=== PATIENT | female | born 1965 | race Caucasian/White ===

== ENCOUNTER → 2017-04-15 | Outpatient (CLI) | payer MEDICARE, OTHER ==
--- NOTE | 2017-04-15 12:08 | FL ---
MODIFIED SWALLOW / DEGLUTITION STUDY DATE OF EXAM: 04/15/2017 CLINICAL HISTORY: 51-year-old female with dysphasia, complaining that food gets stuck in the throat a nd has to chew a lot in order to swallow. Total fluoroscopy time: 2 minutes 10 seconds. TECHNIQUE: Deglutition study is performed utilizing thin liquid barium, honey and nectar thick liqui d barium, barium thick applesauce, and barium coated cracker. COMPARISON: None. FINDINGS: There is marked delay in AP transit of bolus with episodes of spitting food out while bolus still in the oral cavity. When there is successful posterior transit of the bolus, swallowing mechanism is nor mal without evidence for an attritional or aspiration. After the solid consistency was spit out, the exam was terminated. No significant residuals. IMPRESSION: 1. Functional swallowing mechanism. 2. The patient does have hesitation in initiating the swallow and demonstrates repeated chewing. Mult iple episodes of spitting the test material out. A psychogenic cause is suggested. Please refer to sp eech therapist notes for further details if necessary.
== END | disposition home or self-care (01) ==
LOC: RADFLMAIN 10:51
PROVIDERS: ATTEND Psychiatry & Neurology Neurology
DX: R13.10 Dysphagia, unspecified (principal)
CPT/HCPCS: 74230

== ENCOUNTER → 2019-07-20 | Outpatient (CLI) | payer MEDICARE, OTHER ==
[2019-07-20 22:35] LABS: Total Protein,CSF 63 mg/dL (12-60)
[2019-07-21 08:48] LABS: Appearance,CSF Clear; CSF Tube Number 4; CSF Tube Volume 3.8
[2019-07-21 08:49] LABS: Nucleated Cells, CSF 2 u/L (0-5); Red Blood Cell,CSF 1 u/L (0-10)
[2019-07-22 14:58] LABS: IgG - CSF 1.9 mg/dL (0.0 - 3.4); IgG Synthesis Rate 1.54 mg/day (0.00 - 3.00); IgG/Albumin Index (CSF) 0.66 (0.00 - 0.77); Immunoglobulin G 426 mg/dL (700 - 1600)
== END | disposition home or self-care (01) ==
LOC: LABWHC1 09:35
PROVIDERS: ATTEND Nurse Practitioner Acute Care
DX: R41.3 Other amnesia (principal); R90.82 White matter disease, unspecified; R26.9 Unspecified abnormalities of gait and mobility
CPT/HCPCS: 36415; 82040; 82042; 82784; 83873; 83916; 84157; 87801; 88108; 89050

== ENCOUNTER 2022-02-11 18:26 | Inpatient (IN) | payer MEDICARE, OTHER ==
[2022-02-11] MEDS ORDERED: SODIUM CHLORIDE 0.9% 500 ML 500 ML IV ONE (18:34)
[2022-02-11] MEDS ORDERED: SODIUM CHLORIDE 0.9% 1,000 ML IV ONE ×2 (18:34→20:21)
[2022-02-11 18:54] LABS: Basophils # (A) 0.1 k/uL (0-0.2); Basophils % (A) 0 %; Eosinophils # (A) 0.1 k/uL (0-0.7); Eosinophils % (A) 1 %; HCT 44.9 % (34.0-46.0); HGB 14.5 gm/dL (11.4-16.0); Lymphocytes # (A) 0.8 k/uL (1.0-4.8); Lymphocytes % (A) 4 %; MCH 30.7 pg (25.0-35.0); MCHC 32.3 g/dL (31.0-37.0); MCV 95.2 fL (80.0-100.0); Mean Platelet Volume 7.6; Monocytes # (A) 0.5 k/uL (0-1.0); Monocytes % (A) 2 %; Neutrophils # (A) 19.4 k/uL (1.3-7.7); Neutrophils % (A) 92 %; Platelet Count 509 k/uL (150-450); RBC 4.72 m/uL (3.80-5.40); RDW 15.8 % (11.5-15.5); WBC 21.2 k/uL (3.8-10.6)
--- NOTE | 2022-02-11 18:57 | ED ---
General Adult HPI - General Chief complaint: Altered Mental Status Stated complaint: unresponsive Time Seen by Provider: 02/11/22 18:40 Source: patient, EMS, RN notes reviewed, old records reviewed Mode of arrival: EMS Limitations: altered mental status - History of Present Illness Initial comments: This a 56-year-old female presents emergency Department by EMS. EMS states that she was found down unresponsive hypotensive and hypoxic. EMS states that family last saw her at 7:30 and they came home at 4:30. Family requested patient come here. No other history at this time was available. Patient responds with sternal rub and did state she is in no pain. Patient otherwise did not answer any other questions no family members with the patient. - Related Data Allergies Allergy/AdvReac Type Severity Reaction Status Date / Time Unable to Assess Allergy Verified 02/11/22 18:38 Review of Systems ROS Statement: Those systems with pertinent positive or pertinent negative responses have been documented in the HPI. ROS Other: All systems not noted in ROS Statement are negative. Past Medical History Past Medical History: Unable to Obtain History of Any Multi-Drug Resistant Organisms: Unobtainable Past Surgical History: Unable to Obtain Past Psychological History: Bipolar, Depression Smoking Status: Unknown if ever smoked Past Alcohol Use History: Unable to Obtain Past Drug Use History: Unable to Obtain General Exam - General Exam Comments Initial Comments: GENERAL: Patient is well-developed and well-nourished. Patient is nontoxic and well- hydrated and is in no acute distress. Patient is unresponsive to sternal rub ENT: Neck is soft and supple. No significant lymphadenopathy is noted. Oropharynx is clear. Moist mucous membranes. Neck has full range of motion without eliciting any pain. EYES: The sclera were anicteric and conjunctiva were pink and moist. Extraocular movements were intact and pupils were equal round and reactive to light. Eyelids were unremarkable. PULMONARY: Unlabored respirations. Good breath sounds bilaterally. No audible rales rhonchi or wheezing was noted. CARDIOVASCULAR: There is a regular rate and rhythm without any murmurs gallops or rubs. ABDOMEN: Soft and nontender with normal bowel sounds. SKIN: Skin is clear with no lesions or rashes and otherwise unremarkable. NEUROLOGIC: Patient is alert and oriented 1. Cranial nerves II through XII are grossly intact. Motor and sensory are also intact. Normal speech, volume and content. Symmetrical smile. MUSCULOSKELETAL: Normal extremities with adequate strength and full range of motion. LYMPHATICS: No significant lymphadenopathy is noted PSYCHIATRIC: Unable to evaluate at this time Limitations: altered mental status Course Vital Signs 02/11/22 02/11/22 02/11/22 18:38 20:03 20:17 Temperature 97.7 F 96.9 F L Pulse Rate 89 60 Respiratory 18 22 Rate Blood Pressure 94/62 108/57 O2 Sat by Pulse 98 96 Oximetry Medical Decision Making - Medical Decision Making EKG shows sinus rhythm at 69 bpm FL interval 100 QRS 170 QT interval 447 QTC is 466. Patient's EKG shows no ST segment elevation or depression. Patient's ideal body weight is 61 kg Patient has a pneumonia on the chest x-ray. Patient got 2 g Rocephin. Patient has elevated creatinine as well as elevated ammonia. Patient received 2-1/2 L of normal saline and was placed on 130 mL of fluid. Patient also got lactulose per rectum. I spoke with Dr. Shin agreed to admit the patient admitted the patient wrote admitting orders. - Lab Data Result diagrams: 02/11/22 18:51 02/11/22 18:51 Lab Results 02/11/22 02/11/22 02/11/22 Range/Units 18:51 18:51 18:51 WBC 21.2 H (3.8-10.6) k/uL RBC 4.72 (3.80-5.40) m/uL Hgb 14.5 (11.4-16.0) gm/dL Hct 44.9 (34.0-46.0) % MCV 95.2 (80.0-100.0) fL MCH 30.7 (25.0-35.0) pg MCHC 32.3 (31.0-37.0) g/dL RDW 15.8 H (11.5-15.5) % Plt Count 509 H (150-450) k/uL MPV 7.6 Neutrophils % 92 % Lymphocytes % 4 % Monocytes % 2 % Eosinophils % 1 % Basophils % 0 % Neutrophils # 19.4 H (1.3-7.7) k/uL Lymphocytes # 0.8 L (1.0-4.8) k/uL Monocytes # 0.5 (0-1.0) k/uL Eosinophils # 0.1 (0-0.7) k/uL Basophils # 0.1 (0-0.2) k/uL PT 9.9 (9.0-12.0) sec INR 0.9 (<1.2) APTT 20.0 L (22.0-30.0) sec Sodium 145 (137-145) mmol/L Potassium 3.1 L (3.5-5.1) mmol/L Chloride 105 (98-107) mmol/L Carbon Dioxide 25 (22-30) mmol/L Anion Gap 15 mmol/L BUN 47 H (7-17) mg/dL Creatinine 5.67 H (0.52-1.04) mg/dL Est GFR (CKD-EPI)AfAm 9 (>60 ml/min/1.73 sqM) Est GFR (CKD-EPI)NonAf 8 (>60 ml/min/1.73 sqM) Glucose 131 H (74-99) mg/dL Plasma Lactic Acid Arvind (0.7-2.0) mmol/L Calcium 8.5 (8.4-10.2) mg/dL Total Bilirubin 1.1 (0.2-1.3) mg/dL AST 645 H (14-36) U/L ALT 119 H (4-34) U/L Alkaline Phosphatase 117 (38-126) U/L Ammonia (<30) umol/L Troponin I (0.000-0.034) ng/mL Total Protein 7.4 (6.3-8.2) g/dL Albumin 3.9 (3.5-5.0) g/dL Urine Color Urine Appearance (Clear) Urine pH (5.0-8.0) Ur Specific [place] (1.001-1.035) Urine Protein (Negative) Urine Glucose (UA) (Negative) Urine Ketones (Negative) Urine Blood (Negative) Urine Nitrite (Negative) Urine Bilirubin (Negative) Urine Urobilinogen (<2.0) mg/dL Ur Leukocyte Esterase (Negative) Urine RBC (0-5) /hpf Urine WBC (0-5) /hpf Ur Squamous Epith Cells (0-4) /hpf Urine Bacteria (None) /hpf Hyaline Casts (0-2) /lpf Urine Mucus (None) /hpf Urine Yeast (Budding) (None) /hpf Urine Opiates Screen (NotDetected) Ur Oxycodone Screen (NotDetected) Urine Methadone Screen (NotDetected) Ur Propoxyphene Screen (NotDetected) Ur Barbiturates Screen (NotDetected) U Tricyclic Antidepress (NotDetected) Ur Phencyclidine Scrn (NotDetected) Ur Amphetamines Screen (NotDetected) U Methamphetamines Scrn (NotDetected) U Benzodiazepines Scrn (NotDetected) Urine Cocaine Screen (NotDetected) U Marijuana (THC) Screen (NotDetected) Serum Alcohol <10 mg/dL 02/11/22 02/11/22 02/11/22 Range/Units 18:51 18:51 19:00 WBC (3.8-10.6) k/uL RBC (3.80-5.40) m/uL Hgb (11.4-16.0) gm/dL Hct (34.0-46.0) % MCV (80.0-100.0) fL MCH (25.0-35.0) pg MCHC (31.0-37.0) g/dL RDW (11.5-15.5) % Plt Count (150-450) k/uL MPV Neutrophils % % Lymphocytes % % Monocytes % % Eosinophils % % Basophils % % Neutrophils # (1.3-7.7) k/uL Lymphocytes # (1.0-4.8) k/uL Monocytes # (0-1.0) k/uL Eosinophils # (0-0.7) k/uL Basophils # (0-0.2) k/uL PT (9.0-12.0) sec INR (<1.2) APTT (22.0-30.0) sec Sodium (137-145) mmol/L Potassium (3.5-5.1) mmol/L Chloride (98-107) mmol/L Carbon Dioxide (22-30) mmol/L Anion Gap mmol/L BUN (7-17) mg/dL Creatinine (0.52-1.04) mg/dL Est GFR (CKD-EPI)AfAm (>60 ml/min/1.73 sqM) Est GFR (CKD-EPI)NonAf (>60 ml/min/1.73 sqM) Glucose (74-99) mg/dL Plasma Lactic Acid Arvind (0.7-2.0) mmol/L Calcium (8.4-10.2) mg/dL Total Bilirubin (0.2-1.3) mg/dL AST (14-36) U/L ALT (4-34) U/L Alkaline Phosphatase (38-126) U/L Ammonia 46 H (<30) umol/L Troponin I 0.090 H* (0.000-0.034) ng/mL Total Protein (6.3-8.2) g/dL Albumin (3.5-5.0) g/dL Urine Color Dark Brown Urine Appearance Turbid H (Clear) Urine pH 5.0 (5.0-8.0) Ur Specific [place] 1.029 (1.001-1.035) Urine Protein 2+ H (Negative) Urine Glucose (UA) Trace H (Negative) Urine Ketones Negative (Negative) Urine Blood Large H (Negative) Urine Nitrite Negative (Negative) Urine Bilirubin Negative (Negative) Urine Urobilinogen 2.0 (<2.0) mg/dL Ur Leukocyte Esterase Trace H (Negative) Urine RBC 78 H (0-5) /hpf Urine WBC 74 H (0-5) /hpf Ur Squamous Epith Cells 4 (0-4) /hpf Urine Bacteria Rare H (None) /hpf Hyaline Casts 75 H (0-2) /lpf Urine Mucus Few H (None) /hpf Urine Yeast (Budding) Few H (None) /hpf Urine Opiates Screen Detected H (NotDetected) Ur Oxycodone Screen Not Detected (NotDetected) Urine Methadone Screen Not Detected (NotDetected) Ur Propoxyphene Screen Not Detected (NotDetected) Ur Barbiturates Screen Detected H (NotDetected) U Tricyclic Antidepress Not Detected (NotDetected) Ur Phencyclidine Scrn Not Detected (NotDetected) Ur Amphetamines Screen Not Detected (NotDetected) U Methamphetamines Scrn Not Detected (NotDetected) U Benzodiazepines Scrn Not Detected (NotDetected) Urine Cocaine Screen Not Detected (NotDetected) U Marijuana (THC) Screen Not Detected (NotDetected) Serum Alcohol mg/dL 02/11/22 Range/Units 20:30 WBC (3.8-10.6) k/uL RBC (3.80-5.40) m/uL Hgb (11.4-16.0) gm/dL Hct (34.0-46.0) % MCV (80.0-100.0) fL MCH (25.0-35.0) pg MCHC (31.0-37.0) g/dL RDW (11.5-15.5) % Plt Count (150-450) k/uL MPV Neutrophils % % Lymphocytes % % Monocytes % % Eosinophils % % Basophils % % Neutrophils # (1.3-7.7) k/uL Lymphocytes # (1.0-4.8) k/uL Monocytes # (0-1.0) k/uL Eosinophils # (0-0.7) k/uL Basophils # (0-0.2) k/uL PT (9.0-12.0) sec INR (<1.2) APTT (22.0-30.0) sec Sodium (137-145) mmol/L Potassium (3.5-5.1) mmol/L Chloride (98-107) mmol/L Carbon Dioxide (22-30) mmol/L Anion Gap mmol/L BUN (7-17) mg/dL Creatinine (0.52-1.04) mg/dL Est GFR (CKD-EPI)AfAm (>60 ml/min/1.73 sqM) Est GFR (CKD-EPI)NonAf (>60 ml/min/1.73 sqM) Glucose (74-99) mg/dL Plasma Lactic Acid Arvind 1.4 (0.7-2.0) mmol/L Calcium (8.4-10.2) mg/dL Total Bilirubin (0.2-1.3) mg/dL AST (14-36) U/L ALT (4-34) U/L Alkaline Phosphatase (38-126) U/L Ammonia (<30) umol/L Troponin I (0.000-0.034) ng/mL Total Protein (6.3-8.2) g/dL Albumin (3.5-5.0) g/dL Urine Color Urine Appearance (Clear) Urine pH (5.0-8.0) Ur Specific [place] (1.001-1.035) Urine Protein (Negative) Urine Glucose (UA) (Negative) Urine Ketones (Negative) Urine Blood (Negative) Urine Nitrite (Negative) Urine Bilirubin (Negative) Urine Urobilinogen (<2.0) mg/dL Ur Leukocyte Esterase (Negative) Urine RBC (0-5) /hpf Urine WBC (0-5) /hpf Ur Squamous Epith Cells (0-4) /hpf Urine Bacteria (None) /hpf Hyaline Casts (0-2) /lpf Urine Mucus (None) /hpf Urine Yeast (Budding) (None) /hpf Urine Opiates Screen (NotDetected) Ur Oxycodone Screen (NotDetected) Urine Methadone Screen (NotDetected) Ur Propoxyphene Screen (NotDetected) Ur Barbiturates Screen (NotDetected) U Tricyclic Antidepress (NotDetected) Ur Phencyclidine Scrn (NotDetected) Ur Amphetamines Screen (NotDetected) U Methamphetamines Scrn (NotDetected) U Benzodiazepines Scrn (NotDetected) Urine Cocaine Screen (NotDetected) U Marijuana (THC) Screen (NotDetected) Serum Alcohol mg/dL Critical Care Time Critical Care Time: Yes Total Critical Care Time: 35 Disposition Clinical Impression: Pneumonia, Acute renal failure, Hypokalemia, Sepsis, Altered mental status, Hepatic encephalopathy Disposition: ADMITTED IP TO THIS [facility] Time of Disposition: 20:45
[2022-02-11 19:06] LABS: ALT 119 U/L (4-34); AST 645 U/L (14-36); African American GFR (CKD) 9 (>60 ml/min/1.73 sqM); Albumin 3.9 g/dL (3.5-5.0); Alcohol <10 mg/dL; Alkaline Phosphatase 117 U/L (38-126); Anion Gap 15 mmol/L; Blood Urea Nitrogen 47 mg/dL (7-17); Calcium 8.5 mg/dL (8.4-10.2); Carbon Dioxide 25 mmol/L (22-30); Chloride 105 mmol/L (98-107); Glucose 131 mg/dL (74-99); Non-African American GFR(CKD) 8 (>60 ml/min/1.73 sqM); Potassium 3.1 mmol/L (3.5-5.1); Sodium 145 mmol/L (137-145); Total Bilirubin 1.1 mg/dL (0.2-1.3); Total Protein 7.4 g/dL (6.3-8.2)
[2022-02-11 19:10] LABS: INR 0.9 (<1.2); Prothrombin Time 9.9 sec (9.0-12.0)
--- NOTE | 2022-02-11 19:38 | CT ---
EXAMINATION TYPE: CT brain cspine wo con DATE OF EXAM: 02/11/2022 COMPARISON: None HISTORY: found unresponsive CT DLP: 1498.5 mGycm Automated exposure control for dose reduction was used. Ventricles have normal size. There is no mass effect or midline shift. There is no sign of intracrani al hemorrhage. There is mild symmetric thalamic calcification. Calvarium is intact. There is normal a eration of the mastoid sinuses. There is some mucosal thickening in the ethmoid and sphenoid sinus. M ild mucosal thickening also present in the right maxillary sinus. The cervical vertebra have normal alignment. Posterior elements are intact. No compression fracture. There is posterior endplate spur formation at C3-4. Prevertebral soft tissues are intact. IMPRESSION: Negative CT scan of the brain. No acute intracranial abnormality. Minor degenerative changes in the cervical spine. No fracture. Images of the brain and cervical spine obtained without contrast.
--- NOTE | 2022-02-11 19:45 | XR ---
EXAMINATION TYPE: XR chest 2V DATE OF EXAM: 02/11/2022 COMPARISON: 04/12/2020 HISTORY: Short of breath TECHNIQUE: 2 views FINDINGS: There is some coarse infiltrate or atelectasis right upper lobe. No heart failure seen. Hea rt size is normal. There are chest leads. Costophrenic angles are clear. IMPRESSION: There is some right upper lobe pneumonia and atelectasis which is new compared to old exa mGala
[2022-02-11 19:59] LABS: Appearance,Urine Turbid (Clear); Bacteria,Urine Rare /hpf; Bilirubin,Urine Negative (Negative); Blood,Urine Large (Negative); Budding Yeast,Urine Few /hpf; Color,Urine Dark Brown; Glucose,Urine (UA) Trace (Negative); Hyaline Casts,Urine 75 /lpf (0-2); Ketones,Urine Negative (Negative); Leukocyte Esterase,Urine Trace (Negative); Mucus,Urine Few /hpf; Nitrite,Urine Negative (Negative); Protein,Urine 2+ (Negative); RBC,Urine 78 /hpf (0-5); Specific Gravity,Urine 1.029 (1.001-1.035); Squamous Epithelial Cell,Urine 4 /hpf (0-4); WBC,Urine 74 /hpf (0-5)
[2022-02-11] MEDS ORDERED: cefTRIAXone IN SWFI 1,000 MG/10 ML SYRINGE IVP STA (20:17)
[2022-02-11 20:18] LABS: Opiate Screen,Urine Detected (NotDetected)
[2022-02-11 20:19] LABS: Amphetamine Screen,Urine Not Detected (NotDetected); Barbiturate Screen,Urine Detected (NotDetected); Benzodiazepines Screen,Urine Not Detected (NotDetected); Cocaine Screen,Urine Not Detected (NotDetected); Methadone Screen, Urine Not Detected (NotDetected); Oxycodone Screen, Urine Not Detected (NotDetected); Phencyclidine Screen,Urine Not Detected (NotDetected); Tricyclic Antidepressant,Urine Not Detected (NotDetected); Urn Cannabinoid Scrn Not Detected (NotDetected)
[2022-02-11] MEDS ORDERED: PNEUMONIA PROTOCOL UTILIZED 1 EACH MISC PO PRN (20:45)
[2022-02-11] MEDS ORDERED: AZITHROMYCIN 500 MG in SODIUM CHLORIDE 0.9% 250 ML IVPB STA (20:45)
[2022-02-11] MEDS ORDERED: NALOXONE 0.4 MG/ML 1 ML VIAL IVP STA (20:54)
[2022-02-11] MEDS: POTASSIUM CHLORIDE 10 MEQ in WATER FOR INJECTION 1 100ML.BAG IVPB SCH (21:14)
[2022-02-11] MEDS: SODIUM CHLORIDE 0.9% 1,000 ML IV SCH (21:15)
[2022-02-11] MEDS: LACTULOSE 200 GM/300 ML (FROM 1/2 GAL JUG) RECTAL ONE (21:15)
[2022-02-12] MEDS: POTASSIUM CHLORIDE 10 MEQ in WATER FOR INJECTION 1 100ML.BAG IVPB SCH (02:00)
[2022-02-12] MEDS: LACTULOSE 200 GM/300 ML (FROM 1/2 GAL JUG) RECTAL ONE (02:43)
[2022-02-12] MEDS: SODIUM CHLORIDE 0.9% 1,000 ML IV SCH ×3 (05:38→21:22)
[2022-02-12 08:19] LABS: Calcium 7.4 mg/dL (8.4-10.2); Magnesium 2.4 mg/dL (1.6-2.3); Potassium 2.9 mmol/L (3.5-5.1); Total Bilirubin 0.6 mg/dL (0.2-1.3); Total Protein 5.9 g/dL (6.3-8.2)
--- NOTE | 2022-02-12 08:25 | XR ---
EXAMINATION TYPE: XR chest 1V DATE OF EXAM: 02/12/2022 COMPARISON: X-ray dated 02/11/2022 HISTORY: Pneumonia TECHNIQUE: Single frontal view of the chest is obtained. FINDINGS: Persistent heterogeneous patchy opacities seen in the right lung zones with slight progression in the left lower lung zone which could be related to pneumonia however underlying fibrotic changes cannot be excluded, please correlate clinically. Follow-up to complete resolution is advised. No sizable pleural effusion or definite pneumothorax. No gross cardiomegaly. Unchanged bony thoracic cage. IMPRESSION: Mild interval changes as described above.
[2022-02-12] MEDS ORDERED: POTASSIUM CHLORIDE 20 MEQ in WATER FOR INJECTION 1 100ML.BAG IVPB STA (09:04)
--- NOTE | 2022-02-12 10:04 | P.NPCON ---
History of Present Illness - Reason for Consult acute renal failure - History of Present Illness Reason for consultation: Acute kidney injury History of present illness: Patient is a 56-year-old female seen in renal consultation for acute kidney injury. Patient's creatinine on admission was 5.67 and is 5.29 today. Unknown baseline renal function. 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 She does admit to taking 2 Aleve's on a daily basis for pain. She also takes Lasix at home which has helped. Patient does have history of diabetes. She was also on Vasotec at home which is currently held. Patient was brought to the hospital by the EMS after she was found down unresponsive, hypoxic and hypotensive. Family requested the patient be taken to the hospital due to change in mentation. Patient's blood pressure has been low in the systolic 90s to low 100s. She did receive 2 L normal saline bolus on admission and is currently maintained on normal saline at 1 30 mL an hour. She has a Santos catheter. Urine output not documented. She is on antibiotics for pneumonia. Potassium is low which is being replaced. She does have history of diabetes. Vital signs are stable. General: Awake. No acute distress. HEENT: Nasal cannula. LUNGS: Breath sounds decreased. HEART: Rate and Rhythm are regular. ABDOMEN: Breath sounds decreased. EXTREMITITES: No edema. Past Medical History Past Medical History: Unable to Obtain History of Any Multi-Drug Resistant Organisms: Unobtainable Past Surgical History: Unable to Obtain Past Psychological History: Bipolar, Depression Smoking Status: Unknown if ever smoked Past Alcohol Use History: Unable to Obtain Past Drug Use History: Unable to Obtain Medications and Allergies Home Medications Medication Instructions Recorded Confirmed Type Albuterol Inhaler [Ventolin Hfa 2 puff INHALATION RT-QID PRN 02/11/22 02/11/22 History Inhaler] Albuterol Nebulized [Ventolin 2.5 mg INHALATION RT-Q6H PRN 02/11/22 02/11/22 History Nebulized] Baclofen [Lioresal] 10 mg PO TID PRN 02/11/22 02/11/22 History Clopidogrel [Plavix] 75 mg PO DAILY 02/11/22 02/11/22 History DULoxetine HCL [Cymbalta] 60 mg PO BID 02/11/22 02/11/22 History Diroximel Fumarate [Vumerity] 462 mg PO BID 02/11/22 02/11/22 History Enalapril [Vasotec] 20 mg PO BID 02/11/22 02/11/22 History Ezetimibe [Zetia] 10 mg PO DAILY 02/11/22 02/11/22 History Fluticasone/Salmeterol [Advair 1 puff INHALATION RT-BID 02/11/22 02/11/22 History 500-50 Diskus] Furosemide [Lasix] 10 - 20 mg PO DAILY PRN 02/11/22 02/11/22 History HYDROcodone/APAP 7.5-325MG [[place] 1 tab PO BID PRN 02/11/22 02/11/22 History 7.5-325] Insulin Aspart [NovoLOG Flexpen] 5 unit SQ AC-TID 02/11/22 02/11/22 History Insulin Detemir [Levemir Flextouch 5 units SQ HS 02/11/22 02/11/22 History Pen] Isosorbide Mononitrate ER [Imdur] 60 mg PO DAILY 02/11/22 02/11/22 History Lidocaine 5% Patch [Lidoderm] 1 - 2 patch TOPICAL DAILY PRN 02/11/22 02/11/22 History Metoprolol Tartrate [Lopressor] 100 mg PO BID 02/11/22 02/11/22 History Montelukast Sodium [Singulair] 10 mg PO DAILY 02/11/22 02/11/22 History NIFEdipine [NIFEdipine ER] 30 mg PO DAILY 02/11/22 02/11/22 History Omeprazole 40 mg PO DAILY 02/11/22 02/11/22 History Potassium Chloride ER [K-Dur 10] 10 meq PO DAILY PRN 02/11/22 02/11/22 History Pregabalin [Lyrica] 150 mg PO TID 02/11/22 02/11/22 History Primidone [Mysoline] 50 mg PO TID 02/11/22 02/11/22 History Rosuvastatin Calcium [Crestor] 40 mg PO DAILY 02/11/22 02/11/22 History Umeclidinium [place] [Incruse 1 puff INHALATION RT-DAILY 02/11/22 02/11/22 History Ellipta] lamoTRIgine 150 mg PO BID 02/11/22 02/11/22 History levETIRAcetam [Keppra] 1,000 mg PO BID 02/11/22 02/11/22 History rOPINIRole HCL [Requip] 2 mg PO TID 02/11/22 02/11/22 History traZODone HCL [Desyrel] 200 mg PO HS PRN 02/11/22 02/11/22 History valACYclovir HCL [Valtrex] 1,000 mg PO DAILY 02/11/22 02/11/22 History Allergies Allergy/AdvReac Type Severity Reaction Status Date / Time Unable to Assess Allergy Verified 02/11/22 18:38 Physical Exam Vitals: Vital Signs Temp Pulse Resp BP Pulse Ox 02/12/22 08:00 78 14 93/50 96 02/12/22 06:56 97.1 F L 70 26 H 94/36 94 L 02/12/22 05:01 79 20 121/45 94 L 02/12/22 03:35 68 26 H 104/48 94 L 02/12/22 02:03 77 28 H 122/56 94 L 02/11/22 23:30 97.5 F L 72 24 109/57 98 02/11/22 21:13 24 02/11/22 20:17 108/57 02/11/22 20:03 96.9 F L 60 22 96 02/11/22 18:38 97.7 F 89 18 94/62 98 Intake and Output 02/11/22 02/12/22 02/12/22 22:59 06:59 14:59 Other: Weight 99.79 kg Results - Lab Results Most recent lab results Calcium 7.4 mg/dL (8.4-10.2) L 02/12/22 07:35 Magnesium 2.4 mg/dL (1.6-2.3) H 02/12/22 07:35 02/11/22 18:51 02/12/22 07:35 Assessment and Plan Plan: Assessment: 1. Acute kidney injury secondary to ATN secondary to hypotension and nonsteroidal use. Creatinine was 5.67 on admission and is 5.29 today. Rule out obstructive uropathy. Unknown baseline renal function. 2. Hypokalemia from poor intake and diuresis. Being replaced. 3. Hypernatremia from lack of oral water intake. 4. Diabetes mellitus. 5. Pneumonia on antibiotics. 6. Acute hypoxic respiratory failure. 7. Elevated ammonia level. Plan: Stop normal saline. Start half normal saline to be run at 100 mL an hour. Potassium being replaced. Check renal ultrasound. Strict is and os. Maintain Santos catheter. Continue to hold antihypertensives and diuretics. Continue to assess daily for need for renal replacement therapy. Thank you for the consultation. I will continue to follow the patient with you during her hospital stay.
[2022-02-12] MEDS ORDERED: traZODone HCL 100 MG TAB PO PRN (10:27)
[2022-02-12] MEDS ORDERED: POTASSIUM CHLORIDE 20 MEQ in WATER FOR INJECTION 1 100ML.BAG IVPB ONE ×2 (11:00→13:00)
[2022-02-12] MEDS: SODIUM CHLORIDE 0.45% 1,000 ML IV SCH ×2 (11:20→21:28)
[2022-02-12] MEDS: ISOSORBIDE MONONITRATE ER 60 MG TAB.ER.24H PO SCH (11:55)
[2022-02-12] MEDS: DIROXIMEL FUMARATE 231 MG PO SCH ×2 (11:55→23:28)
[2022-02-12] MEDS: PRIMIDONE 50 MG TAB PO SCH ×3 (11:56→21:28)
[2022-02-12] MEDS: PANTOPRAZOLE 40 MG TABLET PO SCH (11:56)
[2022-02-12] MEDS: lamoTRIgine 100 MG TAB PO SCH ×2 (11:56→21:29)
[2022-02-12] MEDS: levETIRAcetam 500 MG TAB PO SCH ×2 (11:56→21:28)
--- NOTE | 2022-02-12 15:03 | US ---
EXAMINATION TYPE: US kidneys/renal and bladder DATE OF EXAM: 02/12/2022 COMPARISON: NONE CLINICAL HISTORY: caitlin. EXAM MEASUREMENTS: Right Kidney: 10.5 x 5.0 x 5.2 cm Left Kidney: 10.4 x 5.3 x 6.5 cm Right Kidney: No hydronephrosis or masses seen Left Kidney: No hydronephrosis or masses seen Bladder: not distended, luu catheter Sludge seen within gallbladder There is no evidence for hydronephrosis at this point in time. No nephrolithiasis is seen. No denice s are identified. The urinary bladder is collapsed over a Luu catheter. Incidental finding of thick gallbladder sludge. IMPRESSION: Unremarkable kidneys. Nondistended urinary bladder. Gallbladder sludge.
--- NOTE | 2022-02-12 15:59 | P.CNNES ---
History of Present Illness Consult date: 02/12/22 Requesting physician: Andrea Shin Reason for Consult: altered mental status History of Present Illness: This is a 56-year-old woman with medical history of seizure who presented to the emergency department on 02/11/2022 via EMS since patient was found down unresponsive, hypotensive and hypoxic. Most of the history is obtained from medical record. It seems per ED note the family notified the EMS that the patient was last seen normal at 7:30 AM yesterday and then when they came back home at 4:30 in the afternoon I assume that when they found the change. I attempted to contact family but no response. Unknown the patient past medical history. The patient stated she has history of seizure and is compliant taking her medications. She denies of headache, neck pain, focal weakness. Patient stated she follows-up with Dr. Archibald for her neurologist and she might follow-up with Dr. Griffiths but unsure exactly. It seems that the patient is on home medication of Keppra thousand milligrams 1 tablet twice a day, lamotrigine 150 [place] 1 tablet twice a day, primidone 50 mg 1 tablet 3 times a day, Lyrica 150 mg 1 tablet 3 times a day, Plavix 75 mg daily, baclofen 10 mg a tablet 3 times a day when necessary. Some of the workup in the hospital consisted of: Initial vital signs is a blood pressure of 94/62, heart rate of 89, respiratory of 18, temperature of 97.7 per hour oral and pulse ox of 90% on 2 L of nasal cannula. Patient has been afebrile so far. White blood cells 20 1. 2003, neutrophilic. [place] 509. Creatinine is 5.67, glucose is 131, AST of 645, ALT of 119. Troponin is 0.090 and it's trending down slightly. Ammonia level is 46. Plasma lactic acid vein is 1.4. Calcium is 8.5 Urinalysis is a leukocyte esterase is trace, urine white blood cell is a 74, urine bacteria was rare, possibly suggestive of urinary tract infection Urine drug screen is positive for barbiturates and opiates. Otherwise. Serum alcohol was less than 10 and the rest is nondetected. CT of the head is reported as negative CT scan of the brain. The no acute intracranial abnormality. CT cervical spine report as minor degenerative changes in the cervical spine. No fracture. Nephrology is consulted for acute renal failure. Review of Systems Review of system is limited but the prone positive and negative as per HPI. Past Medical History Past Medical History: Asthma, Coronary Artery Disease (CAD), COPD, Diabetes Mellitus, GERD/Reflux, Hyperlipidemia, Hypertension, Osteoarthritis (OA), Renal Disease, Seizure Disorder Additional Past Medical History / Comment(s): IDDM type II, neuropathy bilateral legs/feet, vocal cord dysplasia/R vocal cord ulcer, dysphagia in past, IBS, overactive bladder, hyperparathyroidism, chronic back pain, headaches, chronic sinusitis, bilateral tinnitis, RLS, last seizure about one year ago, pt states past ETOH abuse but has not drank in 10 years. History of Any Multi-Drug Resistant Organisms: Unobtainable Past Surgical History: Appendectomy, Back Surgery, Heart Catheterization, Hysterectomy, Tubal Ligation Additional Past Surgical History / Comment(s): Multiple throat biopsies, EGD, colonoscopies, back surgery x2. Past Anesthesia/Blood Transfusion Reactions: No Reported Reaction Past Psychological History: Bipolar, Depression Additional Psychological History / Comment(s): Pt resides with her josesitoe. She uses a cane or walker to ambulate. She does not drive, she gets rides thru [facility] transportation. She manages her own medication. She sees Dr. Gorman for her mental health. Smoking Status: Current every day smoker, Unknown if ever smoked Additional Past Alcohol Use History / Comment(s): Pt started smoking in 1988 and is a ppd smoker. She has hx of alcoholism but quit drinking 10 yrs ago. Past Drug Use History: Marijuana Additional Drug Use History / Comment(s): Past marijuana use. - Past Family History Mother Family Medical History: Coronary Artery Disease (CAD) Additional Family Medical History / Comment(s): Mother had CABG Father Family Medical History: CVA/TIA Medications and Allergies Home Medications Medication Instructions Recorded Confirmed Type Albuterol Inhaler [Ventolin Hfa 2 puff INHALATION RT-QID PRN 02/11/22 02/11/22 History Inhaler] Albuterol Nebulized [Ventolin 2.5 mg INHALATION RT-Q6H PRN 02/11/22 02/11/22 History Nebulized] Baclofen [Lioresal] 10 mg PO TID PRN 02/11/22 02/11/22 History Clopidogrel [Plavix] 75 mg PO DAILY 02/11/22 02/11/22 History DULoxetine HCL [Cymbalta] 60 mg PO BID 02/11/22 02/11/22 History Diroximel Fumarate [Vumerity] 462 mg PO BID 02/11/22 02/11/22 History Enalapril [Vasotec] 20 mg PO BID 02/11/22 02/11/22 History Ezetimibe [Zetia] 10 mg PO DAILY 02/11/22 02/11/22 History Fluticasone/Salmeterol [Advair 1 puff INHALATION RT-BID 02/11/22 02/11/22 History 500-50 Diskus] Furosemide [Lasix] 10 - 20 mg PO DAILY PRN 02/11/22 02/11/22 History HYDROcodone/APAP 7.5-325MG [[place] 1 tab PO BID PRN 02/11/22 02/11/22 History 7.5-325] Insulin Aspart [NovoLOG Flexpen] 5 unit SQ AC-TID 02/11/22 02/11/22 History Insulin Detemir [Levemir Flextouch 5 units SQ HS 02/11/22 02/11/22 History Pen] Isosorbide Mononitrate ER [Imdur] 60 mg PO DAILY 02/11/22 02/11/22 History Lidocaine 5% Patch [Lidoderm] 1 - 2 patch TOPICAL DAILY PRN 02/11/22 02/11/22 History Metoprolol Tartrate [Lopressor] 100 mg PO BID 02/11/22 02/11/22 History Montelukast Sodium [Singulair] 10 mg PO DAILY 02/11/22 02/11/22 History NIFEdipine [NIFEdipine ER] 30 mg PO DAILY 02/11/22 02/11/22 History Omeprazole 40 mg PO DAILY 02/11/22 02/11/22 History Potassium Chloride ER [K-Dur 10] 10 meq PO DAILY PRN 02/11/22 02/11/22 History Pregabalin [Lyrica] 150 mg PO TID 02/11/22 02/11/22 History Primidone [Mysoline] 50 mg PO TID 02/11/22 02/11/22 History Rosuvastatin Calcium [Crestor] 40 mg PO DAILY 02/11/22 02/11/22 History Umeclidinium [place] [Incruse 1 puff INHALATION RT-DAILY 02/11/22 02/11/22 History Ellipta] lamoTRIgine 150 mg PO BID 02/11/22 02/11/22 History levETIRAcetam [Keppra] 1,000 mg PO BID 02/11/22 02/11/22 History rOPINIRole HCL [Requip] 2 mg PO TID 02/11/22 02/11/22 History traZODone HCL [Desyrel] 200 mg PO HS PRN 02/11/22 02/11/22 History valACYclovir HCL [Valtrex] 1,000 mg PO DAILY 02/11/22 02/11/22 History Allergies Allergy/AdvReac Type Severity Reaction Status Date / Time No Known Allergies Allergy Verified 02/12/22 10:30 Physical Examination - Vital Signs Vital Signs: Vital Signs Temp Pulse Resp BP Pulse Ox 02/12/22 10:00 81 18 110/70 94 L 02/12/22 08:00 78 14 93/50 96 02/12/22 06:56 97.1 F L 70 26 H 94/36 94 L 02/12/22 05:01 79 20 121/45 94 L 02/12/22 03:35 68 26 H 104/48 94 L 02/12/22 02:03 77 28 H 122/56 94 L 02/11/22 23:30 97.5 F L 72 24 109/57 98 02/11/22 21:13 24 02/11/22 20:17 108/57 02/11/22 20:03 96.9 F L 60 22 96 02/11/22 18:38 97.7 F 89 18 94/62 98 Intake and Output 02/11/22 02/12/22 02/12/22 22:59 06:59 14:59 Other: Weight 99.79 kg GENERAL: The patient is lying in bed and is not in acute distress. HENT: Supple neck. CHEST: The heart rate is regular rate rhythm. No murmurs to auscultation. LUNG: Clear to auscultation bilaterally no wheezing noted throughout. Not labored breathing. ABDOMEN/GI: Bowel sounds present in all 4 quadrants. No tenderness to palpation throughout. NEUROLOGICAL: Higher mental function: The patient is drowsy but is awakeable to voice. Oriented to self and time but could not tell me place. She is following simple commands. No aphasia or neglect. Cranial nerves: The pupils are round, equal, 6mm bilaterally and reactive to light. Visual harris could not be assessed because of her cooperation. The facial strength is normal throughout. Hearing is normal bilaterally to hand rub. Tongue is midline and moved [id number] without any difficulty. No dysarthria is noted. Shoulder shrug is normal bilaterally. Motor: The strength is moving all extremities above gravity. Has tremor with action. Normal tone and bulk. Cerebellum: Normal finger to nose bilaterally. Sensation: Sensation is normal to touch throughout. Reflexes (right/left): 2+ throughout. Plantars are downgoing bilaterally. Results - Laboratory Findings CBC and BMP: 02/11/22 18:51 02/12/22 07:35 Abnormal Lab Findings: Abnormal Labs 02/11/22 02/11/22 02/11/22 18:51 18:51 18:51 WBC 21.2 H RDW 15.8 H Plt Count 509 H Neutrophils # 19.4 H Lymphocytes # 0.8 L APTT 20.0 L Sodium Potassium 3.1 L Chloride Carbon Dioxide BUN 47 H Creatinine 5.67 H Glucose 131 H Calcium Magnesium AST 645 H ALT 119 H Ammonia Troponin I Total Protein Albumin Urine Appearance Urine Protein Urine Glucose (UA) Urine Blood Ur Leukocyte Esterase Urine RBC Urine WBC Urine Bacteria Hyaline Casts Urine Mucus Urine Yeast (Budding) Urine Opiates Screen Ur Barbiturates Screen 02/11/22 02/11/22 02/11/22 18:51 18:51 19:00 WBC RDW Plt Count Neutrophils # Lymphocytes # APTT Sodium Potassium Chloride Carbon Dioxide BUN Creatinine Glucose Calcium Magnesium AST ALT Ammonia 46 H Troponin I 0.090 H* Total Protein Albumin Urine Appearance Turbid H Urine Protein 2+ H Urine Glucose (UA) Trace H Urine Blood Large H Ur Leukocyte Esterase Trace H Urine RBC 78 H Urine WBC 74 H Urine Bacteria Rare H Hyaline Casts 75 H Urine Mucus Few H Urine Yeast (Budding) Few H Urine Opiates Screen Detected H Ur Barbiturates Screen Detected H 02/11/22 02/12/22 02/12/22 22:16 00:50 07:35 WBC RDW Plt Count Neutrophils # Lymphocytes # APTT Sodium 146 H Potassium 2.9 L Chloride 112 H Carbon Dioxide 21 L BUN 50 H Creatinine 5.29 H Glucose 112 H Calcium 7.4 L Magnesium 2.4 H AST 657 H ALT 127 H Ammonia Troponin I 0.079 H* 0.075 H* Total Protein 5.9 L Albumin 3.0 L Urine Appearance Urine Protein Urine Glucose (UA) Urine Blood Ur Leukocyte Esterase Urine RBC Urine WBC Urine Bacteria Hyaline Casts Urine Mucus Urine Yeast (Budding) Urine Opiates Screen Ur Barbiturates Screen Assessment and Plan Assessment: Altered mental status due to multifactorial: toxic-metabolic encephalopathy and hepatic encephalopathy: with acute renal failure, and elevated liver function and mild elevated ammonia level. Rule out sepsis---mentation improving Acute renal failure Elevated liver function test AST > ALT: Unsure exact cause. Rule out alcohol use Slightly elevated troponin likely troponin leak History of seizure Plan: EEG is ordered by the primary team and is pending I ordered TSH, vitamin B12 and folate level. Patient was given lactulose once in the ED. Patient's home Keppra 1000 mg 1 tablet twice a day and the Lamictal 150 mg twice a day was restarted. I started the patient on thiamine 100mg daily. Blood culture urine culture is ordered and is pending Nephrology is on board Currently the patient is on azithromycin and ceftriaxone. Consider infection disease consult for possibility of sepsis. We'll defer the rest of the medical management to the primary team The plan is disucssed with the nurse. Thank you for consultation. Will Velez M.D. Neuro-hospitalist Time with Patient: Greater than 30
[2022-02-12] MEDS: IPRATROPIUM-ALBUTEROL 3 ML NEB INHALATION SCH ×2 (16:25→19:17)
[2022-02-12 16:53] LABS: Glucose,Whole Blood 106 mg/dL (75-99)
--- NOTE | 2022-02-12 16:56 | P.HPIM ---
History of Present Illness H&P Date: 02/12/22 Chief Complaint: Unresponsive This is a 56-year-old patient, follows with Dr. Floyd. Chronic stable medical conditions include CAD, COPD, diabetes, GERD, hyperlipidemia, hypertension, prostatitis, neuropathy, vocal cord dysplasia, IBS, overactive bladder, chronic back pain, restless leg syndrome, seizure activity, still drinking about 10 years ago. Bipolar. Patient does follow with Dr. Gorman from psychiatry. Active smoker. Patient by the EMS was found to be unresponsive hypotensive and hypoxic. Patient was last seen by the family at 7:30 AM and if on the patient at 4:30 PM. In the ER initial presentation patient was minimally responsive. This is yesterday evening. This morning patient is drowsy. Attempting to answer questions. And dozes off. Does questionable pneumonia on the x-ray and started on antibiotic in the ER. Review of systems cannot be done patient other drowsy Past medical history to include: CAD, COPD, diabetes, GERD, hyperlipidemia, hypertension, prostatitis, kidney disease, seizure disorder, peripheral neuropathy, vocal cord dysplasia, IBS, overactive bladder, hyperparathyroidism, chronic back pain, this is like syndrome, seizure activity, history of alcohol abuse 10 years ago. Bipolar. Social history: Lives with her. She. Does use a cane or a walker. Smokes a pack a day for 44 years. History of alcoholism stopped 10 years ago. Did use marijuana in the past. Family history: Mother had CAD Physical examination: VITAL SIGNS: 97.7, 89, 18, 94/62, 98% on 2 L upon presentation GENERAL: BMI 34.5, laying in bed, lethargic arousable. EYES: Pupils equal. Conjunctiva normal. HEENT: [External appearance of nose and ears normal, oral cavity dry mucous membranes. NECK: JVD not raised; masses not palpable. HEART: First and second heart sounds are normal; no edema. LUNGS: Respiratory rate increased; decreased breath sounds. ABDOMEN: Soft, nontender, liver spleen not palpable, no masses palpable. PSYCH: [Lethargic, attempting to answer questions l. MUSCULOSKELETAL:No Clubbing/cyanosis;muscles-grossly intact NEUROLOGICAL: Cranial nerves grossly intact; no facial asymmetry, power and sensation grossly intact. LYMPHATICS: No lymph nodes palpable in the axilla and neck INVESTIGATIONS, reviewed in the clinical context: Sodium 146 potassium 2.9 BUN 50 creatinine 5.29 AST 657 ALT 127 Admission labs: UA positive for trace leukoesterase WBC RBC Urine culture positive for opiates, barbiturates White count 21.2 hemoglobin 14.5 platelets 509 potassium 3.1 BUN 47 creatinine 5.67 Troponin I 0.090, 0.079 Serum alcohol less than 10 EKG tracing personally reviewed by me-normal sinus rhythm. 69/m. Chest x-ray film personally reviewed by [id number] infiltrate Computed tomography scan brain: Unremarkable Assessment and plan: -Possibly severe metabolic encephalopathy. No focal signs make stroke unlikely. Rule out seizure activity. Note that patient is on several medications that could be [employer] depressant. EEG. Cutback doses of Requip. Consult neurology. -Acute COPD exacerbation the current smoker DuoNeb 3 times a day. Nebulized Perforomist Pulmicort -Chronic nicotine dependence, cigarette smoker Nicotine patch 21 -Restless leg syndrome Decrease Requip to 1 mg 3 times a day -GERD Omeprazole 40 mg daily -Bipolar disorder Continue home medications -Diabetes mellitus type 2 chronically on insulin Follow Accu-Cheks with sliding scale -Suspect aspiration pneumonia IV ceftriaxone Consult neurology. EEG. Home medications resumed. Cutback doses of Requip to 1 mg 3 times a day. Decrease Lyrica 100 mg 3 times a day. Consult psychiatry. IV ceftriaxone. DuoNeb. Nebulized Perforomist Pulmicort. Aspiration precautions. Fall precautions. Given the complexity and severity of patient's condition expect the patient to be in the hospital at least for 2 overnights Past Medical History Past Medical History: Unable to Obtain History of Any Multi-Drug Resistant Organisms: Unobtainable Past Surgical History: Unable to Obtain Past Psychological History: Bipolar, Depression Smoking Status: Unknown if ever smoked Past Alcohol Use History: Unable to Obtain Past Drug Use History: Unable to Obtain - Past Family History Mother Family Medical History: Coronary Artery Disease (CAD) Additional Family Medical History / Comment(s): Mother had CABG Father Family Medical History: CVA/TIA Medications and Allergies Home Medications Medication Instructions Recorded Confirmed Type Albuterol Inhaler [Ventolin Hfa 2 puff INHALATION RT-QID PRN 02/11/22 02/11/22 History Inhaler] Albuterol Nebulized [Ventolin 2.5 mg INHALATION RT-Q6H PRN 02/11/22 02/11/22 History Nebulized] Baclofen [Lioresal] 10 mg PO TID PRN 02/11/22 02/11/22 History Clopidogrel [Plavix] 75 mg PO DAILY 02/11/22 02/11/22 History DULoxetine HCL [Cymbalta] 60 mg PO BID 02/11/22 02/11/22 History Diroximel Fumarate [Vumerity] 462 mg PO BID 02/11/22 02/11/22 History Enalapril [Vasotec] 20 mg PO BID 02/11/22 02/11/22 History Ezetimibe [Zetia] 10 mg PO DAILY 02/11/22 02/11/22 History Fluticasone/Salmeterol [Advair 1 puff INHALATION RT-BID 02/11/22 02/11/22 History 500-50 Diskus] Furosemide [Lasix] 10 - 20 mg PO DAILY PRN 02/11/22 02/11/22 History HYDROcodone/APAP 7.5-325MG [[place] 1 tab PO BID PRN 02/11/22 02/11/22 History 7.5-325] Insulin Aspart [NovoLOG Flexpen] 5 unit SQ AC-TID 02/11/22 02/11/22 History Insulin Detemir [Levemir Flextouch 5 units SQ HS 02/11/22 02/11/22 History Pen] Isosorbide Mononitrate ER [Imdur] 60 mg PO DAILY 02/11/22 02/11/22 History Lidocaine 5% Patch [Lidoderm] 1 - 2 patch TOPICAL DAILY PRN 02/11/22 02/11/22 History Metoprolol Tartrate [Lopressor] 100 mg PO BID 02/11/22 02/11/22 History Montelukast Sodium [Singulair] 10 mg PO DAILY 02/11/22 02/11/22 History NIFEdipine [NIFEdipine ER] 30 mg PO DAILY 02/11/22 02/11/22 History Omeprazole 40 mg PO DAILY 02/11/22 02/11/22 History Potassium Chloride ER [K-Dur 10] 10 meq PO DAILY PRN 02/11/22 02/11/22 History Pregabalin [Lyrica] 150 mg PO TID 02/11/22 02/11/22 History Primidone [Mysoline] 50 mg PO TID 02/11/22 02/11/22 History Rosuvastatin Calcium [Crestor] 40 mg PO DAILY 02/11/22 02/11/22 History Umeclidinium [place] [Incruse 1 puff INHALATION RT-DAILY 02/11/22 02/11/22 History Ellipta] lamoTRIgine 150 mg PO BID 02/11/22 02/11/22 History levETIRAcetam [Keppra] 1,000 mg PO BID 02/11/22 02/11/22 History rOPINIRole HCL [Requip] 2 mg PO TID 02/11/22 02/11/22 History traZODone HCL [Desyrel] 200 mg PO HS PRN 02/11/22 02/11/22 History valACYclovir HCL [Valtrex] 1,000 mg PO DAILY 02/11/22 02/11/22 History Allergies Allergy/AdvReac Type Severity Reaction Status Date / Time No Known Allergies Allergy Verified 02/12/22 10:30 Physical Exam Vitals: Vital Signs Temp Pulse Resp BP Pulse Ox 02/12/22 10:00 81 18 110/70 94 L 02/12/22 08:00 78 14 93/50 96 02/12/22 06:56 97.1 F L 70 26 H 94/36 94 L 02/12/22 05:01 79 20 121/45 94 L 02/12/22 03:35 68 26 H 104/48 94 L 02/12/22 02:03 77 28 H 122/56 94 L 02/11/22 23:30 97.5 F L 72 24 109/57 98 02/11/22 21:13 24 02/11/22 20:17 108/57 02/11/22 20:03 96.9 F L 60 22 96 02/11/22 18:38 97.7 F 89 18 94/62 98 Intake and Output 02/11/22 02/12/22 02/12/22 22:59 06:59 14:59 Other: Weight 99.79 kg Results CBC & Chem 7: 02/11/22 18:51 02/12/22 07:35 Labs: Abnormal Lab Results - Last 24 Hours (Table) 02/11/22 02/11/22 02/11/22 Range/Units 18:51 18:51 18:51 WBC 21.2 H (3.8-10.6) k/uL RDW 15.8 H (11.5-15.5) % Plt Count 509 H (150-450) k/uL Neutrophils # 19.4 H (1.3-7.7) k/uL Lymphocytes # 0.8 L (1.0-4.8) k/uL APTT 20.0 L (22.0-30.0) sec Sodium (137-145) mmol/L Potassium 3.1 L (3.5-5.1) mmol/L Chloride (98-107) mmol/L Carbon Dioxide (22-30) mmol/L BUN 47 H (7-17) mg/dL Creatinine 5.67 H (0.52-1.04) mg/dL Glucose 131 H (74-99) mg/dL Calcium (8.4-10.2) mg/dL Magnesium (1.6-2.3) mg/dL AST 645 H (14-36) U/L ALT 119 H (4-34) U/L Ammonia (<30) umol/L Troponin I (0.000-0.034) ng/mL Total Protein (6.3-8.2) g/dL Albumin (3.5-5.0) g/dL Urine Appearance (Clear) Urine Protein (Negative) Urine Glucose (UA) (Negative) Urine Blood (Negative) Ur Leukocyte Esterase (Negative) Urine RBC (0-5) /hpf Urine WBC (0-5) /hpf Urine Bacteria (None) /hpf Hyaline Casts (0-2) /lpf Urine Mucus (None) /hpf Urine Yeast (Budding) (None) /hpf Urine Opiates Screen (NotDetected) Ur Barbiturates Screen (NotDetected) 02/11/22 02/11/22 02/11/22 Range/Units 18:51 18:51 19:00 WBC (3.8-10.6) k/uL RDW (11.5-15.5) % Plt Count (150-450) k/uL Neutrophils # (1.3-7.7) k/uL Lymphocytes # (1.0-4.8) k/uL APTT (22.0-30.0) sec Sodium (137-145) mmol/L Potassium (3.5-5.1) mmol/L Chloride (98-107) mmol/L Carbon Dioxide (22-30) mmol/L BUN (7-17) mg/dL Creatinine (0.52-1.04) mg/dL Glucose (74-99) mg/dL Calcium (8.4-10.2) mg/dL Magnesium (1.6-2.3) mg/dL AST (14-36) U/L ALT (4-34) U/L Ammonia 46 H (<30) umol/L Troponin I 0.090 H* (0.000-0.034) ng/mL Total Protein (6.3-8.2) g/dL Albumin (3.5-5.0) g/dL Urine Appearance Turbid H (Clear) Urine Protein 2+ H (Negative) Urine Glucose (UA) Trace H (Negative) Urine Blood Large H (Negative) Ur Leukocyte Esterase Trace H (Negative) Urine RBC 78 H (0-5) /hpf Urine WBC 74 H (0-5) /hpf Urine Bacteria Rare H (None) /hpf Hyaline Casts 75 H (0-2) /lpf Urine Mucus Few H (None) /hpf Urine Yeast (Budding) Few H (None) /hpf Urine Opiates Screen Detected H (NotDetected) Ur Barbiturates Screen Detected H (NotDetected) 02/11/22 02/12/22 02/12/22 Range/Units 22:16 00:50 07:35 WBC (3.8-10.6) k/uL RDW (11.5-15.5) % Plt Count (150-450) k/uL Neutrophils # (1.3-7.7) k/uL Lymphocytes # (1.0-4.8) k/uL APTT (22.0-30.0) sec Sodium 146 H (137-145) mmol/L Potassium 2.9 L (3.5-5.1) mmol/L Chloride 112 H (98-107) mmol/L Carbon Dioxide 21 L (22-30) mmol/L BUN 50 H (7-17) mg/dL Creatinine 5.29 H (0.52-1.04) mg/dL Glucose 112 H (74-99) mg/dL Calcium 7.4 L (8.4-10.2) mg/dL Magnesium 2.4 H (1.6-2.3) mg/dL AST 657 H (14-36) U/L ALT 127 H (4-34) U/L Ammonia (<30) umol/L Troponin I 0.079 H* 0.075 H* (0.000-0.034) ng/mL Total Protein 5.9 L (6.3-8.2) g/dL Albumin 3.0 L (3.5-5.0) g/dL Urine Appearance (Clear) Urine Protein (Negative) Urine Glucose (UA) (Negative) Urine Blood (Negative) Ur Leukocyte Esterase (Negative) Urine RBC (0-5) /hpf Urine WBC (0-5) /hpf Urine Bacteria (None) /hpf Hyaline Casts (0-2) /lpf Urine Mucus (None) /hpf Urine Yeast (Budding) (None) /hpf Urine Opiates Screen (NotDetected) Ur Barbiturates Screen (NotDetected) Microbiology - Last 24 Hours (Table) 02/11/22 19:00 Urine Culture - Preliminary Urine,Clean Catch
[2022-02-12] MEDS: PREGABALIN 100 MG CAP PO SCH ×2 (17:46→21:29)
[2022-02-12] MEDS: THIAMINE 100 MG TAB PO SCH (17:47)
[2022-02-12] MEDS: INSULIN ASPART (NovoLOG) 100 UNIT/ML VIAL SQ SCH ×2 (17:47→21:23)
[2022-02-12] MEDS: NICOTINE 21MG/24HR PATCH TRANSDERM SCH (17:47)
[2022-02-12 17:57] LABS: T4, Free (Free Thyroxine) 1.05 ng/dL (0.78-2.19)
[2022-02-12] MEDS: BUDESONIDE 1 MG/2 ML NEBU INHALATION SCH (19:17)
[2022-02-12] MEDS: FORMOTEROL FUMARATE 20 MCG/2 ML NEBU INHALATION SCH ×2 (19:17→19:31)
[2022-02-12 21:16] LABS: Glucose,Whole Blood 111 mg/dL (75-99)
[2022-02-12] MEDS: AZITHROMYCIN 500 MG TAB PO SCH (21:28)
[2022-02-12] MEDS: DULoxetine HCL 60 MG CAPSULE.DR PO SCH (21:28)
[2022-02-13] MEDS: SODIUM CHLORIDE 0.9% 1,000 ML IV SCH (04:33)
[2022-02-13 06:10] LABS: Glucose,Whole Blood 86 mg/dL (75-99)
[2022-02-13] MEDS: INSULIN ASPART (NovoLOG) 100 UNIT/ML VIAL SQ SCH ×4 (06:14→21:35)
[2022-02-13] MEDS: SODIUM CHLORIDE 0.45% 1,000 ML IV SCH ×2 (06:29→17:34)
[2022-02-13] MEDS: PANTOPRAZOLE 40 MG TABLET PO SCH (06:29)
[2022-02-13 07:46] LABS: Albumin 2.6 g/dL (3.5-5.0); Calcium 7.8 mg/dL (8.4-10.2); Magnesium 2.2 mg/dL (1.6-2.3); Potassium 3.4 mmol/L (3.5-5.1); Total Bilirubin 0.5 mg/dL (0.2-1.3); Total Protein 5.5 g/dL (6.3-8.2)
[2022-02-13] MEDS ORDERED: Potassium Replacement Protocol 1 EACH MISC MISCELLANE PRN (07:51)
[2022-02-13] MEDS: IPRATROPIUM-ALBUTEROL 3 ML NEB INHALATION SCH ×3 (08:15→21:18)
[2022-02-13] MEDS: FORMOTEROL FUMARATE 20 MCG/2 ML NEBU INHALATION SCH ×2 (08:15→21:18)
[2022-02-13] MEDS: BUDESONIDE 1 MG/2 ML NEBU INHALATION SCH ×2 (08:16→21:18)
[2022-02-13] MEDS: EZETIMIBE 10 MG TAB PO SCH (08:55)
[2022-02-13] MEDS: NICOTINE 21MG/24HR PATCH TRANSDERM SCH (08:55)
[2022-02-13] MEDS: PREGABALIN 100 MG CAP PO SCH ×3 (08:56→21:35)
[2022-02-13] MEDS: THIAMINE 100 MG TAB PO SCH (08:56)
[2022-02-13] MEDS: lamoTRIgine 100 MG TAB PO SCH ×2 (08:56→21:35)
[2022-02-13] MEDS: POTASSIUM CHLORIDE ER 20 MEQ TAB.ER PO SCH ×2 (08:56→09:50)
[2022-02-13] MEDS: CLOPIDOGREL 75 MG TAB PO SCH (08:56)
[2022-02-13] MEDS: FOLIC ACID 1 MG TAB PO SCH (08:56)
[2022-02-13] MEDS: ISOSORBIDE MONONITRATE ER 60 MG TAB.ER.24H PO SCH (08:56)
[2022-02-13] MEDS: DULoxetine HCL 60 MG CAPSULE.DR PO SCH ×2 (08:56→21:35)
[2022-02-13] MEDS: MONTELUKAST 10 MG TAB PO SCH (08:56)
[2022-02-13] MEDS: levETIRAcetam 500 MG TAB PO SCH ×2 (08:56→21:35)
[2022-02-13] MEDS: PRIMIDONE 50 MG TAB PO SCH ×3 (08:56→21:35)
[2022-02-13] MEDS: ATORVASTATIN 80 MG TAB PO SCH (08:56)
[2022-02-13] MEDS: DIROXIMEL FUMARATE 231 MG PO SCH ×2 (08:56→21:35)
[2022-02-13] MEDS ORDERED: FUROSEMIDE 10 MG/ML 10 ML VIAL IV STA (11:03)
--- NOTE | 2022-02-13 11:05 | P.PN ---
Subjective Patient is seen in follow-up for acute kidney injury. Creatinine stable at 5.43. Has a Santos catheter. Urine output documented as 250 mL overnight. Receiving IV fluids. Denies chest pain or shortness of breath. Blood pressure stable. No vomiting or diarrhea. Vital signs are stable. General: Awake. No acute distress. HEENT: On nasal cannula. No JVD. LUNGS: Breath sounds decreased. HEART: Rate and Rhythm are regular. ABDOMEN: Soft, no distention. EXTREMITITES: No edema. Objective - Vital Signs Vital signs: Vital Signs Temp 98.6 F 02/13/22 04:07 Pulse 80 02/13/22 08:43 Resp 18 02/13/22 04:07 BP 139/57 02/13/22 04:07 Pulse Ox 99 02/13/22 08:18 Intake & Output 02/12/22 02/13/22 02/13/22 18:59 06:59 18:59 Intake Total 540 140 Output Total 250 Balance 540 -250 140 Weight 99.79 kg Intake: Oral 540 140 Output: Urine 250 Other: Voiding Method Indwelling Catheter Indwelling Catheter # Bowel Movements 1 - Labs CBC & Chem 7: 02/11/22 18:51 02/13/22 05:53 Labs: Abnormal Lab Results - Last 24 Hours (Table) 02/12/22 02/12/22 02/12/22 Range/Units 07:35 07:35 16:51 Potassium (3.5-5.1) mmol/L Chloride (98-107) mmol/L Carbon Dioxide (22-30) mmol/L BUN (7-17) mg/dL Creatinine (0.52-1.04) mg/dL POC Glucose (mg/dL) 106 H (75-99) mg/dL Calcium (8.4-10.2) mg/dL AST (14-36) U/L ALT (4-34) U/L Total Protein (6.3-8.2) g/dL Albumin (3.5-5.0) g/dL Folate 2.50 L (4.40-31.00) ng/mL TSH 0.294 L (0.465-4.680) mIU/L 02/12/22 02/13/22 Range/Units 21:13 05:53 Potassium 3.4 L (3.5-5.1) mmol/L Chloride 108 H (98-107) mmol/L Carbon Dioxide 17 L (22-30) mmol/L BUN 55 H (7-17) mg/dL Creatinine 5.43 H (0.52-1.04) mg/dL POC Glucose (mg/dL) 111 H (75-99) mg/dL Calcium 7.8 L (8.4-10.2) mg/dL AST 344 H (14-36) U/L ALT 113 H (4-34) U/L Total Protein 5.5 L (6.3-8.2) g/dL Albumin 2.6 L (3.5-5.0) g/dL Folate (4.40-31.00) ng/mL TSH (0.465-4.680) mIU/L Microbiology - Last 24 Hours (Table) 02/11/22 18:43 Blood Culture - Preliminary Blood No Growth after 24 hours 02/11/22 18:40 Blood Culture Gram Stain - Preliminary Blood Blood Culture - Preliminary Coagulase Negative Staph 02/11/22 19:00 Urine Culture - Final Urine,Clean Catch 02/11/22 18:40 Blood Culture - Final Blood Assessment and Plan Plan: Assessment: 1. Acute kidney injury secondary to ATN secondary to hypotension and nonsteroidal use. Creatinine was 5.67 on admission and is 5.43 today. No hydronephrosis noted on kidney ultrasound. Unknown baseline renal function. 2. Hypokalemia from poor intake. Magnesium normal. 3. Hypernatremia from lack of oral water intake. Improved. 4. Diabetes mellitus. 5. Pneumonia on antibiotics. Blood culture positive for coag-negative staph. 6. Acute hypoxic respiratory failure. 7. Elevated ammonia level. Plan: Maintain half normal saline to be run at 100 mL an hour. Potassium being replaced. Strict is and os. Maintain Santos catheter. Continue to hold antihypertensives. Lasix 80 mg IV once today. Quantify proteinuria and check serologies. Add bicarb. Check phosphorus level.sodiu If no improvement in renal function and urine output in the next 24 hours, will initiate renal replacement therapy. This was discussed with patient.
[2022-02-13 11:58] LABS: Glucose,Whole Blood 110 mg/dL (75-99)
[2022-02-13] MEDS ORDERED: FLUCONAZOLE 100 MG TAB PO ONE (12:00)
--- NOTE | 2022-02-13 12:19 | P.PN ---
Subjective Progress Note Date: 02/13/22 The patient is seen at bedside and per nurse is about the same. She continues to have some confusion. Objective - Vital Signs Vital signs: Vital Signs Temp 97.8 F 02/13/22 08:00 Pulse 80 02/13/22 08:43 Resp 18 02/13/22 08:00 BP 116/54 02/13/22 08:00 Pulse Ox 99 02/13/22 08:18 Intake & Output 02/12/22 02/13/22 02/13/22 18:59 06:59 18:59 Intake Total 540 140 Output Total 250 Balance 540 -250 140 Weight 99.79 kg Intake: Oral 540 140 Output: Urine 250 Other: Voiding Method Indwelling Catheter Indwelling Catheter Indwelling Catheter # Bowel Movements 1 - Exam GENERAL: The patient is lying in bed and is not in acute distress. NEUROLOGICAL: Higher mental function: The patient is drowsy but is awakeable to voice. Oriented to self, place. She correctly stated current month. Does not know the year. She is following simple commands. No aphasia or neglect. Cranial nerves: The pupils are round, equal, 6mm bilaterally and reactive to light. Visual harris is full to confrontation. The facial strength is subtle right lower facial droop. No dysarthria. Motor: The strength is hard to assess invidual muscles because of cooperation. But is moving all extremities above gravity. Has tremor with action. Normal tone and bulk. Cerebellum: Normal finger to nose bilaterally. Sensation: Sensation is normal to touch throughout. Reflexes (right/left): 2+ throughout. Plantars are downgoing bilaterally. SOME OF THE WORK-UP: Vitamin B12: 406 Serum folate: 2.50 (normal is 4.40-31) HbA1c: 5.7 Creatinine is 5.67, glucose is 131, AST of 645, ALT of 119. Troponin is 0.090 and it's trending down slightly. Ammonia level is 46. Plasma lactic acid vein is 1.4. Calcium is 8.5 Urinalysis is a leukocyte esterase is trace, urine white blood cell is a 74, urine bacteria was rare, possibly suggestive of urinary tract infection Urine drug screen is positive for barbiturates and opiates. Otherwise. Serum alcohol was less than 10 and the rest is nondetected. CT of the head is reported as negative CT scan of the brain. The no acute intracranial abnormality. CT cervical spine report as minor degenerative changes in the cervical spine. No fracture. - Labs CBC & Chem 7: 02/11/22 18:51 02/13/22 05:53 Labs: Abnormal Lab Results - Last 24 Hours (Table) 02/12/22 02/12/22 02/12/22 Range/Units 07:35 07:35 16:51 Potassium (3.5-5.1) mmol/L Chloride (98-107) mmol/L Carbon Dioxide (22-30) mmol/L BUN (7-17) mg/dL Creatinine (0.52-1.04) mg/dL POC Glucose (mg/dL) 106 H (75-99) mg/dL Calcium (8.4-10.2) mg/dL AST (14-36) U/L ALT (4-34) U/L Total Protein (6.3-8.2) g/dL Albumin (3.5-5.0) g/dL Folate 2.50 L (4.40-31.00) ng/mL TSH 0.294 L (0.465-4.680) mIU/L 02/12/22 02/13/22 02/13/22 Range/Units 21:13 05:53 11:56 Potassium 3.4 L (3.5-5.1) mmol/L Chloride 108 H (98-107) mmol/L Carbon Dioxide 17 L (22-30) mmol/L BUN 55 H (7-17) mg/dL Creatinine 5.43 H (0.52-1.04) mg/dL POC Glucose (mg/dL) 111 H 110 H (75-99) mg/dL Calcium 7.8 L (8.4-10.2) mg/dL AST 344 H (14-36) U/L ALT 113 H (4-34) U/L Total Protein 5.5 L (6.3-8.2) g/dL Albumin 2.6 L (3.5-5.0) g/dL Folate (4.40-31.00) ng/mL TSH (0.465-4.680) mIU/L Microbiology - Last 24 Hours (Table) 02/11/22 18:43 Blood Culture - Preliminary Blood No Growth after 24 hours 02/11/22 18:40 Blood Culture Gram Stain - Preliminary Blood Blood Culture - Preliminary Coagulase Negative Staph 02/11/22 19:00 Urine Culture - Final Urine,Clean Catch 02/11/22 18:40 Blood Culture - Final Blood Assessment and Plan Assessment: Altered mental status due to multifactorial: toxic-metabolic encephalopathy and hepatic encephalopathy: with acute renal failure, and elevated liver function and mild elevated ammonia level. Has folate deficiency and likely underlying infection/septic (blood culture coagulase negative staph)--mentation slightly improving Acute subtle right lower facial droop: Rule out acute ischemic stroke Folate deficiency Acute renal failure Elevated liver function test AST > ALT: Unsure exact cause. Denies of alcohol use. Slightly elevated troponin likely troponin leak History of seizure Remote history of alcohol use and patient stated she is sober for a while. Plan: EEG is ordered by the primary team and is pending Serum folate: 2.50 (normal is 4.40-31). Therefore started the patient on folate 1mg daily. Ordered MRI Brain to rule out stroke since has right facial droop. Patient's home Keppra 1000 mg 1 tablet twice a day and the Lamictal 150 mg twice a day was restarted. Blood culture is reported as coagulase negative staph. Nephrology is on board Currently the patient is on azithromycin and ceftriaxone. Consider infection disease consult for possibility of sepsis. We'll defer the rest of the medical management to the primary team The plan is disucssed with the nurse. Will Velez M.D. Neuro-hospitalist Time with Patient: Less than 30
[2022-02-13] MEDS: SODIUM BICARBONATE TAB 650 MG TAB PO SCH ×3 (12:53→21:37)
[2022-02-13 13:08] VITALS: BMI 34.4
[2022-02-13 13:15] LABS: Potassium 3.5 mmol/L (3.5-5.1)
--- NOTE | 2022-02-13 15:14 | P.CN ---
Psychiatric Consult - . Consult date: 02/13/22 Consult:: 02/13/22 15:06 This is a psychiatric evaluation on the Madelaine Smith who is a 56-year-old female who currently sees a Dr. Gorman for a psychiatrist The patient was found by the EMS unresponsive, hypotensive and hypoxic A psychiatric consultation was requested to rule out any psychiatric-related issues resulting in her current altered mental status When seen today patient was a resting comfortably in the bed Patient however reports that she is having some pain in her repair and wanted someone to take a look at it She stated that the last thing she remembers was that she fell She states that she sees a Dr. Huerta on a regular basis She was able to list her psychotropic medications as lamotrigine and trazodone for insomnia She states that emotionally she has been stable for a long time and that the last hospitalization was about 30 years ago He states that she currently lives with her /fianc She stated that she ambulates with a walker and the is able to do some minimal physical work She otherwise denies any depression or anxiety She denies any thoughts of wanting to hurt herself or others or any issues related to recent overdose resulting in the above issue She states that she has 1 son who is in [place] but that she does not get along with him She otherwise denies any other emotional issues or crises and states that she sees her psychiatrist on a regular basis for her prescriptions Past history personal and social history: is as described above Patient currently denies any substance use although she admits that she has had a problem with alcohol in the past Mental status examination reveals a middle-aged female who looks much older for age Patient is edentulous Patient is dressed in a hospital gown Affect at this time was euthymic Thought Processes are goal-directed sequential and logical Speech was clear coherent and relevant Patient denies any thoughts of wanting to hurt herself or others Formal and operational judgment and insight appears to be fair Diagnostic impression: Bipolar disorder in remission by history Formulation and plan: The patient at this time comes across as stable psychiatrically and does not seem to require any further intervention Would recommend regular follow-up with Dr. Huerta as previously planned Following pertinent information was reviewed in the chart which is attached here: Altered mental status due to multifactorial: toxic-metabolic encephalopathy and hepatic encephalopathy: with acute renal failure, and elevated liver function and mild elevated ammonia level. Has folate deficiency and likely underlying infection/septic (blood culture coagulase negative staph)--mentation slightly improving Acute subtle right lower facial droop: Rule out acute ischemic stroke Folate deficiency Acute renal failure Elevated liver function test AST > ALT: Unsure exact cause. Denies of alcohol use. Slightly elevated troponin likely troponin leak History of seizure Remote history of alcohol use and patient stated she is sober for a while. Oliverio Sharp M.D. 02/13/2022
[2022-02-13 15:57] LABS: Appearance,Urine Cloudy (Clear); Bacteria,Urine Rare /hpf; Bilirubin,Urine Negative (Negative); Blood,Urine Large (Negative); Budding Yeast,Urine Rare /hpf; Color,Urine Yellow; Glucose,Urine (UA) Negative (Negative); Hyaline Casts,Urine 3 /lpf (0-2); Ketones,Urine Negative (Negative); Leukocyte Esterase,Urine Negative (Negative); Mucus,Urine Occasional /hpf; Nitrite,Urine Negative (Negative); PH, Urine 5.5 (5.0-8.0); Protein,Urine 1+ (Negative); RBC,Urine 3 /hpf (0-5); Specific Gravity,Urine 1.009 (1.001-1.035); Urobilinogen,Urine <2.0 mg/dL (<2.0); WBC,Urine 10 /hpf (0-5)
[2022-02-13 16:08] LABS: Protein/Creatinine Ratio,Urine 0.618
--- NOTE | 2022-02-13 16:38 | P.PN ---
Progress Note - Text Progress Note Date: 02/13/22 Chief Complaint: Unresponsive This is a 56-year-old patient, follows with Dr. Floyd. Chronic stable medical conditions include CAD, COPD, diabetes, GERD, hyperlipidemia, hypertension, prostatitis, neuropathy, vocal cord dysplasia, IBS, overactive bladder, chronic back pain, restless leg syndrome, seizure activity, still drinking about 10 years ago. Bipolar. Patient does follow with Dr. Gorman from psychiatry. Active smoker. Patient by the EMS was found to be unresponsive hypotensive and hypoxic. Patient was last seen by the family at 7:30 AM and if on the patient at 4:30 PM. In the ER initial presentation patient was minimally responsive. This is yesterday evening. This morning patient is drowsy. Attempting to answer questions. And dozes off. Does questionable pneumonia on the x-ray and started on antibiotic in the ER. Admitted with severe metabolic encephalopathy, COPD exacerbation, aspiration pneumonia. Started IV ceftriaxone. DuoNeb. IV fluids. February 13: Not eating much. More awake. Tired. Oral thrush. Started on Diflucan. Did not get IV fluids overnight as infiltrated. IV fluids continued today. Answering questions better. Active Medications Albuterol/Ipratropium (Ipratropium-Albuterol 3 Ml Neb) 3 ml INHALATION RT-TID [facility] Last Admin: 02/13/22 11:57 Dose: 3 ml Documented by: Atorvastatin Calcium (Atorvastatin 80 Mg Tab) 80 mg PO DAILY [facility] Last Admin: 02/13/22 08:56 Dose: 80 mg Documented by: Azithromycin (Azithromycin 500 Mg Tab) 500 mg PO [facility]; Protocol Stop: 02/13/22 21:01 Last Admin: 02/12/22 21:28 Dose: 500 mg Documented by: Budesonide (Budesonide 1 Mg/2 Ml Nebu) 1 mg INHALATION RT-BID [facility] Last Admin: 02/13/22 08:16 Dose: 1 mg Documented by: Clopidogrel Bisulfate (Clopidogrel 75 Mg Tab) 75 mg PO DAILY [facility] Last Admin: 02/13/22 08:56 Dose: 75 mg Documented by: Duloxetine HCl (Duloxetine Hcl 60 Mg Capsule.) 60 mg PO BID [facility] Last Admin: 02/13/22 08:56 Dose: 60 mg Documented by: Ezetimibe (Ezetimibe 10 Mg Tab) 10 mg PO DAILY [facility] Last Admin: 02/13/22 08:55 Dose: 10 mg Documented by: Fluconazole (Fluconazole 100 Mg Tab) 100 mg PO DAILY [facility]; Protocol Folic Acid (Folic Acid 1 Mg Tab) 1 mg PO DAILY [facility] Last Admin: 02/13/22 08:56 Dose: 1 mg Documented by: Formoterol Fumarate (Formoterol Fumarate 20 Mcg/2 Ml Nebu) 20 mcg INHALATION RT-BID [facility] Last Admin: 02/13/22 08:15 Dose: 20 mcg Documented by: Ceftriaxone Sodium 2 gm/ (Sodium Chloride) 50 mls @ 100 mls/hr IVPB Q24HR [facility]; Protocol Stop: 02/15/22 09:29 Last Admin: 02/13/22 09:50 Dose: 100 mls/hr Documented by: Sodium Chloride (Saline 0.45%) 1,000 mls @ 100 mls/hr IV .Q10H [facility] Last Admin: 02/13/22 06:29 Dose: 100 mls/hr Documented by: Insulin Aspart (Insulin Aspart (Novolog) 100 Unit/Ml Vial) 0 unit SQ ACHS [facility]; Protocol Last Admin: 02/13/22 12:50 Dose: Not Given Documented by: Isosorbide Mononitrate (Isosorbide Mononitrate Er 60 Mg Tab.Er.24h) 60 mg PO DAILY [facility] Last Admin: 02/13/22 08:56 Dose: 60 mg Documented by: Lamotrigine (Lamotrigine 100 Mg Tab) 150 mg PO BID [facility] Last Admin: 02/13/22 08:56 Dose: 150 mg Documented by: Levetiracetam (Levetiracetam 500 Mg Tab) 1,000 mg PO BID [facility] Last Admin: 02/13/22 08:56 Dose: 1,000 mg Documented by: Miscellaneous Information (Pneumonia Protocol Utilized 1 Each Misc) 1 each PO ONCE PRN PRN Reason: Per Protocol Miscellaneous Information (Potassium Replacement Protocol 1 Each Misc) 1 each MISCELLANE DAILY PRN; Protocol PRN Reason: Per Protocol Montelukast Sodium (Montelukast 10 Mg Tab) 10 mg PO DAILY [facility] Last Admin: 02/13/22 08:56 Dose: 10 mg Documented by: Nicotine (Nicotine 21mg/24hr Patch) 1 patch TRANSDERM DAILY [facility] Last Admin: 02/13/22 08:55 Dose: 1 patch Documented by: Non-Formulary Medication (Diroximel Fumarate [Vumerity]) 462 mg PO BID [facility] Last Admin: 02/13/22 08:56 Dose: 462 mg Documented by: Pantoprazole Sodium (Pantoprazole 40 Mg Tablet) 40 mg PO AC-BRKFST [facility] Last Admin: 02/13/22 06:29 Dose: 40 mg Documented by: Pregabalin (Pregabalin 100 Mg Cap) 100 mg PO TID [facility] Last Admin: 02/13/22 08:56 Dose: 100 mg Documented by: Primidone (Primidone 50 Mg Tab) 50 mg PO TID [facility] Last Admin: 02/13/22 08:56 Dose: 50 mg Documented by: Ropinirole HCl (Ropinirole Hcl 1 Mg Tab) 1 mg PO TID [facility] Last Admin: 02/13/22 08:56 Dose: 1 mg Documented by: Sodium Bicarbonate (Sodium Bicarbonate Tab 650 Mg Tab) 650 mg PO TID [facility] Last Admin: 02/13/22 12:53 Dose: 650 mg Documented by: Trazodone HCl (Trazodone Hcl 100 Mg Tab) 200 mg PO HS PRN PRN Reason: sleep Past medical history to include: CAD, COPD, diabetes, GERD, hyperlipidemia, hypertension, prostatitis, kidney disease, seizure disorder, peripheral neuropathy, vocal cord dysplasia, IBS, overactive bladder, hyperparathyroidism, chronic back pain, this is like syndrome, seizure activity, history of alcohol abuse 10 years ago. Bipolar. Social history: Lives with her. She. Does use a cane or a walker. Smokes a pack a day for 44 years. History of alcoholism stopped 10 years ago. Did use marijuana in the past. Family history: Mother had CAD Physical examination: VITAL SIGNS: 97.8, 83, 22, 10 6 x 54, 97% on 2 L GENERAL: Laying in bed, more awake answering questions EYES: Pupils equal. Conjunctiva normal. HEENT: [External appearance of nose and ears normal, oral cavity dry mucous membranes. NECK: JVD not raised; masses not palpable. HEART: First and second heart sounds are normal; no edema. LUNGS: Respiratory rate increased; decreased breath sounds. ABDOMEN: Soft, nontender, liver spleen not palpable, no masses palpable. PSYCH: Answering questionsToday bit more awake MUSCULOSKELETAL:No Clubbing/cyanosis;muscles-grossly intact NEUROLOGICAL: Cranial nerves grossly intact; no facial asymmetry, moving all limbs INVESTIGATIONS, reviewed in the clinical context: Ultrasound abdomen: Unremarkable kidney. February 13: Sodium 142 potassium 3.4 BUN 55 creatinine 5.43 AST 344 ALT 113 Sodium 146 potassium 2.9 BUN 50 creatinine 5.29 AST 657 ALT 127 Admission labs: UA positive for trace leukoesterase WBC RBC Urine culture positive for opiates, barbiturates White count 21.2 hemoglobin 14.5 platelets 509 potassium 3.1 BUN 47 creatinine 5.67 Troponin I 0.090, 0.079 Serum alcohol less than 10 EKG tracing personally reviewed by me-normal sinus rhythm. 69/m. Chest x-ray film personally reviewed by [id number] infiltrate Computed tomography scan brain: Unremarkable Assessment and plan: - severe metabolic encephalopathy. . 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 : Slow to respond EEG pending. -Acute kidney injury/ATN secondary to hypotension. Admission creatinine 5.67. -Acute COPD exacerbation the current smoker: Some improvement DuoNeb 3 times a day. Nebulized Perforomist Pulmicort -Chronic nicotine dependence, cigarette smoker Nicotine patch 21 -Restless leg syndrome Requip to 1 mg 3 times a day -GERD Omeprazole 40 mg daily -Bipolar disorder Continue home medications -Diabetes mellitus type 2 chronically on insulin Follow Accu-Cheks with sliding scale -Suspect aspiration pneumonia IV ceftriaxone -Oropharyngeal candidiasis Start Diflucan -Acute metabolic acidosis secondary to renal failure Sodium bicarbonate Seen by psychiatry. Continue IV fluids. Pending EEG. IV ceftriaxone. Follow renal function.
[2022-02-13 16:39] LABS: Glucose,Whole Blood 136 mg/dL (75-99)
[2022-02-13 18:18] LABS: Protein, Total 5.4 g/dL (6.2-8.2)
[2022-02-13 18:49] LABS: Hepatitis A Antibody IgM Nonreactive (Nonreactive); Hepatitis B Core IgM Nonreactive (Nonreactive); Hepatitis B Surface Antigen Nonreactive (Nonreactive); Hepatitis C IgG Antibody Nonreactive (Nonreactive)
--- NOTE | 2022-02-13 19:33 | EEG ---
ELECTROENCEPHALOGRAM REPORT DATE OF SERVICE: 02/13/2022 CLINICAL HISTORY: This is a 56-year-old woman with history of seizure who has altered mental status. The video EEG is obtained to evaluate for seizure epileptiform activity. Antiepileptic drugs: Lamictal and Keppra. EEG TYPE: A routine 21-channel EEG is performed with video using the 10/20 electrode system. DESCRIPTION: Wakefulness is only obtained. During awake state, the background consists of low to moderate voltage of 5.5 to 6.5 hertz theta activity. There is no physiological stage II sleep architecture. There is no focal slowing. Interictal and ictal is none. ACTIVATION PROCEDURES: Photic stimulation did not evoke a posterior driving response. There is no abnormality during the photic stimulation. Hyperventilation is not performed. CLINICAL INTERPRETATION: This is an abnormal routine EEG. The background slowing is suggestive of mild to moderate encephalopathy likely due to toxic metabolic abnormality. Otherwise there is no focal slowing, epileptiform discharge or seizure on the EEG. Clinical correlation is recommended. BARBIE / LAURAN: [id number] / MORENO
[2022-02-13 20:06] LABS: Glucose,Whole Blood 136 mg/dL (75-99)
[2022-02-13 21:13] LABS: DNA Double-Stranded NEGATIVE (NEGATIVE)
[2022-02-13] MEDS: AZITHROMYCIN 500 MG TAB PO SCH (21:35)
[2022-02-14] MEDS: SODIUM CHLORIDE 0.45% 1,000 ML IV SCH ×2 (03:13→09:14)
[2022-02-14 06:07] LABS: Glucose,Whole Blood 93 mg/dL (75-99)
[2022-02-14] MEDS: INSULIN ASPART (NovoLOG) 100 UNIT/ML VIAL SQ SCH ×4 (06:18→20:52)
[2022-02-14] MEDS: PANTOPRAZOLE 40 MG TABLET PO SCH (06:38)
[2022-02-14] MEDS: BUDESONIDE 1 MG/2 ML NEBU INHALATION SCH ×2 (07:36→20:23)
[2022-02-14] MEDS: IPRATROPIUM-ALBUTEROL 3 ML NEB INHALATION SCH ×3 (07:36→20:23)
[2022-02-14] MEDS: FORMOTEROL FUMARATE 20 MCG/2 ML NEBU INHALATION SCH ×2 (07:36→20:23)
[2022-02-14 08:09] LABS: Calcium 7.6 mg/dL (8.4-10.2); Magnesium 1.8 mg/dL (1.6-2.3); Phosphorus 6.2 mg/dL (2.5-4.5); Potassium 3.3 mmol/L (3.5-5.1)
[2022-02-14] MEDS: DIROXIMEL FUMARATE 231 MG PO SCH ×2 (09:14→20:50)
[2022-02-14] MEDS: NICOTINE 21MG/24HR PATCH TRANSDERM SCH (09:14)
[2022-02-14] MEDS: EZETIMIBE 10 MG TAB PO SCH (09:14)
[2022-02-14] MEDS: DULoxetine HCL 60 MG CAPSULE.DR PO SCH ×2 (09:14→20:48)
[2022-02-14] MEDS: MONTELUKAST 10 MG TAB PO SCH (09:15)
[2022-02-14] MEDS: PRIMIDONE 50 MG TAB PO SCH ×3 (09:15→20:49)
[2022-02-14] MEDS: CLOPIDOGREL 75 MG TAB PO SCH (09:15)
[2022-02-14] MEDS: ISOSORBIDE MONONITRATE ER 60 MG TAB.ER.24H PO SCH (09:15)
[2022-02-14] MEDS: FLUCONAZOLE 100 MG TAB PO SCH (09:15)
[2022-02-14] MEDS: FOLIC ACID 1 MG TAB PO SCH (09:15)
[2022-02-14] MEDS: lamoTRIgine 100 MG TAB PO SCH ×2 (09:15→20:49)
[2022-02-14] MEDS: PREGABALIN 100 MG CAP PO SCH ×3 (09:15→20:48)
[2022-02-14] MEDS: levETIRAcetam 500 MG TAB PO SCH ×2 (09:15→20:48)
[2022-02-14] MEDS: SODIUM BICARBONATE TAB 650 MG TAB PO SCH ×3 (09:15→20:48)
[2022-02-14] MEDS: ATORVASTATIN 80 MG TAB PO SCH (09:15)
[2022-02-14 11:49] LABS: Glucose,Whole Blood 101 mg/dL (75-99)
--- NOTE | 2022-02-14 13:31 | P.CNOR ---
History of Present Illness - HPI Consult date: 02/14/22 Consult reason: joint pain (Left shoulder pain) History of present illness: Patient is a 56-year-old female who was brought in to [facility] on 02/11/2022 due to altered mental status. After initial arrival in the emergency room, multiple lab tests and imaging test were done. Patient was admitted to the hospital under internal medicine for further workup and evaluation. Since being admitted to the hospital, she is being followed by multiple medical specialties. Patient has a very extensive past medical history. During the time, was noted she did have a fall while back. Patient notes left shoulder pain since being in the hospital. Our orthopedic team was then consulted. Patient was evaluated today, she is resting in her hospital bed. The nursing assistance her and helping her have lunch. Achieving a ROS and HPI was slightly difficult. It was quite difficult to understand the patient and she spoke. she did answer most my questions adequately. She states the left shoulder pain has bothered her since her fall. She cannot remember the exact date of the fall or mechanism of the fall. she denies any previous orthopedic surgery to the left upper extremity. She notes most of discomfort in the shoulder blade region. She denies any elbow, forearm, hand or wrist pain. She denies any pain involving the right upper extremity. She denies any pain in the bilateral lower extremities. She denies any numbness or tingling of the bilateral upper or lower extremities at this time. Review of Systems Constitutional: Reports as per HPI Past Medical History Past Medical History: Asthma, Coronary Artery Disease (CAD), COPD, Diabetes Mellitus, GERD/Reflux, Hyperlipidemia, Hypertension, Osteoarthritis (OA), Renal Disease, Seizure Disorder Additional Past Medical History / Comment(s): IDDM type II, neuropathy bilateral legs/feet, vocal cord dysplasia/R vocal cord ulcer, dysphagia in past, IBS, overactive bladder, hyperparathyroidism, chronic back pain, headaches, chronic sinusitis, bilateral tinnitis, RLS, last seizure about one year ago, pt states past ETOH abuse but has not drank in 10 years. History of Any Multi-Drug Resistant Organisms: Unobtainable Past Surgical History: Appendectomy, Back Surgery, Heart Catheterization, Hysterectomy, Tubal Ligation Additional Past Surgical History / Comment(s): Multiple throat biopsies, EGD, colonoscopies, back surgery x2. Past Anesthesia/Blood Transfusion Reactions: No Reported Reaction Past Psychological History: Bipolar, Depression Additional Psychological History / Comment(s): Pt resides with her jefe. She uses a cane or walker to ambulate. She does not drive, she gets rides thru [facility] transportation. She manages her own medication. She sees Dr. Gorman for her mental health. Smoking Status: Current every day smoker, Unknown if ever smoked Additional Past Alcohol Use History / Comment(s): Pt started smoking in 1988 and is a ppd smoker. She has hx of alcoholism but quit drinking 10 yrs ago. Past Drug Use History: Marijuana Additional Drug Use History / Comment(s): Past marijuana use. - Past Family History Mother Family Medical History: Coronary Artery Disease (CAD) Additional Family Medical History / Comment(s): Mother had CABG Father Family Medical History: CVA/TIA Medications and Allergies Home Medications Medication Instructions Recorded Confirmed Type Albuterol Inhaler [Ventolin Hfa 2 puff INHALATION RT-QID PRN 02/11/22 02/11/22 History Inhaler] Albuterol Nebulized [Ventolin 2.5 mg INHALATION RT-Q6H PRN 02/11/22 02/11/22 History Nebulized] Baclofen [Lioresal] 10 mg PO TID PRN 02/11/22 02/11/22 History Clopidogrel [Plavix] 75 mg PO DAILY 02/11/22 02/11/22 History DULoxetine HCL [Cymbalta] 60 mg PO BID 02/11/22 02/11/22 History Diroximel Fumarate [Vumerity] 462 mg PO BID 02/11/22 02/11/22 History Enalapril [Vasotec] 20 mg PO BID 02/11/22 02/11/22 History Ezetimibe [Zetia] 10 mg PO DAILY 02/11/22 02/11/22 History Fluticasone/Salmeterol [Advair 1 puff INHALATION RT-BID 02/11/22 02/11/22 History 500-50 Diskus] Furosemide [Lasix] 10 - 20 mg PO DAILY PRN 02/11/22 02/11/22 History HYDROcodone/APAP 7.5-325MG [[place] 1 tab PO BID PRN 02/11/22 02/11/22 History 7.5-325] Insulin Aspart [NovoLOG Flexpen] 5 unit SQ AC-TID 02/11/22 02/11/22 History Insulin Detemir [Levemir Flextouch 5 units SQ HS 02/11/22 02/11/22 History Pen] Isosorbide Mononitrate ER [Imdur] 60 mg PO DAILY 02/11/22 02/11/22 History Lidocaine 5% Patch [Lidoderm] 1 - 2 patch TOPICAL DAILY PRN 02/11/22 02/11/22 History Metoprolol Tartrate [Lopressor] 100 mg PO BID 02/11/22 02/11/22 History Montelukast Sodium [Singulair] 10 mg PO DAILY 02/11/22 02/11/22 History NIFEdipine [NIFEdipine ER] 30 mg PO DAILY 02/11/22 02/11/22 History Omeprazole 40 mg PO DAILY 02/11/22 02/11/22 History Potassium Chloride ER [K-Dur 10] 10 meq PO DAILY PRN 02/11/22 02/11/22 History Pregabalin [Lyrica] 150 mg PO TID 02/11/22 02/11/22 History Primidone [Mysoline] 50 mg PO TID 02/11/22 02/11/22 History Rosuvastatin Calcium [Crestor] 40 mg PO DAILY 02/11/22 02/11/22 History Umeclidinium Baker [Incruse 1 puff INHALATION RT-DAILY 02/11/22 02/11/22 History Ellipta] lamoTRIgine 150 mg PO BID 02/11/22 02/11/22 History levETIRAcetam [Keppra] 1,000 mg PO BID 02/11/22 02/11/22 History rOPINIRole HCL [Requip] 2 mg PO TID 02/11/22 02/11/22 History traZODone HCL [Desyrel] 200 mg PO HS PRN 02/11/22 02/11/22 History valACYclovir HCL [Valtrex] 1,000 mg PO DAILY 02/11/22 02/11/22 History Allergies Allergy/AdvReac Type Severity Reaction Status Date / Time No Known Allergies Allergy Verified 02/12/22 10:30 Physical Examination Left upper extremity: No open lesions or sores visualized throughout the extremity, there is no areas of erythema, no fluctuance appreciated throughout the extremity Generalized tenderness with palpation surrounding the scapula and posterior lateral collateral joint line. Patient demonstrates no tenderness along the acromioclavicular joint. She is nontender in the proximal humerus, elbow, forearm, hand or wrist Active motion is intact with regards to elbow extension, elbow flexion, wrist extension, wrist flexion, finger intrinsics. She can actively forward elevate and abduct the shoulder, this does reproduce pain in the shoulder blade Passive range of motion in the upper extremity remains full, no significant pain is reproduced during exam The anterior and posterior compartments of the extremity are soft and compressible Sensation to light touch throughout the extremity is intact Radial and ulnar pulses are 2+ Results - Labs Labs: Abnormal Lab Results - Last 24 Hours (Table) 02/13/22 02/13/22 02/13/22 Range/Units 11:04 12:35 16:38 Potassium (3.5-5.1) mmol/L Carbon Dioxide (22-30) mmol/L BUN (7-17) mg/dL Creatinine (0.52-1.04) mg/dL POC Glucose (mg/dL) 136 H (75-99) mg/dL Calcium (8.4-10.2) mg/dL Phosphorus (2.5-4.5) mg/dL Total Protein (PEP) 5.4 L (6.2-8.2) g/dL Urine Appearance Cloudy H (Clear) Urine Protein 1+ H (Negative) Urine Blood Large H (Negative) Urine WBC 10 H (0-5) /hpf Urine Bacteria Rare H (None) /hpf Hyaline Casts 3 H (0-2) /lpf Urine Mucus Occasional H (None) /hpf Urine Yeast (Budding) Rare H (None) /hpf 02/13/22 02/14/22 02/14/22 Range/Units 20:04 07:00 11:47 Potassium 3.3 L (3.5-5.1) mmol/L Carbon Dioxide 21 L (22-30) mmol/L BUN 48 H (7-17) mg/dL Creatinine 2.72 H (0.52-1.04) mg/dL POC Glucose (mg/dL) 136 H 101 H (75-99) mg/dL Calcium 7.6 L (8.4-10.2) mg/dL Phosphorus 6.2 H (2.5-4.5) mg/dL Total Protein (PEP) (6.2-8.2) g/dL Urine Appearance (Clear) Urine Protein (Negative) Urine Blood (Negative) Urine WBC (0-5) /hpf Urine Bacteria (None) /hpf Hyaline Casts (0-2) /lpf Urine Mucus (None) /hpf Urine Yeast (Budding) (None) /hpf Microbiology - Last 24 Hours (Table) 02/11/22 18:43 Blood Culture - Preliminary Blood No Growth after 48 hours H & H 02/11/22 Range/Units 18:51 Hgb 14.5 (11.4-16.0) gm/dL Hct 44.9 (34.0-46.0) % Coagulation 02/11/22 Range/Units 18:51 INR 0.9 (<1.2) Result Diagrams: 02/11/22 18:51 02/14/22 07:00 Assessment and Plan Assessment: Left shoulder pain Status post fall from standing Multiple medical comorbidities Plan: Was able to discuss the case, this including physical exam findings with my attending Dr. Banuelos. No emergent orthopedic surgical intervention is recommended at this time X-ray of the left shoulder will be obtained, weight reports last images for review Pain control, recommend use of Tylenol/NSAIDs. When reviewing chart, patient does take narcotics at home. She states she takes is for a previous problem from a pain management doctor and Curt Lugo GI and DVT prophylaxis per primary medical service Other site medical director recommendations Depending on how patient progresses, likely benefit from home health care to include physical therapy Further recommendations to follow after review of x-rays Time with Patient: Less than 30
[2022-02-14 14:04] LABS: C-ANCA <1:20 Titer (<1:20)
[2022-02-14 14:53] LABS: Albumin 2.35 g/dL (3.80-4.90); Gamma Globulin 0.57 g/dL (0.70-1.50)
--- NOTE | 2022-02-14 15:11 | MR ---
EXAMINATION TYPE: MR brain wo con DATE OF EXAM: 02/14/2022 COMPARISON: NONE HISTORY: Right-sided facial droop. CVA. TECHNIQUE: Multiplanar, multisequence imaging of the brain and brainstem is performed without IV cont rast. FINDINGS: Diffusion weighted images demonstrate no evidence of a recent infarct or other diffusion abnormality. No worrisome extra-axial fluid. The ventricular system and cisternal spaces are normal in size and a ppearance. The brain volume is age appropriate. Occasional focus of T2 hyperintensity seen bilateral ly. Less than 5 lesions. For reference there is a 6 mm left frontal periventricular lesion axial imag e 17. Lesions favored on the basis of product of mild to minimal chronic small vessel ischemic change in patient of this age. Midline structures demonstrate normal morphology. The craniocervical junction appears within normal limits. Normal vascular flow voids are present. Moderate to severe mucosal thickening in the dominant sphenoid sinus and bilateral ethmoid sinuses. Moderate mucosal thickening in the bilateral frontal s inuses. Globes are intact bilaterally. Patchy fluid signal inferior right mastoid air cells. IMPRESSION: 1. No MRI evidence for a recent infarct. 2. Prominent chronic paranasal sinus disease as detailed above.
--- NOTE | 2022-02-14 15:11 | P.PN ---
Subjective Patient is seen for follow-up for acute kidney injury. Etiology is hypotension and use of NSAIDs. Serum creatinine had peaked at 5.4 mg/dL. Patient has had good urine output. Today the creatinine is down to 2.7 mg/dL. Patient is sitting up in a bedside chair. She denies any significant complaints. No nausea vomiting or diarrhea. Objective - Vital Signs Vital signs: Vital Signs Temp 98.6 F 02/14/22 04:25 Pulse 100 02/14/22 14:00 Resp 16 02/14/22 14:00 BP 113/63 02/14/22 12:00 Pulse Ox 91 L 02/14/22 12:00 Intake & Output 02/13/22 02/14/22 02/14/22 18:59 06:59 18:59 Intake Total 1530 Output Total 850 550 Balance 1530 -850 -550 Weight 95.2 kg 94.3 kg Intake: Intake, IV Titration 850 Amount Sodium Chloride 0.45% 1, 800 000 ml @ 100 mls/hr IV . Q10H [facility] Rx#:[id number] Sodium Chloride 0.9% 1, 0 000 ml @ 130 mls/hr IV . Q7H42M [facility] Rx#:[id number] cefTRIAXone 2 gm In 50 Sodium Chloride 0.9% 50 ml @ 100 mls/hr IVPB Q24HR [facility] Rx#:[id number] Oral 680 Output: Urine 850 550 Other: Voiding Method Indwelling Catheter Indwelling Catheter Indwelling Catheter # Bowel Movements 1 - Exam Awake, comfortable, not in any acute distress Examination of the heart S1 and S2 Examination lungs bilateral breath sounds are heard Abdomen is soft nontender Examination lower extremity shows marked ENTERER exam grossly intact - Labs CBC & Chem 7: 02/11/22 18:51 02/14/22 07:00 Labs: Abnormal Lab Results - Last 24 Hours (Table) 02/13/22 02/13/22 02/13/22 Range/Units 11:04 12:35 16:38 Potassium (3.5-5.1) mmol/L Carbon Dioxide (22-30) mmol/L BUN (7-17) mg/dL Creatinine (0.52-1.04) mg/dL POC Glucose (mg/dL) 136 H (75-99) mg/dL Calcium (8.4-10.2) mg/dL Phosphorus (2.5-4.5) mg/dL Total Protein (PEP) 5.4 L (6.2-8.2) g/dL Albumin (PEP) 2.35 L (3.80-4.90) g/dL Nwuwd-4-Nebefxaya 0.54 H (0.10-0.40) g/dL Ucjdm-3-Caidoszpk 1.20 H (0.60-1.00) g/dL Gamma Globulins 0.57 L (0.70-1.50) g/dL Urine Appearance Cloudy H (Clear) Urine Protein 1+ H (Negative) Urine Blood Large H (Negative) Urine WBC 10 H (0-5) /hpf Urine Bacteria Rare H (None) /hpf Hyaline Casts 3 H (0-2) /lpf Urine Mucus Occasional H (None) /hpf Urine Yeast (Budding) Rare H (None) /hpf 02/13/22 02/14/22 02/14/22 Range/Units 20:04 07:00 11:47 Potassium 3.3 L (3.5-5.1) mmol/L Carbon Dioxide 21 L (22-30) mmol/L BUN 48 H (7-17) mg/dL Creatinine 2.72 H (0.52-1.04) mg/dL POC Glucose (mg/dL) 136 H 101 H (75-99) mg/dL Calcium 7.6 L (8.4-10.2) mg/dL Phosphorus 6.2 H (2.5-4.5) mg/dL Total Protein (PEP) (6.2-8.2) g/dL Albumin (PEP) (3.80-4.90) g/dL Cvqte-0-Aicajqolf (0.10-0.40) g/dL Nowki-0-Ollwkifai (0.60-1.00) g/dL Gamma Globulins (0.70-1.50) g/dL Urine Appearance (Clear) Urine Protein (Negative) Urine Blood (Negative) Urine WBC (0-5) /hpf Urine Bacteria (None) /hpf Hyaline Casts (0-2) /lpf Urine Mucus (None) /hpf Urine Yeast (Budding) (None) /hpf Microbiology - Last 24 Hours (Table) 02/11/22 18:43 Blood Culture - Preliminary Blood No Growth after 48 hours Assessment and Plan Assessment: 1. Acute kidney injury secondary to NSAIDs and ATN from hypotension. Creatinin e peaked at about 5.6 mg/dL. Currently down to 2.7. No evidence of hydronephrosis on ultrasound. UA shows 1+ protein and blood. All serologies are currently negative. 2. Hypokalemia status post replacement 3. Pneumonia maintained on antibiotics 4. Acute hypoxic respiratory failure currently improved 5. Hypernatremia associated with free water deficit currently improved Plan: Repeat labs in a.m. Continue IV fluids with half-normal saline Replace potassium Avoid nephrotoxic agents
--- NOTE | 2022-02-14 16:18 | P.PN ---
Progress Note - Text Progress Note Date: 02/14/22 Chief Complaint: Unresponsive This is a 56-year-old patient, follows with Dr. Floyd. Chronic stable medical conditions include CAD, COPD, diabetes, GERD, hyperlipidemia, hypertension, prostatitis, neuropathy, vocal cord dysplasia, IBS, overactive bladder, chronic back pain, restless leg syndrome, seizure activity, still drinking about 10 years ago. Bipolar. Patient does follow with Dr. Gorman from psychiatry. Active smoker. Patient by the EMS was found to be unresponsive hypotensive and hypoxic. Patient was last seen by the family at 7:30 AM and if on the patient at 4:30 PM. In the ER initial presentation patient was minimally responsive. This is yesterday evening. This morning patient is drowsy. Attempting to answer questions. And dozes off. Does questionable pneumonia on the x-ray and started on antibiotic in the ER. Admitted with severe metabolic encephalopathy, COPD exacerbation, aspiration pneumonia. Started IV ceftriaxone. DuoNeb. IV fluids. February 13: Not eating much. More awake. Tired. Oral thrush. Started on Diflucan. Did not get IV fluids overnight as infiltrated. IV fluids continued today. Answering questions better. February 14: Bit more awake. Communicating. Eating only about 25%. Tired. Laying in bed. Complaining of pain in the left shoulder and left elbow area subsequent to fall. Orthopedics consulted. X-ray of the shoulder and elbow ordered. MRI negative for infarct. Some improvement in creatinine. Active Medications Albuterol/Ipratropium (Ipratropium-Albuterol 3 Ml Neb) 3 ml INHALATION RT-TID [facility] Last Admin: 02/14/22 11:11 Dose: 3 ml Documented by: Atorvastatin Calcium (Atorvastatin 80 Mg Tab) 80 mg PO DAILY [facility] Last Admin: 02/14/22 09:15 Dose: 80 mg Documented by: Budesonide (Budesonide 1 Mg/2 Ml Nebu) 1 mg INHALATION RT-BID [facility] Last Admin: 02/14/22 07:36 Dose: 1 mg Documented by: Clopidogrel Bisulfate (Clopidogrel 75 Mg Tab) 75 mg PO DAILY [facility] Last Admin: 02/14/22 09:15 Dose: 75 mg Documented by: Duloxetine HCl (Duloxetine Hcl 60 Mg Capsule.) 60 mg PO BID [facility] Last Admin: 02/14/22 09:14 Dose: 60 mg Documented by: Ezetimibe (Ezetimibe 10 Mg Tab) 10 mg PO DAILY [facility] Last Admin: 02/14/22 09:14 Dose: 10 mg Documented by: Fluconazole (Fluconazole 100 Mg Tab) 100 mg PO DAILY [facility]; Protocol Last Admin: 02/14/22 09:15 Dose: 100 mg Documented by: Folic Acid (Folic Acid 1 Mg Tab) 1 mg PO DAILY [facility] Last Admin: 02/14/22 09:15 Dose: 1 mg Documented by: Formoterol Fumarate (Formoterol Fumarate 20 Mcg/2 Ml Nebu) 20 mcg INHALATION RT-BID [facility] Last Admin: 02/14/22 07:36 Dose: 20 mcg Documented by: Ceftriaxone Sodium 2 gm/ (Sodium Chloride) 50 mls @ 100 mls/hr IVPB Q24HR [facility]; Protocol Stop: 02/15/22 09:29 Last Admin: 02/14/22 09:14 Dose: 100 mls/hr Documented by: Sodium Chloride (Saline 0.45%) 1,000 mls @ 100 mls/hr IV .Q10H [facility] Last Admin: 02/14/22 09:14 Dose: 100 mls/hr Documented by: Insulin Aspart (Insulin Aspart (Novolog) 100 Unit/Ml Vial) 0 unit SQ ACHS [facility]; Protocol Last Admin: 02/14/22 11:52 Dose: Not Given Documented by: Isosorbide Mononitrate (Isosorbide Mononitrate Er 60 Mg Tab.Er.24h) 60 mg PO DAILY [facility] Last Admin: 02/14/22 09:15 Dose: 60 mg Documented by: Lamotrigine (Lamotrigine 100 Mg Tab) 150 mg PO BID [facility] Last Admin: 02/14/22 09:15 Dose: 150 mg Documented by: Levetiracetam (Levetiracetam 500 Mg Tab) 1,000 mg PO BID [facility] Last Admin: 02/14/22 09:15 Dose: 1,000 mg Documented by: Miscellaneous Information (Pneumonia Protocol Utilized 1 Each Misc) 1 each PO ONCE PRN PRN Reason: Per Protocol Miscellaneous Information (Potassium Replacement Protocol 1 Each Misc) 1 each MISCELLANE DAILY PRN; Protocol PRN Reason: Per Protocol Montelukast Sodium (Montelukast 10 Mg Tab) 10 mg PO DAILY [facility] Last Admin: 02/14/22 09:15 Dose: 10 mg Documented by: Nicotine (Nicotine 21mg/24hr Patch) 1 patch TRANSDERM DAILY [facility] Last Admin: 02/14/22 09:14 Dose: 1 patch Documented by: Non-Formulary Medication (Diroximel Fumarate [Vumerity]) 462 mg PO BID [facility] Last Admin: 02/14/22 09:14 Dose: 462 mg Documented by: Pantoprazole Sodium (Pantoprazole 40 Mg Tablet) 40 mg PO AC-BRKFST [facility] Last Admin: 02/14/22 06:38 Dose: 40 mg Documented by: Pregabalin (Pregabalin 100 Mg Cap) 100 mg PO TID [facility] Last Admin: 02/14/22 09:15 Dose: 100 mg Documented by: Primidone (Primidone 50 Mg Tab) 50 mg PO TID [facility] Last Admin: 02/14/22 09:15 Dose: 50 mg Documented by: Ropinirole HCl (Ropinirole Hcl 1 Mg Tab) 1 mg PO TID [facility] Last Admin: 02/14/22 09:15 Dose: 1 mg Documented by: Sodium Bicarbonate (Sodium Bicarbonate Tab 650 Mg Tab) 650 mg PO TID [facility] Last Admin: 02/14/22 09:15 Dose: 650 mg Documented by: Trazodone HCl (Trazodone Hcl 100 Mg Tab) 200 mg PO HS PRN PRN Reason: sleep Past medical history to include: CAD, COPD, diabetes, GERD, hyperlipidemia, hypertension, prostatitis, kidney disease, seizure disorder, peripheral neuropathy, vocal cord dysplasia, IBS, overactive bladder, hyperparathyroidism, chronic back pain, this is like syndrome, seizure activity, history of alcohol abuse 10 years ago. Bipolar. Social history: Lives with her. She. Does use a cane or a walker. Smokes a pack a day for 44 years. History of alcoholism stopped 10 years ago. Did use marijuana in the past. Family history: Mother had CAD Physical examination: VITAL SIGNS: Afebrile, 99, 16, 104/66, 95% room air GENERAL: Laying in bed, awake answering questions EYES: Pupils equal. Conjunctiva normal. HEENT: [External appearance of nose and ears normal, oral cavity dry mucous membranes. NECK: JVD not raised; masses not palpable. HEART: First and second heart sounds are normal; no edema. LUNGS: Respiratory rate increased; decreased breath sounds. ABDOMEN: Soft, nontender, liver spleen not palpable, no masses palpable. PSYCH: Slight anxiety. Answering questions appropriately. MUSCULOSKELETAL:No Clubbing/cyanosis;muscles-grossly intact NEUROLOGICAL: Cranial nerves grossly intact; no facial asymmetry, moving all limbs INVESTIGATIONS, reviewed in the clinical context: February 14: Potassium 3.3 BUN 48 creatinine 2.7 to EEG: Showing encephalopathy. Negative for epileptiform activity. MRI brain: Negative for stroke Ultrasound abdomen: Unremarkable kidney. February 13: Sodium 142 potassium 3.4 BUN 55 creatinine 5.43 AST 344 ALT 113 Sodium 146 potassium 2.9 BUN 50 creatinine 5.29 AST 657 ALT 127 Admission labs: UA positive for trace leukoesterase WBC RBC Urine culture positive for opiates, barbiturates White count 21.2 hemoglobin 14.5 platelets 509 potassium 3.1 BUN 47 creatinine 5.67 Troponin I 0.090, 0.079 Serum alcohol less than 10 EKG tracing personally reviewed by me-normal sinus rhythm. 69/m. Chest x-ray film personally reviewed by [id number] infiltrate Computed tomography scan brain: Unremarkable Assessment and plan: - severe metabolic encephalopathy. . 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 : Improving EEG negative for epileptiform activity. -Acute kidney injury/ATN secondary to hypotension.: Slow to respond Admission creatinine 5.67. -Acute COPD exacerbation the current smoker: Some improvement DuoNeb 3 times a day. Nebulized Perforomist Pulmicort -Chronic nicotine dependence, cigarette smoker Nicotine patch 21 -Restless leg syndrome Requip to 1 mg 3 times a day -GERD Omeprazole 40 mg daily -Bipolar disorder Continue home medications -Diabetes mellitus type 2 chronically on insulin Follow Accu-Cheks with sliding scale -Suspect aspiration pneumonia IV ceftriaxone -Oropharyngeal candidiasis Diflucan -Acute metabolic acidosis secondary to renal failure: Better Sodium bicarbonate Continue IV fluids. MRI negative. IV ceftriaxone. Encourage oral intake. Up in a chair. PTOT.
[2022-02-14 16:32] LABS: Glucose,Whole Blood 139 mg/dL (75-99)
--- NOTE | 2022-02-14 16:40 | P.PN ---
Subjective Progress Note Date: 02/14/22 The patient is seen at bedside and per nurse is about the same. Objective - Vital Signs Vital signs: Vital Signs Temp 98.6 F 02/14/22 04:25 Pulse 100 02/14/22 14:00 Resp 16 02/14/22 14:00 BP 113/63 02/14/22 12:00 Pulse Ox 91 L 02/14/22 12:00 Intake & Output 02/13/22 02/14/22 02/14/22 18:59 06:59 18:59 Intake Total 1530 Output Total 850 550 Balance 1530 -850 -550 Weight 95.2 kg 94.3 kg Intake: Intake, IV Titration 850 Amount Sodium Chloride 0.45% 1, 800 000 ml @ 100 mls/hr IV . Q10H UYEN Rx#:[id number] Sodium Chloride 0.9% 1, 0 000 ml @ 130 mls/hr IV . Q7H42M UYEN Rx#:[id number] cefTRIAXone 2 gm In 50 Sodium Chloride 0.9% 50 ml @ 100 mls/hr IVPB Q24HR UYEN Rx#:[id number] Oral 680 Output: Urine 850 550 Other: Voiding Method Indwelling Catheter Indwelling Catheter Indwelling Catheter # Bowel Movements 1 - Exam GENERAL: The patient is lying in bed and is not in acute distress. NEUROLOGICAL: Higher mental function: The patient is drowsy but is awakeable to voice. Oriented to self, place. She correctly stated current month. Does not know the year. She is following simple commands. No aphasia or neglect. Cranial nerves: The pupils are round, equal, 6mm bilaterally and reactive to light. Visual harris is full to confrontation. The facial strength is subtle right lower facial droop. No dysarthria. Motor: The strength is hard to assess invidual muscles because of cooperation. But is moving all extremities above gravity. Has tremor with action. Normal tone and bulk. Cerebellum: Normal finger to nose bilaterally. Sensation: Sensation is normal to touch throughout. Reflexes (right/left): 2+ throughout. Plantars are downgoing bilaterally. SOME OF THE WORK-UP: Vitamin B12: 406 Serum folate: 2.50 (normal is 4.40-31) HbA1c: 5.7 Creatinine is 5.67, glucose is 131, AST of 645, ALT of 119. Troponin is 0.090 and it's trending down slightly. Ammonia level is 46. Repeated ammonia level is less than 9 Plasma lactic acid vein is 1.4. Calcium is 8.5 Urinalysis is a leukocyte esterase is trace, urine white blood cell is a 74, urine bacteria was rare, possibly suggestive of urinary tract infection Urine drug screen is positive for barbiturates and opiates. Otherwise. Serum alcohol was less than 10 and the rest is nondetected. CT of the head is reported as negative CT scan of the brain. The no acute intracranial abnormality. CT cervical spine report as minor degenerative changes in the cervical spine. No fracture. MRI of the brain is reported as no MRI evidence for recent infarct. I personally reviewed the MRI of the brain and agree with the report. Routine EEG on 02/13/2022 is abnormal. The back was SUGGESTIVE of mild to moderate encephalopathy likely due to toxic metabolic abnormality. Otherwise there is no focal slowing, epileptiform discharges or seizure on the EEG - Labs CBC & Chem 7: 02/11/22 18:51 02/14/22 07:00 Labs: Abnormal Lab Results - Last 24 Hours (Table) 02/13/22 02/13/22 02/13/22 Range/Units 12:35 16:38 20:04 Potassium (3.5-5.1) mmol/L Carbon Dioxide (22-30) mmol/L BUN (7-17) mg/dL Creatinine (0.52-1.04) mg/dL POC Glucose (mg/dL) 136 H 136 H (75-99) mg/dL Calcium (8.4-10.2) mg/dL Phosphorus (2.5-4.5) mg/dL Total Protein (PEP) 5.4 L (6.2-8.2) g/dL Albumin (PEP) 2.35 L (3.80-4.90) g/dL Gsqmc-1-Lglaytgfk 0.54 H (0.10-0.40) g/dL Jfrnm-9-Qrvfxwjoc 1.20 H (0.60-1.00) g/dL Gamma Globulins 0.57 L (0.70-1.50) g/dL 02/14/22 02/14/22 02/14/22 Range/Units 07:00 11:47 16:31 Potassium 3.3 L (3.5-5.1) mmol/L Carbon Dioxide 21 L (22-30) mmol/L BUN 48 H (7-17) mg/dL Creatinine 2.72 H (0.52-1.04) mg/dL POC Glucose (mg/dL) 101 H 139 H (75-99) mg/dL Calcium 7.6 L (8.4-10.2) mg/dL Phosphorus 6.2 H (2.5-4.5) mg/dL Total Protein (PEP) (6.2-8.2) g/dL Albumin (PEP) (3.80-4.90) g/dL Jdhiv-7-Cbncezyxe (0.10-0.40) g/dL Ixbqy-2-Lgjzixlbi (0.60-1.00) g/dL Gamma Globulins (0.70-1.50) g/dL Microbiology - Last 24 Hours (Table) 02/11/22 18:40 Blood Culture Gram Stain - Final Blood Blood Culture - Final Coagulase Negative Staph 02/11/22 18:43 Blood Culture - Preliminary Blood No Growth after 48 hours Assessment and Plan Assessment: Altered mental status due to multifactorial: toxic-metabolic encephalopathy and hepatic encephalopathy: with acute renal failure, and elevated liver function and mild elevated ammonia level. Has folate deficiency and likely underlying in fection/septic (blood culture coagulase negative staph)--mentation slightly improving. No Stroke on MRI Brain. Folate deficiency Acute renal failure Elevated liver function test AST > ALT: Unsure exact cause. Denies of alcohol use. Slightly elevated troponin likely troponin leak History of seizure Remote history of alcohol use and patient stated she is sober for a while. Plan: Serum folate: 2.50 (normal is 4.40-31). Therefore started the patient on folate 1mg daily. No stroke on MRI Brain. No seizure or epileptiform discharges on EEG. Patient's home Keppra 1000 mg 1 tablet twice a day and the Lamictal 150 mg twice a day was restarted. Blood culture is reported as coagulase negative staph. Nephrology is on board Currently the patient is on azithromycin and ceftriaxone. Consider infection disease consult for possibility of sepsis. We'll defer the rest of the medical management to the primary team The plan is discussed with the nurse. No additional work-up. Please notify neurology team if any further concerns. Will Velez M.D. Neuro-hospitalist Time with Patient: Less than 30
[2022-02-14] MEDS ORDERED: POTASSIUM CHLORIDE ER 20 MEQ TAB.ER PO STA (16:50)
[2022-02-14] MEDS: traMADol 50 MG TAB PO PRN ×2 (17:28→22:54)
[2022-02-14 20:05] LABS: Glucose,Whole Blood 120 mg/dL (75-99)
--- NOTE | 2022-02-14 22:18 | XR ---
EXAMINATION TYPE: XR shoulder limited LT DATE OF EXAM: 02/14/2022 COMPARISON: NONE HISTORY: Shoulder pain TECHNIQUE: 2 views FINDINGS: There is no evidence of fracture nor dislocation. Glenohumeral joint is intact. There are n o pathologic calcifications. IMPRESSION: Negative left shoulder exam.
--- NOTE | 2022-02-14 22:21 | XR ---
EXAMINATION TYPE: XR elbow complete LT DATE OF EXAM: 02/14/2022 COMPARISON: NONE HISTORY: Pain TECHNIQUE: 3 views FINDINGS: I see no fracture nor dislocation. Joint spaces are normal. No sign of joint effusion. Ther e is some minimal soft tissue swelling over the posterior proximal ulna. IMPRESSION: Soft tissue swelling. No fracture seen.
[2022-02-15 06:19] LABS: Glucose,Whole Blood 98 mg/dL (75-99)
[2022-02-15] MEDS: INSULIN ASPART (NovoLOG) 100 UNIT/ML VIAL SQ SCH ×4 (06:20→20:41)
[2022-02-15] MEDS: PANTOPRAZOLE 40 MG TABLET PO SCH (06:22)
[2022-02-15] MEDS: FORMOTEROL FUMARATE 20 MCG/2 ML NEBU INHALATION SCH ×2 (07:45→19:30)
[2022-02-15] MEDS: BUDESONIDE 1 MG/2 ML NEBU INHALATION SCH ×2 (07:45→19:30)
[2022-02-15] MEDS: IPRATROPIUM-ALBUTEROL 3 ML NEB INHALATION SCH ×3 (07:45→19:30)
[2022-02-15 07:59] LABS: Calcium 8.2 mg/dL (8.4-10.2)
--- NOTE | 2022-02-15 08:13 | P.PN ---
Subjective Progress Note Date: 02/15/22 Principal diagnosis: Left shoulder pain Patient was examined today at bedside. She was able to undergo x-rays of her left shoulder not left elbow yesterday. She states she still has generalized discomfort in both regions. Objective - Vital Signs Vital signs: Vital Signs Temp 98.6 F 02/14/22 20:45 Pulse 98 02/15/22 08:05 Resp 19 02/15/22 04:25 BP 113/71 02/15/22 04:25 Pulse Ox 97 02/15/22 04:25 Intake & Output 02/14/22 02/15/22 02/15/22 18:59 06:59 18:59 Output Total 1150 850 Balance -1150 -850 Output: Urine 1150 850 Other: Voiding Method Indwelling Catheter Indwelling Catheter # Bowel Movements 1 - Exam Left upper extremity: No open lesions or sores visualized throughout the extremity, there is no areas of erythema, no fluctuance appreciated throughout the extremity Generalized tenderness with palpation surrounding the scapula and posterior lateral collateral joint line. Patient demonstrates no tenderness along the acromioclavicular joint. She is nontender in the proximal humerus, elbow, forearm, hand or wrist Active motion is intact with regards to elbow extension, elbow flexion, wrist extension, wrist flexion, finger intrinsics. She can actively forward elevate and abduct the shoulder, this does reproduce pain in the shoulder blade Passive range of motion in the upper extremity remains full, no significant pain is reproduced during exam The anterior and posterior compartments of the extremity are soft and compressible Sensation to light touch throughout the extremity is intact Radial and ulnar pulses are 2+ - Labs CBC & Chem 7: 02/11/22 18:51 02/15/22 07:00 Labs: Abnormal Lab Results - Last 24 Hours (Table) 02/13/22 02/14/22 02/14/22 Range/Units 12:35 11:47 16:31 BUN (7-17) mg/dL Creatinine (0.52-1.04) mg/dL POC Glucose (mg/dL) 101 H 139 H (75-99) mg/dL Calcium (8.4-10.2) mg/dL Albumin (PEP) 2.35 L (3.80-4.90) g/dL Mjfzo-4-Vjbnmhoha 0.54 H (0.10-0.40) g/dL Jwowr-8-Mccszwajm 1.20 H (0.60-1.00) g/dL Gamma Globulins 0.57 L (0.70-1.50) g/dL 02/14/22 02/15/22 Range/Units 20:03 07:00 BUN 39 H (7-17) mg/dL Creatinine 1.26 H (0.52-1.04) mg/dL POC Glucose (mg/dL) 120 H (75-99) mg/dL Calcium 8.2 L (8.4-10.2) mg/dL Albumin (PEP) (3.80-4.90) g/dL Klfhh-4-Injshkbbl (0.10-0.40) g/dL Xsclo-0-Vzfooxmmz (0.60-1.00) g/dL Gamma Globulins (0.70-1.50) g/dL Microbiology - Last 24 Hours (Table) 02/11/22 18:40 Blood Culture Gram Stain - Final Blood Blood Culture - Final Coagulase Negative Staph Assessment and Plan Assessment: Left shoulder pain Status post fall from standing Multiple medical comorbidities Plan: Images review of the left shoulder and left elbow. No acute fractures or dislocations were noted. Both the shoulder joint was recommended in good position and condition Discussed the patient this is likely a strain of both the left shoulder and left elbow from the recent fall Pain control, recommend use of Tylenol/NSAIDs. When reviewing chart, patient does take narcotics at home. She states she takes is for a previous problem from a pain management doctor and [facility] and DVT prophylaxis per primary medical service Other medical receptionist biller recommendations An orthopedic standpoint, the patient is stable for discharge. Recommend follow-up on an as-needed basis. Patient would benefit from in-home therapy for conditioning Time with Patient: Less than 30
[2022-02-15] MEDS: FLUCONAZOLE 100 MG TAB PO SCH (09:11)
[2022-02-15] MEDS: FOLIC ACID 1 MG TAB PO SCH (09:11)
[2022-02-15] MEDS: lamoTRIgine 100 MG TAB PO SCH ×2 (09:11→20:42)
[2022-02-15] MEDS: CLOPIDOGREL 75 MG TAB PO SCH (09:12)
[2022-02-15] MEDS: levETIRAcetam 500 MG TAB PO SCH ×2 (09:12→20:42)
[2022-02-15] MEDS: ATORVASTATIN 80 MG TAB PO SCH (09:12)
[2022-02-15] MEDS: PRIMIDONE 50 MG TAB PO SCH ×3 (09:12→20:42)
[2022-02-15] MEDS: PREGABALIN 100 MG CAP PO SCH ×3 (09:12→20:42)
[2022-02-15] MEDS: MONTELUKAST 10 MG TAB PO SCH (09:12)
[2022-02-15] MEDS: DULoxetine HCL 60 MG CAPSULE.DR PO SCH ×2 (09:12→20:42)
[2022-02-15] MEDS: EZETIMIBE 10 MG TAB PO SCH (09:12)
[2022-02-15] MEDS: ISOSORBIDE MONONITRATE ER 60 MG TAB.ER.24H PO SCH (09:12)
[2022-02-15] MEDS: NICOTINE 21MG/24HR PATCH TRANSDERM SCH (09:14)
[2022-02-15] MEDS: DIROXIMEL FUMARATE 231 MG PO SCH ×2 (09:14→20:42)
[2022-02-15] MEDS: traMADol 50 MG TAB PO PRN ×2 (09:38→16:42)
--- NOTE | 2022-02-15 10:47 | P.PN ---
Subjective Patient is seen for follow-up for acute kidney injury. Etiology is hypotension and use of NSAIDs. Serum creatinine had peaked at 5.4 mg/dL. Patient has had good urine output. Today the creatinine is down to 1.2 mg/dL. Patient is sitting up in bed. She denies any significant complaints. No nausea vomiting or diarrhea. Good urine output. Indwelling Santos catheter present. Objective - Vital Signs Vital signs: Vital Signs Temp 98.4 F 02/15/22 09:24 Pulse 112 H 02/15/22 09:24 Resp 16 02/15/22 09:24 BP 118/66 02/15/22 09:24 Pulse Ox 92 L 02/15/22 09:24 Intake & Output 02/14/22 02/15/22 02/15/22 18:59 06:59 18:59 Intake Total 420 Output Total 1150 850 Balance -1150 -850 420 Intake: Oral 420 Output: Urine 1150 850 Other: Voiding Method Indwelling Catheter Indwelling Catheter Indwelling Catheter # Bowel Movements 1 - Exam Awake, comfortable, not in any acute distress Examination of the heart S1 and S2 Examination lungs bilateral breath sounds are heard Abdomen is soft nontender Examination lower extremity shows 1+ edema 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 exam grossly intact - Labs CBC & Chem 7: 02/11/22 18:51 02/15/22 07:00 Labs: Abnormal Lab Results - Last 24 Hours (Table) 02/13/22 02/14/22 02/14/22 Range/Units 12:35 11:47 16:31 BUN (7-17) mg/dL Creatinine (0.52-1.04) mg/dL POC Glucose (mg/dL) 101 H 139 H (75-99) mg/dL Calcium (8.4-10.2) mg/dL Albumin (PEP) 2.35 L (3.80-4.90) g/dL Tpvzp-3-Zfomlsuwa 0.54 H (0.10-0.40) g/dL Dhtgg-3-Tqfbfsqgy 1.20 H (0.60-1.00) g/dL Gamma Globulins 0.57 L (0.70-1.50) g/dL 02/14/22 02/15/22 Range/Units 20:03 07:00 BUN 39 H (7-17) mg/dL Creatinine 1.26 H (0.52-1.04) mg/dL POC Glucose (mg/dL) 120 H (75-99) mg/dL Calcium 8.2 L (8.4-10.2) mg/dL Albumin (PEP) (3.80-4.90) g/dL Eeslu-5-Qutstxxne (0.10-0.40) g/dL Kllgx-5-Yzbldpnex (0.60-1.00) g/dL Gamma Globulins (0.70-1.50) g/dL Microbiology - Last 24 Hours (Table) 02/11/22 18:40 Blood Culture Gram Stain - Final Blood Blood Culture - Final Coagulase Negative Staph Assessment and Plan Assessment: 1. Acute kidney injury secondary to NSAIDs and ATN from hypotension. Creatinine peaked at about 5.6 mg/dL. Currently down to 2.7. No evidence of hydronephrosis on ultrasound. UA shows 1+ protein and blood. All serologies are currently negative. 2. Hypokalemia status post replacement 3. Pneumonia maintained on antibiotics 4. Acute hypoxic respiratory failure currently improved 5. Hypernatremia associated with free water deficit currently improved Plan: Repeat labs in a.m. Hold IV fluids for now and encourage increased oral intake, particularly fluids Avoid nephrotoxic agents
[2022-02-15 11:35] LABS: Glucose,Whole Blood 126 mg/dL (75-99)
[2022-02-15 12:32] LABS: Free Kappa Lt Chain Qnt, Serum 18.12 mg/dL (0.33-1.94); Free Lambda Lt Chain Qnt, Seru 14.02 mg/dL (0.57-2.63)
[2022-02-15 16:16] LABS: Glucose,Whole Blood 143 mg/dL (75-99)
--- NOTE | 2022-02-15 17:31 | P.PN ---
Progress Note - Text Progress Note Date: 02/15/22 Chief Complaint: Unresponsive This is a 56-year-old patient, follows with Dr. Floyd. Chronic stable medical conditions include CAD, COPD, diabetes, GERD, hyperlipidemia, hypertension, prostatitis, neuropathy, vocal cord dysplasia, IBS, overactive bladder, chronic back pain, restless leg syndrome, seizure activity, still drinking about 10 years ago. Bipolar. Patient does follow with Dr. Gorman from psychiatry. Active smoker. Patient by the EMS was found to be unresponsive hypotensive and hypoxic. Patient was last seen by the family at 7:30 AM and if on the patient at 4:30 PM. In the ER initial presentation patient was minimally responsive. This is yesterday evening. This morning patient is drowsy. Attempting to answer questions. And dozes off. Does questionable pneumonia on the x-ray and started on antibiotic in the ER. Admitted with severe metabolic encephalopathy, COPD exacerbation, aspiration pneumonia. Started IV ceftriaxone. DuoNeb. IV fluids. February 13: Not eating much. More awake. Tired. Oral thrush. Started on Diflucan. Did not get IV fluids overnight as infiltrated. IV fluids continued today. Answering questions better. February 14: Bit more awake. Communicating. Eating only about 25%. Tired. Laying in bed. Complaining of pain in the left shoulder and left elbow area subsequent to fall. Orthopedics consulted. X-ray of the shoulder and elbow ordered. MRI negative for infarct. Some improvement in creatinine. February 15: Up in a chair. Eating well. X-ray of the shoulder and left arm negative for any fracture. Discussed with patient. Renal function improving. Patient states she has a cane walker and a wheelchair all 3 at home. Active Medications Albuterol/Ipratropium (Ipratropium-Albuterol 3 Ml Neb) 3 ml INHALATION RT-TID [facility] Last Admin: 02/15/22 11:13 Dose: Not Given Documented by: Atorvastatin Calcium (Atorvastatin 80 Mg Tab) 80 mg PO DAILY [facility] Last Admin: 02/15/22 09:12 Dose: 80 mg Documented by: Budesonide (Budesonide 1 Mg/2 Ml Nebu) 1 mg INHALATION RT-BID [facility] Last Admin: 02/15/22 07:45 Dose: 1 mg Documented by: Clopidogrel Bisulfate (Clopidogrel 75 Mg Tab) 75 mg PO DAILY [facility] Last Admin: 02/15/22 09:12 Dose: 75 mg Documented by: Duloxetine HCl (Duloxetine Hcl 60 Mg Capsule.Dr) 60 mg PO BID [facility] Last Admin: 02/15/22 09:12 Dose: 60 mg Documented by: Ezetimibe (Ezetimibe 10 Mg Tab) 10 mg PO DAILY [facility] Last Admin: 02/15/22 09:12 Dose: 10 mg Documented by: Fluconazole (Fluconazole 100 Mg Tab) 100 mg PO DAILY [facility]; Protocol Last Admin: 02/15/22 09:11 Dose: 100 mg Documented by: Folic Acid (Folic Acid 1 Mg Tab) 1 mg PO DAILY [facility] Last Admin: 02/15/22 09:11 Dose: 1 mg Documented by: Formoterol Fumarate (Formoterol Fumarate 20 Mcg/2 Ml Nebu) 20 mcg INHALATION RT-BID [facility] Last Admin: 02/15/22 07:45 Dose: 20 mcg Documented by: Insulin Aspart (Insulin Aspart (Novolog) 100 Unit/Ml Vial) 0 unit SQ ACHS [facility]; Protocol Last Admin: 02/15/22 12:21 Dose: Not Given Documented by: Isosorbide Mononitrate (Isosorbide Mononitrate Er 60 Mg Tab.Er.24h) 60 mg PO DAILY [facility] Last Admin: 02/15/22 09:12 Dose: 60 mg Documented by: Lamotrigine (Lamotrigine 100 Mg Tab) 150 mg PO BID [facility] Last Admin: 02/15/22 09:11 Dose: 150 mg Documented by: Levetiracetam (Levetiracetam 500 Mg Tab) 1,000 mg PO BID [facility] Last Admin: 02/15/22 09:12 Dose: 1,000 mg Documented by: Miscellaneous Information (Pneumonia Protocol Utilized 1 Each Misc) 1 each PO ONCE PRN PRN Reason: Per Protocol Miscellaneous Information (Potassium Replacement Protocol 1 Each Misc) 1 each MISCELLANE DAILY PRN; Protocol PRN Reason: Per Protocol Montelukast Sodium (Montelukast 10 Mg Tab) 10 mg PO DAILY [facility] Last Admin: 02/15/22 09:12 Dose: 10 mg Documented by: Nicotine (Nicotine 21mg/24hr Patch) 1 patch TRANSDERM DAILY [facility] Last Admin: 02/15/22 09:14 Dose: 1 patch Documented by: Non-Formulary Medication (Diroximel Fumarate [Vumerity]) 462 mg PO BID [facility] Last Admin: 02/15/22 09:14 Dose: 462 mg Documented by: Pantoprazole Sodium (Pantoprazole 40 Mg Tablet) 40 mg PO AC-BRKFST [facility] Last Admin: 02/15/22 06:22 Dose: 40 mg Documented by: Pregabalin (Pregabalin 100 Mg Cap) 100 mg PO TID [facility] Last Admin: 02/15/22 16:42 Dose: 100 mg Documented by: Primidone (Primidone 50 Mg Tab) 50 mg PO TID [facility] Last Admin: 02/15/22 16:42 Dose: 50 mg Documented by: Ropinirole HCl (Ropinirole Hcl 1 Mg Tab) 1 mg PO TID [facility] Last Admin: 02/15/22 16:42 Dose: 1 mg Documented by: Tramadol HCl (Tramadol 50 Mg Tab) 25 mg PO QID PRN PRN Reason: pain Last Admin: 02/15/22 16:42 Dose: 25 mg Documented by: Trazodone HCl (Trazodone Hcl 100 Mg Tab) 200 mg PO HS PRN PRN Reason: sleep Past medical history to include: CAD, COPD, diabetes, GERD, hyperlipidemia, hypertension, prostatitis, kidney disease, seizure disorder, peripheral neuropathy, vocal cord dysplasia, IBS, overactive bladder, hyperparathyroidism, chronic back pain, this is like syndrome, seizure activity, history of alcohol abuse 10 years ago. Bipolar. Social history: Lives with her. She. Does use a cane or a walker. Smokes a pack a day for 44 years. History of alcoholism stopped 10 years ago. Did use marijuana in the past. Family history: Mother had CAD Physical examination: VITAL SIGNS: 98, 89, 16, 103/65, 92% room air GENERAL: A bit lower, awake EYES: Pupils equal. Conjunctiva normal. HEENT: [External appearance of nose and ears normal, oral cavity dry mucous membranes. NECK: JVD not raised; masses not palpable. HEART: First and second heart sounds are normal; no edema. LUNGS: Respiratory rate increased; decreased breath sounds. ABDOMEN: Soft, nontender, liver spleen not palpable, no masses palpable. PSYCH: Awake, answering questions appropriately MUSCULOSKELETAL:No Clubbing/cyanosis;muscles-grossly intact NEUROLOGICAL: Cranial nerves grossly intact; no facial asymmetry, moving all limbs INVESTIGATIONS, reviewed in the clinical context: May 13: Potassium 4 creatinine 1.26 February 14: Potassium 3.3 BUN 48 creatinine 2.7 to EEG: Showing encephalopathy. Negative for epileptiform activity. MRI brain: Negative for stroke Ultrasound abdomen: Unremarkable kidney. February 13: Sodium 142 potassium 3.4 BUN 55 creatinine 5.43 AST 344 ALT 113 Sodium 146 potassium 2.9 BUN 50 creatinine 5.29 AST 657 ALT 127 Admission labs: UA positive for trace leukoesterase WBC RBC Urine culture positive for opiates, barbiturates White count 21.2 hemoglobin 14.5 platelets 509 potassium 3.1 BUN 47 creatinine 5.67 Troponin I 0.090, 0.079 Serum alcohol less than 10 EKG tracing personally reviewed by me-normal sinus rhythm. 69/m. Chest x-ray film personally reviewed by [id number] infiltrate Computed tomography scan brain: Unremarkable Assessment and plan: - severe metabolic encephalopathy. . 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 : Much improved EEG negative for epileptiform activity. -Acute kidney injury/ATN secondary to hypotension.: Improving Admission creatinine 5.67. -Acute COPD exacerbation the current smoker: Improving DuoNeb 3 times a day. Nebulized Perforomist Pulmicort -Chronic nicotine dependence, cigarette smoker Nicotine patch 21 -Restless leg syndrome Requip to 1 mg 3 times a day -GERD Omeprazole 40 mg daily -Bipolar disorder Continue home medications -Diabetes mellitus type 2 chronically on insulin Follow Accu-Cheks with sliding scale -Suspect aspiration pneumonia IV ceftriaxone -Oropharyngeal candidiasis Diflucan -Acute metabolic acidosis secondary to renal failure: Better Sodium bicarbonate Continues to improve. Discussed with patient. Repeat labs tomorrow. Hopefully discharged tomorrow.
[2022-02-15 21:03] LABS: Glucose,Whole Blood 154 mg/dL (75-99)
[2022-02-16] MEDS: PANTOPRAZOLE 40 MG TABLET PO SCH (06:31)
[2022-02-16] MEDS: INSULIN ASPART (NovoLOG) 100 UNIT/ML VIAL SQ SCH ×3 (06:35→16:45)
[2022-02-16 06:36] LABS: Glucose,Whole Blood 113 mg/dL (75-99)
[2022-02-16] MEDS: BUDESONIDE 1 MG/2 ML NEBU INHALATION SCH (07:49)
[2022-02-16] MEDS: FORMOTEROL FUMARATE 20 MCG/2 ML NEBU INHALATION SCH (07:49)
[2022-02-16] MEDS: IPRATROPIUM-ALBUTEROL 3 ML NEB INHALATION SCH ×2 (07:49→12:19)
--- NOTE | 2022-02-16 09:14 | CT ---
EXAMINATION TYPE: CT scapula LT wo con DATE OF EXAM: 02/16/2022 COMPARISON: Radiograph 02/14/2022 HISTORY: 56-year-old female scapular body fracture, Left shoulder pain after fall. TECHNIQUE: Contiguous axial scanning of the left scapula without IV contrast. Coronal and sagittal re constructions performed. 3-D reconstructions generated on a dedicated independent workstation. CT DLP: 605 mGycm Automated exposure control for dose reduction was used. FINDINGS: Some scattered patchy interstitial opacities present such as medial left upper lobe and in the periph everardo of the visualized left lower lung. Prominent coronary artery calcifications. Mild emphysema. There appears to be a healed fracture deformity involving the body of the scapula extending to the mi d to lower third lateral scapular border, for example, referred to coronal image 45 series 209 and ax ial image 55. No acute fractures identified the scapula. Moderate AC joint degenerative change. No atrophy of the rotator cuff musculature. No additional acut e fracture is seen. Cortical angulation lateral left sixth rib compatible with old healed fracture. IMPRESSION: CHRONIC HEALED FRACTURE DEFORMITY OF THE MID TO LOWER THIRD BODY OF THE SCAPULA EXTENDING TO THE LATE RAL SCAPULAR BORDER. NO ACUTE OR HEALING FRACTURE IDENTIFIED. OLD HEALED LEFT LATERAL SIXTH RIB FRACTURE.
[2022-02-16] MEDS: NICOTINE 21MG/24HR PATCH TRANSDERM SCH (09:16)
[2022-02-16] MEDS: FOLIC ACID 1 MG TAB PO SCH (09:17)
[2022-02-16] MEDS: FLUCONAZOLE 100 MG TAB PO SCH (09:17)
[2022-02-16] MEDS: ATORVASTATIN 80 MG TAB PO SCH (09:17)
[2022-02-16] MEDS: DULoxetine HCL 60 MG CAPSULE.DR PO SCH (09:17)
[2022-02-16] MEDS: levETIRAcetam 500 MG TAB PO SCH (09:17)
[2022-02-16] MEDS: PREGABALIN 100 MG CAP PO SCH ×2 (09:17→16:57)
[2022-02-16] MEDS: MONTELUKAST 10 MG TAB PO SCH (09:17)
[2022-02-16] MEDS: lamoTRIgine 100 MG TAB PO SCH (09:17)
[2022-02-16] MEDS: ISOSORBIDE MONONITRATE ER 60 MG TAB.ER.24H PO SCH (09:18)
[2022-02-16] MEDS: DIROXIMEL FUMARATE 231 MG PO SCH (09:18)
[2022-02-16] MEDS: PRIMIDONE 50 MG TAB PO SCH ×2 (09:18→16:57)
[2022-02-16] MEDS: CLOPIDOGREL 75 MG TAB PO SCH (09:18)
[2022-02-16] MEDS: EZETIMIBE 10 MG TAB PO SCH (09:18)
--- NOTE | 2022-02-16 09:38 | P.PN ---
Progress Note - Text Progress Note Date: 02/16/22 Subjective: Patient is seen and examined today. He has notice some continued pain along right dorsal scapula but notes improvement in her symptoms. She denies any new injury or symptoms. Physical Examination: LUE: AIN/PIN/Radial/Ulnar/Median motor intact . Radial/Ulnar/Median SILT. 2+/4 Radial/Ulnar pulses palpated. The hand, forearm and arm are warm and well perfused with all compartments soft and compressible, no swelling appreciated. No scapular winging present. Tenderness to palpation along inferior scapular body with mild swelling, brusing along posterior aspect of scapula Impression: 1.) Right posterior scapula pain 2.) Right chronic/healed scapular body fracture. Plan: Diagnosis and treatment options were discussed with the patient. Her scapula body fracture appears to be old and healed, however she is shaft tender and has some mild bruising along the posterior scapular body. I recommend sling for comfort and she may come out of it to use the hand and arm as tolerated throughout the day. She can follow up in 2 weeks in the outpatient setting. She is stable for DC from orthopedic standpoint. -Nikhil Banuelos DO Orthopedic Hand/Upper Extremity Surgeon
[2022-02-16 09:45] VITALS: BP 146/78; RESP 18; TEMP 98.5
[2022-02-16 11:23] LABS: Glucose,Whole Blood 140 mg/dL (75-99)
--- NOTE | 2022-02-16 11:31 | P.PN ---
Subjective Patient is seen for follow-up for acute kidney injury. Etiology is hypotension and use of NSAIDs. Serum creatinine had peaked at 5.4 mg/dL. Patient has had good urine output. Today the creatinine is down to 1.2 mg/dL. Patient is sitting up in bed. She denies any significant complaints. No nausea vomiting or diarrhea. Good urine output. Indwelling Santos catheter present. Objective - Vital Signs Vital signs: Vital Signs Temp 98.5 F 02/16/22 09:15 Pulse 104 H 02/16/22 09:15 Resp 18 02/16/22 09:15 BP 146/78 02/16/22 09:15 Pulse Ox 92 L 02/16/22 09:15 Intake & Output 02/15/22 02/16/22 02/16/22 18:59 06:59 18:59 Intake Total 1040 Output Total 1350 1650 Balance -310 -1650 Intake: Oral 1040 Output: Urine 1350 1650 Other: Voiding Method Indwelling Catheter Indwelling Catheter Indwelling Catheter - Exam Awake, comfortable, not in any acute distress Examination of the heart S1 and S2 Examination lungs bilateral breath sounds are heard Abdomen is soft nontender Examination lower extremity shows trace edema 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 SETTER exam grossly intact - Labs CBC & Chem 7: 02/11/22 18:51 02/15/22 07:00 Labs: Abnormal Lab Results - Last 24 Hours (Table) 02/13/22 02/15/22 02/15/22 Range/Units 12:35 11:34 16:14 POC Glucose (mg/dL) 126 H 143 H (75-99) mg/dL Free [place] LC, Quant 18.12 H (0.33-1.94) mg/dL Free [place] LC, Quant 14.02 H (0.57-2.63) mg/dL 02/15/22 02/16/22 02/16/22 Range/Units 20:37 06:34 11:21 POC Glucose (mg/dL) 154 H 113 H 140 H (75-99) mg/dL Free [place] LC, Quant (0.33-1.94) mg/dL Free [place] LC, Quant (0.57-2.63) mg/dL Microbiology - Last 24 Hours (Table) 02/11/22 18:43 Blood Culture - Preliminary Blood No Growth after 96 hours Assessment and Plan Assessment: 1. Acute kidney injury secondary to NSAIDs and ATN from hypotension. Creatinine peaked at about 5.6 mg/dL. Currently down to 2.7. No evidence of hydronephrosis on ultrasound. UA shows 1+ protein and blood. All serologies are currently negative. 2. Hypokalemia status post replacement 3. Pneumonia maintained on antibiotics 4. Acute hypoxic respiratory failure currently improved 5. Hypernatremia associated with free water deficit currently improved Plan: Patient is stable for discharge from nephrology standpoint. Repeat labs as outpatient in 1-2 days.
[2022-02-16 12:23] VITALS: PULSE 92
[2022-02-16 12:23] LABS: African American GFR (CKD) >90 (>60 ml/min/1.73 sqM); Anion Gap 4 mmol/L; Blood Urea Nitrogen 24 mg/dL (7-17); Calcium 8.3 mg/dL (8.4-10.2); Carbon Dioxide 32 mmol/L (22-30); Chloride 102 mmol/L (98-107); Glucose 120 mg/dL (74-99); Non-African American GFR(CKD) 83 (>60 ml/min/1.73 sqM); Sodium 138 mmol/L (137-145)
[2022-02-16 16:12] LABS: Glucose,Whole Blood 103 mg/dL (75-99)
--- NOTE | 2022-02-17 13:50 | P.DS ---
Providers Date of admission: 02/11/22 20:45 Expected date of discharge: 02/17/22 Attending physician: Andrea Shin Consults: 02/11/22 20:45 Consult Physician Routine Consulting Provider: Phoenix Lynch Consult Reason/Comments: Acute renal failure Do you want consulting provider notified?: Yes 02/12/22 12:54 Consult Physician Routine Consulting Provider: Will Velez Consult Reason/Comments: altered mental status Do you want consulting provider notified?: Yes 02/12/22 16:54 Consult Physician Routine Consulting Provider: Yasmani Andersen Consult Reason/Comments: Bipolar/assess medications Do you want consulting provider notified?: Yes 02/14/22 11:44 Consult Physician Routine Consulting Provider: Nikhil Banuelos Consult Reason/Comments: left arm/shoulder pain-fall Do you want consulting provider notified?: Yes Primary care physician: [facility] Course: Chief Complaint: Unresponsive This is a 56-year-old patient, follows with Dr. Floyd. Chronic stable medical conditions include CAD, COPD, diabetes, GERD, hyperlipidemia, hypertension, prostatitis, neuropathy, vocal cord dysplasia, IBS, overactive bladder, chronic back pain, restless leg syndrome, seizure activity, still drinking about 10 years ago. Bipolar. Patient does follow with Dr. Gorman from psychiatry. Active smoker. Patient by the EMS was found to be unresponsive hypotensive and hypoxic. Patient was last seen by the family at 7:30 AM and if on the patient at 4:30 PM. In the ER initial presentation patient was minimally responsive. This is yesterday evening. This morning patient is drowsy. Attempting to answer questions. And dozes off. Does questionable pneumonia on the x-ray and started on antibiotic in the ER. Admitted with severe metabolic encephalopathy, acute kidney injury from ATN, COPD exacerbation, aspiration pneumonia. Started IV ceftriaxone. DuoNeb. IV fluids. Dose of Lyrica and Requip cutback. February 13: Not eating much. More awake. Tired. Oral thrush. Started on Diflucan. Did not get IV fluids overnight as infiltrated. IV fluids continued today. Answering questions better. February 14: Bit more awake. Communicating. Eating only about 25%. Tired. Laying in bed. Complaining of pain in the left shoulder and left elbow area subsequent to fall. Orthopedics consulted. X-ray of the shoulder and elbow ordered. MRI negative for infarct. Some improvement in creatinine. February 15: Up in a chair. Eating well. X-ray of the shoulder and left arm negative for any fracture. Discussed with patient. Renal function improving. Patient states she has a cane walker and a wheelchair all 3 at home. February 16: Doing well. Discussed with the patient. Patient be discharged on the reduced dose of Lyrica 100 mg 3 times a day and also decreased dose of Requip 1 mg 3 times a day. Advised against smoking. Blood cultures were positive with a contaminant. Discussion and discharge planning more than 35 minutes Active Medications Albuterol/Ipratropium (Ipratropium-Albuterol 3 Ml Neb) 3 ml INHALATION RT-TID [facility] Last Admin: 02/15/22 11:13 Dose: Not Given Documented by: Atorvastatin Calcium (Atorvastatin 80 Mg Tab) 80 mg PO DAILY [facility] Last Admin: 02/15/22 09:12 Dose: 80 mg Documented by: Budesonide (Budesonide 1 Mg/2 Ml Nebu) 1 mg INHALATION RT-BID [facility] Last Admin: 02/15/22 07:45 Dose: 1 mg Documented by: Clopidogrel Bisulfate (Clopidogrel 75 Mg Tab) 75 mg PO DAILY [facility] Last Admin: 02/15/22 09:12 Dose: 75 mg Documented by: Duloxetine HCl (Duloxetine Hcl 60 Mg Capsule.Dr) 60 mg PO BID [facility] Last Admin: 02/15/22 09:12 Dose: 60 mg Documented by: Ezetimibe (Ezetimibe 10 Mg Tab) 10 mg PO DAILY [facility] Last Admin: 02/15/22 09:12 Dose: 10 mg Documented by: Fluconazole (Fluconazole 100 Mg Tab) 100 mg PO DAILY [facility]; Protocol Last Admin: 02/15/22 09:11 Dose: 100 mg Documented by: Folic Acid (Folic Acid 1 Mg Tab) 1 mg PO DAILY [facility] Last Admin: 02/15/22 09:11 Dose: 1 mg Documented by: Formoterol Fumarate (Formoterol Fumarate 20 Mcg/2 Ml Nebu) 20 mcg INHALATION RT-BID [facility] Last Admin: 02/15/22 07:45 Dose: 20 mcg Documented by: Insulin Aspart (Insulin Aspart (Novolog) 100 Unit/Ml Vial) 0 unit SQ ACHS [facility]; Protocol Last Admin: 02/15/22 12:21 Dose: Not Given Documented by: Isosorbide Mononitrate (Isosorbide Mononitrate Er 60 Mg Tab.Er.24h) 60 mg PO DAILY [facility] Last Admin: 02/15/22 09:12 Dose: 60 mg Documented by: Lamotrigine (Lamotrigine 100 Mg Tab) 150 mg PO BID [facility] Last Admin: 02/15/22 09:11 Dose: 150 mg Documented by: Levetiracetam (Levetiracetam 500 Mg Tab) 1,000 mg PO BID [facility] Last Admin: 02/15/22 09:12 Dose: 1,000 mg Documented by: Miscellaneous Information (Pneumonia Protocol Utilized 1 Each [facility]) 1 each PO ONCE PRN PRN Reason: Per Protocol Miscellaneous Information (Potassium Replacement Protocol 1 Each [facility]) 1 each MISCELLANE DAILY PRN; Protocol PRN Reason: Per Protocol Montelukast Sodium (Montelukast 10 Mg Tab) 10 mg PO DAILY [facility] Last Admin: 02/15/22 09:12 Dose: 10 mg Documented by: Nicotine (Nicotine 21mg/24hr Patch) 1 patch TRANSDERM DAILY [facility] Last Admin: 02/15/22 09:14 Dose: 1 patch Documented by: Non-Formulary Medication (Diroximel Fumarate [Vumerity]) 462 mg PO BID [facility] Last Admin: 02/15/22 09:14 Dose: 462 mg Documented by: Pantoprazole Sodium (Pantoprazole 40 Mg Tablet) 40 mg PO AC-BRKFST [facility] Last Admin: 02/15/22 06:22 Dose: 40 mg Documented by: Pregabalin (Pregabalin 100 Mg Cap) 100 mg PO TID [facility] Last Admin: 02/15/22 16:42 Dose: 100 mg Documented by: Primidone (Primidone 50 Mg Tab) 50 mg PO TID [facility] Last Admin: 02/15/22 16:42 Dose: 50 mg Documented by: Ropinirole HCl (Ropinirole Hcl 1 Mg Tab) 1 mg PO TID [facility] Last Admin: 02/15/22 16:42 Dose: 1 mg Documented by: Tramadol HCl (Tramadol 50 Mg Tab) 25 mg PO QID PRN PRN Reason: pain Last Admin: 02/15/22 16:42 Dose: 25 mg Documented by: Trazodone HCl (Trazodone Hcl 100 Mg Tab) 200 mg PO HS PRN PRN Reason: sleep Past medical history to include: CAD, COPD, diabetes, GERD, hyperlipidemia, hypertension, prostatitis, kidney disease, seizure disorder, peripheral neuropathy, vocal cord dysplasia, IBS, overactive bladder, hyperparathyroidism, chronic back pain, this is like syndrome, seizure activity, history of alcohol abuse 10 years ago. Bipolar. Social history: Lives with her. She. Does use a cane or a walker. Smokes a pack a day for 44 years. History of alcoholism stopped 10 years ago. Did use marijuana in the past. Family history: Mother had CAD Physical examination: VITAL SIGNS: 98.5, 92, 18, 146/78, 92% room air GENERAL: Up in a chair, awake answering questions EYES: Pupils equal. Conjunctiva normal. HEENT: [External appearance of nose and ears normal, oral cavity dry mucous mem branes. NECK: JVD not raised; masses not palpable. HEART: First and second heart sounds are normal; no edema. LUNGS: Respiratory rate increased; decreased breath sounds. ABDOMEN: Soft, nontender, liver spleen not palpable, no masses palpable. PSYCH: Awake, answering questions appropriately MUSCULOSKELETAL:No Clubbing/cyanosis;muscles-grossly intact NEUROLOGICAL: Cranial nerves grossly intact; no facial asymmetry, moving all limbs INVESTIGATIONS, reviewed in the clinical context: February 16: Creatinine 0.8 EEG: Showing encephalopathy. Negative for epileptiform activity. MRI brain: Negative for stroke Ultrasound abdomen: Unremarkable kidney. February 13: Sodium 142 potassium 3.4 BUN 55 creatinine 5.43 AST 344 ALT 113 Sodium 146 potassium 2.9 BUN 50 creatinine 5.29 AST 657 ALT 127 Admission labs: UA positive for trace leukoesterase WBC RBC Urine culture positive for opiates, barbiturates White count 21.2 hemoglobin 14.5 platelets 509 potassium 3.1 BUN 47 creatinine 5.67 Troponin I 0.090, 0.079 Serum alcohol less than 10 EKG tracing personally reviewed by me-normal sinus rhythm. 69/m. Chest x-ray film personally reviewed by [id number] infiltrate Computed tomography scan brain: Unremarkable Assessment and plan: - severe metabolic encephalopathy. . Note that patient is on several medications that could be [employer] depressant. : Much improved EEG negative for epileptiform activity. -Acute kidney injury/ATN secondary to hypotension.: Corrected Admission creatinine 5.67. Creatinine down to 0.8 -Acute COPD exacerbation the current smoker: Improved DuoNeb 3 times a day. Nebulized Perforomist Pulmicort -Chronic nicotine dependence, cigarette smoker Nicotine patch 21 -Restless leg syndrome Decreased dose Requip to 1 mg 3 times a day -GERD Omeprazole 40 mg daily -Bipolar disorder Continue home medications -Diabetes mellitus type 2 chronically on insulin Follow Accu-Cheks with sliding scale -Suspect aspiration pneumonia IV ceftriaxone: Completed course -Oropharyngeal candidiasis Diflucan -Acute metabolic acidosis secondary to renal failure: Better Sodium bicarbonate Disposition: Home Plan - Discharge Summary Discharge Rx Participant: No New Discharge Prescriptions: New Fluconazole [Diflucan] 100 mg PO DAILY #7 tab Nicotine 21Mg/24Hr Patch [Habitrol] 1 patch TRANSDERM DAILY #14 patch Pregabalin [Lyrica] 100 mg PO TID #90 cap rOPINIRole HCL [Requip] 1 mg PO TID #90 tab Folic Acid 1 mg PO DAILY #30 tab Continue Umeclidinium [place] [Incruse Ellipta] 1 puff INHALATION RT-DAILY HYDROcodone/APAP 7.5-325MG [[place] 7.5-325] 1 tab PO BID PRN PRN Reason: Pain Furosemide [Lasix] 10 - 20 mg PO DAILY PRN PRN Reason: Edema Baclofen [Lioresal] 10 mg PO TID PRN PRN Reason: Muscle Spasm Albuterol Inhaler [Ventolin Hfa Inhaler] 2 puff INHALATION RT-QID PRN PRN Reason: Shortness Of Breath Fluticasone/Salmeterol [Advair 500-50 Diskus] 1 puff INHALATION RT-BID Rosuvastatin Calcium [Crestor] 40 mg PO DAILY Primidone [Mysoline] 50 mg PO TID NIFEdipine [NIFEdipine ER] 30 mg PO DAILY Montelukast Sodium [Singulair] 10 mg PO DAILY traZODone HCL [Desyrel] 200 mg PO HS PRN PRN Reason: sleep Isosorbide Mononitrate ER [Imdur] 60 mg PO DAILY Ezetimibe [Zetia] 10 mg PO DAILY Enalapril [Vasotec] 20 mg PO BID DULoxetine HCL [Cymbalta] 60 mg PO BID Clopidogrel [Plavix] 75 mg PO DAILY Albuterol Nebulized [Ventolin Nebulized] 2.5 mg INHALATION RT-Q6H PRN PRN Reason: Shortness Of Breath valACYclovir HCL [Valtrex] 1,000 mg PO DAILY Potassium Chloride ER [K-Dur 10] 10 meq PO DAILY PRN PRN Reason: WITH LASIX Omeprazole 40 mg PO DAILY levETIRAcetam [Keppra] 1,000 mg PO BID Lidocaine 5% Patch [Lidoderm 5% Patch] 1 - 2 patch TOPICAL DAILY PRN PRN Reason: Pain Insulin Detemir [Levemir Flextouch Pen] 5 units SQ HS lamoTRIgine 150 mg PO BID Diroximel Fumarate [Vumerity] 462 mg PO BID Insulin Aspart [NovoLOG Flexpen] 5 unit SQ AC-TID Discontinued Metoprolol Tartrate [Lopressor] 100 mg PO BID rOPINIRole HCL [Requip] 2 mg PO TID Pregabalin [Lyrica] 150 mg PO TID Discharge Medication List Albuterol Inhaler [Ventolin Hfa Inhaler] 2 puff INHALATION RT-QID PRN 02/11/22 [History] Albuterol Nebulized [Ventolin Nebulized] 2.5 mg INHALATION RT-Q6H PRN 02/11/22 [History] Baclofen [Lioresal] 10 mg PO TID PRN 02/11/22 [History] Clopidogrel [Plavix] 75 mg PO DAILY 02/11/22 [History] DULoxetine HCL [Cymbalta] 60 mg PO BID 02/11/22 [History] Diroximel Fumarate [Vumerity] 462 mg PO BID 02/11/22 [History] Enalapril [Vasotec] 20 mg PO BID 02/11/22 [History] Ezetimibe [Zetia] 10 mg PO DAILY 02/11/22 [History] Fluticasone/Salmeterol [Advair 500-50 Diskus] 1 puff INHALATION RT-BID 02/11/22 [History] Furosemide [Lasix] 10 - 20 mg PO DAILY PRN 02/11/22 [History] HYDROcodone/APAP 7.5-325MG [[place] 7.5-325] 1 tab PO BID PRN 02/11/22 [History] Insulin Aspart [NovoLOG Flexpen] 5 unit SQ AC-TID 02/11/22 [History] Insulin Detemir [Levemir Flextouch Pen] 5 units SQ HS 02/11/22 [History] Isosorbide Mononitrate ER [Imdur] 60 mg PO DAILY 02/11/22 [History] Lidocaine 5% Patch [Lidoderm 5% Patch] 1 - 2 patch TOPICAL DAILY PRN 02/11/22 [History] Montelukast Sodium [Singulair] 10 mg PO DAILY 02/11/22 [History] NIFEdipine [NIFEdipine ER] 30 mg PO DAILY 02/11/22 [History] Omeprazole 40 mg PO DAILY 02/11/22 [History] Potassium Chloride ER [K-Dur 10] 10 meq PO DAILY PRN 02/11/22 [History] Primidone [Mysoline] 50 mg PO TID 02/11/22 [History] Rosuvastatin Calcium [Crestor] 40 mg PO DAILY 02/11/22 [History] Umeclidinium [place] [Incruse Ellipta] 1 puff INHALATION RT-DAILY 02/11/22 [History] lamoTRIgine 150 mg PO BID 02/11/22 [History] levETIRAcetam [Keppra] 1,000 mg PO BID 02/11/22 [History] traZODone HCL [Desyrel] 200 mg PO HS PRN 02/11/22 [History] valACYclovir HCL [Valtrex] 1,000 mg PO DAILY 02/11/22 [History] Fluconazole [Diflucan] 100 mg PO DAILY #7 tab 02/16/22 [Rx] Folic Acid 1 mg PO DAILY #30 tab 02/16/22 [Rx] Nicotine 21Mg/24Hr Patch [Habitrol] 1 patch TRANSDERM DAILY #14 patch 02/16/22 [Rx] Pregabalin [Lyrica] 100 mg PO TID #90 cap 02/16/22 [Rx] rOPINIRole HCL [Requip] 1 mg PO TID #90 tab 02/16/22 [Rx] Follow up Appointment(s)/Referral(s): [facility] [NON-STAFF] - Nikhil Banuelos DO [Doctor of Osteopathic Medicine] - 2 Weeks Nii Floyd MD [Primary Care Provider] - 1-2 days (Patient to call for appointment date and time as the office is closed at time of discharge.) Patient Instructions/Handouts: Acute Kidney Injury (DC), Pneumonia (DC) Discharge Disposition: HOME SELF-CARE
== END 2022-02-16 18:29 | disposition home or self-care (01) | DRG 91 ==
LOC: EC 18:26 → 3SCARD 20:45
PROVIDERS: ADMIT Hospitalist; ATTEND Hospitalist
DX: G92.8 Other toxic encephalopathy (principal); J69.0 Pneumonitis due to inhalation of food and vomit; J96.01 Acute respiratory failure with hypoxia; N17.0 Acute kidney failure with tubular necrosis; B37.0 Candidal stomatitis; E87.0 Hyperosmolality and hypernatremia; E87.2 Acidosis; J44.0 Chronic obstructive pulmonary disease with (acute) lower respiratory infection; J44.1 Chronic obstructive pulmonary disease with (acute) exacerbation; I10 Essential (primary) hypertension; I25.10 Atherosclerotic heart disease of native coronary artery without angina pectoris; E11.42 Type 2 diabetes mellitus with diabetic polyneuropathy; E53.8 Deficiency of other specified B group vitamins; E78.5 Hyperlipidemia, unspecified; E87.6 Hypokalemia; F10.21 Alcohol dependence, in remission; F17.210 Nicotine dependence, cigarettes, uncomplicated; F31.9 Bipolar disorder, unspecified; G25.81 Restless legs syndrome; K72.90 Hepatic failure, unspecified without coma; I95.9 Hypotension, unspecified; G40.909 Epilepsy, unspecified, not intractable, without status epilepticus; G89.29 Other chronic pain; K21.9 Gastro-esophageal reflux disease without esophagitis; R13.10 Dysphagia, unspecified; M25.522 Pain in left elbow; R74.8 Abnormal levels of other serum enzymes; W19.XXXA Unspecified fall, initial encounter; K58.9 Irritable bowel syndrome, unspecified; N32.81 Overactive bladder; E21.3 Hyperparathyroidism, unspecified; J38.3 Other diseases of vocal cords; R29.810 Facial weakness; S42.112A Displaced fracture of body of scapula, left shoulder, initial encounter for closed fracture; T39.395A Adverse effect of other nonsteroidal anti-inflammatory drugs [NSAID], initial encounter; Z79.02 Long term (current) use of antithrombotics/antiplatelets; Z79.4 Long term (current) use of insulin; Z79.899 Other long term (current) drug therapy; Z82.3 Family history of stroke; Z82.49 Family history of ischemic heart disease and other diseases of the circulatory system; Z90.710 Acquired absence of both cervix and uterus; Z28.311 Partially vaccinated for COVID-19; Z98.51 Tubal ligation status; Z98.890 Other specified postprocedural states
CPT/HCPCS: 36415; 70450; 70551; 71045; 71046; 72125; 76770; 80048; 80053; 80074; 80306; 80320; 81001; 82140; 82570; 82607; 82746; 83036; 83605; 83735; 83883; 84100; 84132; 84156; 84165; 84439; 84443; 84484; 85025; 85610; 85730; 86038; 86160; 86162; 86225; 86255; 86334; 86335; 87040; 87086; 93005; 94640; 94760; 95816; 96361; 96365; 96366; 96375; 99291

== ENCOUNTER 2022-05-06 21:42 | Inpatient (IN) | payer MEDICARE, OTHER ==
[2022-05-06] MEDS ORDERED: diphenhydrAMINE 50 MG/ML 1 ML VIAL IVP STA (21:56)
[2022-05-06] MEDS ORDERED: IPRATROPIUM-ALBUTEROL 3 ML NEB INHALATION STA (22:31)
--- NOTE | 2022-05-06 23:16 | ED ---
SOB HPI - General Chief Complaint: Shortness of Breath Stated Complaint: Pneumonia, COPD Time Seen by Provider: 05/06/22 21:52 Source: patient, RN notes reviewed Mode of arrival: EMS Limitations: no limitations - History of Present Illness Initial Comments: 56-year-old female history of COPD who was seen at [facility] this evening found have bilateral pneumonia as well as COPD exacerbation is transferred here for inpatient evaluation and treatment. She was COVID-19 tested at that facility. No complaints of chest pain at this time no fevers chills or sweats. She is somewhat short of breath. She was noted to have some protruding of her tongue which apparently on old charting was found to be noted at [facility] and 02/22/22. Patient does not believe she is on any new medications this time. MD Complaint: shortness of breath - Related Data Home Medications Medication Instructions Recorded Confirmed Albuterol Inhaler [Ventolin Hfa 2 puff INHALATION RT-QID PRN 02/11/22 02/11/22 Inhaler] Albuterol Nebulized [Ventolin 2.5 mg INHALATION RT-Q6H PRN 02/11/22 02/11/22 Nebulized] Baclofen [Lioresal] 10 mg PO TID PRN 02/11/22 02/11/22 Clopidogrel [Plavix] 75 mg PO DAILY 02/11/22 02/11/22 DULoxetine HCL [Cymbalta] 60 mg PO BID 02/11/22 02/11/22 Diroximel Fumarate [Vumerity] 462 mg PO BID 02/11/22 02/11/22 Enalapril [Vasotec] 20 mg PO BID 02/11/22 02/11/22 Ezetimibe [Zetia] 10 mg PO DAILY 02/11/22 02/11/22 Fluticasone Propion/Salmeterol 1 puff INHALATION RT-BID 02/11/22 02/11/22 [Advair 500-50 Diskus] Furosemide [Lasix] 10 - 20 mg PO DAILY PRN 02/11/22 02/11/22 HYDROcodone/APAP 7.5-325MG [[place] 1 tab PO BID PRN 02/11/22 02/11/22 7.5-325] Insulin Aspart [NovoLOG Flexpen] 5 unit SQ AC-TID 02/11/22 02/11/22 Insulin Detemir [Levemir Flextouch 5 units SQ HS 02/11/22 02/11/22 Pen] Isosorbide Mononitrate ER [Imdur] 60 mg PO DAILY 02/11/22 02/11/22 Lidocaine 5% Patch [Lidoderm 5% 1 - 2 patch TOPICAL DAILY PRN 02/11/22 02/11/22 Patch] Montelukast Sodium [Singulair] 10 mg PO DAILY 02/11/22 02/11/22 NIFEdipine [NIFEdipine ER] 30 mg PO DAILY 02/11/22 02/11/22 Omeprazole 40 mg PO DAILY 02/11/22 02/11/22 Potassium Chloride ER [K-Dur 10] 10 meq PO DAILY PRN 02/11/22 02/11/22 Primidone [Mysoline] 50 mg PO TID 02/11/22 02/11/22 Rosuvastatin Calcium [Crestor] 40 mg PO DAILY 02/11/22 02/11/22 Umeclidinium [place] [Incruse 1 puff INHALATION RT-DAILY 02/11/22 02/11/22 Ellipta] lamoTRIgine 150 mg PO BID 02/11/22 02/11/22 levETIRAcetam [Keppra] 1,000 mg PO BID 02/11/22 02/11/22 traZODone HCL [Desyrel] 200 mg PO HS PRN 02/11/22 02/11/22 valACYclovir HCL [Valtrex] 1,000 mg PO DAILY 02/11/22 02/11/22 Previous Rx's Medication Instructions Recorded Fluconazole [Diflucan] 100 mg PO DAILY #7 tab 02/16/22 Folic Acid 1 mg PO DAILY #30 tab 02/16/22 Nicotine 21Mg/24Hr Patch [Habitrol] 1 patch TRANSDERM DAILY #14 patch 02/16/22 Pregabalin [Lyrica] 100 mg PO TID #90 cap 02/16/22 rOPINIRole HCL [Requip] 1 mg PO TID #90 tab 02/16/22 Allergies Allergy/AdvReac Type Severity Reaction Status Date / Time No Known Allergies Allergy Verified 02/12/22 10:30 Review of Systems ROS Statement: Those systems with pertinent positive or pertinent negative responses have been documented in the HPI. ROS Other: All systems not noted in ROS Statement are negative. Past Medical History Past Medical History: Asthma, Coronary Artery Disease (CAD), COPD, Diabetes Mellitus, GERD/Reflux, Hyperlipidemia, Hypertension, Osteoarthritis (OA), Renal Disease, Seizure Disorder Additional Past Medical History / Comment(s): IDDM type II, neuropathy bilateral legs/feet, vocal cord dysplasia/R vocal cord ulcer, dysphagia in past, IBS, overactive bladder, hyperparathyroidism, chronic back pain, headaches, chronic sinusitis, bilateral tinnitis, RLS, last seizure about one year ago, pt states past ETOH abuse but has not drank in 10 years. History of Any Multi-Drug Resistant Organisms: Unobtainable Past Surgical History: Appendectomy, Back Surgery, Heart Catheterization, Hysterectomy, Tubal Ligation Additional Past Surgical History / Comment(s): Multiple throat biopsies, EGD, colonoscopies, back surgery x2. Past Anesthesia/Blood Transfusion Reactions: No Reported Reaction Past Psychological History: Bipolar, Depression Smoking Status: Current every day smoker, Unknown if ever smoked Past Drug Use History: Marijuana - Past Family History Mother Family Medical History: Coronary Artery Disease (CAD) Additional Family Medical History / Comment(s): Mother had CABG Father Family Medical History: CVA/TIA General Exam - General Exam Comments Initial Comments: This a well-developed well-nourished awake alert oriented 4 female Limitations: no limitations General appearance: alert, anxious Head exam: Present: atraumatic, normocephalic, normal inspection Eye exam: Present: normal appearance, PERRL, EOMI. Absent: scleral icterus, conjunctival injection, periorbital swelling ENT exam: Present: mucous membranes dry, other (Patient is told his noted to be protruding at times oropharynx posteriorly however is clear) Neck exam: Present: normal inspection, full ROM, other (Surgery or bruits). Absent: tenderness, meningismus, lymphadenopathy Respiratory exam: Present: decreased breath sounds. Absent: respiratory distress, wheezes, rales, rhonchi, stridor Cardiovascular Exam: Present: normal rhythm, tachycardia, normal heart sounds. Absent: systolic murmur, diastolic murmur, rubs, gallop, clicks GI/Abdominal exam: Present: soft, normal bowel sounds. Absent: distended, tenderness, guarding, rebound, rigid Extremities exam: Present: normal inspection, full ROM, normal capillary refill. Absent: tenderness, pedal edema, joint swelling, calf tenderness Back exam: Present: normal inspection Neurological exam: Present: alert, oriented X3, CN II-XII intact Psychiatric exam: Present: normal affect, normal mood Skin exam: Present: warm, dry, intact, normal color. Absent: rash Course Vital Signs 05/06/22 22:11 Temperature 99.5 F Pulse Rate 117 H Respiratory 20 Rate Blood Pressure 182/101 O2 Sat by Pulse 92 L Oximetry Medical Decision Making - Medical Decision Making I did review the imaging as well as did review the packet sent from [facility] patient be admitted for inpatient evaluation treatment of bilateral pneumonia COPD exacerbation leukocytosis. Neurology will be consulted for evaluation of the protrusion of the tongue which may be secondary to some dystonia. - EKG Data -: EKG Interpreted by Me EKG shows normal: sinus rhythm EKG Comments: Sinus tachycardia rate 112 IN interval 136 QRS duration 102 QT since QTC 318/384 possible left atrial enlargement nonspecific ST configuration some artifact present Disposition Clinical Impression: Acute exacerbation of chronic obstructive pulmonary disease, Bilateral pneumonia, Tachycardia Disposition: ADMITTED IP TO THIS [facility] Condition: Fair Referrals: Nii Floyd MD [Primary Care Provider] - 1-2 days Decision Date: 05/06/22 Decision Time: 23:26
[2022-05-06] MEDS ORDERED: PNEUMONIA PROTOCOL UTILIZED 1 EACH MISC PO PRN (23:26)
[2022-05-07] MEDS: methylPREDNISolone SOD SUCCI 125 MG/2 ML VIAL IV SCH ×3 (01:45→15:48)
[2022-05-07] MEDS: SODIUM CHLORIDE 0.9% 1,000 ML IV SCH ×3 (01:45→21:50)
[2022-05-07] MEDS: LIDOCAINE 5% PATCH TOPICAL PRN ×2 (01:51→14:06)
[2022-05-07] MEDS: IPRATROPIUM-ALBUTEROL 3 ML NEB INHALATION PRN ×4 (07:33→19:23)
[2022-05-07] MEDS: levETIRAcetam 500 MG TAB PO SCH ×2 (08:27→21:23)
[2022-05-07] MEDS: lamoTRIgine 100 MG TAB PO SCH ×2 (08:28→21:22)
[2022-05-07] MEDS: ATORVASTATIN 80 MG TAB PO SCH (08:28)
[2022-05-07] MEDS: PANTOPRAZOLE 40 MG TABLET PO SCH (08:28)
[2022-05-07] MEDS: PRIMIDONE 50 MG TAB PO SCH ×3 (08:28→21:23)
[2022-05-07] MEDS: MONTELUKAST 10 MG TAB PO SCH (08:29)
[2022-05-07] MEDS: LEVOFLOXACIN 750 MG TAB PO SCH (08:29)
[2022-05-07] MEDS: NICOTINE 21MG/24HR PATCH TRANSDERM SCH (08:30)
[2022-05-07] MEDS: NIFEdipine XL 30 MG TAB.ER.24 PO SCH (08:50)
[2022-05-07] MEDS ORDERED: PREGABALIN 100 MG CAP PO SCH (09:00)
[2022-05-07] MEDS ORDERED: POTASSIUM CHLORIDE ER 10 MEQ TAB.ER.PRT PO PRN (09:00)
--- NOTE | 2022-05-07 11:02 | P.CNPUL ---
History of Present Illness Consult date: 05/07/22 Requesting physician: Andrea Shin Reason for consult: dyspnea, cough, COPD, hypoxemia, pneumonia, abnormal CXR/CT Chief complaint: Shortness of breath. History of present illness: Pulmonary consultation dated 05/07/2022. 56-year-old female transferred down from [facility], for COPD exacerbation and possible bilateral pneumonia. The patient apparently is been having increasing shortness of breath, cough, chest congestion, and phlegm production. The patient apparently sees my partner in the office. Currently, she is on 10 L nasal cannula high flow oxygen, and getting saline at KVO. Her primary care provider is Dr. Nii Floyd in [place], [place]. She typically uses home O2 at 2 L. She does continue to smoke cigarettes. She's been smoking a pack a day for 36 years. The patient is not a particularly good historian, and I do not have access to the patient's radiographs. Also, I have not been able to locate the patient's laboratory data. The patient was placed on duo nebs, Levaquin, Singulair, and a nicotine patch. She appears in no acute distress despite the fact that she is on high flow nasal O2. Review of Systems REVIEW OF SYSTEMS: CONSTITUTIONAL: [Negative.] NEUROLOGIC: [ Negative.] HEENT: [ Negative.] CARDIAC: [Negative.] PULMONARY: Shortness of breath, cough, wheezing, chest congestion, and occasional phlegm production. GI: [Negative.] : [Negative.] RHEUMATOLOGIC: [ Negative.] IMMUNOLOGIC: [ Negative.] ENDOCRINE: [Negative. ] DERMATOLOGIC: [Negative.] Past Medical History Past Medical History: Asthma, Coronary Artery Disease (CAD), COPD, Diabetes Mellitus, GERD/Reflux, Hyperlipidemia, Hypertension, Osteoarthritis (OA), Renal Disease, Seizure Disorder Additional Past Medical History / Comment(s): IDDM type II, neuropathy bilateral legs/feet, vocal cord dysplasia/R vocal cord ulcer, dysphagia in past, IBS, overactive bladder, hyperparathyroidism, chronic back pain, headaches, chronic sinusitis, bilateral tinnitis, RLS, last seizure about one year ago, pt states past ETOH abuse but has not drank in 25 years. History of Any Multi-Drug Resistant Organisms: None Reported Past Surgical History: Appendectomy, Back Surgery, Heart Catheterization, Heart Catheterization With Stent, Hysterectomy, Tubal Ligation Additional Past Surgical History / Comment(s): Multiple throat biopsies, EGD, colonoscopies, back surgery x2. 2 stents. Past Anesthesia/Blood Transfusion Reactions: No Reported Reaction Date of Last Stent Placement:: unknown Past Psychological History: Bipolar, Depression Additional Psychological History / Comment(s): Pt resides with her josesitoe. She uses a cane or walker to ambulate. She does not drive, she gets rides thru [facility] transportation. She manages her own medication. She sees Dr. Gorman for her mental health. Smoking Status: Current every day smoker Past Alcohol Use History: Abuse Additional Past Alcohol Use History / Comment(s): Pt quit smoking 3 1/2 days ago. Has not drank in 25 years. Past Drug Use History: Marijuana Additional Drug Use History / Comment(s): Past marijuana use. - Past Family History Mother Family Medical History: Coronary Artery Disease (CAD) Additional Family Medical History / Comment(s): Mother had CABG Father Family Medical History: CVA/TIA Medications and Allergies Home Medications Medication Instructions Recorded Confirmed Type Albuterol Inhaler [Ventolin Hfa 2 puff INHALATION RT-QID PRN 02/11/22 05/06/22 History Inhaler] Albuterol Nebulized [Ventolin 2.5 mg INHALATION RT-Q6H PRN 02/11/22 05/06/22 History Nebulized] Clopidogrel [Plavix] 75 mg PO DAILY 02/11/22 05/06/22 History DULoxetine HCL [Cymbalta] 60 mg PO BID 02/11/22 05/06/22 History Diroximel Fumarate [Vumerity] 462 mg PO BID 02/11/22 05/06/22 History Enalapril [Vasotec] 10 mg PO HS 02/11/22 05/06/22 History Ezetimibe [Zetia] 10 mg PO DAILY 02/11/22 05/06/22 History Fluticasone Propion/Salmeterol 1 puff INHALATION RT-BID 02/11/22 05/06/22 History [Advair 500-50 Diskus] Furosemide [Lasix] 10 mg PO DAILY PRN 02/11/22 05/06/22 History Insulin Aspart [NovoLOG Flexpen] See Protocol SQ AC-TID 02/11/22 05/06/22 History Insulin Detemir [Levemir Flextouch 5 units SQ HS 02/11/22 05/06/22 History Pen] Isosorbide Mononitrate ER [Imdur] 60 mg PO DAILY 02/11/22 05/06/22 History Lidocaine 5% Patch [Lidoderm 5% 1 - 2 patch TOPICAL DAILY PRN 02/11/22 05/06/22 History Patch] Montelukast Sodium [Singulair] 10 mg PO DAILY 02/11/22 05/06/22 History NIFEdipine [NIFEdipine ER] 30 mg PO DAILY 02/11/22 05/06/22 History Omeprazole 40 mg PO DAILY 02/11/22 05/06/22 History Potassium Chloride ER [K-Dur 10] 10 meq PO DAILY PRN 02/11/22 05/06/22 History Primidone [Mysoline] 50 mg PO TID 02/11/22 05/06/22 History Rosuvastatin Calcium [Crestor] 40 mg PO DAILY 02/11/22 05/06/22 History Umeclidinium [place] [Incruse 1 puff INHALATION RT-DAILY 02/11/22 05/06/22 History Ellipta] lamoTRIgine 150 mg PO BID 02/11/22 05/06/22 History levETIRAcetam [Keppra] 1,000 mg PO BID 02/11/22 05/06/22 History traZODone HCL [Desyrel] 200 mg PO HS PRN 02/11/22 05/06/22 History valACYclovir HCL [Valtrex] 1,000 mg PO DAILY 02/11/22 05/06/22 History Aspirin EC [Ecotrin Low Dose] 81 mg PO DAILY 05/06/22 05/06/22 History Baclofen [Lioresal] 30 mg PO QID@08,14,17,22 05/06/22 05/06/22 History Fluticasone Nasal [place] [Flonase 1 spray EA NOSTRIL DAILY 05/06/22 05/06/22 History Nasal [place]] Multivitamin/Iron/Folic Acid 1 tab PO DAILY 05/06/22 05/06/22 History [Centrum Adults Tablet] Nicotine 21Mg/24Hr Patch [Habitrol] 1 patch TRANSDERM DAILY PRN 05/06/22 05/06/22 History Pregabalin [Lyrica] 150 mg PO TID 05/06/22 05/06/22 History hydrOXYzine HCL [Atarax] 25 mg PO DAILY PRN 05/06/22 05/06/22 History rOPINIRole HCL [Requip] 0.5 mg PO TID 05/06/22 05/06/22 History Allergies Allergy/AdvReac Type Severity Reaction Status Date / Time No Known Allergies Allergy Verified 05/06/22 23:25 Physical Exam Osteopathic Statement: *. No significant issues noted on an osteopathic structural exam other than those noted in the History and Physical/Consult. Vitals: Vital Signs Temp Pulse Pulse Resp BP BP Pulse Ox 05/07/22 10:00 100 18 168/92 92 L 05/07/22 08:00 22 05/07/22 07:43 100 05/07/22 07:33 100 92 L 05/07/22 05:30 101 H 160/90 95 05/07/22 02:40 93 L 05/07/22 02:10 20 05/07/22 02:08 98.3 F 103 H 20 147/82 93 L 05/06/22 23:55 105 H 05/06/22 23:42 103 H 05/06/22 22:11 99.5 F 117 H 20 182/101 92 L Intake and Output 05/06/22 05/07/22 05/07/22 22:59 06:59 14:59 Other: Voiding Method Toilet # Voids 2 Weight 86.636 kg 86.636 kg No acute distress, oriented 3. The patient is not a good historian. She has nearly continuous tongue thrusting, and movements of her mouth, consistent with possible tardive dyskinesia. HEENT examination is grossly unremarkable. Neck supple. Full range of motion. No adenopathy thyromegaly or neck vein distention. Cardiovascular examination reveals regular rhythm rate. S1-S2 normal. No S3 or S4. No discernible murmur noted. Heart sounds are distant. Heart rate 100 bpm. Lungs reveal diminished bilateral breath sounds. Scattered rhonchi are noted. No distinct wheezes or crackles are appreciated. Breath sounds equal bilaterally. Abdomen soft bowel sounds are heard. No masses or tenderness. Extremities are intact. No cyanosis clubbing or edema. Skin is without rash or lesion. Neurologic examination is brief but nonfocal. Assessment and Plan Assessment: Acute hypoxemic respiratory failure secondary to COPD exacerbation and possible pneumonia. History of ongoing tobacco use with nicotine addiction. History of CAD. History of diabetes mellitus and diabetic neuropathy. Gastroesophageal reflux disease. History of hyperlipidemia. History of hypertension. Osteoarthritis. History of seizure disorder. Prior history of alcohol abuse. Multiple other medical problems and comorbidities. Plan: Plan dated 05/07/2022. The patient was seen in the emergency room, room 18. She was in no acute distress. She is not a particularly good historian. She was smoking up until the time she came into the hospital. She is very unusual movements of the mouth and tongue, consistent with possible tardive dyskinesia. X-rays, and labs, not able to be accessed by me. I will order a chest x-ray. She's currently on updrafts, Levaquin, and Singulair. Additional recommendations and suggestions are forthcoming, once I get a chance to look at an x-ray. She apparently sees my partner in the office. Time with Patient: Greater than 30
--- NOTE | 2022-05-07 11:31 | XR ---
EXAMINATION TYPE: XR chest 1V portable DATE OF EXAM: 05/07/2022 11:16 AM COMPARISON: Chest radiographs from 02/12/2022 TECHNIQUE: XR chest 1V portable Portable AP radiograph of the chest. CLINICAL INDICATION:Female, 56 years old with history of pneumonia; FINDINGS: Lungs/Pleura: Bibasilar predominately reticular opacities seen within the lung bases not significantl y changed from prior 1022.. There is no evidence of pleural effusion, focal consolidation, or pneumot horax. Pulmonary vascularity: Unremarkable. Heart/mediastinum: Cardiomediastinal silhouette is unremarkable. Musculoskeletal: No acute osseous pathology. IMPRESSION: Reinsertion of opacities in the bases not significantly changed from 02/12/2022. This could represent scarring from prior infection. Clinical correlation and consideration for CT is recommended.
--- NOTE | 2022-05-07 12:21 | P.CNNES ---
History of Present Illness Consult date: 05/07/22 Requesting physician: Theodore Talbot Reason for Consult: tongue protrusion, possible dystonic reaction History of Present Illness: This is a 56-year-old woman with history of seizures, essential tremor, folate deficiency, remote alcohol use who was sent from [facility] because of bilateral pneumonia as well as COPD exacerbation neurology is consulted for tongue protrusion possible dystonia. Patient stated that she has been having uncontrolled tongue movement for about one week. She does not recall if she was placed on any antipsychotic, neuroleptic recently that she recalls. She denies of any focal weakness. She follows-up with Dr. Jacques's team for her essential tremor and is on Primidone and feels helps but does not resolve her symptoms. She states she had tremor with rest and with action. Patient is on multiple medications some includes Keppra at thousand milligram 1 tablet twice a day, Lamictal 150 MHz tablet twice a day for seizures. Patient is also on Lyrica, primidone, Cymbalta, Plavix, baclofen, trazodone I personally seen the patient last on 02/14/2022 in our facility and she had altered mental status likely toxic metabolic encephalopathy, hepatic encephalopathy and acute renal failure with elevated liver function test and slightly elevated ammonia and bacteremia and her mentation was slightly improving. Her MRI the brain was negative for stroke. She had a routine EEG which did not show any seizures or any epileptiform discharges but it showed the mild to moderate the background slowing. She had blood cultures which were coagulase-negative staph. Please refer to my note further details. Some other workup during this hospital visit consisted of: Patient has been tachycardic as high as 117 and the pulse ox of 92 L on nonrebreather. Patient is afebrile. Review of Systems Review of system: The 12 point system was reviewed and apparent positive and negative per HPI. Past Medical History Past Medical History: Asthma, Coronary Artery Disease (CAD), COPD, Diabetes Mellitus, GERD/Reflux, Hyperlipidemia, Hypertension, Osteoarthritis (OA), Renal Disease, Seizure Disorder Additional Past Medical History / Comment(s): IDDM type II, neuropathy bilateral legs/feet, vocal cord dysplasia/R vocal cord ulcer, dysphagia in past, IBS, overactive bladder, hyperparathyroidism, chronic back pain, headaches, chronic sinusitis, bilateral tinnitis, RLS, last seizure about one year ago, pt states past ETOH abuse but has not drank in 25 years. History of Any Multi-Drug Resistant Organisms: None Reported Past Surgical History: Appendectomy, Back Surgery, Heart Catheterization, Heart Catheterization With Stent, Hysterectomy, Tubal Ligation Additional Past Surgical History / Comment(s): Multiple throat biopsies, EGD, colonoscopies, back surgery x2. 2 stents. Past Anesthesia/Blood Transfusion Reactions: No Reported Reaction Date of Last Stent Placement:: unknown Past Psychological History: Bipolar, Depression Additional Psychological History / Comment(s): Pt resides with her jefe. She uses a cane or walker to ambulate. She does not drive, she gets rides thru [facility] transportation. She manages her own medication. She sees Dr. Gorman for her mental health. Smoking Status: Current every day smoker Past Alcohol Use History: Abuse Additional Past Alcohol Use History / Comment(s): Pt quit smoking 3 1/2 days ago. Has not drank in 25 years. Past Drug Use History: Marijuana Additional Drug Use History / Comment(s): Past marijuana use. - Past Family History Mother Family Medical History: Coronary Artery Disease (CAD) Additional Family Medical History / Comment(s): Mother had CABG Father Family Medical History: CVA/TIA Medications and Allergies Home Medications Medication Instructions Recorded Confirmed Type Albuterol Inhaler [Ventolin Hfa 2 puff INHALATION RT-QID PRN 02/11/22 05/06/22 History Inhaler] Albuterol Nebulized [Ventolin 2.5 mg INHALATION RT-Q6H PRN 02/11/22 05/06/22 History Nebulized] Clopidogrel [Plavix] 75 mg PO DAILY 02/11/22 05/06/22 History DULoxetine HCL [Cymbalta] 60 mg PO BID 02/11/22 05/06/22 History Diroximel Fumarate [Vumerity] 462 mg PO BID 02/11/22 05/06/22 History Enalapril [Vasotec] 10 mg PO HS 02/11/22 05/06/22 History Ezetimibe [Zetia] 10 mg PO DAILY 02/11/22 05/06/22 History Fluticasone Propion/Salmeterol 1 puff INHALATION RT-BID 02/11/22 05/06/22 History [Advair 500-50 Diskus] Furosemide [Lasix] 10 mg PO DAILY PRN 02/11/22 05/06/22 History Insulin Aspart [NovoLOG Flexpen] See Protocol SQ AC-TID 02/11/22 05/06/22 History Insulin Detemir [Levemir Flextouch 5 units SQ HS 02/11/22 05/06/22 History Pen] Isosorbide Mononitrate ER [Imdur] 60 mg PO DAILY 02/11/22 05/06/22 History Lidocaine 5% Patch [Lidoderm 5% 1 - 2 patch TOPICAL DAILY PRN 02/11/22 05/06/22 History Patch] Montelukast Sodium [Singulair] 10 mg PO DAILY 02/11/22 05/06/22 History NIFEdipine [NIFEdipine ER] 30 mg PO DAILY 02/11/22 05/06/22 History Omeprazole 40 mg PO DAILY 02/11/22 05/06/22 History Potassium Chloride ER [K-Dur 10] 10 meq PO DAILY PRN 02/11/22 05/06/22 History Primidone [Mysoline] 50 mg PO TID 02/11/22 05/06/22 History Rosuvastatin Calcium [Crestor] 40 mg PO DAILY 02/11/22 05/06/22 History Umeclidinium [place] [Incruse 1 puff INHALATION RT-DAILY 02/11/22 05/06/22 History Ellipta] lamoTRIgine 150 mg PO BID 02/11/22 05/06/22 History levETIRAcetam [Keppra] 1,000 mg PO BID 02/11/22 05/06/22 History traZODone HCL [Desyrel] 200 mg PO HS PRN 02/11/22 05/06/22 History valACYclovir HCL [Valtrex] 1,000 mg PO DAILY 02/11/22 05/06/22 History Aspirin EC [Ecotrin Low Dose] 81 mg PO DAILY 05/06/22 05/06/22 History Baclofen [Lioresal] 30 mg PO QID@08,,,05/06/22 05/06/22 History Fluticasone Nasal [place] [Flonase 1 spray EA NOSTRIL DAILY 05/06/22 05/06/22 History Nasal [place]] Multivitamin/Iron/Folic Acid 1 tab PO DAILY 05/06/22 05/06/22 History [Centrum Adults Tablet] Nicotine 21Mg/24Hr Patch [Habitrol] 1 patch TRANSDERM DAILY PRN 05/06/22 0810/27 History Pregabalin [Lyrica] 150 mg PO TID 05/06/22 05/06/22 History hydrOXYzine HCL [Atarax] 25 mg PO DAILY PRN 05/06/22 05/06/22 History rOPINIRole HCL [Requip] 0.5 mg PO TID 05/06/22 05/06/22 History Allergies Allergy/AdvReac Type Severity Reaction Status Date / Time No Known Allergies Allergy Verified 05/06/22 23:25 Physical Examination - Vital Signs Vital Signs: Vital Signs Temp Pulse Pulse Resp BP BP Pulse Ox 05/07/22 10:00 100 18 168/92 92 L 05/07/22 08:00 22 05/07/22 07:43 100 05/07/22 07:33 100 92 L 05/07/22 05:30 101 H 160/90 95 05/07/22 02:40 93 L 05/07/22 02:10 20 05/07/22 02:08 98.3 F 103 H 20 147/82 93 L 05/06/22 23:55 105 H 05/06/22 23:42 103 H 05/06/22 22:11 99.5 F 117 H 20 182/101 92 L Intake and Output 05/06/22 05/07/22 05/07/22 22:59 06:59 14:59 Other: Voiding Method Toilet # Voids 2 Weight 86.636 kg 86.636 kg GENERAL: The patient is lying in bed and is not in acute distress. HENT: Has slight resting head tremor. CHEST: The heart rate is regular rate rhythm. No murmurs to auscultation. LUNG: Clear to auscultation bilaterally no wheezing noted throughout. Not labored breathing. ABDOMEN/GI: Bowel sounds present in all 4 quadrants. No tenderness to palpation throughout. NEUROLOGICAL: Higher mental function: The patient is awake, alert, oriented to self, place and time. Patient is following commands. No aphasia and no neglect. Cranial nerves: The pupils are round, equal and reactive to light and accommodation. Visual harris are full to confrontation throughout. Extraocular movement is intact no nystagmus is noted. Facial sensation is normal to touch throughout. The facial strength is normal throughout. Hearing is normal bilaterally to hand rub. Tongue is uncontrolleable movement of her tongue (repetition of protrusion and moving side to side but conversing appropriately). No dysarthria is noted. Shoulder shrug is normal bilaterally. Motor: The strength is 5 over 5 throughout uppers and moving lowers above gravity. Normal tone and bulk. Patient has tremor resting and end of action. Cerebellum: Normal finger to nose bilaterally. Had end action tremor with finger to nose. Sensation: Sensation is normal to touch throughout. Reflexes (right/left):1+ throughout. Plantars are mute bilaterally. Assessment and Plan Assessment: Seems acute focal dystonia (tongue): Unsure cause but unsure if medication induced (unsure of prior exposure to antipsychotic, antiemetic). Possible COPD exacerbation History of seizures Essential tremor Plan: Ordered TSH with free T4, comprehensive metabolic panel, CT brain. Please avoid any neuroleptic drugs, antiepmetic drug and antipsychotic drugs at this time. Patient needs to re-evaluation as outpatient with neurologist within a month and 3 month to see if any improvement without use of drugs stated above. Pulmonary team is consulted Will defer the rest of medical management to the primary team. The plan is discussed with the patient's nurse. Thank you for the consultation Will Velez M.D. Neuro-Hospitalist Time with Patient: Greater than 30
[2022-05-07] MEDS ORDERED: FLUCONAZOLE 100 MG TAB PO ONE (13:09)
--- NOTE | 2022-05-07 13:28 | CT ---
EXAMINATION TYPE: CT brain wo con CT DLP: 1078.4 mGycm, Automated exposure control for dose reduction was used. DATE OF EXAM: 05/07/2022 12:56 PM COMPARISON: CT brain 02/11/2022. CLINICAL INDICATION:Female, 56 years old with history of tremor, Tremors. TECHNIQUE: Brain: Axial CT images of the brain were obtained with coronal and sagittal reformats created and rev iewed. Contrast used: None. Oral contrast used: None. FINDINGS: Brain: Extra-axial spaces: No abnormal extra-axial fluid collections. Ventricular system: Within normal limits Cerebral parenchyma: No acute intraparenchymal hemorrhage or mass effect. The delgado-white junction is well differentiated. Minimal mineralization of the basal ganglia. Cerebellum: Unremarkable. Mass effect: No evidence of midline shift. Intracranial vasculature: Atherosclerotic calcifications of the intracranial vessels. Soft tissues: Normal. Calvarium/osseous structures: No depressed skull fracture. Paranasal sinuses and mastoid air cells: Moderate scattered paranasal sinus disease. Visualized orbits: Orbital contents are intact. IMPRESSION: No acute intracranial process.
[2022-05-07] MEDS: ENOXAPARIN 40 MG/0.4 ML SYRINGE SQ SCH (13:55)
[2022-05-07] MEDS ORDERED: LACTULOSE 20 GM/30 ML CUP PO PRN (14:56)
[2022-05-07] MEDS ORDERED: NALOXONE 0.4 MG/ML 1 ML VIAL IV PRN (14:56)
[2022-05-07] MEDS ORDERED: CALCIUM CARBONATE 500 MG CHEWABLE PO PRN (14:56)
[2022-05-07] MEDS ORDERED: DEXTROSE 50% SYRINGE 50 ML IVP PRN ×2 (14:57)
--- NOTE | 2022-05-07 15:03 | P.HPIM ---
History of Present Illness H&P Date: 05/07/22 Chief Complaint: Short of breath This is a 56-year-old patient, follows with Dr. Floyd. Chronic stable medical conditions include CAD, COPD, diabetes, GERD, hyperlipidemia, hypertension, osteoarthritis, neuropathy, vocal cord dysplasia, IBS, overactive bladder, chronic back pain, restless leg syndrome, seizure activity, stop drinking alcohol drinking about 2011. Bipolar- follow with Dr. Gorman from psychiatry. Active smoker. Patient was transferred to our ER from [facility]. Patient has continued to smoke. Became increasingly short of breath. Cough. Able to produce sputum but unable to expectorate. Decreased appetite. Patient has twisting, protrusion of her tongue. And tremors. Unsure how long she's had it for. Denies any fever and chills. At her baseline uses a cane walker and a wheelchair. Continues to smoke a pack a day. Cough. Wheezing. Review of systems: GEN.: Tired decreased appetite EYES: None HEENT: None NECK: None RESPIRATORY: As above CARDIOVASCULAR: None GASTROINTESTINAL: None GENITOURINARY: None MUSCULOSKELETAL: Joint pains] LYMPHATICS: None HEMATOLOGICAL: None PSYCHIATRY: Anxious NEUROLOGICAL: As above Past medical history to include: CAD, COPD, diabetes, GERD, hyperlipidemia, hypertension, prostatitis, kidney d isease, seizure disorder, peripheral neuropathy, vocal cord dysplasia, IBS, overactive bladder, hyperparathyroidism, chronic back pain, this is like syndrome, seizure activity, history of alcohol abuse 10 years ago. Bipolar. Social history: Lives with her Simone chaidez. Does use a cane/walker/wheelchair. Smokes a pack a day for 44 years. History of alcoholism stopped 10 years ago. Did use mar ijuana in the past. Family history: Mother had CAD Physical examination: VITAL SIGNS: 98.3, 117, 20, 1 47 x 82, 93% on 10 L GENERAL: BMI 29, reclining in bed, short of breath. EYES: Pupils equal. Conjunctiva normal. HEENT: External appearance of nose and ears normal, . Continues protrusion of the tongue and twisting of the mouth and tongue. White patches NECK: JVD not raised; masses not palpable. HEART: First and second heart sounds are normal; no edema. LUNGS: Respiratory rate increased, decreased breath sounds prolonged expiration and wheezing. ABDOMEN: Soft, nontender, liver spleen not palpable, no masses palpable. PSYCH: Alert and oriented x3; mood and affect anxiousl. MUSCULOSKELETAL:No Clubbing/cyanosis;muscles-grossly intact NEUROLOGICAL: Cranial nerves grossly intact; no facial asymmetry, power and sensation grossly intact. Tremors. LYMPHATICS: No lymph nodes palpable in the axilla and neck INVESTIGATIONS, reviewed in the clinical context: EKG tracing personally reviewed by me-sinus tachycardia, P pulmonale, 112 Chest x-ray film personally reviewed by me-some basilar infiltrates Assessment and plan: -Acute COPD exacerbation in current smoker: DuoNeb 6 times a day. Nebulized Perforomist Pulmicort -Acute hypoxic respiratory failure from pneumonia COPD exacerbation On 10 L Oxygen -Bilateral basal pneumonia, suspect gram-negative organism. Check pro-calcitonin. IV ceftriaxone. Sputum for Gram stain and culture -Tardive dyskinesia Consult psychiatry to assess antipsychotics -Chronic nicotine dependence, cigarette smoker Nicotine patch 21 -Restless leg syndrome Requip to 1 mg 3 times a day -GERD Omeprazole 40 mg daily -Bipolar disorder Continue home medications -Diabetes mellitus type 2 chronically on insulin Follow Accu-Cheks with sliding scale -Oropharyngeal candidiasis Diflucan DuoNeb, nebulized Perforomist and Pulmicort. IV Solu-Medrol. Follow Accu- Cheks. IV ceftriaxone. Mucinex. Check procalcitonin. Sputum for Gram stain and culture. Consult pulmonary. Resume home medications. Past Medical History Past Medical History: Asthma, Coronary Artery Disease (CAD), COPD, Diabetes Mellitus, GERD/Reflux, Hyperlipidemia, Hypertension, Osteoarthritis (OA), Renal Disease, Seizure Disorder Additional Past Medical History / Comment(s): IDDM type II, neuropathy bilateral legs/feet, vocal cord dysplasia/R vocal cord ulcer, dysphagia in past, IBS, overactive bladder, hyperparathyroidism, chronic back pain, headaches, chronic sinusitis, bilateral tinnitis, RLS, last seizure about one year ago, pt states past ETOH abuse but has not drank in 25 years. History of Any Multi-Drug Resistant Organisms: None Reported Past Surgical History: Appendectomy, Back Surgery, Heart Catheterization, Heart Catheterization With Stent, Hysterectomy, Tubal Ligation Additional Past Surgical History / Comment(s): Multiple throat biopsies, EGD, colonoscopies, back surgery x2. 2 stents. Past Anesthesia/Blood Transfusion Reactions: No Reported Reaction Date of Last Stent Placement:: unknown Past Psychological History: Bipolar, Depression Additional Psychological History / Comment(s): Pt resides with her jefe. She uses a cane or walker to ambulate. She does not drive, she gets rides thru [facility] transportation. She manages her own medication. She sees Dr. Gorman for her mental health. Smoking Status: Current every day smoker Past Alcohol Use History: Abuse Additional Past Alcohol Use History / Comment(s): Pt quit smoking 3 1/2 days ago. Has not drank in 25 years. Past Drug Use History: Marijuana Additional Drug Use History / Comment(s): Past marijuana use. - Past Family History Mother Family Medical History: Coronary Artery Disease (CAD) Additional Family Medical History / Comment(s): Mother had CABG Father Family Medical History: CVA/TIA Medications and Allergies Home Medications Medication Instructions Recorded Confirmed Type Albuterol Inhaler [Ventolin Hfa 2 puff INHALATION RT-QID PRN 02/11/22 05/06/22 History Inhaler] Albuterol Nebulized [Ventolin 2.5 mg INHALATION RT-Q6H PRN 02/11/22 05/06/22 History Nebulized] Clopidogrel [Plavix] 75 mg PO DAILY 02/11/22 05/06/22 History DULoxetine HCL [Cymbalta] 60 mg PO BID 02/11/22 05/06/22 History Diroximel Fumarate [Vumerity] 462 mg PO BID 02/11/22 05/06/22 History Enalapril [Vasotec] 10 mg PO HS 02/11/22 05/06/22 History Ezetimibe [Zetia] 10 mg PO DAILY 02/11/22 05/06/22 History Fluticasone Propion/Salmeterol 1 puff INHALATION RT-BID 02/11/22 05/06/22 History [Advair 500-50 Diskus] Furosemide [Lasix] 10 mg PO DAILY PRN 02/11/22 05/06/22 History Insulin Aspart [NovoLOG Flexpen] See Protocol SQ AC-TID 02/11/22 05/06/22 History Insulin Detemir [Levemir Flextouch 5 units SQ HS 02/11/22 05/06/22 History Pen] Isosorbide Mononitrate ER [Imdur] 60 mg PO DAILY 02/11/22 05/06/22 History Lidocaine 5% Patch [Lidoderm 5% 1 - 2 patch TOPICAL DAILY PRN 02/11/22 05/06/22 History Patch] Montelukast Sodium [Singulair] 10 mg PO DAILY 02/11/22 05/06/22 History NIFEdipine [NIFEdipine ER] 30 mg PO DAILY 02/11/22 05/06/22 History Omeprazole 40 mg PO DAILY 02/11/22 05/06/22 History Potassium Chloride ER [K-Dur 10] 10 meq PO DAILY PRN 02/11/22 05/06/22 History Primidone [Mysoline] 50 mg PO TID 02/11/22 05/06/22 History Rosuvastatin Calcium [Crestor] 40 mg PO DAILY 02/11/22 05/06/22 History Umeclidinium [place] [Incruse 1 puff INHALATION RT-DAILY 02/11/22 05/06/22 History Ellipta] lamoTRIgine 150 mg PO BID 02/11/22 05/06/22 History levETIRAcetam [Keppra] 1,000 mg PO BID 02/11/22 05/06/22 History traZODone HCL [Desyrel] 200 mg PO HS PRN 02/11/22 05/06/22 History valACYclovir HCL [Valtrex] 1,000 mg PO DAILY 02/11/22 05/06/22 History Aspirin EC [Ecotrin Low Dose] 81 mg PO DAILY 05/06/22 05/06/22 History Baclofen [Lioresal] 30 mg PO QID@08,14,17,05/06/22 05/06/22 History Fluticasone Nasal [place] [Flonase 1 spray EA NOSTRIL DAILY 05/06/22 05/06/22 History Nasal [place]] Multivitamin/Iron/Folic Acid 1 tab PO DAILY 05/06/22 05/06/22 History [Centrum Adults Tablet] Nicotine 21Mg/24Hr Patch [Habitrol] 1 patch TRANSDERM DAILY PRN 05/06/22 05/06/22 History Pregabalin [Lyrica] 150 mg PO TID 05/06/22 05/06/22 History hydrOXYzine HCL [Atarax] 25 mg PO DAILY PRN 05/06/22 05/06/22 History rOPINIRole HCL [Requip] 0.5 mg PO TID 05/06/22 05/06/22 History Allergies Allergy/AdvReac Type Severity Reaction Status Date / Time No Known Allergies Allergy Verified 05/06/22 23:25 Physical Exam Vitals: Vital Signs Temp Pulse Pulse Resp BP BP Pulse Ox 05/07/22 10:00 100 18 168/92 92 L 05/07/22 08:00 22 05/07/22 07:43 100 05/07/22 07:33 100 92 L 05/07/22 05:30 101 H 160/90 95 05/07/22 02:40 93 L 05/07/22 02:10 20 05/07/22 02:08 98.3 F 103 H 20 147/82 93 L 05/06/22 23:55 105 H 05/06/22 23:42 103 H 05/06/22 22:11 99.5 F 117 H 20 182/101 92 L Intake and Output 05/06/22 05/07/22 05/07/22 22:59 06:59 14:59 Other: Voiding Method Toilet # Voids 2 Weight 86.636 kg 86.636 kg Thrombosis Risk Factor Assmnt - Choose All That Apply Each Factor Represents 1 point: Abnormal pulmonary function (COPD), Age 41-60 years, Obesity (BMI >25) Thrombosis Risk Factor Assessment Total Risk Factor Score: 3 Thrombosis Risk Factor Assessment Level: Moderate Risk
[2022-05-07] MEDS: PREGABALIN 75 MG CAP PO SCH ×2 (15:46→21:22)
[2022-05-07] MEDS: ASPIRIN 81 MG PO SCH (15:47)
[2022-05-07] MEDS: MULTIVITAMINS, THERA 1 EACH TAB PO SCH (15:47)
[2022-05-07] MEDS: guaiFENesin 600 MG TABLET.ER PO SCH ×3 (15:47→21:51)
[2022-05-07] MEDS: ISOSORBIDE MONONITRATE ER 60 MG TAB.ER.24H PO SCH (15:47)
[2022-05-07] MEDS: methylPREDNISolone SOD SUCCI 40 MG/ML 1 ML VIAL IV SCH (15:47)
[2022-05-07] MEDS: CLOPIDOGREL 75 MG TAB PO SCH (15:47)
[2022-05-07] MEDS: BUDESONIDE 1 MG/2 ML NEBU INHALATION SCH ×2 (16:52→19:23)
[2022-05-07] MEDS: INSULIN ASPART (NovoLOG) 100 UNIT/ML VIAL SQ SCH (18:09)
[2022-05-07 18:10] LABS: Glucose,Whole Blood 140 mg/dL (70-110)
[2022-05-07] MEDS: BACLOFEN 10 MG TAB PO SCH ×2 (18:14→21:23)
[2022-05-07] MEDS: FORMOTEROL FUMARATE 20 MCG/2 ML NEBU INHALATION SCH (19:23)
[2022-05-07 19:51] LABS: ALT 28 U/L (8-44); AST 37 U/L (13-35); African American GFR (CKD) 82.8 (60.0-200.0); Albumin 4.5 g/dL (3.8-4.9); Alkaline Phosphatase 114 U/L (41-126); BUN/Creat Ratio 32.33 Ratio (12.00-20.00); Blood Urea Nitrogen 29.1 mg/dL (9.0-27.0); Calcium 9.9 mg/dL (8.7-10.3); Carbon Dioxide 16.8 mmol/L (20.0-27.5); Chloride 99 mmol/L (96-109); Glucose 150 mg/dL (70-110); Non-African American GFR(CKD) 71.5 (60.0-200.0); Potassium 4.6 mmol/L (3.5-5.5); Sodium 141 mmol/L (135-145); Total Bilirubin <0.15 mg/dL (0.30-1.20); Total Protein 7.5 g/dL (6.2-8.2)
[2022-05-07] MEDS: lisinopriL 20 MG TAB PO SCH (21:22)
[2022-05-07] MEDS: DULoxetine HCL 60 MG CAPSULE.DR PO SCH (21:22)
[2022-05-07] MEDS: DIROXIMEL FUMARATE 231 MG PO SCH (21:54)
[2022-05-08] MEDS: methylPREDNISolone SOD SUCCI 40 MG/ML 1 ML VIAL IV SCH ×3 (01:01→17:15)
[2022-05-08] MEDS: IPRATROPIUM-ALBUTEROL 3 ML NEB INHALATION PRN ×5 (06:00→20:05)
[2022-05-08 06:40] LABS: Glucose,Whole Blood 149 mg/dL (70-110)
[2022-05-08] MEDS: BUDESONIDE 1 MG/2 ML NEBU INHALATION SCH ×2 (07:19→20:05)
[2022-05-08] MEDS: FORMOTEROL FUMARATE 20 MCG/2 ML NEBU INHALATION SCH ×2 (07:19→20:05)
[2022-05-08] MEDS: INSULIN ASPART (NovoLOG) 100 UNIT/ML VIAL SQ SCH ×3 (08:07→16:47)
[2022-05-08] MEDS: ENOXAPARIN 40 MG/0.4 ML SYRINGE SQ SCH (08:47)
[2022-05-08] MEDS: NICOTINE 21MG/24HR PATCH TRANSDERM SCH (08:48)
[2022-05-08] MEDS: PREGABALIN 75 MG CAP PO SCH ×3 (08:50→21:22)
[2022-05-08] MEDS: MULTIVITAMINS, THERA 1 EACH TAB PO SCH (08:50)
[2022-05-08] MEDS: lamoTRIgine 100 MG TAB PO SCH ×2 (08:50→21:20)
[2022-05-08] MEDS: ISOSORBIDE MONONITRATE ER 60 MG TAB.ER.24H PO SCH (08:50)
[2022-05-08] MEDS: ATORVASTATIN 80 MG TAB PO SCH (08:50)
[2022-05-08] MEDS: EZETIMIBE 10 MG TAB PO SCH (08:50)
[2022-05-08] MEDS: guaiFENesin 600 MG TABLET.ER PO SCH ×4 (08:50→21:20)
[2022-05-08] MEDS: ASPIRIN 81 MG PO SCH (08:50)
[2022-05-08] MEDS: DULoxetine HCL 60 MG CAPSULE.DR PO SCH ×2 (08:50→21:22)
[2022-05-08] MEDS: BACLOFEN 10 MG TAB PO SCH ×4 (08:50→21:20)
[2022-05-08] MEDS: PANTOPRAZOLE 40 MG TABLET PO SCH (08:50)
[2022-05-08] MEDS: CLOPIDOGREL 75 MG TAB PO SCH (08:50)
[2022-05-08] MEDS: FLUCONAZOLE 100 MG TAB PO SCH (08:51)
[2022-05-08] MEDS: PRIMIDONE 50 MG TAB PO SCH ×3 (08:51→21:21)
[2022-05-08] MEDS: MONTELUKAST 10 MG TAB PO SCH (08:52)
[2022-05-08] MEDS: NIFEdipine XL 30 MG TAB.ER.24 PO SCH (08:53)
[2022-05-08] MEDS: levETIRAcetam 500 MG TAB PO SCH ×2 (08:53→21:21)
[2022-05-08] MEDS: LEVOFLOXACIN 750 MG TAB PO SCH (08:53)
[2022-05-08] MEDS: DIROXIMEL FUMARATE 231 MG PO SCH (09:02)
[2022-05-08] MEDS: SODIUM CHLORIDE 0.9% 1,000 ML IV SCH ×2 (09:02→16:49)
[2022-05-08 11:10] LABS: Glucose,Whole Blood 214 mg/dL (70-110)
--- NOTE | 2022-05-08 11:48 | P.PN ---
Subjective Progress Note Date: 05/08/22 Principal diagnosis: Shortness of breath, COPD exacerbation, pneumonia. Pulmonary consultation dated 05/07/2022. 56-year-old female transferred down from [facility], for COPD exacerbation and possible bilateral pneumonia. The patient apparently is been having increasing shortness of breath, cough, chest congestion, and phlegm production. The patient apparently sees my partner in the office. Currently, she is on 10 L nasal cannula high flow oxygen, and getting saline at KVO. Her primary care provider is Dr. Nii Floyd in [place], [place]. She typically uses home O2 at 2 L. She does continue to smoke cigarettes. She's been smoking a pack a day for 36 years. The patient is not a particularly good historian, and I do not have access to the patient's radiographs. Also, I have not been able to locate the patient's laboratory data. The patient was placed on duo nebs, Levaquin, Singulair, and a nicotine patch. She appears in no acute distress despite the fact that she is on high flow nasal O2. Progress note dated 05/08/2022. The patient states that she is only minimally better today than she was yesterday when I saw her in the emergency room. She was transferred out from [facility] with a diagnosis of COPD exacerbation, and possible bilateral pneumonia. The patient complained of shortness of breath, cough, chest congestion, and some phlegm production. Her primary care provider is Dr. Nii Floyd. He did smoke heavily, for 36 years, at 1.5 packs a day. No new laboratory today other than a glucose of 214. Brain CT did not show anything acute. Diffuse bibasilar interstitial changes are noted, and are essentially unchanged from a previous x-ray done on February 12, 2022. I have taken the liberty of ordering a pro-calcitonin level, and an N-terminal proBNP. Objective - Vital Signs Vital signs: Vital Signs Temp 98.3 F 05/08/22 07:38 Pulse 88 05/08/22 11:25 Resp 18 05/08/22 07:38 BP 145/81 05/08/22 07:38 Pulse Ox 97 05/08/22 07:38 FiO2 Intake & Output 05/07/22 05/08/22 05/08/22 18:59 06:59 18:59 Intake Total 590 Balance 590 Intake: Oral 590 Other: Voiding Method Toilet # Voids 2 - Exam No acute distress, oriented 3. The patient is not a good historian. She has nearly continuous tongue thrusting, and movements of her mouth, consistent with possible tardive dyskinesia. She is on 10 L high flow oxygen. HEENT examination is grossly unremarkable. Neck supple. Full range of motion. No adenopathy thyromegaly or neck vein distention. Cardiovascular examination reveals regular rhythm rate. S1-S2 normal. No S3 or S4. No discernible murmur noted. Heart sounds are distant. Heart rate 88 bpm. Lungs reveal diminished bilateral breath sounds. Scattered rhonchi are noted. No distinct wheezes or crackles are appreciated. Breath sounds equal bilaterally. Saturations are 97%. Abdomen soft bowel sounds are heard. No masses or tenderness. Extremities are intact. No cyanosis clubbing or edema. Skin is without rash or lesion. Neurologic examination is brief but nonfocal. - Labs CBC & Chem 7: 05/07/22 13:28 Labs: Abnormal Lab Results - Last 24 Hours (Table) 05/07/22 05/07/22 05/08/22 Range/Units 13:28 18:04 06:39 Carbon Dioxide 16.8 L (20.0-27.5) mmol/L Anion Gap 25.20 H (10.00-18.00) mmol/L BUN 29.1 H (9.0-27.0) mg/dL BUN/Creatinine Ratio 32.33 H (12.00-20.00) Ratio Glucose 150 H (70-110) mg/dL POC Glucose (mg/dL) 140 H 149 H (70-110) mg/dL Total Bilirubin <0.15 L (0.30-1.20) mg/dL AST 37 H (13-35) U/L Albumin/Globulin Ratio 1.50 L (1.60-3.17) g/dL TSH 0.248 L (0.350-5.500) uIU/mL 05/08/22 Range/Units 11:09 Carbon Dioxide (20.0-27.5) mmol/L Anion Gap (10.00-18.00) mmol/L BUN (9.0-27.0) mg/dL BUN/Creatinine Ratio (12.00-20.00) Ratio Glucose (70-110) mg/dL POC Glucose (mg/dL) 214 H (70-110) mg/dL Total Bilirubin (0.30-1.20) mg/dL AST (13-35) U/L Albumin/Globulin Ratio (1.60-3.17) g/dL TSH (0.350-5.500) uIU/mL Assessment and Plan Assessment: Acute hypoxemic respiratory failure secondary to COPD exacerbation and possible pneumonia. History of ongoing tobacco use with nicotine addiction. History of CAD. History of diabetes mellitus and diabetic neuropathy. Gastroesophageal reflux disease. History of hyperlipidemia. History of hypertension. Osteoarthritis. History of seizure disorder. Prior history of alcohol abuse. Multiple other medical problems and comorbidities. Plan: Plan dated 05/07/2022. The patient was seen in the emergency room, room 18. She was in no acute distress. She is not a particularly good historian. She was smoking up until the time she came into the hospital. She is very unusual movements of the mouth and tongue, consistent with possible tardive dyskinesia. X-rays, and labs, not able to be accessed by me. I will order a chest x-ray. She's currently on updrafts, Levaquin, and Singulair. Additional recommendations and suggestions are forthcoming, once I get a chance to look at an x-ray. She apparently sees my partner in the office. Plan dated 05/08/2022. The patient's on appropriate medications including updrafts, Pulmicort, the motor overall, ceftriaxone, Levaquin, and Solu-Medrol. I have taken the liberty of ordering an N-terminal proBNP, and a pro-calcitonin level. If the pro- calcitonin level is low, I may discontinue the antibiotics, or descalate them. The changes on chest x-ray may be more chronic than acute. Additional recommen dations and suggestions are forthcoming. We will continue to follow. Time with Patient: Less than 30
--- NOTE | 2022-05-08 12:56 | P.PN ---
Subjective Progress Note Date: 05/08/22 The patient is seen at bedside and feel about the same today compared to yesterday. Objective - Vital Signs Vital signs: Vital Signs Temp 98.3 F 05/08/22 07:38 Pulse 88 05/08/22 11:25 Resp 18 05/08/22 07:38 BP 145/81 05/08/22 07:38 Pulse Ox 97 05/08/22 07:38 FiO2 Intake & Output 05/07/22 05/08/22 05/08/22 18:59 06:59 18:59 Intake Total 590 Balance 590 Intake: Oral 590 Other: Voiding Method Toilet # Voids 2 - Exam GENERAL: The patient is lying in bed and is not in acute distress. HENT: Has slight resting head tremor. NEUROLOGICAL: Higher mental function: The patient is awake, alert, oriented to self, place and time. Patient is following commands. No aphasia and no neglect. Cranial nerves: The pupils are round, equal and reactive to light and accommodation. Visual harris are full to confrontation throughout. Extraocular movement is intact no nystagmus is noted. Facial sensation is normal to touch throughout. The facial strength is normal throughout. Hearing is normal bilaterally to hand rub. Tongue is uncontrolleable movement of her tongue (repetition of protrusion and moving side to side but conversing appropriately). No dysarthria is noted. Shoulder shrug is normal bilaterally. Motor: The strength is 5 over 5 throughout uppers and moving lowers above gravity. Normal tone and bulk. Patient has tremor resting and end of action. Cerebellum: Normal finger to nose bilaterally. Had end action tremor with finger to nose. Sensation: Sensation is normal to touch throughout. Reflexes (right/left):1+ throughout. Plantars are mute bilaterally. SOME OF THE WORK-UP DURING THIS HOSPITAL VISIT CONSISTED OF: TSH: 0.248, free T4: 0.840 CT head is reported as no acute intracranial process. I personally reviewed the images and agree with report. - Labs CBC & Chem 7: 05/07/22 13:28 Labs: Abnormal Lab Results - Last 24 Hours (Table) 05/07/22 05/07/22 05/08/22 Range/Units 13:28 18:04 06:39 Carbon Dioxide 16.8 L (20.0-27.5) mmol/L Anion Gap 25.20 H (10.00-18.00) mmol/L BUN 29.1 H (9.0-27.0) mg/dL BUN/Creatinine Ratio 32.33 H (12.00-20.00) Ratio Glucose 150 H (70-110) mg/dL POC Glucose (mg/dL) 140 H 149 H (70-110) mg/dL Total Bilirubin <0.15 L (0.30-1.20) mg/dL AST 37 H (13-35) U/L Albumin/Globulin Ratio 1.50 L (1.60-3.17) g/dL TSH 0.248 L (0.350-5.500) uIU/mL 05/08/22 Range/Units 11:09 Carbon Dioxide (20.0-27.5) mmol/L Anion Gap (10.00-18.00) mmol/L BUN (9.0-27.0) mg/dL BUN/Creatinine Ratio (12.00-20.00) Ratio Glucose (70-110) mg/dL POC Glucose (mg/dL) 214 H (70-110) mg/dL Total Bilirubin (0.30-1.20) mg/dL AST (13-35) U/L Albumin/Globulin Ratio (1.60-3.17) g/dL TSH (0.350-5.500) uIU/mL Assessment and Plan Assessment: Seems acute focal dystonia (tongue) for past one week prior to presentation to hospital: Unsure cause but unsure if medication induced (unsure of prior exposure to antipsychotic, antiemetic). Possible COPD exacerbation History of seizures Essential tremor Plan: I started the patient on Trihexyphenidyl 1mg daily and will titrate in 3 days if needed. Please avoid any neuroleptic drugs, antiepmetic drug and antipsychotic drugs at this time. Currently on Zofran and if possible avoid it. Patient needs to re-evaluation as outpatient with neurologist within a month and 3 month to see if any improvement without use of drugs stated above. Pulmonary team is consulted Will defer the rest of medical management to the primary team. Upon discharge, the patient needs to follow-up with her neurology team, Dr. Jacques's team as outpatient within 1-2 weeks. The plan is discussed with the patient's nurse. Will follow-up sporadically. Will Velez M.D. Neuro-Hospitalist Time with Patient: Less than 30
[2022-05-08] MEDS: TRIHEXYPHENIDYL 2 MG TAB PO SCH (14:33)
[2022-05-08] MEDS: ACETAMINOPHEN TAB 325 MG TAB PO PRN (14:38)
--- NOTE | 2022-05-08 15:06 | P.CN ---
Psychiatric Consult - . Consult date: 05/08/22 Consult:: 05/08/22 15:05 IDENTIFYING DATA: This patient is a 56-year-old female with a significant history of bipolar disorder who presents to the hospital on 05/06/2022 with a chief complaint of shortness of breath. HISTORY OF PRESENT ILLNESS: The patient presented to the hospital on 05/06/2022, transferred from [facility] and was found to have bilateral pneumonia and COPD exacerbation. Psychiatry has been consulted for evaluation of tardive dyskinesia. The patient reports that she began experiencing oral facial dyskinesia over the past 2 weeks. She reports that it started spontaneously. She does report a significant history of psychiatric illness including a history of bipolar disorder. She was previously admitted onto our psychiatric unit many years ago for management of bipolar disorder and suicidal thoughts. Currently she is on a home medication regimen of trazodone, Lamictal, and Cymbalta. She is not reporting any acute psychiatric symptoms today. She is denying any suicidal or homicidal ideation, intention, and/or plan. She is not reporting any auditory or visual hallucinations. She is denying any paranoia or other delusions. The patient is not on any antipsychotic medication at this time. She reports a remote history of being prescribed Haldol in the very distant past many years ago. However, the patient does have dentures which were placed approximately year and half ago. She is missing her bottom teeth as well. PAST PSYCHIATRIC HISTORY: Patient has a history of bipolar disorder. The patient reports a history of previously being prescribed Haldol in the distant past. She is currently on a regimen of Lamictal, trazodone, and Cymbalta for mood stabilization. She reports a previous psychiatric hospitalization on our psychiatric unit more than 10 years ago. She currently follows with [facility] and sees Dr. Gorman. Patient denies any history of suicide attempts in the past. PAST MEDICAL HISTORY: Past Medical History: Asthma, Coronary Artery Disease (CAD), COPD, Diabetes Mellitus, GERD/Reflux, Hyperlipidemia, Hypertension, Osteoarthritis (OA), Renal Disease, Seizure Disorder Additional Past Medical History / Comment(s): IDDM type II, neuropathy bilateral legs/feet, vocal cord dysplasia/R vocal cord ulcer, dysphagia in past, IBS, overactive bladder, hyperparathyroidism, chronic back pain, headaches, chronic sinusitis, bilateral tinnitis, RLS, last seizure about one year ago, pt states past ETOH abuse but has not drank in 25 years. History of Any Multi-Drug Resistant Organisms: None Reported Past Surgical History: Appendectomy, Back Surgery, Heart Catheterization, Heart Catheterization With Stent, Hysterectomy, Tubal Ligation Additional Past Surgical History / Comment(s): Multiple throat biopsies, EGD, colonoscopies, back surgery x2. 2 stents. Past Anesthesia/Blood Transfusion Reactions: No Reported Reaction Date of Last Stent Placement:: unknown Past Psychological History: Bipolar, Depression Additional Psychological History / Comment(s): Pt resides with her jefe. She uses a cane or walker to ambulate. She does not drive, she gets rides thru [facility] transportation. She manages her own medication. She sees Dr. Gorman for her mental health. Smoking Status: Current every day smoker Past Alcohol Use History: Abuse Additional Past Alcohol Use History / Comment(s): Pt quit smoking 3 1/2 days ago. Has not drank in 25 years. Past Drug Use History: Marijuana Additional Drug Use History / Comment(s): Past marijuana use. ALLERGIES: as per EMR. CHEMICAL DEPENDENCY HISTORY: The patient denies any tobacco, alcohol, marijuana, or illicit drug use. FAMILY PSYCHIATRIC/SUBSTANCE USE HISTORY: She reports no family psychiatric history. SOCIAL HISTORY: Patient is currently however states that she is engaged to be either this fall or this winter. She does report having 1 child. 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 She currently lives with her kaylynn. MENTAL STATUS EXAM: General Appearance: Patient appears to be stated age is alert, pleasant, and cooperative. Patient appears to have good hygiene and grooming wearing hospital gown with fair eye contact. Behavior: Patient is calmly lying in bed without any agitated behavior. Patient does display oral facial dyskinesia. Speech: Patient's speech is fluent and nonpressured. Mood/Affect: Patient reports their mood is "feeling good", affect is congruent and bright Suicidality/Homicidality: Patient denies having any suicidal or homicidal ideation intent or plan. Perceptions: Patient denies any visual hallucinations and denies any auditory hallucinations Though content/process: There is no evidence of any delusional thought content and thought process is linear and goal-directed. Memory and concentration: AOX3, grossly intact for the purposes of this session. Can spell "WORLD" backwards Judgment and insight: Good IMPRESSIONS: Bipolar disorder, currently stable Orofacial dyskinesia - unlikely to be secondary to psychotropic medications that she is currently prescribed. The patient does have endentulism. Suspect that the patient has spontaneous or idiopathic dyskinesia due to this. Patients can exhibit choreic-like events of the lips, tongue, and jaw, associated with ill- fitting dentures or lack of dentures. This has been reported and up to 16% of patients without teeth. PLAN: -At this time patient DOES NOT meet criteria for inpatient psychiatric admission. The patient is currently not presenting with any imminent risk of harm to self or others. She is alert and oriented and is not endorsing any overt psychotic symptoms. -Would recommend the following medication changes/additions: No medication recommendations are made at this time. May consider the use of ingrezza (not on formulary) in the outpatient setting should she continue to display tardive symptoms. However, my suspicion is that her presentation is secondary to endentulism. -Psychiatry will sign off at this point, please contact with any questions. 05/08/22 15:05
[2022-05-08 16:18] LABS: Glucose,Whole Blood 130 mg/dL (70-110)
--- NOTE | 2022-05-08 16:50 | P.PN ---
Progress Note - Text Progress Note Date: 05/08/22 Chief Complaint: Short of breath This is a 56-year-old patient, follows with Dr. Floyd. Chronic stable medical conditions include CAD, COPD, diabetes, GERD, hyperlipidemia, hypertension, osteoarthritis, neuropathy, vocal cord dysplasia, IBS, overactive bladder, chronic back pain, restless leg syndrome, seizure activity, stop drinking alcohol drinking about 2011. Bipolar- follow with Dr. Gorman from psychiatry. Active smoker. Patient was transferred to our ER from [facility]. Patient has continued to smoke. Became increasingly short of breath. Cough. Able to produce sputum but unable to expectorate. Decreased appetite. Patient has twisting, protr usion of her tongue. And tremors. Unsure how long she's had it for. Denies any fever and chills. At her baseline uses a cane walker and a wheelchair. Continues to smoke a pack a day. Cough. Wheezing. May 08: Seen by psychiatry. Olin of oral facial dyskinesia. Not felt to be secondary to psychotropic medications. No change in medications. Breathing is better. It started some diet. Active Medications Acetaminophen (Acetaminophen Tab 325 Mg Tab) 650 mg PO Q6HR PRN PRN Reason: Mild Pain or Fever > 100.5 Last Admin: 05/08/22 14:38 Dose: 650 mg Albuterol/Ipratropium (Ipratropium-Albuterol 3 Ml Neb) 3 ml INHALATION RT-Q4H PRN PRN Reason: shortness of breath Last Admin: 05/08/22 14:47 Dose: 3 ml Aspirin (Aspirin 81 Mg) 81 mg PO DAILY [facility] Last Admin: 05/08/22 08:50 Dose: 81 mg Atorvastatin Calcium (Atorvastatin 80 Mg Tab) 80 mg PO DAILY [facility] Last Admin: 05/08/22 08:50 Dose: 80 mg Baclofen (Baclofen 10 Mg Tab) 30 mg PO QID@08,,, [facility] Last Admin: 05/08/22 14:33 Dose: 30 mg Budesonide (Budesonide 1 Mg/2 Ml Nebu) 1 mg INHALATION RT-BID [facility] Last Admin: 05/08/22 07:19 Dose: 1 mg Calcium Carbonate/Glycine (Calcium Carbonate 500 Mg Chewable) 1,000 mg PO Q4HR PRN PRN Reason: Dyspepsia Clopidogrel Bisulfate (Clopidogrel 75 Mg Tab) 75 mg PO DAILY [facility] Last Admin: 05/08/22 08:50 Dose: 75 mg Dextrose/Water (Dextrose 50% Syringe 50 Ml) 25 ml IVP PER PROTOCOL PRN; Protocol PRN Reason: Hypoglycemia Dextrose/Water (Dextrose 50% Syringe 50 Ml) 50 ml IVP PER PROTOCOL PRN; Protocol PRN Reason: Hypoglycemia Duloxetine HCl (Duloxetine Hcl 60 Mg Capsule.Dr) 60 mg PO BID [facility] Last Admin: 05/08/22 08:50 Dose: 60 mg Ezetimibe (Ezetimibe 10 Mg Tab) 10 mg PO DAILY [facility] Last Admin: 05/08/22 08:50 Dose: 10 mg Enoxaparin Sodium (Enoxaparin 40 Mg/0.4 Ml Syringe) 40 mg SQ DAILY [facility] Last Admin: 05/08/22 08:47 Dose: 40 mg Fluconazole (Fluconazole 100 Mg Tab) 100 mg PO DAILY [facility]; Protocol Last Admin: 05/08/22 08:51 Dose: 100 mg Formoterol Fumarate (Formoterol Fumarate 20 Mcg/2 Ml Nebu) 20 mcg INHALATION RT-BID [facility] Last Admin: 05/08/22 07:19 Dose: 20 mcg Guaifenesin (Guaifenesin 600 Mg Tablet.Er) 600 mg PO QID [facility] Last Admin: 05/08/22 12:03 Dose: 600 mg Sodium Chloride (Saline 0.9%) 1,000 mls @ 100 mls/hr IV .Q10H [facility] Last Admin: 05/08/22 09:02 Dose: 100 mls/hr Ceftriaxone Sodium 1 gm/ (Sodium Chloride) 50 mls @ 100 mls/hr IVPB Q12HR [facility]; Protocol Last Admin: 05/08/22 09:02 Dose: 100 mls/hr Insulin Aspart (Insulin Aspart (Novolog) 100 Unit/Ml Vial) 0 unit SQ AC-TID [facility]; Protocol Last Admin: 05/08/22 12:03 Dose: 4 unit Isosorbide Mononitrate (Isosorbide Mononitrate Er 60 Mg Tab.Er.24h) 60 mg PO DAILY [facility] Last Admin: 05/08/22 08:50 Dose: 60 mg Lactulose (Lactulose 20 Gm/30 Ml Cup) 20 gm PO DAILY PRN PRN Reason: Constipation Lamotrigine (Lamotrigine 100 Mg Tab) 150 mg PO BID [facility] Last Admin: 05/08/22 08:50 Dose: 150 mg Levetiracetam (Levetiracetam 500 Mg Tab) 1,000 mg PO BID [facility] Last Admin: 05/08/22 08:53 Dose: 1,000 mg Levofloxacin (Levofloxacin 750 Mg Tab) 750 mg PO DAILY [facility]; Protocol Stop: 05/10/22 09:01 Last Admin: 05/08/22 08:53 Dose: 750 mg Lidocaine (Lidocaine 5% Patch) 1 patch TOPICAL DAILY PRN; Protocol PRN Reason: Pain Last Admin: 05/07/22 14:06 Dose: 1 patch Lisinopril (Lisinopril 20 Mg Tab) 20 mg PO [facility] Last Admin: 05/07/22 21:22 Dose: 20 mg Methylprednisolone Sodium Succinate (Methylprednisolone Sod Succi 40 Mg/Ml 1 Ml Vial) 40 mg IV Q8HR [facility] Last Admin: 05/08/22 08:47 Dose: 40 mg Miscellaneous Information (Pneumonia Protocol Utilized 1 Each Misc) 1 each PO ONCE PRN PRN Reason: Per Protocol Montelukast Sodium (Montelukast 10 Mg Tab) 10 mg PO DAILY [facility] Last Admin: 05/08/22 08:52 Dose: 10 mg Multivitamins (Multivitamins, Thera 1 Each Tab) 1 each PO DAILY [facility] Last Admin: 05/08/22 08:50 Dose: 1 each Naloxone HCl (Naloxone 0.4 Mg/Ml 1 Ml Vial) 0.2 mg IV Q2M PRN PRN Reason: Opioid Reversal Nicotine (Nicotine 21mg/24hr Patch) 1 patch TRANSDERM DAILY [facility] Last Admin: 05/08/22 08:48 Dose: 1 patch Nifedipine (Nifedipine Xl 30 Mg Tab.Er.24) 30 mg PO DAILY [facility] Last Admin: 05/08/22 08:53 Dose: 30 mg Diroximel Fumarate [ Vumerity] 231 Mg Capsule.Dr 462 mg PO BID [facility] Ondansetron HCl (Ondansetron 4 Mg/2 Ml Vial) 4 mg IVP Q8HR PRN PRN Reason: Nausea And Vomiting Pantoprazole Sodium (Pantoprazole 40 Mg Tablet) 40 mg PO DAILY [facility] Last Admin: 05/08/22 08:50 Dose: 40 mg Potassium Chloride (Potassium Chloride Er 10 Meq Tab.Er.Prt) 10 meq PO DAILY PRN PRN Reason: WITH LASIX Pregabalin (Pregabalin 75 Mg Cap) 150 mg PO TID [facility] Last Admin: 05/08/22 08:50 Dose: 150 mg Primidone (Primidone 50 Mg Tab) 50 mg PO TID [facility] Last Admin: 05/08/22 08:51 Dose: 50 mg Ropinirole HCl (Ropinirole Hcl 0.25 Mg Tab) 0.5 mg PO TID [facility] Last Admin: 05/08/22 08:50 Dose: 0.5 mg Trihexyphenidyl HCl (Trihexyphenidyl 2 Mg Tab) 1 mg PO DAILY [facility] Last Admin: 05/08/22 14:33 Dose: 1 mg Past medical history to include: CAD, COPD, diabetes, GERD, hyperlipidemia, hypertension, prostatitis, kidney disease, seizure disorder, peripheral neuropathy, vocal cord dysplasia, IBS, overactive bladder, hyperparathyroidism, chronic back pain, this is like syndrome, seizure activity, history of alcohol abuse 10 years ago. Bipolar. Social history: Lives with her Simone chaidez. Does use a cane/walker/wheelchair. Smokes a pack a day for 44 years. History of alcoholism stopped 10 years ago. Did use marijuana in the past. Family history: Mother had CAD Physical examination: VITAL SIGNS: 97.8, 87, 17, 130/75, 93% GENERAL: , reclining in bed, short of breath. EYES: Pupils equal. Conjunctiva normal. HEENT: External appearance of nose and ears normal, . Continues protrusion of the tongue and twisting of the mouth and tongue. White patches NECK: JVD not raised; masses not palpable. HEART: First and second heart sounds are normal; no edema. LUNGS: Respiratory rate increased, decreased breath sounds prolonged expiration and wheezing. ABDOMEN: Soft, nontender, liver spleen not palpable, no masses palpable. PSYCH: Alert and oriented x3; mood and affect anxiousl. MUSCULOSKELETAL:No Clubbing/cyanosis;muscles-grossly intact INVESTIGATIONS, reviewed in the clinical context: ProBNP 224 Pro-calcitonin 0.35 Sodium 141 potassium 4.6 creatinine 0.9 less than 0.5 AST 3728 At 0.2 01/11/1954 0.0 EKG tracing personally reviewed by me-sinus tachycardia, P pulmonale, 112 Chest x-ray film personally reviewed by me-some basilar infiltrates Assessment and plan: -Acute COPD exacerbation in current smoker: Slow to respond DuoNeb 6 times a day. Nebulized Perforomist Pulmicort -Acute hypoxic respiratory failure from pneumonia COPD exacerbation: Slow to respond On 10 L Oxygen -Bilateral basal pneumonia, suspect gram-negative organism. Check pro-calcitonin. IV ceftriaxone. Sputum for Gram stain and culture -Orofacial dyskinesia Severe psychiatry. No change in medications. -Chronic nicotine dependence, cigarette smoker Nicotine patch 21 -Restless leg syndrome Requip to 1 mg 3 times a day -GERD Omeprazole 40 mg daily -Bipolar disorder Continue home medications -Diabetes mellitus type 2 chronically on insulin Follow Accu-Cheks with sliding scale -Oropharyngeal candidiasis Diflucan DuoNeb, nebulized Perforomist and Pulmicort. IV Solu-Medrol. Follow Accu- Cheks. IV ceftriaxone. Mucinex. Discussed with patient.
[2022-05-08] MEDS: lisinopriL 20 MG TAB PO SCH (21:20)
[2022-05-08 21:41] LABS: Glucose,Whole Blood 219 mg/dL (70-110)
[2022-05-09] MEDS: methylPREDNISolone SOD SUCCI 40 MG/ML 1 ML VIAL IV SCH ×3 (00:08→15:18)
[2022-05-09] MEDS: IPRATROPIUM-ALBUTEROL 3 ML NEB INHALATION PRN ×4 (05:18→19:33)
[2022-05-09 07:13] LABS: Glucose,Whole Blood 153 mg/dL (70-110)
[2022-05-09] MEDS: SODIUM CHLORIDE 0.9% 1,000 ML IV SCH ×2 (07:40→12:42)
[2022-05-09] MEDS: INSULIN ASPART (NovoLOG) 100 UNIT/ML VIAL SQ SCH ×3 (07:43→17:05)
[2022-05-09] MEDS: FORMOTEROL FUMARATE 20 MCG/2 ML NEBU INHALATION SCH ×2 (08:25→19:33)
[2022-05-09] MEDS: BUDESONIDE 1 MG/2 ML NEBU INHALATION SCH ×2 (08:25→19:33)
[2022-05-09] MEDS: NICOTINE 21MG/24HR PATCH TRANSDERM SCH (11:11)
[2022-05-09] MEDS: lamoTRIgine 100 MG TAB PO SCH ×2 (11:12→21:26)
[2022-05-09] MEDS: ASPIRIN 81 MG PO SCH (11:12)
[2022-05-09] MEDS: PANTOPRAZOLE 40 MG TABLET PO SCH (11:12)
[2022-05-09] MEDS: TRIHEXYPHENIDYL 2 MG TAB PO SCH (11:14)
[2022-05-09] MEDS: PREGABALIN 75 MG CAP PO SCH ×3 (11:15→21:26)
[2022-05-09] MEDS: EZETIMIBE 10 MG TAB PO SCH (11:16)
[2022-05-09] MEDS: PRIMIDONE 50 MG TAB PO SCH ×3 (11:17→21:26)
[2022-05-09] MEDS: LEVOFLOXACIN 750 MG TAB PO SCH (11:17)
[2022-05-09] MEDS: CLOPIDOGREL 75 MG TAB PO SCH (11:18)
[2022-05-09] MEDS: DULoxetine HCL 60 MG CAPSULE.DR PO SCH ×2 (11:18→21:25)
[2022-05-09] MEDS: BACLOFEN 10 MG TAB PO SCH ×4 (11:18→21:26)
[2022-05-09] MEDS: guaiFENesin 600 MG TABLET.ER PO SCH ×4 (11:19→21:26)
[2022-05-09] MEDS: MULTIVITAMINS, THERA 1 EACH TAB PO SCH (11:20)
[2022-05-09] MEDS: ATORVASTATIN 80 MG TAB PO SCH (11:20)
[2022-05-09] MEDS: levETIRAcetam 500 MG TAB PO SCH ×2 (11:20→21:27)
[2022-05-09] MEDS: FLUCONAZOLE 100 MG TAB PO SCH (11:20)
[2022-05-09] MEDS: NIFEdipine XL 30 MG TAB.ER.24 PO SCH (11:21)
[2022-05-09] MEDS: ISOSORBIDE MONONITRATE ER 60 MG TAB.ER.24H PO SCH (11:21)
[2022-05-09] MEDS: MONTELUKAST 10 MG TAB PO SCH (11:22)
[2022-05-09] MEDS: ENOXAPARIN 40 MG/0.4 ML SYRINGE SQ SCH (11:22)
[2022-05-09 11:40] LABS: Glucose,Whole Blood 196 mg/dL (70-110)
[2022-05-09] MEDS: valACYclovir HCL 1,000 MG TABLET PO SCH (13:36)
--- NOTE | 2022-05-09 14:14 | P.PN ---
Subjective Progress Note Date: 05/09/22 Principal diagnosis: Shortness of breath, COPD exacerbation, pneumonia. Pulmonary consultation dated 05/07/2022. 56-year-old female transferred down from [facility], for COPD exacerbation and possible bilateral pneumonia. The patient apparently is been having increasing shortness of breath, cough, chest congestion, and phlegm production. The patient apparently sees my partner in the office. Currently, she is on 10 L nasal cannula high flow oxygen, and getting saline at KVO. Her primary care provider is Dr. Nii Floyd in [place], [place]. She typically uses home O2 at 2 L. She does continue to smoke cigarettes. She's been smoking a pack a day for 36 years. The patient is not a particularly good historian, and I do not have access to the patient's radiographs. Also, I have not been able to locate the patient's laboratory data. The patient was placed on duo nebs, Levaquin, Singulair, and a nicotine patch. She appears in no acute distress despite the fact that she is on high flow nasal O2. Progress note dated 05/08/2022. The patient states that she is only minimally better today than she was yesterday when I saw her in the emergency room. She was transferred out from [facility] with a diagnosis of COPD exacerbation, and possible bilateral pneumonia. The patient complained of shortness of breath, cough, chest congestion, and some phlegm production. Her primary care provider is Dr. Nii Floyd. He did smoke heavily, for 36 years, at 1.5 packs a day. No new laboratory today other than a glucose of 214. Brain CT did not show anything acute. Diffuse bibasilar interstitial changes are noted, and are essentially unchanged from a previous x-ray done on February 12, 2022. I have taken the liberty of ordering a pro-calcitonin level, and an N-terminal proBNP. Progress note dated 05/09/2022. 56-year-old female seen today in room 484. Her oxygen has been titrated down to 8 L high flow. She is receiving ceftriaxone and Levaquin. She is also getting saline at 100 mL an hour. She is feeling a bit better. Less short of breath, although she is coughing quite a bit, and not bringing much or any phlegm up. No new laboratory data today. An N-terminal proBNP was only 224. Pro- calcitonin level was modestly elevated to 0.35. Objective - Vital Signs Vital signs: Vital Signs Temp 98.6 F 05/09/22 13:01 Pulse 77 05/09/22 13:01 Resp 17 05/09/22 13:01 BP 152/69 05/09/22 13:01 Pulse Ox 94 L 05/09/22 13:01 FiO2 Intake & Output 05/08/22 05/09/22 05/09/22 18:59 06:59 18:59 Intake Total 120 590 Balance 120 590 Intake: Oral 120 590 Other: Voiding Method Toilet # Voids 3 3 # Bowel Movements 1 - Exam No acute distress, oriented 3. She is on 8 L high flow oxygen. HEENT examination is grossly unremarkable. Neck supple. Full range of motion. No adenopathy thyromegaly or neck vein distention. Cardiovascular examination reveals regular rhythm rate. S1-S2 normal. No S3 or S4. No discernible murmur noted. Heart sounds are distant. Heart rate 77 bpm. Lungs reveal diminished bilateral breath sounds. Scattered rhonchi are noted. No distinct wheezes or crackles are appreciated. Breath sounds equal bilaterally. Saturations are 94%. Abdomen soft bowel sounds are heard. No masses or tenderness. Extremities are intact. No cyanosis clubbing or edema. Skin is without rash or lesion. Neurologic examination is brief but nonfocal. - Labs CBC & Chem 7: 05/07/22 13:28 Labs: Abnormal Lab Results - Last 24 Hours (Table) 05/07/22 05/08/22 05/08/22 Range/Units 13:28 16:16 21:39 POC Glucose (mg/dL) 130 H 219 H (70-110) mg/dL Procalcitonin 0.35 H (0.02-0.09) ng/mL 05/09/22 05/09/22 Range/Units 07:11 11:39 POC Glucose (mg/dL) 153 H 196 H (70-110) mg/dL Procalcitonin (0.02-0.09) ng/mL Microbiology - Last 24 Hours (Table) 05/08/22 20:09 Gram Stain - Preliminary Sputum Sputum Culture - Preliminary Assessment and Plan Assessment: Acute hypoxemic respiratory failure secondary to COPD exacerbation and possible pneumonia. History of ongoing tobacco use with nicotine addiction. History of CAD. History of diabetes mellitus and diabetic neuropathy. Gastroesophageal reflux disease. History of hyperlipidemia. History of hypertension. Osteoarthritis. History of seizure disorder. Prior history of alcohol abuse. Multiple other medical problems and comorbidities. Plan: Plan dated 05/07/2022. The patient was seen in the emergency room, room 18. She was in no acute distress. She is not a particularly good historian. She was smoking up until the time she came into the hospital. She is very unusual movements of the mouth and tongue, consistent with possible tardive dyskinesia. X-rays, and labs, not able to be accessed by me. I will order a chest x-ray. She's currently on updrafts, Levaquin, and Singulair. Additional recommendations and suggestions are forthcoming, once I get a chance to look at an x-ray. She apparently sees my partner in the office. Plan dated 05/08/2022. The patient's on appropriate medications including updrafts, Pulmicort, the motor overall, ceftriaxone, Levaquin, and Solu-Medrol. I have taken the liberty of ordering an N-terminal proBNP, and a pro-calcitonin level. If the pro- calcitonin level is low, I may discontinue the antibiotics, or descalate them. The changes on chest x-ray may be more chronic than acute. Additional augustin mmendations and suggestions are forthcoming. We will continue to follow. Plan dated 05/09/2022. The patient's pro-calcitonin level was modestly elevated. The patient remains on ceftriaxone and Levaquin. Clinically, she appears to be doing better. She's been weaned down to 8 L oxygen. Saturations are excellent. Her biggest complaint currently is cough. She is producing minimal phlegm with her cough. Thus far, sputum Gram stain is negative are pending. No additional recommendations are made. We will continue to follow. She is on albuterol sulfate and ipratropium bromide, formoterol, Pulmicort, Solu-Medrol, and Singulair. Time with Patient: Less than 30
--- NOTE | 2022-05-09 15:33 | P.PN ---
Subjective Progress Note Date: 05/09/22 The patient is seen at bedside and feels her uncontrolleable tongue movement are somewhat improving since start of new medication Trihexyphenidyl Objective - Vital Signs Vital signs: Vital Signs Temp 97.9 F 05/09/22 14:58 Pulse 84 05/09/22 14:58 Resp 18 05/09/22 14:58 BP 146/81 05/09/22 14:58 Pulse Ox 93 L 05/09/22 14:58 FiO2 Intake & Output 05/08/22 05/09/22 05/09/22 18:59 06:59 18:59 Intake Total 120 590 Balance 120 590 Intake: Oral 120 590 Other: Voiding Method Toilet Toilet # Voids 3 3 # Bowel Movements 1 - Exam GENERAL: The patient is lying in bed and is not in acute distress. HENT: Has slight resting head tremor. NEUROLOGICAL: Higher mental function: The patient is awake, alert, oriented to self, place and time. Patient is following commands. No aphasia and no neglect. Cranial nerves: The pupils are round, equal and reactive to light and accommodation. Visual harris are full to confrontation throughout. Extraocular movement is intact no nystagmus is noted. Facial sensation is normal to touch throughout. The facial strength is normal throughout. Hearing is normal bilaterally to hand rub. Tongue is uncontrolleable movement of her tongue (repetition of protrusion and moving side to side but conversing appropriately). No dysarthria is noted. Shoulder shrug is normal bilaterally. Motor: The strength is 5 over 5 throughout uppers and moving lowers above gravity. Normal tone and bulk. Patient has tremor resting and end of action. Cerebellum: Normal finger to nose bilaterally. Had end action tremor with finger to nose. Sensation: Sensation is normal to touch throughout. Reflexes (right/left):1+ throughout. Plantars are mute bilaterally. SOME OF THE WORK-UP DURING THIS HOSPITAL VISIT CONSISTED OF: TSH: 0.248, free T4: 0.840 CT head is reported as no acute intracranial process. I personally reviewed the images and agree with report. - Labs CBC & Chem 7: 05/07/22 13:28 Labs: Abnormal Lab Results - Last 24 Hours (Table) 05/08/22 05/08/22 05/09/22 Range/Units 16:16 21:39 07:11 POC Glucose (mg/dL) 130 H 219 H 153 H (70-110) mg/dL 05/09/22 Range/Units 11:39 POC Glucose (mg/dL) 196 H (70-110) mg/dL Microbiology - Last 24 Hours (Table) 05/08/22 20:09 Gram Stain - Preliminary Sputum Sputum Culture - Preliminary Assessment and Plan Assessment: Seems acute focal dystonia (tongue) for past one week prior to presentation to hospital: Unsure cause but unsure if medication induced (unsure of prior exposure to antipsychotic, antiemetic)--slight improvement after start of T rihexyphentidyl. Possible COPD exacerbation History of seizures Essential tremor Plan: I started the patient on Trihexyphenidyl 1mg daily on 05/08/2022 and will titrate in 2 days if needed. Please avoid any neuroleptic drugs, antiepmetic drug and antipsychotic drugs at this time. Currently on Zofran and if possible avoid it. Patient needs to re-evaluation as outpatient with neurologist within a month and 3 month to see if any improvement without use of drugs stated above. Pulmonary team is consulted Will defer the rest of medical management to the primary team. Upon discharge, the patient needs to follow-up with her neurology team, Dr. Velvet nixon's team as outpatient within 1-2 weeks. The plan is discussed with the patient's nurse. Will follow-up sporadically. Will Velez M.D. Neuro-Hospitalist Time with Patient: Less than 30
[2022-05-09 16:32] LABS: Glucose,Whole Blood 217 mg/dL (70-110)
--- NOTE | 2022-05-09 18:08 | P.PN ---
Progress Note - Text Progress Note Date: 05/09/22 Chief Complaint: Short of breath This is a 56-year-old patient, follows with Dr. Floyd. Chronic stable medical conditions include CAD, COPD, diabetes, GERD, hyperlipidemia, hypertension, osteoarthritis, neuropathy, vocal cord dysplasia, IBS, overactive bladder, chronic back pain, restless leg syndrome, seizure activity, stop drinking alcohol drinking about 2011. Bipolar- follow with Dr. Gorman from psychiatry. Active smoker. Patient was transferred to our ER from [facility]. Patient has continued to smoke. Became increasingly short of breath. Cough. Able to produce sputum but unable to expectorate. Decreased appetite. Patient has twisting, protr usion of her tongue. And tremors. Unsure how long she's had it for. Denies any fever and chills. At her baseline uses a cane walker and a wheelchair. Continues to smoke a pack a day. Cough. Wheezing. May 08: Seen by psychiatry. [place] of oral facial dyskinesia. Not felt to be secondary to psychotropic medications. No change in medications. Breathing is better. It started some diet. May 09: Eating about 35%. Some bouts of coughing. Eating fair. Spoke to the nurse that the patient sit up in a chair. On 8 L nasal cannula. Active Medications Acetaminophen (Acetaminophen Tab 325 Mg Tab) 650 mg PO Q6HR PRN PRN Reason: Mild Pain or Fever > 100.5 Last Admin: 05/08/22 14:38 Dose: 650 mg Albuterol/Ipratropium (Ipratropium-Albuterol 3 Ml Neb) 3 ml INHALATION RT-Q4H PRN PRN Reason: shortness of breath Last Admin: 05/09/22 11:43 Dose: 3 ml Aspirin (Aspirin 81 Mg) 81 mg PO DAILY [facility] Last Admin: 05/09/22 11:12 Dose: 81 mg Atorvastatin Calcium (Atorvastatin 80 Mg Tab) 80 mg PO DAILY [facility] Last Admin: 05/09/22 11:20 Dose: 80 mg Baclofen (Baclofen 10 Mg Tab) 30 mg PO QID@08,14,, [facility] Last Admin: 05/09/22 17:05 Dose: 30 mg Budesonide (Budesonide 1 Mg/2 Ml Nebu) 1 mg INHALATION RT-BID [facility] Last Admin: 05/09/22 08:25 Dose: 1 mg Calcium Carbonate/Glycine (Calcium Carbonate 500 Mg Chewable) 1,000 mg PO Q4HR PRN PRN Reason: Dyspepsia Clopidogrel Bisulfate (Clopidogrel 75 Mg Tab) 75 mg PO DAILY [facility] Last Admin: 05/09/22 11:18 Dose: 75 mg Dextrose/Water (Dextrose 50% Syringe 50 Ml) 25 ml IVP PER PROTOCOL PRN; Protoco l PRN Reason: Hypoglycemia Dextrose/Water (Dextrose 50% Syringe 50 Ml) 50 ml IVP PER PROTOCOL PRN; Protocol PRN Reason: Hypoglycemia Duloxetine HCl (Duloxetine Hcl 60 Mg Capsule.Dr) 60 mg PO BID [facility] Last Admin: 05/09/22 11:18 Dose: 60 mg Ezetimibe (Ezetimibe 10 Mg Tab) 10 mg PO DAILY [facility] Last Admin: 05/09/22 11:16 Dose: 10 mg Enoxaparin Sodium (Enoxaparin 40 Mg/0.4 Ml Syringe) 40 mg SQ DAILY [facility] Last Admin: 05/09/22 11:22 Dose: 40 mg Fluconazole (Fluconazole 100 Mg Tab) 100 mg PO DAILY [facility]; Protocol Last Admin: 05/09/22 11:20 Dose: 100 mg Formoterol Fumarate (Formoterol Fumarate 20 Mcg/2 Ml Nebu) 20 mcg INHALATION RT-BID [facility] Last Admin: 05/09/22 08:25 Dose: 20 mcg Guaifenesin (Guaifenesin 600 Mg Tablet.Er) 600 mg PO QID [facility] Last Admin: 05/09/22 17:05 Dose: 600 mg Sodium Chloride (Saline 0.9%) 1,000 mls @ 100 mls/hr IV .Q10H [facility] Last Admin: 05/09/22 12:42 Dose: 100 mls/hr Ceftriaxone Sodium 1 gm/ (Sodium Chloride) 50 mls @ 100 mls/hr IVPB Q12HR [facility]; Protocol Last Admin: 05/09/22 07:38 Dose: 100 mls/hr Insulin Aspart (Insulin Aspart (Novolog) 100 Unit/Ml Vial) 0 unit SQ AC-TID [facility]; Protocol Last Admin: 05/09/22 17:05 Dose: 4 unit Isosorbide Mononitrate (Isosorbide Mononitrate Er 60 Mg Tab.Er.24h) 60 mg PO DAILY [facility] Last Admin: 05/09/22 11:21 Dose: 60 mg Lactulose (Lactulose 20 Gm/30 Ml Cup) 20 gm PO DAILY PRN PRN Reason: Constipation Last Admin: 05/09/22 13:39 Dose: 20 gm Lamotrigine (Lamotrigine 100 Mg Tab) 150 mg PO BID [facility] Last Admin: 05/09/22 11:12 Dose: 150 mg Levetiracetam (Levetiracetam 500 Mg Tab) 1,000 mg PO BID [facility] Last Admin: 05/09/22 11:20 Dose: 1,000 mg Levofloxacin (Levofloxacin 750 Mg Tab) 750 mg PO DAILY [facility]; Protocol Stop: 05/10/22 09:01 Last Admin: 05/09/22 11:17 Dose: 750 mg Lidocaine (Lidocaine 5% Patch) 1 patch TOPICAL DAILY PRN; Protocol PRN Reason: Pain Last Admin: 05/07/22 14:06 Dose: 1 patch Lisinopril (Lisinopril 20 Mg Tab) 20 mg PO HS [facility] Last Admin: 05/08/22 21:20 Dose: 20 mg Methylprednisolone Sodium Succinate (Methylprednisolone Sod Succi 40 Mg/Ml 1 Ml Vial) 40 mg IV Q8HR [facility] Last Admin: 05/09/22 15:18 Dose: 40 mg Miscellaneous Information (Pneumonia Protocol Utilized 1 Each Misc) 1 each PO ONCE PRN PRN Reason: Per Protocol Montelukast Sodium (Montelukast 10 Mg Tab) 10 mg PO DAILY [facility] Last Admin: 05/09/22 11:22 Dose: 10 mg Multivitamins (Multivitamins, Thera 1 Each Tab) 1 each PO DAILY [facility] Last Admin: 05/09/22 11:20 Dose: 1 each Naloxone HCl (Naloxone 0.4 Mg/Ml 1 Ml Vial) 0.2 mg IV Q2M PRN PRN Reason: Opioid Reversal Nicotine (Nicotine 21mg/24hr Patch) 1 patch TRANSDERM DAILY [facility] Last Admin: 05/09/22 11:11 Dose: 1 patch Nifedipine (Nifedipine Xl 30 Mg Tab.Er.24) 30 mg PO DAILY [facility] Last Admin: 05/09/22 11:21 Dose: 30 mg Diroximel Fumarate [ Vumerity] 231 Mg Capsule.Dr 462 mg PO BID [facility] Last Admin: 05/09/22 11:22 Dose: 462 mg Ondansetron HCl (Ondansetron 4 Mg/2 Ml Vial) 4 mg IVP Q8HR PRN PRN Reason: Nausea And Vomiting Pantoprazole Sodium (Pantoprazole 40 Mg Tablet) 40 mg PO DAILY [facility] Last Admin: 05/09/22 11:12 Dose: 40 mg Potassium Chloride (Potassium Chloride Er 10 Meq Tab.Er.Prt) 10 meq PO DAILY PRN PRN Reason: WITH LASIX Pregabalin (Pregabalin 75 Mg Cap) 150 mg PO TID [facility] Last Admin: 05/09/22 15:27 Dose: 150 mg Primidone (Primidone 50 Mg Tab) 50 mg PO TID [facility] Last Admin: 05/09/22 15:27 Dose: 50 mg Ropinirole HCl (Ropinirole Hcl 0.25 Mg Tab) 0.5 mg PO TID [facility] Last Admin: 05/09/22 15:27 Dose: 0.5 mg Trihexyphenidyl HCl (Trihexyphenidyl 2 Mg Tab) 1 mg PO DAILY [facility] Last Admin: 05/09/22 11:14 Dose: 1 mg Valacyclovir HCl (Valacyclovir Hcl 1,000 Mg Tablet) 1,000 mg PO DAILY [facility]; Protocol Last Admin: 05/09/22 13:36 Dose: 1,000 mg Past medical history to include: CAD, COPD, diabetes, GERD, hyperlipidemia, hypertension, prostatitis, kidney disease, seizure disorder, peripheral neuropathy, vocal cord dysplasia, IBS, overactive bladder, hyperparathyroidism, chronic back pain, this is like syndrome, seizure activity, history of alcohol abuse 10 years ago. Bipolar. Social history: Lives with her Simone chaidez. Does use a cane/walker/wheelchair. Smokes a pack a day for 44 years. History of alcoholism stopped 10 years ago. Did use marijuana in the past. Family history: Mother had CAD Physical examination: VITAL SIGNS: 98.6, 77, 17, 1 52 x 6 9, 94% on 8 L GENERAL: , reclining in bed, short of breath. EYES: Pupils equal. Conjunctiva normal. HEENT: External appearance of nose and ears normal, . Continues protrusion of the tongue and twisting of the mouth and tongue. White patches NECK: JVD not raised; masses not palpable. HEART: First and second heart sounds are normal; no edema. LUNGS: Respiratory rate increased, decreased breath sounds prolonged expiration and wheezing. ABDOMEN: Soft, nontender, liver spleen not palpable, no masses palpable. PSYCH: Alert and oriented x3; mood and affect anxiousl. MUSCULOSKELETAL:No Clubbing/cyanosis;muscles-grossly intact INVESTIGATIONS, reviewed in the clinical context: Pro-calcitonin 0.09 ProBNP 224 Pro-calcitonin 0.35 Sodium 141 potassium 4.6 creatinine 0.9 less than 0.5 AST 3728 At 0.2 01/11/1954 0.0 EKG tracing personally reviewed by me-sinus tachycardia, P pulmonale, 112 Chest x-ray film personally reviewed by me-some basilar infiltrates Assessment and plan: -Acute COPD exacerbation in current smoker: Slow to respond DuoNeb 6 times a day. Nebulized Perforomist Pulmicort -Acute hypoxic respiratory failure from pneumonia COPD exacerbation: Slow to respond On 8 L Oxygen -Bilateral basal pneumonia, suspect gram-negative organism. IV ceftriaxone. -Orofacial dyskinesia Seen by psychiatry. No change in medications. -Chronic nicotine dependence, cigarette smoker Nicotine patch 21 -Restless leg syndrome Requip to 1 mg 3 times a day -GERD Omeprazole 40 mg daily -Bipolar disorder Continue home medications -Diabetes mellitus type 2 chronically on insulin Follow Accu-Cheks with sliding scale -Oropharyngeal candidiasis Diflucan DuoNeb, nebulized Perforomist and Pulmicort. IV Solu-Medrol. Follow Accu- Cheks. IV ceftriaxone. Mucinex. Follow with consultants. Have the patient sit up in a chair. Incentive spirometry.
[2022-05-09] MEDS: lisinopriL 20 MG TAB PO SCH (21:25)
[2022-05-10] MEDS: methylPREDNISolone SOD SUCCI 40 MG/ML 1 ML VIAL IV SCH ×2 (00:05→07:50)
[2022-05-10] MEDS: traZODone HCL 100 MG TAB PO PRN ×2 (00:05→21:38)
[2022-05-10] MEDS: SODIUM CHLORIDE 0.9% 1,000 ML IV SCH ×3 (00:06→07:44)
[2022-05-10 07:00] LABS: Glucose,Whole Blood 159 mg/dL (70-110)
[2022-05-10] MEDS: INSULIN ASPART (NovoLOG) 100 UNIT/ML VIAL SQ SCH ×3 (07:50→17:09)
[2022-05-10] MEDS: NICOTINE 21MG/24HR PATCH TRANSDERM SCH (07:50)
[2022-05-10] MEDS: ENOXAPARIN 40 MG/0.4 ML SYRINGE SQ SCH (07:51)
[2022-05-10] MEDS: lamoTRIgine 100 MG TAB PO SCH ×2 (07:51→21:34)
[2022-05-10] MEDS: EZETIMIBE 10 MG TAB PO SCH (07:52)
[2022-05-10] MEDS: DULoxetine HCL 60 MG CAPSULE.DR PO SCH ×2 (07:52→21:33)
[2022-05-10] MEDS: BACLOFEN 10 MG TAB PO SCH ×4 (07:53→21:36)
[2022-05-10] MEDS: PRIMIDONE 50 MG TAB PO SCH ×3 (07:53→21:37)
[2022-05-10] MEDS: FLUCONAZOLE 100 MG TAB PO SCH (07:53)
[2022-05-10] MEDS: ASPIRIN 81 MG PO SCH (07:53)
[2022-05-10] MEDS: PANTOPRAZOLE 40 MG TABLET PO SCH (07:53)
[2022-05-10] MEDS: CLOPIDOGREL 75 MG TAB PO SCH (07:53)
[2022-05-10] MEDS: PREGABALIN 75 MG CAP PO SCH ×3 (07:53→21:36)
[2022-05-10] MEDS: ATORVASTATIN 80 MG TAB PO SCH (07:54)
[2022-05-10] MEDS: guaiFENesin 600 MG TABLET.ER PO SCH ×4 (07:54→21:36)
[2022-05-10] MEDS: ISOSORBIDE MONONITRATE ER 60 MG TAB.ER.24H PO SCH (07:54)
[2022-05-10] MEDS: MONTELUKAST 10 MG TAB PO SCH (07:54)
[2022-05-10] MEDS: MULTIVITAMINS, THERA 1 EACH TAB PO SCH (07:54)
[2022-05-10] MEDS: levETIRAcetam 500 MG TAB PO SCH ×2 (07:55→21:35)
[2022-05-10] MEDS: LEVOFLOXACIN 750 MG TAB PO SCH (07:55)
[2022-05-10] MEDS: TRIHEXYPHENIDYL 2 MG TAB PO SCH (07:56)
[2022-05-10] MEDS: NIFEdipine XL 30 MG TAB.ER.24 PO SCH (07:57)
[2022-05-10] MEDS: valACYclovir HCL 1,000 MG TABLET PO SCH (07:57)
[2022-05-10] MEDS: FORMOTEROL FUMARATE 20 MCG/2 ML NEBU INHALATION SCH (09:00)
[2022-05-10] MEDS: IPRATROPIUM-ALBUTEROL 3 ML NEB INHALATION PRN ×3 (09:00→19:40)
[2022-05-10] MEDS: BUDESONIDE 1 MG/2 ML NEBU INHALATION SCH (09:01)
--- NOTE | 2022-05-10 09:16 | XR ---
EXAMINATION TYPE: XR chest 2V DATE OF EXAM: 05/10/2022 6:43 AM COMPARISON: Chest radiographs from 05/07/2022 TECHNIQUE: XR chest 2V Frontal and lateral views of the chest. CLINICAL INDICATION:Female, 56 years old with history of Follow-up pneumonia; FINDINGS: Lungs/Pleura: Bibasilar atelectasis. No evidence for pneumothorax pleural effusion or focal consolida tion. Pulmonary vascularity: Unremarkable. Heart/mediastinum: Cardiomediastinal silhouette is unremarkable. Musculoskeletal: No acute osseous pathology. IMPRESSION: Bibasilar opacities which appear to improve in today's exam with persistent basilar atelectasis.
[2022-05-10] MEDS ORDERED: FUROSEMIDE 10 MG/ML 4 ML VIAL IV STA (10:35)
[2022-05-10 11:33] LABS: Glucose,Whole Blood 131 mg/dL (70-110)
--- NOTE | 2022-05-10 11:36 | P.PN ---
Subjective Progress Note Date: 05/10/22 Principal diagnosis: Shortness of breath On 05/10/2022 patient seen in follow-up on medical surgical floor. She is resting in bed, currently on 7 L of oxygen satting 95-97%. Her FiO2 has been weaned down to 5 L, her current O2 saturation is 91-93%, she is given IV saline at a rate of 100 ML per hour. She states she is feeling better, but still having exertional shortness of breath, lung sounds are positive for diffuse rales throughout. Patient normally takes Lasix 10 mg daily on as-needed basis at home. Lower extremity edema has been noted, with mild pretibial edema. He remains on empiric antibiotics with Rocephin and Diflucan, DuoNeb, and IV steroids. Sputum culture has been sent showing few PMNs. Serum pro-calcitonin is improved and is down to 0.09. Objective - Vital Signs Vital signs: Vital Signs Temp 97.9 F 05/10/22 07:40 Pulse 76 05/10/22 09:28 Resp 18 05/10/22 07:40 BP 143/82 05/10/22 07:40 Pulse Ox 94 L 05/10/22 10:00 FiO2 Intake & Output 05/09/22 05/10/22 05/10/22 18:59 06:59 18:59 Other: Voiding Method Toilet Toilet Bedside Commode # Voids 5 1 # Bowel Movements 1 1 - Exam GENERAL EXAM: Alert, very pleasant, 56-year-old white female, resting in bed, 7 L of oxygen and pulse ox of 95-99% comfortable in no apparent distress. HEAD: Normocephalic/atraumatic. EYES: Normal reaction of pupils, equal size. Conjunctiva pink, sclera white. NOSE: Clear with pink turbinates. THROAT: No erythema or exudates. NECK: No masses, no JVD, no thyroid enlargement, no adenopathy. CHEST: No chest wall deformity. Symmetrical expansion. LUNGS: Equal air entry with diffuse coarse crackles CVS: Regular rate and rhythm, normal S1 and S2, no gallops, no murmurs, no rubs ABDOMEN: Soft, nontender. No hepatosplenomegaly, normal bowel sounds, no guarding or rigidity. EXTREMITIES: No clubbing, mild pretibial edema, no cyanosis, 2+ pulses and upper and lower extremities. MUSCULOSKELETAL: Muscle strength and tone normal. SPINE: No scoliosis or deformity SKIN: No rashes CENTRAL NERVOUS SYSTEM: Alert and oriented -3. No focal deficits, tone is normal in all 4 extremities. PSYCHIATRIC: Alert and oriented -3. Appropriate affect. Intact judgment and insight. - Labs CBC & Chem 7: 05/07/22 13:28 Labs: Abnormal Lab Results - Last 24 Hours (Table) 05/09/22 05/09/22 05/10/22 Range/Units 11:39 16:31 06:59 POC Glucose (mg/dL) 196 H 217 H 159 H (70-110) mg/dL Microbiology - Last 24 Hours (Table) 05/08/22 20:09 Gram Stain - Preliminary Sputum Sputum Culture - Preliminary Assessment and Plan Plan: Assessment: #1. Acute hypoxic respiratory failure secondary to acute exacerbation of COPD, and possibility of chlamydia acquired pneumonia #2. History of ongoing tobacco use with nicotine addiction #3. History of CAD #4. History of diabetes mellitus and diabetic neuropathy #5. Hypertension #6. Hyperlipidemia #7. Osteoporosis #8. Seizure disorder #9. History of alcohol abuse #10. Multiple other medical problems Plan: Continue weaning FiO2 IV fluids to KVO We'll give the patient a dose of IV Lasix 40 mg IV Solu-Medrol to oral prednisone Serum procalcitonin level is improving Continue weaning FiO2 Continue with current antibiotics We'll continue to follow I have personally seen and examined the patient, performed the documentation and the assessment and plan as written. Number of minutes spent on the visit: [10] Time with Patient: Less than 30
[2022-05-10 16:35] LABS: Glucose,Whole Blood 156 mg/dL (70-110)
[2022-05-10] MEDS: SYMBICORT 160-4.5 MCG INHALER INHALATION SCH (20:01)
[2022-05-10 20:21] LABS: Glucose,Whole Blood 155 mg/dL (70-110)
--- NOTE | 2022-05-10 20:37 | P.PN ---
Progress Note - Text Progress Note Date: 05/10/22 Chief Complaint: Short of breath This is a 56-year-old patient, follows with Dr. Floyd. Chronic stable medical conditions include CAD, COPD, diabetes, GERD, hyperlipidemia, hypertension, osteoarthritis, neuropathy, vocal cord dysplasia, IBS, overactive bladder, chronic back pain, restless leg syndrome, seizure activity, stop drinking alcohol drinking about 2011. Bipolar- follow with Dr. Gorman from psychiatry. Active smoker. Patient was transferred to our ER from [facility]. Patient has continued to smoke. Became increasingly short of breath. Cough. Able to produce sputum but unable to expectorate. Decreased appetite. Patient has twisting, protr usion of her tongue. And tremors. Unsure how long she's had it for. Denies any fever and chills. At her baseline uses a cane walker and a wheelchair. Continues to smoke a pack a day. Cough. Wheezing. May 08: Seen by psychiatry. [place] of oral facial dyskinesia. Not felt to be secondary to psychotropic medications. No change in medications. Breathing is better. It started some diet. May 09: Eating about 35%. Some bouts of coughing. Eating fair. Spoke to the nurse that the patient sit up in a chair. On 8 L nasal cannula. May 10: Breathing better. Received some Lasix earlier. Oxygen did come down to 5 L. Encourage incentive spirometry. Eating better. Tired. Active Medications Acetaminophen (Acetaminophen Tab 325 Mg Tab) 650 mg PO Q6HR PRN PRN Reason: Mild Pain or Fever > 100.5 Last Admin: 05/08/22 14:38 Dose: 650 mg Albuterol/Ipratropium (Ipratropium-Albuterol 3 Ml Neb) 3 ml INHALATION RT-Q4H PRN PRN Reason: shortness of breath Last Admin: 05/10/22 19:40 Dose: 3 ml Aspirin (Aspirin 81 Mg) 81 mg PO DAILY [facility] Last Admin: 05/10/22 07:53 Dose: 81 mg Atorvastatin Calcium (Atorvastatin 80 Mg Tab) 80 mg PO DAILY [facility] Last Admin: 05/10/22 07:54 Dose: 80 mg Baclofen (Baclofen 10 Mg Tab) 30 mg PO QID@08,,, [facility] Last Admin: 05/10/22 17:27 Dose: 30 mg Budesonide/Formoterol Fumarate (Symbicort 160-4.5 Mcg Inhaler) 2 puff INHALATION RT-BID [facility] Last Admin: 05/10/22 20:01 Dose: 2 puff Calcium Carbonate/Glycine (Calcium Carbonate 500 Mg Chewable) 1,000 mg PO Q4HR PRN PRN Reason: Dyspepsia Clopidogrel Bisulfate (Clopidogrel 75 Mg Tab) 75 mg PO DAILY [facility] Last Admin: 05/10/22 07:53 Dose: 75 mg Dextrose/Water (Dextrose 50% Syringe 50 Ml) 25 ml IVP PER PROTOCOL PRN; Protocol PRN Reason: Hypoglycemia Dextrose/Water (Dextrose 50% Syringe 50 Ml) 50 ml IVP PER PROTOCOL PRN; Protocol PRN Reason: Hypoglycemia Duloxetine HCl (Duloxetine Hcl 60 Mg Capsule.Dr) 60 mg PO BID [facility] Last Admin: 05/10/22 07:52 Dose: 60 mg Ezetimibe (Ezetimibe 10 Mg Tab) 10 mg PO DAILY [facility] Last Admin: 05/10/22 07:52 Dose: 10 mg Enoxaparin Sodium (Enoxaparin 40 Mg/0.4 Ml Syringe) 40 mg SQ DAILY [facility] Last Admin: 05/10/22 07:51 Dose: 40 mg Fluconazole (Fluconazole 100 Mg Tab) 100 mg PO DAILY [facility]; Protocol Last Admin: 05/10/22 07:53 Dose: 100 mg Guaifenesin (Guaifenesin 600 Mg Tablet.Er) 600 mg PO QID [facility] Last Admin: 05/10/22 17:10 Dose: 600 mg Ceftriaxone Sodium 1 gm/ (Sodium Chloride) 50 mls @ 100 mls/hr IVPB Q12HR [facility]; Protocol Last Admin: 05/10/22 07:50 Dose: 100 mls/hr Insulin Aspart (Insulin Aspart (Novolog) 100 Unit/Ml Vial) 0 unit SQ AC-TID [facility]; Protocol Last Admin: 05/10/22 17:09 Dose: 2 unit Isosorbide Mononitrate (Isosorbide Mononitrate Er 60 Mg Tab.Er.24h) 60 mg PO DAILY [facility] Last Admin: 05/10/22 07:54 Dose: 60 mg Lactulose (Lactulose 20 Gm/30 Ml Cup) 20 gm PO DAILY PRN PRN Reason: Constipation Last Admin: 05/09/22 13:39 Dose: 20 gm Lamotrigine (Lamotrigine 100 Mg Tab) 150 mg PO BID [facility] Last Admin: 05/10/22 07:51 Dose: 150 mg Levetiracetam (Levetiracetam 500 Mg Tab) 1,000 mg PO BID [facility] Last Admin: 05/10/22 07:55 Dose: 1,000 mg Lidocaine (Lidocaine 5% Patch) 1 patch TOPICAL DAILY PRN; Protocol PRN Reason: Pain Last Admin: 05/07/22 14:06 Dose: 1 patch Lisinopril (Lisinopril 20 Mg Tab) 20 mg PO HS [facility] Last Admin: 05/09/22 21:25 Dose: 20 mg Miscellaneous Information (Pneumonia Protocol Utilized 1 Each Misc) 1 each PO ONCE PRN PRN Reason: Per Protocol Montelukast Sodium (Montelukast 10 Mg Tab) 10 mg PO DAILY [facility] Last Admin: 05/10/22 07:54 Dose: 10 mg Multivitamins (Multivitamins, Thera 1 Each Tab) 1 each PO DAILY [facility] Last Admin: 05/10/22 07:54 Dose: 1 each Naloxone HCl (Naloxone 0.4 Mg/Ml 1 Ml Vial) 0.2 mg IV Q2M PRN PRN Reason: Opioid Reversal Nicotine (Nicotine 21mg/24hr Patch) 1 patch TRANSDERM DAILY [facility] Last Admin: 05/10/22 07:50 Dose: 1 patch Nifedipine (Nifedipine Xl 30 Mg Tab.Er.24) 30 mg PO DAILY [facility] Last Admin: 05/10/22 07:57 Dose: 30 mg Diroximel Fumarate [ Vumerity] 231 Mg Capsule.Dr 462 mg PO BID [facility] Last Admin: 05/10/22 07:47 Dose: 462 mg Ondansetron HCl (Ondansetron 4 Mg/2 Ml Vial) 4 mg IVP Q8HR PRN PRN Reason: Nausea And Vomiting Pantoprazole Sodium (Pantoprazole 40 Mg Tablet) 40 mg PO DAILY [facility] Last Admin: 05/10/22 07:53 Dose: 40 mg Potassium Chloride (Potassium Chloride Er 10 Meq Tab.Er.Prt) 10 meq PO DAILY PRN PRN Reason: WITH LASIX Prednisone (Prednisone 20 Mg Tab) 40 mg PO DAILY [facility] Pregabalin (Pregabalin 75 Mg Cap) 150 mg PO TID [facility] Last Admin: 05/10/22 15:24 Dose: 150 mg Primidone (Primidone 50 Mg Tab) 50 mg PO TID [facility] Last Admin: 05/10/22 15:25 Dose: 50 mg Ropinirole HCl (Ropinirole Hcl 0.25 Mg Tab) 0.5 mg PO TID [facility] Last Admin: 05/10/22 15:25 Dose: 0.5 mg Trazodone HCl (Trazodone Hcl 100 Mg Tab) 200 mg PO HS PRN PRN Reason: sleep Last Admin: 05/10/22 00:05 Dose: 200 mg Trihexyphenidyl HCl (Trihexyphenidyl 2 Mg Tab) 1 mg PO DAILY [facility] Last Admin: 05/10/22 07:56 Dose: 1 mg Valacyclovir HCl (Valacyclovir Hcl 1,000 Mg Tablet) 1,000 mg PO DAILY [facility]; Protocol Last Admin: 05/10/22 07:57 Dose: 1,000 mg Past medical history to include: CAD, COPD, diabetes, GERD, hyperlipidemia, hypertension, prostatitis, kidney disease, seizure disorder, peripheral neuropathy, vocal cord dysplasia, IBS, overactive bladder, hyperparathyroidism, chronic back pain, this is like syndrome, seizure activity, history of alcohol abuse 10 years ago. Bipolar. Social history: Lives with her Simone chaidez. Does use a cane/walker/wheelchair. Smokes a pack a day for 44 years. History of alcoholism stopped 10 years ago. Did use marijuana in the past. Family history: Mother had CAD Physical examination: VITAL SIGNS: 98, 67, 18, 11 5 x 62, 94% on 5 L GENERAL: Up in a chair, tired EYES: Pupils equal. Conjunctiva normal. HEENT: External appearance of nose and ears normal, . Continues protrusion of the tongue and twisting of the mouth and tongue. White patches NECK: JVD not raised; masses not palpable. HEART: First and second heart sounds are normal; no edema. LUNGS: Respiratory rate increased, decreased breath sounds prolonged expiration and wheezing. ABDOMEN: Soft, nontender, liver spleen not palpable, no masses palpable. PSYCH: Alert and oriented x3; mood and affect anxiousl. MUSCULOSKELETAL:No Clubbing/cyanosis;muscles-grossly intact INVESTIGATIONS, reviewed in the clinical context: Pro-calcitonin 0.09 ProBNP 224 Pro-calcitonin 0.35 Sodium 141 potassium 4.6 creatinine 0.9 less than 0.5 AST 3728 At 0.2 01/11/1954 0.0 EKG tracing personally reviewed by me-sinus tachycardia, P pulmonale, 112 Chest x-ray film personally reviewed by me-some basilar infiltrates Assessment and plan: -Acute COPD exacerbation in current smoker: Slow to respond DuoNeb 6 times a day. Nebulized Perforomist Pulmicort -Acute hypoxic respiratory failure from pneumonia COPD exacerbation: Slow to respond On 5 L Oxygen -Bilateral basal pneumonia, suspect gram-negative organism. IV ceftriaxone. -Orofacial dyskinesia Seen by psychiatry. No change in medications. -Chronic nicotine dependence, cigarette smoker Nicotine patch 21 -Restless leg syndrome Requip to 1 mg 3 times a day -GERD Omeprazole 40 mg daily -Bipolar disorder Continue home medications -Diabetes mellitus type 2 chronically on insulin Follow Accu-Cheks with sliding scale -Oropharyngeal candidiasis Diflucan DuoNeb, nebulized Perforomist and Pulmicort. IV Solu-Medrol. Follow Accu- Cheks. IV ceftriaxone. Mucinex. . Incentive spirometry.
[2022-05-10] MEDS: lisinopriL 20 MG TAB PO SCH (21:35)
[2022-05-11 07:14] LABS: Glucose,Whole Blood 138 mg/dL (70-110)
[2022-05-11] MEDS: IPRATROPIUM-ALBUTEROL 3 ML NEB INHALATION PRN ×4 (07:36→20:39)
[2022-05-11] MEDS: SYMBICORT 160-4.5 MCG INHALER INHALATION SCH ×2 (07:36→20:39)
[2022-05-11] MEDS ORDERED: FUROSEMIDE 10 MG/ML 4 ML VIAL IV STA (09:04)
[2022-05-11] MEDS: INSULIN ASPART (NovoLOG) 100 UNIT/ML VIAL SQ SCH ×3 (09:26→16:55)
[2022-05-11] MEDS: ENOXAPARIN 40 MG/0.4 ML SYRINGE SQ SCH (09:34)
[2022-05-11] MEDS: ASPIRIN 81 MG PO SCH (09:35)
[2022-05-11] MEDS: DULoxetine HCL 60 MG CAPSULE.DR PO SCH ×2 (09:35→22:19)
[2022-05-11] MEDS: guaiFENesin 600 MG TABLET.ER PO SCH ×4 (09:35→22:20)
[2022-05-11] MEDS: PANTOPRAZOLE 40 MG TABLET PO SCH (09:35)
[2022-05-11] MEDS: FLUCONAZOLE 100 MG TAB PO SCH (09:35)
[2022-05-11] MEDS: MULTIVITAMINS, THERA 1 EACH TAB PO SCH (09:35)
[2022-05-11] MEDS: ATORVASTATIN 80 MG TAB PO SCH (09:35)
[2022-05-11] MEDS: levETIRAcetam 500 MG TAB PO SCH ×2 (09:35→22:31)
[2022-05-11] MEDS: valACYclovir HCL 1,000 MG TABLET PO SCH (09:35)
[2022-05-11] MEDS: MONTELUKAST 10 MG TAB PO SCH (09:35)
[2022-05-11] MEDS: TRIHEXYPHENIDYL 2 MG TAB PO SCH (09:35)
[2022-05-11] MEDS: ISOSORBIDE MONONITRATE ER 60 MG TAB.ER.24H PO SCH (09:35)
[2022-05-11] MEDS: NIFEdipine XL 30 MG TAB.ER.24 PO SCH (09:35)
[2022-05-11] MEDS: BACLOFEN 10 MG TAB PO SCH ×4 (09:36→22:19)
[2022-05-11] MEDS: CLOPIDOGREL 75 MG TAB PO SCH (09:36)
[2022-05-11] MEDS: lamoTRIgine 100 MG TAB PO SCH ×2 (09:36→22:20)
[2022-05-11] MEDS: PREGABALIN 75 MG CAP PO SCH ×3 (09:36→22:19)
[2022-05-11] MEDS: EZETIMIBE 10 MG TAB PO SCH (09:36)
[2022-05-11] MEDS: PRIMIDONE 50 MG TAB PO SCH ×3 (09:36→22:20)
[2022-05-11] MEDS: predniSONE 20 MG TAB PO SCH (09:36)
[2022-05-11] MEDS: NICOTINE 21MG/24HR PATCH TRANSDERM SCH (09:37)
[2022-05-11 11:10] LABS: Glucose,Whole Blood 107 mg/dL (70-110)
--- NOTE | 2022-05-11 11:34 | P.PN ---
Subjective Progress Note Date: 05/11/22 Principal diagnosis: Shortness of breath On 05/10/2022 patient seen in follow-up on medical surgical floor. She is resting in bed, currently on 7 L of oxygen satting 95-97%. Her FiO2 has been weaned down to 5 L, her current O2 saturation is 91-93%, she is given IV saline at a rate of 100 ML per hour. She states she is feeling better, but still having exertional shortness of breath, lung sounds are positive for diffuse rales throughout. Patient normally takes Lasix 10 mg daily on as-needed basis at home. Lower extremity edema has been noted, with mild pretibial edema. He remains on empiric antibiotics with Rocephin and Diflucan, DuoNeb, and IV steroids. Sputum culture has been sent showing few PMNs. Serum pro-calcitonin is improved and is down to 0.09. On 05/11/2022 patient seen in follow-up on medical surgical floor, she is resting comfortably in bed, chronically oxygen is down to 5 L, breathing more comfortably, lung sounds are essentially clear on today's exam, yesterday she received a dose of IV Lasix, her IV steroids have encouraged oral prednisone, she remains on empiric antibiotics and nebulized bronchodilators, she is improving, still has some trace pretibial edema, otherwise no events overnight. Objective - Vital Signs Vital signs: Vital Signs Temp 98.7 F 05/11/22 08:00 Pulse 76 05/11/22 11:31 Resp 16 05/11/22 08:00 BP 129/73 05/11/22 08:00 Pulse Ox 90 L 05/11/22 08:00 FiO2 Intake & Output 05/10/22 05/11/22 05/11/22 18:59 06:59 18:59 Other: Voiding Method Bedside Commode # Voids 9 3 # Bowel Movements 1 - Exam GENERAL EXAM: Alert, very pleasant, 56-year-old white female, resting in bed, 5 L of oxygen and pulse ox of 90% comfortable in no apparent distress. HEAD: Normocephalic/atraumatic. EYES: Normal reaction of pupils, equal size. Conjunctiva pink, sclera white. NOSE: Clear with pink turbinates. THROAT: No erythema or exudates. NECK: No masses, no JVD, no thyroid enlargement, no adenopathy. CHEST: No chest wall deformity. Symmetrical expansion. LUNGS: Equal air entry with diffuse coarse crackles CVS: Regular rate and rhythm, normal S1 and S2, no gallops, no murmurs, no rubs ABDOMEN: Soft, nontender. No hepatosplenomegaly, normal bowel sounds, no guarding or rigidity. EXTREMITIES: No clubbing, mild pretibial edema, no cyanosis, 2+ pulses and upper and lower extremities. MUSCULOSKELETAL: Muscle strength and tone normal. SPINE: No scoliosis or deformity SKIN: No rashes CENTRAL NERVOUS SYSTEM: Alert and oriented -3. No focal deficits, tone is normal in all 4 extremities. PSYCHIATRIC: Alert and oriented -3. Appropriate affect. Intact judgment and i nsight. - Labs CBC & Chem 7: 05/07/22 13:28 Labs: Abnormal Lab Results - Last 24 Hours (Table) 05/10/22 05/10/22 05/10/22 Range/Units 11:32 16:34 20:19 POC Glucose (mg/dL) 131 H 156 H 155 H (70-110) mg/dL 05/11/22 Range/Units 07:13 POC Glucose (mg/dL) 138 H (70-110) mg/dL Assessment and Plan Plan: Assessment: #1. Acute hypoxic respiratory failure secondary to acute exacerbation of COPD, and possibility of community acquired pneumonia #2. History of ongoing tobacco use with nicotine addiction #3. History of CAD #4. History of diabetes mellitus and diabetic neuropathy #5. Hypertension #6. Hyperlipidemia #7. Osteoporosis #8. Seizure disorder #9. History of alcohol abuse #10. Multiple other medical problems Plan: We'll give the patient another dose of IV Lasix 1 today Continue antibiotics, oral steroids and breathing treatments Continue weaning FiO2 to keep O2 sats ration is at 88% and above Repeat chest x-ray in the morning If She continues to improve, consider discharge home in the next 24 hours I have personally seen and examined the patient, performed the documentation and the assessment and plan as written. Number of minutes spent on the visit: [10] Time with Patient: Less than 30
[2022-05-11] MEDS: ACETAMINOPHEN TAB 325 MG TAB PO PRN (14:47)
[2022-05-11 16:53] LABS: Glucose,Whole Blood 161 mg/dL (70-110)
[2022-05-11] MEDS: ONDANSETRON 4 MG/2 ML VIAL IVP PRN (19:24)
--- NOTE | 2022-05-11 19:39 | P.PN ---
Progress Note - Text Progress Note Date: 05/11/22 Chief Complaint: Short of breath This is a 56-year-old patient, follows with Dr. Floyd. Chronic stable medical conditions include CAD, COPD, diabetes, GERD, hyperlipidemia, hypertension, osteoarthritis, neuropathy, vocal cord dysplasia, IBS, overactive bladder, chronic back pain, restless leg syndrome, seizure activity, stop drinking alcohol drinking about 2011. Bipolar- follow with Dr. Gorman from psychiatry. Active smoker. Patient was transferred to our ER from [facility]. Patient has continued to smoke. Became increasingly short of breath. Cough. Able to produce sputum but unable to expectorate. Decreased appetite. Patient has twisting, protr usion of her tongue. And tremors. Unsure how long she's had it for. Denies any fever and chills. At her baseline uses a cane walker and a wheelchair. Continues to smoke a pack a day. Cough. Wheezing. May 08: Seen by psychiatry. [place] of oral facial dyskinesia. Not felt to be secondary to psychotropic medications. No change in medications. Breathing is better. It started some diet. May 09: Eating about 35%. Some bouts of coughing. Eating fair. Spoke to the nurse that the patient sit up in a chair. On 8 L nasal cannula. May 10: Breathing better. Received some Lasix earlier. Oxygen did come down to 5 L. Encourage incentive spirometry. Eating better. Tired. May 6: Some shortness of breath. Repeat Lasix given today. Tolerating diet. 5 L nasal cannula. Up in a chair. Active Medications Acetaminophen (Acetaminophen Tab 325 Mg Tab) 650 mg PO Q6HR PRN PRN Reason: Mild Pain or Fever > 100.5 Last Admin: 05/11/22 14:47 Dose: 650 mg Albuterol/Ipratropium (Ipratropium-Albuterol 3 Ml Neb) 3 ml INHALATION RT-Q4H PRN PRN Reason: shortness of breath Last Admin: 05/11/22 16:35 Dose: 3 ml Aspirin (Aspirin 81 Mg) 81 mg PO DAILY [facility] Last Admin: 05/11/22 09:35 Dose: 81 mg Atorvastatin Calcium (Atorvastatin 80 Mg Tab) 80 mg PO DAILY [facility] Last Admin: 05/11/22 09:35 Dose: 80 mg Baclofen (Baclofen 10 Mg Tab) 30 mg PO QID@08,14,, [facility] Last Admin: 05/11/22 16:53 Dose: 30 mg Budesonide/Formoterol Fumarate (Symbicort 160-4.5 Mcg Inhaler) 2 puff INHALATION RT-BID [facility] Last Admin: 05/11/22 07:36 Dose: 2 puff Calcium Carbonate/Glycine (Calcium Carbonate 500 Mg Chewable) 1,000 mg PO Q4HR PRN PRN Reason: Dyspepsia Clopidogrel Bisulfate (Clopidogrel 75 Mg Tab) 75 mg PO DAILY [facility] Last Admin: 05/11/22 09:36 Dose: 75 mg Dextrose/Water (Dextrose 50% Syringe 50 Ml) 25 ml IVP PER PROTOCOL PRN; Protocol PRN Reason: Hypoglycemia Dextrose/Water (Dextrose 50% Syringe 50 Ml) 50 ml IVP PER PROTOCOL PRN; Protocol PRN Reason: Hypoglycemia Duloxetine HCl (Duloxetine Hcl 60 Mg Capsule.Dr) 60 mg PO BID [facility] Last Admin: 05/11/22 09:35 Dose: 60 mg Ezetimibe (Ezetimibe 10 Mg Tab) 10 mg PO DAILY [facility] Last Admin: 05/11/22 09:36 Dose: 10 mg Enoxaparin Sodium (Enoxaparin 40 Mg/0.4 Ml Syringe) 40 mg SQ DAILY [facility] Last Admin: 05/11/22 09:34 Dose: 40 mg Fluconazole (Fluconazole 100 Mg Tab) 100 mg PO DAILY [facility]; Protocol Last Admin: 05/11/22 09:35 Dose: 100 mg Guaifenesin (Guaifenesin 600 Mg Tablet.Er) 600 mg PO QID [facility] Last Admin: 05/11/22 16:54 Dose: 600 mg Ceftriaxone Sodium 1 gm/ (Sodium Chloride) 50 mls @ 100 mls/hr IVPB Q12HR [facility]; Protocol Last Admin: 05/11/22 09:37 Dose: 100 mls/hr Insulin Aspart (Insulin Aspart (Novolog) 100 Unit/Ml Vial) 0 unit SQ AC-TID [facility]; Protocol Last Admin: 05/11/22 16:55 Dose: 2 unit Isosorbide Mononitrate (Isosorbide Mononitrate Er 60 Mg Tab.Er.24h) 60 mg PO DAILY [facility] Last Admin: 05/11/22 09:35 Dose: 60 mg Lactulose (Lactulose 20 Gm/30 Ml Cup) 20 gm PO DAILY PRN PRN Reason: Constipation Last Admin: 05/09/22 13:39 Dose: 20 gm Lamotrigine (Lamotrigine 100 Mg Tab) 150 mg PO BID [facility] Last Admin: 05/11/22 09:36 Dose: 150 mg Levetiracetam (Levetiracetam 500 Mg Tab) 1,000 mg PO BID [facility] Last Admin: 05/11/22 09:35 Dose: 1,000 mg Lidocaine (Lidocaine 5% Patch) 1 patch TOPICAL DAILY PRN; Protocol PRN Reason: Pain Last Admin: 05/07/22 14:06 Dose: 1 patch Lisinopril (Lisinopril 20 Mg Tab) 20 mg PO HS [facility] Last Admin: 05/10/22 21:35 Dose: 20 mg Miscellaneous Information (Pneumonia Protocol Utilized 1 Each Misc) 1 each PO ONCE PRN PRN Reason: Per Protocol Montelukast Sodium (Montelukast 10 Mg Tab) 10 mg PO DAILY [facility] Last Admin: 05/11/22 09:35 Dose: 10 mg Multivitamins (Multivitamins, Thera 1 Each Tab) 1 each PO DAILY [facility] Last Admin: 05/11/22 09:35 Dose: 1 each Naloxone HCl (Naloxone 0.4 Mg/Ml 1 Ml Vial) 0.2 mg IV Q2M PRN PRN Reason: Opioid Reversal Nicotine (Nicotine 21mg/24hr Patch) 1 patch TRANSDERM DAILY [facility] Last Admin: 05/11/22 09:37 Dose: 1 patch Nifedipine (Nifedipine Xl 30 Mg Tab.Er.24) 30 mg PO DAILY [facility] Last Admin: 05/11/22 09:35 Dose: 30 mg Diroximel Fumarate [ Vumerity] 231 Mg Capsule.Dr 462 mg PO BID [facility] Last Admin: 05/11/22 12:13 Dose: 462 mg Ondansetron HCl (Ondansetron 4 Mg/2 Ml Vial) 4 mg IVP Q8HR PRN PRN Reason: Nausea And Vomiting Last Admin: 05/11/22 19:24 Dose: 4 mg Pantoprazole Sodium (Pantoprazole 40 Mg Tablet) 40 mg PO DAILY [facility] Last Admin: 05/11/22 09:35 Dose: 40 mg Potassium Chloride (Potassium Chloride Er 10 Meq Tab.Er.Prt) 10 meq PO DAILY PRN PRN Reason: WITH LASIX Prednisone (Prednisone 20 Mg Tab) 40 mg PO DAILY [facility] Last Admin: 05/11/22 09:36 Dose: 40 mg Pregabalin (Pregabalin 75 Mg Cap) 150 mg PO TID [facility] Last Admin: 05/11/22 14:46 Dose: 150 mg Primidone (Primidone 50 Mg Tab) 50 mg PO TID [facility] Last Admin: 05/11/22 14:47 Dose: 50 mg Ropinirole HCl (Ropinirole Hcl 0.25 Mg Tab) 0.5 mg PO TID [facility] Last Admin: 05/11/22 14:47 Dose: 0.5 mg Trazodone HCl (Trazodone Hcl 100 Mg Tab) 200 mg PO HS PRN PRN Reason: sleep Last Admin: 05/10/22 21:38 Dose: 200 mg Trihexyphenidyl HCl (Trihexyphenidyl 2 Mg Tab) 1 mg PO DAILY [facility] Last Admin: 05/11/22 09:35 Dose: 1 mg Valacyclovir HCl (Valacyclovir Hcl 1,000 Mg Tablet) 1,000 mg PO DAILY [facility]; Protocol Last Admin: 05/11/22 09:35 Dose: 1,000 mg Past medical history to include: CAD, COPD, diabetes, GERD, hyperlipidemia, hypertension, prostatitis, kidney disease, seizure disorder, peripheral neuropathy, vocal cord dysplasia, IBS, overactive bladder, hyperparathyroidism, chronic back pain, this is like syndrome, seizure activity, history of alcohol abuse 10 years ago. Bipolar. Social history: Lives with her Simone chaidez. Does use a cane/walker/wheelchair. Smokes a pack a day for 44 years. History of alcoholism stopped 10 years ago. Did use marijuana in the past. Family history: Mother had CAD Physical examination: VITAL SIGNS: 98.1, 84, 17, 97 x 67, 94% on 5 L GENERAL: Up in a chair, tired EYES: Pupils equal. Conjunctiva normal. HEENT: External appearance of nose and ears normal, . Continues protrusion of the tongue and twisting of the mouth and tongue. White patches NECK: JVD not raised; masses not palpable. HEART: First and second heart sounds are normal; no edema. LUNGS: Respiratory rate increased, decreased breath sounds prolonged expiration and wheezing. ABDOMEN: Soft, nontender, liver spleen not palpable, no masses palpable. PSYCH: Alert and oriented x3; mood and affect anxiousl. MUSCULOSKELETAL:No Clubbing/cyanosis;muscles-grossly intact INVESTIGATIONS, reviewed in the clinical context: Pro-calcitonin 0.09 ProBNP 224 Pro-calcitonin 0.35 Sodium 141 potassium 4.6 creatinine 0.9 less than 0.5 AST 3728 At 0.2 01/11/1954 0.0 EKG tracing personally reviewed by me-sinus tachycardia, P pulmonale, 112 Chest x-ray film personally reviewed by me-some basilar infiltrates Assessment and plan: -Acute COPD exacerbation in current smoker: Slow to respond DuoNeb 6 times a day. Nebulized Perforomist Pulmicort -Acute hypoxic respiratory failure from pneumonia COPD exacerbation: Slow to respond On 5 L Oxygen -Bilateral basal pneumonia, suspect gram-negative organism. IV ceftriaxone. -Orofacial dyskinesia Seen by psychiatry. No change in medications. -Chronic nicotine dependence, cigarette smoker Nicotine patch 21 -Restless leg syndrome Requip to 1 mg 3 times a day -GERD Omeprazole 40 mg daily -Bipolar disorder Continue home medications -Diabetes mellitus type 2 chronically on insulin Follow Accu-Cheks with sliding scale -Oropharyngeal candidiasis Diflucan DuoNeb, nebulized Perforomist and Pulmicort. IV Solu-Medrol. Follow Accu- Cheks. IV ceftriaxone. Mucinex. . Incentive spirometry. IV Lasix for fluid overload.
[2022-05-11 20:31] LABS: Glucose,Whole Blood 305 mg/dL (70-110)
[2022-05-11] MEDS: lisinopriL 20 MG TAB PO SCH (22:19)
[2022-05-12 07:14] LABS: Glucose,Whole Blood 97 mg/dL (70-110)
[2022-05-12] MEDS: IPRATROPIUM-ALBUTEROL 3 ML NEB INHALATION PRN ×3 (07:17→20:08)
[2022-05-12] MEDS: SYMBICORT 160-4.5 MCG INHALER INHALATION SCH ×2 (07:17→20:08)
[2022-05-12 08:14] LABS: African American GFR (CKD) >90 (>60 ml/min/1.73 sqM); Anion Gap 6 mmol/L; Blood Urea Nitrogen 19 mg/dL (7-17); Calcium 8.4 mg/dL (8.4-10.2); Carbon Dioxide 33 mmol/L (22-30); Chloride 99 mmol/L (98-107); Glucose 89 mg/dL (74-99); Non-African American GFR(CKD) >90 (>60 ml/min/1.73 sqM); Potassium 3.8 mmol/L (3.5-5.1); Sodium 138 mmol/L (137-145)
[2022-05-12] MEDS: INSULIN ASPART (NovoLOG) 100 UNIT/ML VIAL SQ SCH ×3 (08:16→18:02)
[2022-05-12 08:18] LABS: Basophils % (A) 0 %; Eosinophils # (A) 0.1 k/uL (0-0.7); Eosinophils % (A) 1 %; HCT 40.3 % (34.0-46.0); HGB 12.9 gm/dL (11.4-16.0); Lymphocytes # (A) 0.8 k/uL (1.0-4.8); Lymphocytes % (A) 11 %; MCH 31.1 pg (25.0-35.0); MCV 97.2 fL (80.0-100.0); Mean Platelet Volume 7.6; Monocytes # (A) 0.5 k/uL (0-1.0); Monocytes % (A) 6 %; Neutrophils % (A) 79 %; Platelet Count 289 k/uL (150-450); RBC 4.15 m/uL (3.80-5.40); RDW 14.7 % (11.5-15.5); WBC 7.6 k/uL (3.8-10.6)
[2022-05-12] MEDS: FLUCONAZOLE 100 MG TAB PO SCH (09:56)
[2022-05-12] MEDS: EZETIMIBE 10 MG TAB PO SCH (09:56)
[2022-05-12] MEDS: predniSONE 20 MG TAB PO SCH (09:56)
[2022-05-12] MEDS: PRIMIDONE 50 MG TAB PO SCH ×3 (09:57→20:58)
[2022-05-12] MEDS: MONTELUKAST 10 MG TAB PO SCH (09:57)
[2022-05-12] MEDS: DULoxetine HCL 60 MG CAPSULE.DR PO SCH ×2 (09:57→20:59)
[2022-05-12] MEDS: lamoTRIgine 100 MG TAB PO SCH ×2 (09:57→20:57)
[2022-05-12] MEDS: CLOPIDOGREL 75 MG TAB PO SCH (09:58)
[2022-05-12] MEDS: PREGABALIN 75 MG CAP PO SCH ×3 (09:58→20:59)
[2022-05-12] MEDS: ISOSORBIDE MONONITRATE ER 60 MG TAB.ER.24H PO SCH (09:58)
[2022-05-12] MEDS: MULTIVITAMINS, THERA 1 EACH TAB PO SCH (09:58)
[2022-05-12] MEDS: ATORVASTATIN 80 MG TAB PO SCH (09:58)
[2022-05-12] MEDS: valACYclovir HCL 1,000 MG TABLET PO SCH (09:59)
[2022-05-12] MEDS: guaiFENesin 600 MG TABLET.ER PO SCH ×4 (09:59→20:59)
[2022-05-12] MEDS: levETIRAcetam 500 MG TAB PO SCH ×2 (09:59→21:00)
[2022-05-12] MEDS: PANTOPRAZOLE 40 MG TABLET PO SCH (09:59)
[2022-05-12] MEDS: NIFEdipine XL 30 MG TAB.ER.24 PO SCH (10:00)
[2022-05-12] MEDS: TRIHEXYPHENIDYL 2 MG TAB PO SCH (10:00)
[2022-05-12] MEDS: ENOXAPARIN 40 MG/0.4 ML SYRINGE SQ SCH (10:01)
[2022-05-12] MEDS: NICOTINE 21MG/24HR PATCH TRANSDERM SCH (10:11)
[2022-05-12] MEDS: ASPIRIN 81 MG PO SCH (10:11)
[2022-05-12] MEDS: BACLOFEN 10 MG TAB PO SCH ×4 (10:11→21:03)
--- NOTE | 2022-05-12 10:52 | P.PN ---
Subjective Progress Note Date: 05/12/22 Principal diagnosis: Shortness of breath, COPD exacerbation, pneumonia. Pulmonary consultation dated 05/07/2022. 56-year-old female transferred down from [facility], for COPD exacerbation and possible bilateral pneumonia. The patient apparently is been having increasing shortness of breath, cough, chest congestion, and phlegm production. The patient apparently sees my partner in the office. Currently, she is on 10 L nasal cannula high flow oxygen, and getting saline at KVO. Her primary care provider is Dr. Nii Floyd in [place], [place]. She typically uses home O2 at 2 L. She does continue to smoke cigarettes. She's been smoking a pack a day for 36 years. The patient is not a particularly good historian, and I do not have access to the patient's radiographs. Also, I have not been able to locate the patient's laboratory data. The patient was placed on duo nebs, Levaquin, Singulair, and a nicotine patch. She appears in no acute distress despite the fact that she is on high flow nasal O2. Progress note dated 05/08/2022. The patient states that she is only minimally better today than she was yesterday when I saw her in the emergency room. She was transferred out from [facility] with a diagnosis of COPD exacerbation, and possible bilateral pneumonia. The patient complained of shortness of breath, cough, chest congestion, and some phlegm production. Her primary care provider is Dr. Nii Floyd. He did smoke heavily, for 36 years, at 1.5 packs a day. No new laboratory today other than a glucose of 214. Brain CT did not show anything acute. Diffuse bibasilar interstitial changes are noted, and are essentially unchanged from a previous x-ray done on February 12, 2022. I have taken the liberty of ordering a pro-calcitonin level, and an N-terminal proBNP. Progress note dated 05/09/2022. 56-year-old female seen today in room 484. Her oxygen has been titrated down to 8 L high flow. She is receiving ceftriaxone and Levaquin. She is also getting saline at 100 mL an hour. She is feeling a bit better. Less short of breath, although she is coughing quite a bit, and not bringing much or any phlegm up. No new laboratory data today. An N-terminal proBNP was only 224. Pro- calcitonin level was modestly elevated to 0.35. Progress note dated 05/12/2022. The patient is seen today 484. The patient is doing well. She's been weaned on the 4 L. She's getting saline at 20 mL an hour. She promises that she is not going to smoke cigarettes anymore. Today's labs include a white count 7.6, hemoglobin 12.9, hematocrit 40.3, and a normal platelet count. Sodium 138, potassium 3.8, chlorides 99, CO2 33, BUN 19, with a creatinine of 0.54. Sputum sample showed Corynebacterium striatum. Objective - Vital Signs Vital signs: Vital Signs Temp 98.3 F 05/12/22 08:00 Pulse 82 05/12/22 08:00 Resp 17 05/12/22 08:00 BP 137/74 05/12/22 08:00 Pulse Ox 91 L 05/12/22 08:00 FiO2 Intake & Output 05/11/22 05/12/22 05/12/22 18:59 06:59 18:59 Intake Total 1210 Balance 1210 Intake: Intake, IV Titration 50 Amount cefTRIAXone 1 gm In 50 Sodium Chloride 0.9% 50 ml @ 100 mls/hr IVPB Q12HR [facility] Rx#:[id number] Oral 1160 Other: Voiding Method Bedside Commode Bedside Commode # Voids 4 - Exam No acute distress, oriented 3. She is on 4 L nasal cannula. HEENT examination is grossly unremarkable. Neck supple. Full range of motion. No adenopathy thyromegaly or neck vein distention. Cardiovascular examination reveals regular rhythm rate. S1-S2 normal. No S3 or S4. No discernible murmur noted. Heart sounds are distant. Heart rate 82 bpm. Lungs reveal diminished bilateral breath sounds. Scattered rhonchi are noted. No distinct wheezes or crackles are appreciated. Breath sounds equal bilaterally. Saturations are 93 %. Abdomen soft bowel sounds are heard. No masses or tenderness. Extremities are intact. No cyanosis clubbing or edema. Skin is without rash or lesion. Neurologic examination is brief but nonfocal. - Labs CBC & Chem 7: 05/12/22 07:22 05/12/22 07:22 Labs: Abnormal Lab Results - Last 24 Hours (Table) 08/03/2705/11/22 05/12/22 Range/Units 16:52 20:27 07:22 Lymphocytes # 0.8 L (1.0-4.8) k/uL Carbon Dioxide (22-30) mmol/L BUN (7-17) mg/dL POC Glucose (mg/dL) 161 H 305 H (70-110) mg/dL 05/12/22 Range/Units 07:22 Lymphocytes # (1.0-4.8) k/uL Carbon Dioxide 33 H (22-30) mmol/L BUN 19 H (7-17) mg/dL POC Glucose (mg/dL) (70-110) mg/dL Microbiology - Last 24 Hours (Table) 05/08/22 20:09 Gram Stain - Final Sputum Sputum Culture - Final Corynebacterium striatum Assessment and Plan Assessment: Acute hypoxemic respiratory failure secondary to COPD exacerbation and possible pneumonia. History of ongoing tobacco use with nicotine addiction. History of CAD. History of diabetes mellitus and diabetic neuropathy. Gastroesophageal reflux disease. History of hyperlipidemia. History of hypertension. Osteoarthritis. History of seizure disorder. Prior history of alcohol abuse. Multiple other medical problems and comorbidities. Plan: Plan dated 05/07/2022. The patient was seen in the emergency room, room 18. She was in no acute distress. She is not a particularly good historian. She was smoking up until the time she came into the hospital. She is very unusual movements of the mouth and tongue, consistent with possible tardive dyskinesia. X-rays, and labs, not able to be accessed by me. I will order a chest x-ray. She's currently on updrafts, Levaquin, and Singulair. Additional recommendations and suggestions are forthcoming, once I get a chance to look at an x-ray. She apparently sees my partner in the office. Plan dated 05/08/2022. The patient's on appropriate medications including updrafts, Pulmicort, the motor overall, ceftriaxone, Levaquin, and Solu-Medrol. I have taken the liberty of ordering an N-terminal proBNP, and a pro-calcitonin level. If the pro-calc itonin level is low, I may discontinue the antibiotics, or descalate them. The changes on chest x-ray may be more chronic than acute. Additional recommendations and suggestions are forthcoming. We will continue to follow. Plan dated 05/09/2022. The patient's pro-calcitonin level was modestly elevated. The patient remains on ceftriaxone and Levaquin. Clinically, she appears to be doing better. She's been weaned down to 8 L oxygen. Saturations are excellent. Her biggest complaint currently is cough. She is producing minimal phlegm with her cough. Thus far, sputum Gram stain is negative are pending. No additional recommendations are made. We will continue to follow. She is on albuterol sulfate and ipratropium bromide, formoterol, Pulmicort, Solu-Medrol, and Singulair. Plan dated 05/12/2022. The patient is certainly doing much better. She's been weaned down to 4 L. We talked today about the importance of smoking cessation. She understands that she has to quit once and for all. She is currently on albuterol sulfate and ipratropium bromide, Symbicort, Rocephin, and prednisone. She also has a nicotine patch on. Overall prognosis remains guarded. Hopeful discharge in next 24-48 hours. Time with Patient: Less than 30
[2022-05-12 11:25] LABS: Glucose,Whole Blood 126 mg/dL (70-110)
[2022-05-12] MEDS ORDERED: TRIHEXYPHENIDYL 2 MG TAB PO STA (13:57)
--- NOTE | 2022-05-12 13:58 | P.PN ---
Subjective Progress Note Date: 05/12/22 The patient is seen at bedside and stated her uncontrollable tongue movement is somewhat better on trihexyphenidly but not resolved. Objective - Vital Signs Vital signs: Vital Signs Temp 98.3 F 05/12/22 08:00 Pulse 84 05/12/22 11:09 Resp 17 05/12/22 08:00 BP 137/74 05/12/22 08:00 Pulse Ox 91 L 05/12/22 08:00 FiO2 Intake & Output 05/11/22 05/12/22 05/12/22 18:59 06:59 18:59 Intake Total 1210 120 Balance 1210 120 Intake: Intake, IV Titration 50 Amount cefTRIAXone 1 gm In 50 Sodium Chloride 0.9% 50 ml @ 100 mls/hr IVPB Q12HR [facility] Rx#:[id number] Oral 1160 120 Other: Voiding Method Bedside Commode Bedside Commode # Voids 4 - Exam GENERAL: The patient is lying in bed and is not in acute distress. HENT: Has slight resting head tremor. NEUROLOGICAL: Higher mental function: The patient is awake, alert, oriented to self, place and time. Patient is following commands. No aphasia and no neglect. Cranial nerves: The pupils are round, equal and reactive to light and acco mmodation. Visual harris are full to confrontation throughout. Extraocular movement is intact no nystagmus is noted. Facial sensation is normal to touch throughout. The facial strength is normal throughout. Hearing is normal bilaterally to hand rub. Tongue is uncontrolleable movement of her tongue (repetition of protrusion and moving side to side but conversing appropriately). No dysarthria is noted. Shoulder shrug is normal bilaterally. Motor: The strength is 5 over 5 throughout uppers and moving lowers above gravity. Normal tone and bulk. Patient has tremor resting and end of action. Cerebellum: Normal finger to nose bilaterally. Had end action tremor with finger to nose. Sensation: Sensation is normal to touch throughout. Reflexes (right/left):1+ throughout. Plantars are mute bilaterally. SOME OF THE WORK-UP DURING THIS HOSPITAL VISIT CONSISTED OF: TSH: 0.248, free T4: 0.840 CT head is reported as no acute intracranial process. I personally reviewed the images and agree with report. - Labs CBC & Chem 7: 05/12/22 07:22 05/12/22 07:22 Labs: Abnormal Lab Results - Last 24 Hours (Table) 05/11/22 05/11/22 05/12/22 Range/Units 16:52 20:27 07:22 Lymphocytes # 0.8 L (1.0-4.8) k/uL Carbon Dioxide (22-30) mmol/L BUN (7-17) mg/dL POC Glucose (mg/dL) 161 H 305 H (70-110) mg/dL 05/12/22 05/12/22 Range/Units 07:22 11:24 Lymphocytes # (1.0-4.8) k/uL Carbon Dioxide 33 H (22-30) mmol/L BUN 19 H (7-17) mg/dL POC Glucose (mg/dL) 126 H (70-110) mg/dL Microbiology - Last 24 Hours (Table) 05/08/22 20:09 Gram Stain - Final Sputum Sputum Culture - Final Corynebacterium striatum Assessment and Plan Assessment: Tarditive Dyskinesia of tongue for past one week prior to presentation to hospital: Unsure cause but unsure if medication induced (unsure of prior exposure to antipsychotic, antiemetic)--slight improvement after start of Trihex yphentidyl low dose. Possible COPD exacerbation History of seizures Essential tremor Plan: I started the patient on Trihexyphenidyl 1mg daily on 05/08/2022 and increased t o 2gm daily. Please avoid any neuroleptic drugs, antiepmetic drug and antipsychotic drugs at this time. Patient needs to re-evaluation as outpatient with neurologist within a month and 3 month to see if any improvement without use of drugs stated above. Pulmonary team is consulted Will defer the rest of medical management to the primary team. Upon discharge, the patient needs to follow-up with her neurology team, Dr. Jacques's team as outpatient within 1-2 weeks. The plan is discussed with the patient's nurse. Will follow-up sporadically. Dr. Rocha will start neurology service tomorrow ADarell Velez M.D. Neuro-Hospitalist Time with Patient: Less than 30
[2022-05-12 17:00] LABS: Glucose,Whole Blood 164 mg/dL (70-110)
--- NOTE | 2022-05-12 18:19 | P.PN ---
Progress Note - Text Progress Note Date: 05/12/22 Chief Complaint: Short of breath This is a 56-year-old patient, follows with Dr. Floyd. Chronic stable medical conditions include CAD, COPD, diabetes, GERD, hyperlipidemia, hypertension, osteoarthritis, neuropathy, vocal cord dysplasia, IBS, overactive bladder, chronic back pain, restless leg syndrome, seizure activity, stop drinking alcohol drinking about 2011. Bipolar- follow with Dr. Gorman from psychiatry. Active smoker. Patient was transferred to our ER from [facility]. Patient has continued to smoke. Became increasingly short of breath. Cough. Able to produce sputum but unable to expectorate. Decreased appetite. Patient has twisting, protr usion of her tongue. And tremors. Unsure how long she's had it for. Denies any fever and chills. At her baseline uses a cane walker and a wheelchair. Continues to smoke a pack a day. Cough. Wheezing. May 08: Seen by psychiatry. [place] of oral facial dyskinesia. Not felt to be secondary to psychotropic medications. No change in medications. Breathing is better. It started some diet. May 4: Eating about 35%. Some bouts of coughing. Eating fair. Spoke to the nurse that the patient sit up in a chair. On 8 L nasal cannula. May 5: Breathing better. Received some Lasix earlier. Oxygen did come down to 5 L. Encourage incentive spirometry. Eating better. Tired. May 6: Some shortness of breath. Repeat Lasix given today. Tolerating diet. 5 L nasal cannula. Up in a chair. May 12: Up in a chair. Eating well. On 4 L nasal cannula. Change ceftriaxone to Omnicef. Active Medications Acetaminophen (Acetaminophen Tab 325 Mg Tab) 650 mg PO Q6HR PRN PRN Reason: Mild Pain or Fever > 100.5 Last Admin: 05/11/22 14:47 Dose: 650 mg Albuterol/Ipratropium (Ipratropium-Albuterol 3 Ml Neb) 3 ml INHALATION RT-Q4H PRN PRN Reason: shortness of breath Last Admin: 05/12/22 10:57 Dose: 3 ml Aspirin (Aspirin 81 Mg) 81 mg PO DAILY [facility] Last Admin: 05/12/22 10:11 Dose: 81 mg Atorvastatin Calcium (Atorvastatin 80 Mg Tab) 80 mg PO DAILY [facility] Last Admin: 05/12/22 09:58 Dose: 80 mg Baclofen (Baclofen 10 Mg Tab) 30 mg PO QID@08,14,, [facility] Last Admin: 05/12/22 18:02 Dose: 30 mg Budesonide/Formoterol Fumarate (Symbicort 160-4.5 Mcg Inhaler) 2 puff INHALATION RT-BID [facility] Last Admin: 05/12/22 07:17 Dose: 2 puff Calcium Carbonate/Glycine (Calcium Carbonate 500 Mg Chewable) 1,000 mg PO Q4HR PRN PRN Reason: Dyspepsia Clopidogrel Bisulfate (Clopidogrel 75 Mg Tab) 75 mg PO DAILY [facility] Last Admin: 05/12/22 09:58 Dose: 75 mg Dextrose/Water (Dextrose 50% Syringe 50 Ml) 25 ml IVP PER PROTOCOL PRN; Protocol PRN Reason: Hypoglycemia Dextrose/Water (Dextrose 50% Syringe 50 Ml) 50 ml IVP PER PROTOCOL PRN; Protocol PRN Reason: Hypoglycemia Duloxetine HCl (Duloxetine Hcl 60 Mg Capsule.Dr) 60 mg PO BID [facility] Last Admin: 05/12/22 09:57 Dose: 60 mg Ezetimibe (Ezetimibe 10 Mg Tab) 10 mg PO DAILY [facility] Last Admin: 05/12/22 09:56 Dose: 10 mg Enoxaparin Sodium (Enoxaparin 40 Mg/0.4 Ml Syringe) 40 mg SQ DAILY [facility] Last Admin: 05/12/22 10:01 Dose: 40 mg Fluconazole (Fluconazole 100 Mg Tab) 100 mg PO DAILY [facility]; Protocol Last Admin: 05/12/22 09:56 Dose: 100 mg Guaifenesin (Guaifenesin 600 Mg Tablet.Er) 600 mg PO QID [facility] Last Admin: 05/12/22 18:02 Dose: 600 mg Ceftriaxone Sodium 1 gm/ (Sodium Chloride) 50 mls @ 100 mls/hr IVPB Q12HR [facility]; Protocol Last Admin: 05/12/22 10:02 Dose: 100 mls/hr Insulin Aspart (Insulin Aspart (Novolog) 100 Unit/Ml Vial) 0 unit SQ AC-TID [facility]; Protocol Last Admin: 05/12/22 18:02 Dose: 2 unit Isosorbide Mononitrate (Isosorbide Mononitrate Er 60 Mg Tab.Er.24h) 60 mg PO DAILY [facility] Last Admin: 05/12/22 09:58 Dose: 60 mg Lactulose (Lactulose 20 Gm/30 Ml Cup) 20 gm PO DAILY PRN PRN Reason: Constipation Last Admin: 05/09/22 13:39 Dose: 20 gm Lamotrigine (Lamotrigine 100 Mg Tab) 150 mg PO BID [facility] Last Admin: 05/12/22 09:57 Dose: 150 mg Levetiracetam (Levetiracetam 500 Mg Tab) 1,000 mg PO BID [facility] Last Admin: 05/12/22 09:59 Dose: 1,000 mg Lidocaine (Lidocaine 5% Patch) 1 patch TOPICAL DAILY PRN; Protocol PRN Reason: Pain Last Admin: 05/07/22 14:06 Dose: 1 patch Lisinopril (Lisinopril 20 Mg Tab) 20 mg PO HS [facility] Last Admin: 05/11/22 22:19 Dose: 20 mg Miscellaneous Information (Pneumonia Protocol Utilized 1 Each Misc) 1 each PO ONCE PRN PRN Reason: Per Protocol Montelukast Sodium (Montelukast 10 Mg Tab) 10 mg PO DAILY [facility] Last Admin: 05/12/22 09:57 Dose: 10 mg Multivitamins (Multivitamins, Thera 1 Each Tab) 1 each PO DAILY [facility] Last Admin: 05/12/22 09:58 Dose: 1 each Naloxone HCl (Naloxone 0.4 Mg/Ml 1 Ml Vial) 0.2 mg IV Q2M PRN PRN Reason: Opioid Reversal Nicotine (Nicotine 21mg/24hr Patch) 1 patch TRANSDERM DAILY [facility] Last Admin: 05/12/22 10:11 Dose: 1 patch Nifedipine (Nifedipine Xl 30 Mg Tab.Er.24) 30 mg PO DAILY [facility] Last Admin: 05/12/22 10:00 Dose: 30 mg Diroximel Fumarate [ Vumerity] 231 Mg Capsule.Dr 462 mg PO BID [facility] Last Admin: 05/12/22 10:01 Dose: 462 mg Ondansetron HCl (Ondansetron 4 Mg/2 Ml Vial) 4 mg IVP Q8HR PRN PRN Reason: Nausea And Vomiting Last Admin: 05/11/22 19:24 Dose: 4 mg Pantoprazole Sodium (Pantoprazole 40 Mg Tablet) 40 mg PO DAILY [facility] Last Admin: 05/12/22 09:59 Dose: 40 mg Potassium Chloride (Potassium Chloride Er 10 Meq Tab.Er.Prt) 10 meq PO DAILY PRN PRN Reason: WITH LASIX Prednisone (Prednisone 20 Mg Tab) 40 mg PO DAILY [facility] Last Admin: 05/12/22 09:56 Dose: 40 mg Pregabalin (Pregabalin 75 Mg Cap) 150 mg PO TID [facility] Last Admin: 05/12/22 15:02 Dose: 150 mg Primidone (Primidone 50 Mg Tab) 50 mg PO TID [facility] Last Admin: 05/12/22 15:03 Dose: 50 mg Ropinirole HCl (Ropinirole Hcl 0.25 Mg Tab) 0.5 mg PO TID [facility] Last Admin: 05/12/22 15:02 Dose: 0.5 mg Trazodone HCl (Trazodone Hcl 100 Mg Tab) 200 mg PO HS PRN PRN Reason: sleep Last Admin: 05/10/22 21:38 Dose: 200 mg Trihexyphenidyl HCl (Trihexyphenidyl 2 Mg Tab) 2 mg PO DAILY [facility] Valacyclovir HCl (Valacyclovir Hcl 1,000 Mg Tablet) 1,000 mg PO DAILY [facility]; Protocol Last Admin: 05/12/22 09:59 Dose: 1,000 mg Past medical history to include: CAD, COPD, diabetes, GERD, hyperlipidemia, hypertension, prostatitis, kidney disease, seizure disorder, peripheral neuropathy, vocal cord dysplasia, IBS, overactive bladder, hyperparathyroidism, chronic back pain, this is like syndrome, seizure activity, history of alcohol abuse 10 years ago. Bipolar. Social history: Lives with her Simone chaidez. Does use a cane/walker/wheelchair. Smokes a pack a day for 44 years. History of alcoholism stopped 10 years ago. Did use marijuana in the past. Family history: Mother had CAD Physical examination: VITAL SIGNS: 97.9, 94, 17, 105/57, 90% on 4 L GENERAL: Up in a chair, awake EYES: Pupils equal. Conjunctiva normal. HEENT: External appearance of nose and ears normal, . Continues protrusion of the tongue and twisting of the mouth and tongue. White patches NECK: JVD not raised; masses not palpable. HEART: First and second heart sounds are normal; no edema. LUNGS: Respiratory rate increased, decreased breath sounds . ABDOMEN: Soft, nontender, liver spleen not palpable, no masses palpable. PSYCH: Alert and oriented x3; mood and affect anxiousl. MUSCULOSKELETAL:No Clubbing/cyanosis;muscles-grossly intact INVESTIGATIONS, reviewed in the clinical context: May 12 WBC 7.6 hemoglobin 12.9 potassium 3.8 creatinine 0.5 for Pro-calcitonin 0.09 ProBNP 224 Pro-calcitonin 0.35 Sodium 141 potassium 4.6 creatinine 0.9 less than 0.5 AST 3728 At 0.2 01/11/1954 0.0 EKG tracing personally reviewed by me-sinus tachycardia, P pulmonale, 112 Chest x-ray film personally reviewed by me-some basilar infiltrates Assessment and plan: -Acute COPD exacerbation in current smoker: Improving DuoNeb . Nebulized Perforomist Pulmicort -Acute hypoxic respiratory failure from pneumonia COPD exacerbation: Slow to respond On 4 L Oxygen -Bilateral basal pneumonia, suspect gram-negative organism.: By IV ceftriaxone. -Changed to Omnicef -Orofacial dyskinesia Seen by psychiatry. No change in medications. -Chronic nicotine dependence, cigarette smoker Nicotine patch 21 -Restless leg syndrome Requip to 1 mg 3 times a day -GERD Omeprazole 40 mg daily -Bipolar disorder Continue home medications -Diabetes mellitus type 2 chronically on insulin Follow Accu-Cheks with sliding scale -Oropharyngeal candidiasis Diflucan DuoNeb, nebulized Perforomist and Pulmicort. prednisone. IV ceftriaxone and being changed to Omnicef.
[2022-05-12 20:30] LABS: Glucose,Whole Blood 154 mg/dL (70-110)
[2022-05-12] MEDS: CEFDINIR 300 MG CAP PO SCH (20:57)
[2022-05-12] MEDS: traZODone HCL 100 MG TAB PO PRN (20:58)
[2022-05-12] MEDS: lisinopriL 20 MG TAB PO SCH (20:59)
[2022-05-12] MEDS: ACETAMINOPHEN TAB 325 MG TAB PO PRN (21:03)
[2022-05-13 07:25] LABS: Glucose,Whole Blood 119 mg/dL (70-110)
[2022-05-13] MEDS: INSULIN ASPART (NovoLOG) 100 UNIT/ML VIAL SQ SCH ×3 (07:37→17:12)
[2022-05-13] MEDS: IPRATROPIUM-ALBUTEROL 3 ML NEB INHALATION PRN ×3 (07:48→21:45)
[2022-05-13] MEDS: SYMBICORT 160-4.5 MCG INHALER INHALATION SCH ×2 (07:48→21:45)
[2022-05-13] MEDS: ISOSORBIDE MONONITRATE ER 60 MG TAB.ER.24H PO SCH (07:51)
[2022-05-13] MEDS: PRIMIDONE 50 MG TAB PO SCH ×3 (07:51→21:20)
[2022-05-13] MEDS: FLUCONAZOLE 100 MG TAB PO SCH (07:51)
[2022-05-13] MEDS: BACLOFEN 10 MG TAB PO SCH ×4 (07:52→21:20)
[2022-05-13] MEDS: PREGABALIN 75 MG CAP PO SCH ×3 (07:52→21:20)
[2022-05-13] MEDS: PANTOPRAZOLE 40 MG TABLET PO SCH (07:52)
[2022-05-13] MEDS: MONTELUKAST 10 MG TAB PO SCH (07:53)
[2022-05-13] MEDS: EZETIMIBE 10 MG TAB PO SCH (07:53)
[2022-05-13] MEDS: CEFDINIR 300 MG CAP PO SCH ×2 (07:53→21:20)
[2022-05-13] MEDS: CLOPIDOGREL 75 MG TAB PO SCH (07:53)
[2022-05-13] MEDS: predniSONE 20 MG TAB PO SCH (07:53)
[2022-05-13] MEDS: lamoTRIgine 100 MG TAB PO SCH ×2 (07:54→21:20)
[2022-05-13] MEDS: DULoxetine HCL 60 MG CAPSULE.DR PO SCH ×2 (07:55→21:20)
[2022-05-13] MEDS: ASPIRIN 81 MG PO SCH (07:55)
[2022-05-13] MEDS: ATORVASTATIN 80 MG TAB PO SCH (07:56)
[2022-05-13] MEDS: guaiFENesin 600 MG TABLET.ER PO SCH ×4 (07:56→21:20)
[2022-05-13] MEDS: MULTIVITAMINS, THERA 1 EACH TAB PO SCH (07:57)
[2022-05-13] MEDS: ENOXAPARIN 40 MG/0.4 ML SYRINGE SQ SCH (07:57)
[2022-05-13] MEDS: valACYclovir HCL 1,000 MG TABLET PO SCH (07:58)
[2022-05-13] MEDS: NICOTINE 21MG/24HR PATCH TRANSDERM SCH (07:58)
[2022-05-13] MEDS: levETIRAcetam 500 MG TAB PO SCH ×2 (07:59→21:57)
[2022-05-13] MEDS: NIFEdipine XL 30 MG TAB.ER.24 PO SCH (07:59)
[2022-05-13] MEDS ORDERED: TRIHEXYPHENIDYL 2 MG TAB PO SCH (09:00)
[2022-05-13 10:06] VITALS: BMI 29.0
[2022-05-13 10:58] LABS: Glucose,Whole Blood 149 mg/dL (70-110)
--- NOTE | 2022-05-13 11:33 | XR ---
EXAMINATION TYPE: XR chest 1V DATE OF EXAM: 05/13/2022 11:22 AM COMPARISON: Chest radiographs from 05/10/2022 TECHNIQUE: XR chest 1V Frontal view of the chest. CLINICAL INDICATION:Female, 56 years old with history of Pneumonia follow-up; FINDINGS: Lungs/Pleura: There is no evidence of pleural effusion or pneumothorax. Bibasilar linear opacities r edemonstrated. Pulmonary vascularity: Unremarkable. Heart/mediastinum: Cardiomediastinal silhouette is unremarkable. Musculoskeletal: No acute osseous pathology. IMPRESSION: Similar bibasilar opacities likely representing basilar atelectasis.
--- NOTE | 2022-05-13 15:39 | P.PN ---
Subjective Progress Note Date: 05/13/22 56-year-old female transferred down from [facility], for COPD exacerbation and possible bilateral pneumonia. The patient apparently is been having increasing shortness of breath, cough, chest congestion, and phlegm production. The patient apparently sees my partner in the office. Currently, she is on 10 L nasal cannula high flow oxygen, and getting saline at KVO. Her primary care provider is Dr. Nii Floyd in [place], [place]. She typically uses home O2 at 2 L. She does continue to smoke cigarettes. She's been smoking a pack a day for 36 years. The patient is not a particularly good historian, and I do not have access to the patient's radiographs. Also, I have not been able to locate the patient's laboratory data. The patient was placed on duo nebs, Levaquin, Singulair, and a nicotine patch. She appears in no acute distress despite the fact that she is on high flow nasal O2. Progress note dated 05/08/2022. The patient states that she is only minimally better today than she was yesterday when I saw her in the emergency room. She was transferred out from [facility] with a diagnosis of COPD exacerbation, and possible bilateral pneumonia. The patient complained of shortness of breath, cough, chest congestion, and some phlegm production. Her primary care provider is Dr. Nii Floyd. He did smoke heavily, for 36 years, at 1.5 packs a day. No new laborator y today other than a glucose of 214. Brain CT did not show anything acute. Diffuse bibasilar interstitial changes are noted, and are essentially unchanged from a previous x-ray done on February 12, 2022. I have taken the liberty of ordering a pro-calcitonin level, and an N-terminal proBNP. Progress note dated 05/09/2022. 56-year-old female seen today in room 484. Her oxygen has been titrated down to 8 L high flow. She is receiving ceftriaxone and Levaquin. She is also getting saline at 100 mL an hour. She is feeling a bit better. Less short of breath, although she is coughing quite a bit, and not bringing much or any phlegm up. No new laboratory data today. An N-terminal proBNP was only 224. Pro- calcitonin level was modestly elevated to 0.35. Progress note dated 05/12/2022. The patient is seen today 484. The patient is doing well. She's been weaned on the 4 L. She's getting saline at 20 mL an hour. She promises that she is not going to smoke cigarettes anymore. Today's labs include a white count 7.6, hemoglobin 12.9, hematocrit 40.3, and a normal platelet count. Sodium 138, potassium 3.8, chlorides 99, CO2 33, BUN 19, with a creatinine of 0.54. Sputum sample showed Corynebacterium striatum. 05/13/2022, the patient is being seen for a follow-up. The patient is feeling better. She is less short of breath. She remains on oxygen at 4 L per minute nasal cannula. She is oxygen dependent, 2 L per minute nasal cannula. She is known to have COPD and she is currently being treated for bilateral pneumonia. No new complaints otherwise for now. She is afebrile. No new blood work from today. Yesterday's blood work was noted. The patient is currently on a course of prednisone burst taper. The patient is also on Omnicef 300 mg by mouth twice a day and Diflucan. No nausea. No vomiting. No diarrhea or abdominal pain. No chest pain. Objective - Vital Signs Vital signs: Vital Signs Temp 98 F 05/13/22 08:00 Pulse 81 05/13/22 08:00 Resp 18 05/13/22 08:00 BP 116/76 05/13/22 08:00 Pulse Ox 90 L 05/13/22 08:00 FiO2 Intake & Output 05/12/22 05/13/22 05/13/22 18:59 06:59 18:59 Intake Total 1330 Balance 1330 Weight 86.636 kg Intake: Intake, IV Titration 50 Amount cefTRIAXone 1 gm In 50 Sodium Chloride 0.9% 50 ml @ 100 mls/hr IVPB Q12HR [facility] Rx#:[id number] Oral 1280 Other: Voiding Method Bedside Commode # Voids 5 5 - Exam No acute distress, oriented 3. She is on 4 L nasal cannula. HEENT examination is grossly unremarkable. Neck supple. Full range of motion. No adenopathy thyromegaly or neck vein distention. Cardiovascular examination reveals regular rhythm rate. S1-S2 normal. No S3 or S4. No discernible murmur noted. Heart sounds are distant. Heart rate 82 bpm. Lungs reveal diminished bilateral breath sounds. Scattered rhonchi are noted. No distinct wheezes or crackles are appreciated. Breath sounds equal bilaterally. Saturations are 93 %. Abdomen soft bowel sounds are heard. No masses or tenderness. Extremities are intact. No cyanosis clubbing or edema. Skin is without rash or lesion. Neurologic examination is brief but nonfocal. - Labs CBC & Chem 7: 05/12/22 07:05/12/22 07:22 Labs: Abnormal Lab Results - Last 24 Hours (Table) 05/12/22 05/12/22 05/12/22 Range/Units 11:24 16:59 20:29 POC Glucose (mg/dL) 126 H 164 H 154 H (70-110) mg/dL 05/13/22 Range/Units 07:23 POC Glucose (mg/dL) 119 H (70-110) mg/dL Assessment and Plan Plan: Acute hypoxemic respiratory failure secondary to COPD exacerbation and possible pneumonia. The patient is currently on 4 L of O2 nasal cannula. Typically, the patient is on 2 L nasal cannula at home regarding her COPD. She's been hospital for almost a week. She is on antibiotics and bronchodilators.She is on a prednisone burst taper starting with 40 mg. She is also on oral Diflucan, Omnicef, and DuoNeb nebulized treatments around the clock. Resume home medications of been ordered resume. Sputum samples of shown Corynebacterium and the last chest x-ray was done on January 2022 showed limited right lower lobe consolidation. History of ongoing tobacco use with nicotine addiction. History of CAD. History of diabetes mellitus and diabetic neuropathy. Gastroesophageal reflux disease. History of hyperlipidemia. History of hypertension. Osteoarthritis. History of seizure disorder. Prior history of alcohol abuse. Multiple other medical problems and comorbidities. Plan Continue same antibiotic coverage Prednisone burst taper Continue using incentive spirometer Patient is demented on a combination of Advair and Incruse on outpatient basis This can be resumed at time of discharge Possible discharge in the next 24-48 hours. Condition is stable for now.
[2022-05-13] MEDS: ACETAMINOPHEN TAB 325 MG TAB PO PRN (15:41)
[2022-05-13 17:34] LABS: Glucose,Whole Blood 268 mg/dL (70-110)
--- NOTE | 2022-05-13 18:51 | P.PN ---
Progress Note - Text Progress Note Date: 05/13/22 Chief Complaint: Short of breath This is a 56-year-old patient, follows with Dr. Floyd. Chronic stable medical conditions include CAD, COPD, diabetes, GERD, hyperlipidemia, hypertension, osteoarthritis, neuropathy, vocal cord dysplasia, IBS, overactive bladder, chronic back pain, restless leg syndrome, seizure activity, stop drinking alcohol drinking about 2011. Bipolar- follow with Dr. Gorman from psychiatry. Active smoker. Patient was transferred to our ER from [facility]. Patient has continued to smoke. Became increasingly short of breath. Cough. Able to produce sputum but unable to expectorate. Decreased appetite. Patient has twisting, protr usion of her tongue. And tremors. Unsure how long she's had it for. Denies any fever and chills. At her baseline uses a cane walker and a wheelchair. Continues to smoke a pack a day. Cough. Wheezing. May 08: Seen by psychiatry. Hamilton of oral facial dyskinesia. Not felt to be secondary to psychotropic medications. No change in medications. Breathing is better. It started some diet. May 09: Eating about 35%. Some bouts of coughing. Eating fair. Spoke to the nurse that the patient sit up in a chair. On 8 L nasal cannula. May 10: Breathing better. Received some Lasix earlier. Oxygen did come down to 5 L. Encourage incentive spirometry. Eating better. Tired. May 6: Some shortness of breath. Repeat Lasix given today. Tolerating diet. 5 L nasal cannula. Up in a chair. May 12: Up in a chair. Eating well. On 4 L nasal cannula. Change ceftriaxone to Omnicef. May 13: Up in chair. Tolerating diet. 4 L nasal cannula. Oral prednisone. Chest x-ray no change. Will change patient's lidocaine patch 2 daily. Patient was started onTrihexyphenidyl 1mg daily on 05/08/2022 and increased to 2gm daily Active Medications Acetaminophen (Acetaminophen Tab 325 Mg Tab) 650 mg PO Q6HR PRN PRN Reason: Mild Pain or Fever > 100.5 Last Admin: 05/13/22 15:41 Dose: 650 mg Albuterol/Ipratropium (Ipratropium-Albuterol 3 Ml Neb) 3 ml INHALATION RT-Q4H PRN PRN Reason: shortness of breath Last Admin: 05/13/22 11:13 Dose: 3 ml Aspirin (Aspirin 81 Mg) 81 mg PO DAILY [facility] Last Admin: 05/13/22 07:55 Dose: 81 mg Atorvastatin Calcium (Atorvastatin 80 Mg Tab) 80 mg PO DAILY [facility] Last Admin: 05/13/22 07:56 Dose: 80 mg Baclofen (Baclofen 10 Mg Tab) 30 mg PO QID@08,,, [facility] Last Admin: 05/13/22 15:41 Dose: 30 mg Budesonide/Formoterol Fumarate (Symbicort 160-4.5 Mcg Inhaler) 2 puff INHALATION RT-BID [facility] Last Admin: 05/13/22 07:48 Dose: 2 puff Calcium Carbonate/Glycine (Calcium Carbonate 500 Mg Chewable) 1,000 mg PO Q4HR PRN PRN Reason: Dyspepsia Cefdinir (Cefdinir 300 Mg Cap) 300 mg PO BID [facility]; Protocol Last Admin: 05/13/22 07:53 Dose: 300 mg Clopidogrel Bisulfate (Clopidogrel 75 Mg Tab) 75 mg PO DAILY [facility] Last Admin: 05/13/22 07:53 Dose: 75 mg Dextrose/Water (Dextrose 50% Syringe 50 Ml) 25 ml IVP PER PROTOCOL PRN; Protocol PRN Reason: Hypoglycemia Dextrose/Water (Dextrose 50% Syringe 50 Ml) 50 ml IVP PER PROTOCOL PRN; Protocol PRN Reason: Hypoglycemia Duloxetine HCl (Duloxetine Hcl 60 Mg Capsule.Dr) 60 mg PO BID [facility] Last Admin: 05/13/22 07:55 Dose: 60 mg Ezetimibe (Ezetimibe 10 Mg Tab) 10 mg PO DAILY [facility] Last Admin: 05/13/22 07:53 Dose: 10 mg Enoxaparin Sodium (Enoxaparin 40 Mg/0.4 Ml Syringe) 40 mg SQ DAILY [facility] Last Admin: 05/13/22 07:57 Dose: 40 mg Fluconazole (Fluconazole 100 Mg Tab) 100 mg PO DAILY [facility]; Protocol Last Admin: 05/13/22 07:51 Dose: 100 mg Guaifenesin (Guaifenesin 600 Mg Tablet.Er) 600 mg PO QID [facility] Last Admin: 05/13/22 17:14 Dose: 600 mg Insulin Aspart (Insulin Aspart (Novolog) 100 Unit/Ml Vial) 0 unit SQ AC-TID [facility]; Protocol Last Admin: 05/13/22 17:12 Dose: Not Given Isosorbide Mononitrate (Isosorbide Mononitrate Er 60 Mg Tab.Er.24h) 60 mg PO DAILY [facility] Last Admin: 05/13/22 07:51 Dose: 60 mg Lactulose (Lactulose 20 Gm/30 Ml Cup) 20 gm PO DAILY PRN PRN Reason: Constipation Last Admin: 05/09/22 13:39 Dose: 20 gm Lamotrigine (Lamotrigine 100 Mg Tab) 150 mg PO BID [facility] Last Admin: 05/13/22 07:54 Dose: 150 mg Levetiracetam (Levetiracetam 500 Mg Tab) 1,000 mg PO BID [facility] Last Admin: 05/13/22 07:59 Dose: 1,000 mg Lidocaine (Lidocaine 5% Patch) 1 patch TOPICAL DAILY@2100 [facility]; Protocol Lisinopril (Lisinopril 20 Mg Tab) 20 mg PO HS [facility] Last Admin: 05/12/22 20:59 Dose: 20 mg Miscellaneous Information (Pneumonia Protocol Utilized 1 Each Misc) 1 each PO ONCE PRN PRN Reason: Per Protocol Montelukast Sodium (Montelukast 10 Mg Tab) 10 mg PO DAILY [facility] Last Admin: 05/13/22 07:53 Dose: 10 mg Multivitamins (Multivitamins, Thera 1 Each Tab) 1 each PO DAILY [facility] Last Admin: 05/13/22 07:57 Dose: 1 each Naloxone HCl (Naloxone 0.4 Mg/Ml 1 Ml Vial) 0.2 mg IV Q2M PRN PRN Reason: Opioid Reversal Nicotine (Nicotine 21mg/24hr Patch) 1 patch TRANSDERM DAILY [facility] Last Admin: 05/13/22 07:58 Dose: 1 patch Nifedipine (Nifedipine Xl 30 Mg Tab.Er.24) 30 mg PO DAILY [facility] Last Admin: 05/13/22 07:59 Dose: 30 mg Diroximel Fumarate [ Vumerity] 231 Mg Capsule.Dr 462 mg PO BID [facility] Last Admin: 05/13/22 07:57 Dose: 462 mg Ondansetron HCl (Ondansetron 4 Mg/2 Ml Vial) 4 mg IVP Q8HR PRN PRN Reason: Nausea And Vomiting Last Admin: 05/11/22 19:24 Dose: 4 mg Pantoprazole Sodium (Pantoprazole 40 Mg Tablet) 40 mg PO DAILY [facility] Last Admin: 05/13/22 07:52 Dose: 40 mg Potassium Chloride (Potassium Chloride Er 10 Meq Tab.Er.Prt) 10 meq PO DAILY PRN PRN Reason: WITH LASIX Prednisone (Prednisone 20 Mg Tab) 40 mg PO DAILY [facility] Last Admin: 05/13/22 07:53 Dose: 40 mg Pregabalin (Pregabalin 75 Mg Cap) 150 mg PO TID [facility] Last Admin: 05/13/22 15:42 Dose: 150 mg Primidone (Primidone 50 Mg Tab) 50 mg PO TID [facility] Last Admin: 05/13/22 15:42 Dose: 50 mg Ropinirole HCl (Ropinirole Hcl 0.25 Mg Tab) 0.5 mg PO TID [facility] Last Admin: 05/13/22 15:42 Dose: 0.5 mg Trazodone HCl (Trazodone Hcl 100 Mg Tab) 200 mg PO HS PRN PRN Reason: sleep Last Admin: 05/12/22 20:58 Dose: 200 mg Trihexyphenidyl HCl (Trihexyphenidyl 2 Mg Tab) 2 mg PO DAILY [facility] Last Admin: 05/13/22 07:59 Dose: 2 mg Valacyclovir HCl (Valacyclovir Hcl 1,000 Mg Tablet) 1,000 mg PO DAILY [facility]; Protocol Last Admin: 05/13/22 07:58 Dose: 1,000 mg Past medical history to include: CAD, COPD, diabetes, GERD, hyperlipidemia, hypertension, prostatitis, kidney disease, seizure disorder, peripheral neuropathy, vocal cord dysplasia, IBS, overactive bladder, hyperparathyroidism, chronic back pain, this is like syndrome, seizure activity, history of alcohol abuse 10 years ago. Bipolar. Social history: Lives with her Simone chaidez. Does use a cane/walker/wheelchair. Smokes a pack a day for 44 years. History of alcoholism stopped 10 years ago. Did use marijuana in the past. Family history: Mother had CAD Physical examination: VITAL SIGNS: 97.9, 91, 16, 93 x 54, 94% on 4 L GENERAL: Up in a chair, awake EYES: Pupils equal. Conjunctiva normal. HEENT: External appearance of nose and ears normal, . Continues protrusion of the tongue and twisting of the mouth and tongue. NECK: JVD not raised; masses not palpable. HEART: First and second heart sounds are normal; no edema. LUNGS: Respiratory rate increased, decreased breath sounds . ABDOMEN: Soft, nontender, liver spleen not palpable, no masses palpable. PSYCH: Alert and oriented x3; mood and affect anxiousl. MUSCULOSKELETAL:No Clubbing/cyanosis;muscles-grossly intact INVESTIGATIONS, reviewed in the clinical context: May 12 WBC 7.6 hemoglobin 12.9 potassium 3.8 creatinine 0.5 for Pro-calcitonin 0.09 ProBNP 224 Pro-calcitonin 0.35 Sodium 141 potassium 4.6 creatinine 0.9 less than 0.5 AST 3728 At 0.2 01/11/1954 0.0 EKG tracing personally reviewed by me-sinus tachycardia, P pulmonale, 112 Chest x-ray film personally reviewed by me-some basilar infiltrates Assessment and plan: -Acute COPD exacerbation in current smoker: Improving DuoNeb . Nebulized Perforomist Pulmicort. Oral prednisone. -Acute hypoxic respiratory failure from pneumonia COPD exacerbation: On 4 L Oxygen -Bilateral basal pneumonia, suspect gram-negative organism.: Improved IV ceftriaxone. -Changed to Omnicef -Orofacial dyskinesia Seen by psychiatry. No change in medications. Started by neurology Trihexyphenidyl 1mg daily on 05/08/2022 and increased to 2gm daily -Chronic nicotine dependence, cigarette smoker Nicotine patch 21 -Restless leg syndrome Requip to 1 mg 3 times a day -GERD Omeprazole 40 mg daily -Bipolar disorder Continue home medications -Diabetes mellitus type 2 chronically on insulin Follow Accu-Cheks with sliding scale -Oropharyngeal candidiasis Diflucan DuoNeb, nebulized Perforomist and Pulmicort. prednisone. Omnicef. Discussed with patient. Incentive spirometry.
[2022-05-13 20:29] LABS: Glucose,Whole Blood 205 mg/dL (70-110)
[2022-05-13] MEDS: lisinopriL 20 MG TAB PO SCH (21:09)
[2022-05-13] MEDS: LIDOCAINE 5% PATCH TOPICAL SCH (21:23)
[2022-05-13] MEDS: TRIHEXYPHENIDYL 2 MG TAB PO SCH (21:23)
[2022-05-13] MEDS: ONDANSETRON 4 MG/2 ML VIAL IVP PRN (22:01)
[2022-05-14] MEDS: ACETAMINOPHEN TAB 325 MG TAB PO PRN ×2 (02:18→23:03)
[2022-05-14 07:03] LABS: Glucose,Whole Blood 126 mg/dL (70-110)
[2022-05-14] MEDS: INSULIN ASPART (NovoLOG) 100 UNIT/ML VIAL SQ SCH ×3 (07:22→17:01)
--- NOTE | 2022-05-14 08:25 | P.PN ---
Subjective Progress Note Date: 05/13/[address] Patient initially seen by Dr. Will Velez. Please refer to his note for details. Patient is a 56-year-old female presenting with tardive dyskinesia for last 1-2 weeks. Patient was started on Artane 2 mg daily. Patient states that she is slightly better. She states that she sometimes feels that her arm is thick. She still can eat and talk. Patient claims she has bipolar type II, depression and insomnia. She states that she was on Abilify in the past but Dr. Gorman took it away long time ago. Patient says she sometimes feels short of breath. She also claims of having history of multiple sclerosis, with previous history of optic neuritis about 5 years ago. Objective - Vital Signs Vital signs: Vital Signs Temp 97.9 F 05/13/22 14:00 Pulse 81 05/13/22 14:00 Resp 16 05/13/22 14:00 BP 93/54 05/13/22 14:00 Pulse Ox 94 L 05/13/22 14:00 FiO2 Intake & Output 05/13/22 05/13/22 05/14/22 06:59 18:59 06:59 Intake Total 1160 Balance 1160 Weight 86.636 kg Intake: Oral 1160 Other: # Voids 5 4 # Bowel Movements 1 - Exam Patient is alert and awake in no distress. Patient is sitting comfortably in the recliner. Patient's mental status, speech and language functions are normal. She is oriented. Cranial nerves are normal. Pupils are equal, round and reactive to light. Visual harris are full. Extraocular muscles are intact. Face is symmetric. Patient has evidence of tardive dyskinesia. She has frequent tongue rolling movement (repetition of protrusion and moving side to side but conversing appropriately). No dysarthria is noted. Shoulder shrug is normal bilaterally. Muscle strength is normal. She has mild postural tremor. Sensation is equal. - Labs CBC & Chem 7: 05/12/22 07:05/12/22 07:22 Labs: Abnormal Lab Results - Last 24 Hours (Table) 05/12/22 05/13/22 05/13/22 Range/Units 20:29 07:23 10:57 POC Glucose (mg/dL) 154 H 119 H 149 H (70-110) mg/dL 08/08/22 Range/Units 17:31 POC Glucose (mg/dL) 268 H (70-110) mg/dL Assessment and Plan Assessment: Probable tardive Dyskinesia, involving the tongue for past one week prior to presentation to hospital: Unsure cause but unsure if medication induced (unsure of prior exposure to antipsychotic, antiemetic)--slight improvement after start of Trihexyphentidyl low dose. Possible COPD exacerbation History of seizures Essential tremor History of folate deficiency History of bipolar disorder type II and depression Insomnia. Polypharmacy Plan: Increase Trihexyphenidyl to 2 mg twice a day. If no improvement, then we will stop this medication and recommend trying Austedo or Ingrezza as an outpatient. Patient aware of possible side effects of dry mouth. Please avoid any neuroleptic drugs, antiepmetic drug and antipsychotic drugs at this time. Patient needs to re-evaluation as outpatient with neurologist within a month and 3 month to see if any improvement without use of drugs stated above. Patient's last folic acid was 2.5(4.4-31.0) on 02/12/2022. We will start folate replacement. B12 is 406. Neurology will follow while in hospital. Upon discharge, the patient needs to follow-up with her neurology team, Dr. Jacques's team as outpatient within 1-2 weeks.
[2022-05-14] MEDS: IPRATROPIUM-ALBUTEROL 3 ML NEB INHALATION PRN ×3 (08:27→15:52)
[2022-05-14] MEDS: SYMBICORT 160-4.5 MCG INHALER INHALATION SCH ×2 (08:37→19:56)
[2022-05-14] MEDS: MONTELUKAST 10 MG TAB PO SCH (09:13)
[2022-05-14] MEDS: lamoTRIgine 100 MG TAB PO SCH ×2 (09:13→22:48)
[2022-05-14] MEDS: NICOTINE 21MG/24HR PATCH TRANSDERM SCH (09:13)
[2022-05-14] MEDS: ISOSORBIDE MONONITRATE ER 60 MG TAB.ER.24H PO SCH (09:14)
[2022-05-14] MEDS: EZETIMIBE 10 MG TAB PO SCH (09:14)
[2022-05-14] MEDS: CEFDINIR 300 MG CAP PO SCH ×2 (09:14→22:47)
[2022-05-14] MEDS: MULTIVITAMINS, THERA 1 EACH TAB PO SCH (09:14)
[2022-05-14] MEDS: FOLIC ACID 1 MG TAB PO SCH (09:14)
[2022-05-14] MEDS: valACYclovir HCL 1,000 MG TABLET PO SCH (09:14)
[2022-05-14] MEDS: ATORVASTATIN 80 MG TAB PO SCH (09:14)
[2022-05-14] MEDS: TRIHEXYPHENIDYL 2 MG TAB PO SCH ×2 (09:14→22:48)
[2022-05-14] MEDS: BACLOFEN 10 MG TAB PO SCH ×4 (09:14→22:48)
[2022-05-14] MEDS: predniSONE 20 MG TAB PO SCH (09:14)
[2022-05-14] MEDS: levETIRAcetam 500 MG TAB PO SCH ×2 (09:14→23:07)
[2022-05-14] MEDS: ASPIRIN 81 MG PO SCH (09:14)
[2022-05-14] MEDS: PREGABALIN 75 MG CAP PO SCH ×3 (09:15→23:04)
[2022-05-14] MEDS: FLUCONAZOLE 100 MG TAB PO SCH (09:15)
[2022-05-14] MEDS: ENOXAPARIN 40 MG/0.4 ML SYRINGE SQ SCH (09:15)
[2022-05-14] MEDS: PANTOPRAZOLE 40 MG TABLET PO SCH (09:15)
[2022-05-14] MEDS: CLOPIDOGREL 75 MG TAB PO SCH (09:15)
[2022-05-14] MEDS: NIFEdipine XL 30 MG TAB.ER.24 PO SCH (09:15)
[2022-05-14] MEDS: PRIMIDONE 50 MG TAB PO SCH ×3 (09:15→23:04)
[2022-05-14] MEDS: guaiFENesin 600 MG TABLET.ER PO SCH ×4 (09:15→22:48)
[2022-05-14] MEDS: DULoxetine HCL 60 MG CAPSULE.DR PO SCH ×2 (09:15→22:48)
[2022-05-14 11:17] LABS: Glucose,Whole Blood 124 mg/dL (70-110)
--- NOTE | 2022-05-14 13:09 | P.PN ---
Subjective Progress Note Date: 05/14/22 Principal diagnosis: Shortness of breath On 05/10/2022 patient seen in follow-up on medical surgical floor. She is resting in bed, currently on 7 L of oxygen satting 95-97%. Her FiO2 has been weaned down to 5 L, her current O2 saturation is 91-93%, she is given IV saline at a rate of 100 ML per hour. She states she is feeling better, but still having exertional shortness of breath, lung sounds are positive for diffuse rales throughout. Patient normally takes Lasix 10 mg daily on as-needed basis at home. Lower extremity edema has been noted, with mild pretibial edema. He remains on empiric antibiotics with Rocephin and Diflucan, DuoNeb, and IV steroids. Sputum culture has been sent showing few PMNs. Serum pro-calcitonin is improved and is down to 0.09. On 05/11/2022 patient seen in follow-up on medical surgical floor, she is resting comfortably in bed, chronically oxygen is down to 5 L, breathing more comfortably, lung sounds are essentially clear on today's exam, yesterday she received a dose of IV Lasix, her IV steroids have encouraged oral prednisone, she remains on empiric antibiotics and nebulized bronchodilators, she is improving, still has some trace pretibial edema, otherwise no events overnight. On 05/14/2022 patient seen in follow-up on medical surgical floor. She is resting comfortably in bed, in no acute distress, on 2 L of oxygen with pulse ox is 92%, vital signs have been stable, no acute events overnight, no fever or chills. Yesterday chest x-ray has been reviewed, showing bibasilar opacities likely representing atelectasis. No worsening dyspnea or chest pain, sputum culture showed Corynebacterium striatum, patient's IV antibiotics have been transitioned to oral Cefdinir Objective - Vital Signs Vital signs: Vital Signs Temp 98.0 F 05/14/22 08:00 Pulse 84 05/14/22 13:02 Resp 18 05/14/22 08:00 BP 146/83 05/14/22 08:00 Pulse Ox 92 L 05/14/22 12:50 FiO2 Intake & Output 05/13/22 05/14/22 05/14/22 18:59 06:59 18:59 Intake Total 1160 Balance 1160 Weight 86.636 kg Intake: Oral 1160 Other: Voiding Method Bedside Commode Bedside Commode # Voids 4 3 # Bowel Movements 1 - Exam GENERAL EXAM: Alert, very pleasant, 56-year-old white female, resting in bed, 2 L of oxygen and pulse ox of 92% comfortable in no apparent distress. HEAD: Normocephalic/atraumatic. EYES: Normal reaction of pupils, equal size. Conjunctiva pink, sclera white. NOSE: Clear with pink turbinates. THROAT: No erythema or exudates. NECK: No masses, no JVD, no thyroid enlargement, no adenopathy. CHEST: No chest wall deformity. Symmetrical expansion. LUNGS: Equal air entry with diffuse coarse crackles CVS: Regular rate and rhythm, normal S1 and S2, no gallops, no murmurs, no rubs ABDOMEN: Soft, nontender. No hepatosplenomegaly, normal bowel sounds, no guarding or rigidity. EXTREMITIES: No clubbing, mild pretibial edema, no cyanosis, 2+ pulses and upper and lower extremities. MUSCULOSKELETAL: Muscle strength and tone normal. SPINE: No scoliosis or deformity SKIN: No rashes CENTRAL NERVOUS SYSTEM: Alert and oriented -3. No focal deficits, tone is normal in all 4 extremities. PSYCHIATRIC: Alert and oriented -3. Appropriate affect. Intact judgment and insight. - Labs CBC & Chem 7: 05/12/22 07:22 05/12/22 07:22 Labs: Abnormal Lab Results - Last 24 Hours (Table) 05/13/22 05/13/22 05/14/22 Range/Units 17:31 20:27 07:01 POC Glucose (mg/dL) 268 H 205 H 126 H (70-110) mg/dL 05/14/22 Range/Units 11:14 POC Glucose (mg/dL) 124 H (70-110) mg/dL Assessment and Plan Plan: Assessment: #1. Acute hypoxic respiratory failure secondary to acute exacerbation of COPD, and possibility of community acquired pneumonia. Patient's oxygen on 2 L, she is feeling better breathing easier. Patient has been treated with a combination of antibiotics, bronchodilators and steroids, currently has been transitioned to oral prednisone. #2. History of ongoing tobacco use with nicotine addiction #3. History of CAD #4. History of diabetes mellitus and diabetic neuropathy #5. Hypertension #6. Hyperlipidemia #7. Osteoporosis #8. Seizure disorder #9. History of alcohol abuse #10. Multiple other medical problems Plan: Patient has remained stable Oxygenation is improving, FiO2 requirements are down to 2 L Increase activity as tolerated Consider discharge home today On prednisone taper, patient can resume her Advair, Incruse, and albuterol Patient follow-up with Dr. Velez in the office in 7-10 days I have personally seen and examined the patient and reviewed the documentation. I performed a joint evaluation with the nurse practitioner in this evaluation was done more than 20 minutes. I fully agree with the documentation above and the plan of care. Oxygenation is improvement in the patient is currently on 2 L of nasal cannula. Doing well. Possible discharge in the next 24 hours. Time with Patient: Less than 30
[2022-05-14 16:30] LABS: Glucose,Whole Blood 149 mg/dL (70-110)
--- NOTE | 2022-05-14 18:41 | P.PN ---
Progress Note - Text Progress Note Date: 05/14/22 Chief Complaint: Short of breath This is a 56-year-old patient, follows with Dr. Floyd. Chronic stable medical conditions include CAD, COPD, diabetes, GERD, hyperlipidemia, hypertension, osteoarthritis, neuropathy, vocal cord dysplasia, IBS, overactive bladder, chronic back pain, restless leg syndrome, seizure activity, stop drinking alcohol drinking about 2011. Bipolar- follow with Dr. Gorman from psychiatry. Active smoker. Patient was transferred to our ER from [facility]. Patient has continued to smoke. Became increasingly short of breath. Cough. Able to produce sputum but unable to expectorate. Decreased appetite. Patient has twisting, protr usion of her tongue. And tremors. Unsure how long she's had it for. Denies any fever and chills. At her baseline uses a cane walker and a wheelchair. Continues to smoke a pack a day. Cough. Wheezing. May 08: Seen by psychiatry. [place] of oral facial dyskinesia. Not felt to be secondary to psychotropic medications. No change in medications. Breathing is better. It started some diet. May 4: Eating about 35%. Some bouts of coughing. Eating fair. Spoke to the nurse that the patient sit up in a chair. On 8 L nasal cannula. May 5: Breathing better. Received some Lasix earlier. Oxygen did come down to 5 L. Encourage incentive spirometry. Eating better. Tired. May 6: Some shortness of breath. Repeat Lasix given today. Tolerating diet. 5 L nasal cannula. Up in a chair. May 7: Up in a chair. Eating well. On 4 L nasal cannula. Change ceftriaxone to Omnicef. May 13: Up in chair. Tolerating diet. 4 L nasal cannula. Oral prednisone. Chest x-ray no change. Will change patient's lidocaine patch 2 daily. Patient was started onTrihexyphenidyl 1mg daily on 05/08/2022 and increased to 2gm daily May 9: Does have bouts of coughing some time. Oxygen being brought down. Oral intake fair. Discussed with patient. If remains stable hopefully discharge tomorrow Active Medications Acetaminophen (Acetaminophen Tab 325 Mg Tab) 650 mg PO Q6HR PRN PRN Reason: Mild Pain or Fever > 100.5 Last Admin: 05/14/22 02:18 Dose: 650 mg Albuterol/Ipratropium (Ipratropium-Albuterol 3 Ml Neb) 3 ml INHALATION RT-Q4H PRN PRN Reason: shortness of breath Last Admin: 05/14/22 15:52 Dose: 3 ml Aspirin (Aspirin 81 Mg) 81 mg PO DAILY [facility] Last Admin: 05/14/22 09:14 Dose: 81 mg Atorvastatin Calcium (Atorvastatin 80 Mg Tab) 80 mg PO DAILY [facility] Last Admin: 05/14/22 09:14 Dose: 80 mg Baclofen (Baclofen 10 Mg Tab) 30 mg PO QID@08,,, [facility] Last Admin: 05/14/22 17:10 Dose: 30 mg Budesonide/Formoterol Fumarate (Symbicort 160-4.5 Mcg Inhaler) 2 puff INHALATION RT-BID [facility] Last Admin: 05/14/22 08:37 Dose: 2 puff Calcium Carbonate/Glycine (Calcium Carbonate 500 Mg Chewable) 1,000 mg PO Q4HR PRN PRN Reason: Dyspepsia Cefdinir (Cefdinir 300 Mg Cap) 300 mg PO BID [facility]; Protocol Last Admin: 05/14/22 09:14 Dose: 300 mg Clopidogrel Bisulfate (Clopidogrel 75 Mg Tab) 75 mg PO DAILY [facility] Last Admin: 05/14/22 09:15 Dose: 75 mg Dextrose/Water (Dextrose 50% Syringe 50 Ml) 25 ml IVP PER PROTOCOL PRN; Protocol PRN Reason: Hypoglycemia Dextrose/Water (Dextrose 50% Syringe 50 Ml) 50 ml IVP PER PROTOCOL PRN; P rotocol PRN Reason: Hypoglycemia Duloxetine HCl (Duloxetine Hcl 60 Mg Capsule.Dr) 60 mg PO BID [facility] Last Admin: 05/14/22 09:15 Dose: 60 mg Ezetimibe (Ezetimibe 10 Mg Tab) 10 mg PO DAILY [facility] Last Admin: 05/14/22 09:14 Dose: 10 mg Enoxaparin Sodium (Enoxaparin 40 Mg/0.4 Ml Syringe) 40 mg SQ DAILY [facility] Last Admin: 05/14/22 09:15 Dose: Not Given Fluconazole (Fluconazole 100 Mg Tab) 100 mg PO DAILY [facility]; Protocol Last Admin: 05/14/22 09:15 Dose: 100 mg Folic Acid (Folic Acid 1 Mg Tab) 1 mg PO DAILY [facility] Last Admin: 05/14/22 09:14 Dose: 1 mg Guaifenesin (Guaifenesin 600 Mg Tablet.Er) 600 mg PO QID [facility] Last Admin: 05/14/22 17:10 Dose: 600 mg Insulin Aspart (Insulin Aspart (Novolog) 100 Unit/Ml Vial) 0 unit SQ AC-TID [facility]; Protocol Last Admin: 05/14/22 17:01 Dose: Not Given Isosorbide Mononitrate (Isosorbide Mononitrate Er 60 Mg Tab.Er.24h) 60 mg PO DAILY [facility] Last Admin: 05/14/22 09:14 Dose: 60 mg Lactulose (Lactulose 20 Gm/30 Ml Cup) 20 gm PO DAILY PRN PRN Reason: Constipation Last Admin: 05/09/22 13:39 Dose: 20 gm Lamotrigine (Lamotrigine 100 Mg Tab) 150 mg PO BID [facility] Last Admin: 05/14/22 09:13 Dose: 150 mg Levetiracetam (Levetiracetam 500 Mg Tab) 1,000 mg PO BID [facility] Last Admin: 05/14/22 09:14 Dose: 1,000 mg Lidocaine (Lidocaine 5% Patch) 1 patch TOPICAL DAILY@2100 [facility]; Protocol Last Admin: 05/13/22 21:23 Dose: 1 patch Lisinopril (Lisinopril 20 Mg Tab) 20 mg PO HS [facility] Last Admin: 05/13/22 21:09 Dose: Not Given Miscellaneous Information (Pneumonia Protocol Utilized 1 Each Misc) 1 each PO ONCE PRN PRN Reason: Per Protocol Montelukast Sodium (Montelukast 10 Mg Tab) 10 mg PO DAILY [facility] Last Admin: 05/14/22 09:13 Dose: 10 mg Multivitamins (Multivitamins, Thera 1 Each Tab) 1 each PO DAILY [facility] Last Admin: 05/14/22 09:14 Dose: 1 each Naloxone HCl (Naloxone 0.4 Mg/Ml 1 Ml Vial) 0.2 mg IV Q2M PRN PRN Reason: Opioid Reversal Nicotine (Nicotine 21mg/24hr Patch) 1 patch TRANSDERM DAILY [facility] Last Admin: 05/14/22 09:13 Dose: 1 patch Nifedipine (Nifedipine Xl 30 Mg Tab.Er.24) 30 mg PO DAILY [facility] Last Admin: 05/14/22 09:15 Dose: 30 mg Diroximel Fumarate [ Vumerity] 231 Mg Capsule.Dr 462 mg PO BID [facility] Last Admin: 05/14/22 09:13 Dose: 462 mg Ondansetron HCl (Ondansetron 4 Mg/2 Ml Vial) 4 mg IVP Q8HR PRN PRN Reason: Nausea And Vomiting Last Admin: 05/13/22 22:01 Dose: 4 mg Pantoprazole Sodium (Pantoprazole 40 Mg Tablet) 40 mg PO DAILY [facility] Last Admin: 05/14/22 09:15 Dose: 40 mg Potassium Chloride (Potassium Chloride Er 10 Meq Tab.Er.Prt) 10 meq PO DAILY PRN PRN Reason: WITH LASIX Prednisone (Prednisone 20 Mg Tab) 40 mg PO DAILY [facility] Last Admin: 05/14/22 09:14 Dose: 40 mg Pregabalin (Pregabalin 75 Mg Cap) 150 mg PO TID [facility] Last Admin: 05/14/22 17:09 Dose: 150 mg Primidone (Primidone 50 Mg Tab) 50 mg PO TID [facility] Last Admin: 05/14/22 17:09 Dose: 50 mg Ropinirole HCl (Ropinirole Hcl 0.25 Mg Tab) 0.5 mg PO TID [facility] Last Admin: 05/14/22 17:09 Dose: 0.5 mg Trazodone HCl (Trazodone Hcl 100 Mg Tab) 200 mg PO HS PRN PRN Reason: sleep Last Admin: 05/12/22 20:58 Dose: 200 mg Trihexyphenidyl HCl (Trihexyphenidyl 2 Mg Tab) 2 mg PO BID [facility] Last Admin: 05/14/22 09:14 Dose: 2 mg Valacyclovir HCl (Valacyclovir Hcl 1,000 Mg Tablet) 1,000 mg PO DAILY [facility]; Protocol Last Admin: 05/14/22 09:14 Dose: 1,000 mg Past medical history to include: CAD, COPD, diabetes, GERD, hyperlipidemia, hypertension, prostatitis, kidney disease, seizure disorder, peripheral neuropathy, vocal cord dysplasia, IBS, overactive bladder, hyperparathyroidism, chronic back pain, this is like syndrome, seizure activity, history of alcohol abuse 10 years ago. Bipolar. Social history: Lives with her Simone chaidez. Does use a cane/walker/wheelchair. Smokes a pack a day for 44 years. History of alcoholism stopped 10 years ago. Did use marijuana in the past. Family history: Mother had CAD Physical examination: VITAL SIGNS: 97.8, 93, 20, 110/53, 92% on 2 L GENERAL: Up in a chair, awake EYES: Pupils equal. Conjunctiva normal. HEENT: External appearance of nose and ears normal, . Continues protrusion of the tongue and twisting of the mouth and tongue. NECK: JVD not raised; masses not palpable. HEART: First and second heart sounds are normal; no edema. LUNGS: Respiratory rate increased, decreased breath sounds . ABDOMEN: Soft, nontender, liver spleen not palpable, no masses palpable. PSYCH: Alert and oriented x3; mood and affect anxiousl. MUSCULOSKELETAL:No Clubbing/cyanosis;muscles-grossly intact INVESTIGATIONS, reviewed in the clinical context: May 12 WBC 7.6 hemoglobin 12.9 potassium 3.8 creatinine 0.5 for Pro-calcitonin 0.09 ProBNP 224 Pro-calcitonin 0.35 Sodium 141 potassium 4.6 creatinine 0.9 less than 0.5 AST 3728 At 0.2 01/11/1954 0.0 EKG tracing personally reviewed by me-sinus tachycardia, P pulmonale, 112 Chest x-ray film personally reviewed by me-some basilar infiltrates Assessment and plan: -Acute COPD exacerbation in current smoker: Improving DuoNeb . Nebulized Perforomist Pulmicort. Oral prednisone. -Acute hypoxic respiratory failure from pneumonia COPD exacerbation: On 2 L Oxygen -Chronic nocturnal use of oxygen 2 L -Bilateral basal pneumonia, suspect gram-negative organism.: Improved IV ceftriaxone. -Changed to Omnicef -Orofacial dyskinesia Seen by psychiatry. No change in medications. Started by neurology Trihexyphenidyl 1mg daily on 05/08/2022 and increased to 2gm daily -Chronic nicotine dependence, cigarette smoker Nicotine patch 21 -Restless leg syndrome Requip to 1 mg 3 times a day -GERD Omeprazole 40 mg daily -Bipolar disorder Continue home medications -Diabetes mellitus type 2 chronically on insulin Follow Accu-Cheks with sliding scale -Oropharyngeal candidiasis Diflucan Continue current medications. Continue incentive spirometry. Patient only uses oxygen at night prior to admission. Plan for discharge tomorrow.
[2022-05-14 21:19] LABS: Glucose,Whole Blood 163 mg/dL (70-110)
[2022-05-14] MEDS: LIDOCAINE 5% PATCH TOPICAL SCH (22:45)
[2022-05-14] MEDS: lisinopriL 20 MG TAB PO SCH (22:48)
[2022-05-14] MEDS: traZODone HCL 100 MG TAB PO PRN (23:02)
[2022-05-15 02:55] VITALS: RESP 16
[2022-05-15 07:04] LABS: Glucose,Whole Blood 124 mg/dL (70-110)
[2022-05-15] MEDS: SYMBICORT 160-4.5 MCG INHALER INHALATION SCH (07:31)
[2022-05-15] MEDS: INSULIN ASPART (NovoLOG) 100 UNIT/ML VIAL SQ SCH ×2 (07:46→11:21)
[2022-05-15 08:43] VITALS: BP 103/62; TEMP 98.3
[2022-05-15] MEDS: BACLOFEN 10 MG TAB PO SCH ×2 (09:51→13:23)
[2022-05-15] MEDS: DULoxetine HCL 60 MG CAPSULE.DR PO SCH (09:52)
[2022-05-15] MEDS: MONTELUKAST 10 MG TAB PO SCH (09:52)
[2022-05-15] MEDS: predniSONE 20 MG TAB PO SCH (09:52)
[2022-05-15] MEDS: FLUCONAZOLE 100 MG TAB PO SCH (09:52)
[2022-05-15] MEDS: ASPIRIN 81 MG PO SCH (09:52)
[2022-05-15] MEDS: ISOSORBIDE MONONITRATE ER 60 MG TAB.ER.24H PO SCH (09:52)
[2022-05-15] MEDS: ATORVASTATIN 80 MG TAB PO SCH (09:52)
[2022-05-15] MEDS: CEFDINIR 300 MG CAP PO SCH (09:52)
[2022-05-15] MEDS: PRIMIDONE 50 MG TAB PO SCH (09:52)
[2022-05-15] MEDS: EZETIMIBE 10 MG TAB PO SCH (09:52)
[2022-05-15] MEDS: PANTOPRAZOLE 40 MG TABLET PO SCH (09:52)
[2022-05-15] MEDS: PREGABALIN 75 MG CAP PO SCH (09:52)
[2022-05-15] MEDS: MULTIVITAMINS, THERA 1 EACH TAB PO SCH (09:52)
[2022-05-15] MEDS: CLOPIDOGREL 75 MG TAB PO SCH (09:52)
[2022-05-15] MEDS: guaiFENesin 600 MG TABLET.ER PO SCH ×2 (09:52→13:23)
[2022-05-15] MEDS: NICOTINE 21MG/24HR PATCH TRANSDERM SCH (09:53)
[2022-05-15] MEDS: lamoTRIgine 100 MG TAB PO SCH (09:53)
[2022-05-15] MEDS: FOLIC ACID 1 MG TAB PO SCH (09:53)
[2022-05-15] MEDS: TRIHEXYPHENIDYL 2 MG TAB PO SCH (09:54)
[2022-05-15] MEDS: ENOXAPARIN 40 MG/0.4 ML SYRINGE SQ SCH (09:54)
[2022-05-15] MEDS: levETIRAcetam 500 MG TAB PO SCH (09:54)
[2022-05-15] MEDS: NIFEdipine XL 30 MG TAB.ER.24 PO SCH (09:54)
[2022-05-15] MEDS: valACYclovir HCL 1,000 MG TABLET PO SCH (09:55)
[2022-05-15 11:06] LABS: Glucose,Whole Blood 135 mg/dL (70-110)
[2022-05-15] MEDS: IPRATROPIUM-ALBUTEROL 3 ML NEB INHALATION PRN (11:24)
[2022-05-15 11:34] VITALS: PULSE 81
--- NOTE | 2022-05-15 12:28 | P.PN ---
Subjective Progress Note Date: 05/15/22 Principal diagnosis: Shortness of breath On 05/10/2022 patient seen in follow-up on medical surgical floor. She is resting in bed, currently on 7 L of oxygen satting 95-97%. Her FiO2 has been weaned down to 5 L, her current O2 saturation is 91-93%, she is given IV saline at a rate of 100 ML per hour. She states she is feeling better, but still having exertional shortness of breath, lung sounds are positive for diffuse rales throughout. Patient normally takes Lasix 10 mg daily on as-needed basis at home. Lower extremity edema has been noted, with mild pretibial edema. He remains on empiric antibiotics with Rocephin and Diflucan, DuoNeb, and IV steroids. Sputum culture has been sent showing few PMNs. Serum pro-calcitonin is improved and is down to 0.09. On 05/11/2022 patient seen in follow-up on medical surgical floor, she is resting comfortably in bed, chronically oxygen is down to 5 L, breathing more comfortably, lung sounds are essentially clear on today's exam, yesterday she received a dose of IV Lasix, her IV steroids have encouraged oral prednisone, she remains on empiric antibiotics and nebulized bronchodilators, she is improving, still has some trace pretibial edema, otherwise no events overnight. On 05/14/2022 patient seen in follow-up on medical surgical floor. She is resting comfortably in bed, in no acute distress, on 2 L of oxygen with pulse ox is 92%, vital signs have been stable, no acute events overnight, no fever or chills. Yesterday chest x-ray has been reviewed, showing bibasilar opacities likely representing atelectasis. No worsening dyspnea or chest pain, sputum culture showed Corynebacterium striatum, patient's IV antibiotics have been transitioned to oral Cefdinir No attending 2021 patient seen in follow-up on medical surgical floor. She is awake and alert, in no acute distress, she is on 2 L of oxygen satting 96%. No acute issues overnight. Her breathing has improved, last chest x-ray from 2 days ago showed some bibasilar atelectasis. No worsening dyspnea or chest pain. Her IV antibiotics have been transitioned to oral antibiotics. Patient is anticipated to go home today Objective - Vital Signs Vital signs: Vital Signs Temp 98.3 F 05/15/22 08:00 Pulse 81 05/15/22 11:34 Resp 16 05/15/22 08:00 BP 103/62 05/15/22 08:00 Pulse Ox 92 L 05/15/22 08:00 FiO2 Intake & Output 05/14/22 05/15/22 05/15/22 18:59 06:59 18:59 Other: Voiding Method Bedside Commode Bedside Commode # Voids 4 4 4 # Bowel Movements 1 1 1 - Exam GENERAL EXAM: Alert, very pleasant, 56-year-old white female, resting in bed, 2 L of oxygen and pulse ox of 92% comfortable in no apparent distress. HEAD: Normocephalic/atraumatic. EYES: Normal reaction of pupils, equal size. Conjunctiva pink, sclera white. NOSE: Clear with pink turbinates. THROAT: No erythema or exudates. NECK: No masses, no JVD, no thyroid enlargement, no adenopathy. CHEST: No chest wall deformity. Symmetrical expansion. LUNGS: Equal air entry with diffuse coarse crackles CVS: Regular rate and rhythm, normal S1 and S2, no gallops, no murmurs, no rubs ABDOMEN: Soft, nontender. No hepatosplenomegaly, normal bowel sounds, no guarding or rigidity. EXTREMITIES: No clubbing, mild pretibial edema, no cyanosis, 2+ pulses and upper and lower extremities. MUSCULOSKELETAL: Muscle strength and tone normal. SPINE: No scoliosis or deformity SKIN: No rashes CENTRAL NERVOUS SYSTEM: Alert and oriented -3. No focal deficits, tone is normal in all 4 extremities. PSYCHIATRIC: Alert and oriented -3. Appropriate affect. Intact judgment and insight. - Labs CBC & Chem 7: 05/12/22 07:22 05/12/22 07:22 Labs: Abnormal Lab Results - Last 24 Hours (Table) 05/14/22 05/14/22 05/15/22 Range/Units 16:22 21:17 07:02 POC Glucose (mg/dL) 149 H 163 H 124 H (70-110) mg/dL 05/15/22 Range/Units 11:04 POC Glucose (mg/dL) 135 H (70-110) mg/dL Assessment and Plan Plan: Assessment: #1. Acute hypoxic respiratory failure secondary to acute exacerbation of COPD, and possibility of community acquired pneumonia. Patient's oxygen on 2 L, she is feeling better breathing easier. Patient has been treated with a combination of antibiotics, bronchodilators and steroids, currently has been transitioned to oral prednisone. #2. History of ongoing tobacco use with nicotine addiction #3. History of CAD #4. History of diabetes mellitus and diabetic neuropathy #5. Hypertension #6. Hyperlipidemia #7. Osteoporosis #8. Seizure disorder #9. History of alcohol abuse #10. Multiple other medical problems Plan: No worsening dyspnea Vital signs have been stable No acute issues overnight On prednisone taper, patient can resume her Advair, Incruse, and albuterol Patient follow-up with Dr. Velez in the office in 7-10 days I have personally seen and examined the patient and reviewed the documentation. I performed a joint evaluation with the nurse practitioner in this evaluation was done more than 10 minutes. I fully agree with the documentation above and the plan of care. Therefore discharged from the pulmonary standpoint he is stable measures recommendations Time with Patient: Less than 30
--- NOTE | 2022-05-15 15:39 | P.DS ---
Providers Date of admission: 05/06/22 23:26 Expected date of discharge: 05/15/22 Attending physician: Andrea Shin Consults: 05/06/22 23:26 Consult Physician Routine Consulting Provider: Will Velez Consult Reason/Comments: Tongue protrusion possible dystonic reaction Do you want consulting provider notified?: Yes, Notify in am 05/06/22 23:27 Consult Physician Routine Consulting Provider: Keegan Vasquez Consult Reason/Comments: Pneumonia and COPD Do you want consulting provider notified?: Yes, Notify in am 05/07/22 15:01 Consult Physician Routine Consulting Provider: Antione Montero Consult Reason/Comments: Tardive dyskinesia/review her meds Do you want consulting provider notified?: Yes Primary care physician: [facility] Course: Chief Complaint: Short of breath This is a 56-year-old patient, follows with Dr. Floyd. Chronic stable medical conditions include CAD, COPD, diabetes, GERD, hyperlipidemia, hypertension, osteoarthritis, neuropathy, vocal cord dysplasia, IBS, overactive bladder, chronic back pain, restless leg syndrome, seizure activity, stop drinking alcohol drinking about 2011. Bipolar- follow with Dr. Gorman from psychiatry. Active smoker. Patient was transferred to our ER from [facility]. Patient has continued to smoke. Became increasingly short of breath. Cough. Able to produce sputum but unable to expectorate. Decreased appetite. Patient has twisting, protrusion of her tongue. And tremors. Unsure how long she's had it for. Denies any fever and chills. At her baseline uses a cane walker and a wheelchair. Continues to smoke a pack a day. Cough. Wheezing. May 08: Seen by psychiatry. [place] of oral facial dyskinesia. Not felt to be secondary to psychotropic medications. No change in medications. Breathing is better. It started some diet. May 09: Eating about 35%. Some bouts of coughing. Eating fair. Spoke to the nurse that the patient sit up in a chair. On 8 L nasal cannula. May 5: Breathing better. Received some Lasix earlier. Oxygen did come down to 5 L. Encourage incentive spirometry. Eating better. Tired. May 6: Some shortness of breath. Repeat Lasix given today. Tolerating diet. 5 L nasal cannula. Up in a chair. May 12: Up in a chair. Eating well. On 4 L nasal cannula. Change ceftriaxone to Omnicef. May 13: Up in chair. Tolerating diet. 4 L nasal cannula. Oral prednisone. Chest x-ray no change. Will change patient's lidocaine patch 2 daily. Patient was started onTrihexyphenidyl 1mg daily on 05/08/2022 and increased to 2gm daily May 14: Does have bouts of coughing some time. Oxygen being brought down. Oral intake fair. Discussed with patient. If remains stable hopefully discharge tomorrow May 15: Patient is down to 2 L. Doing better. Patient to follow-up with psychiatry outpatient. Pulmonary. Discussed with pulmonary. Prednisone taper. 2 more days of Omnicef. Discussion and discharge planning more than 35 minutes Past medical history to include: CAD, COPD, diabetes, GERD, hyperlipidemia, hypertension, prostatitis, kidney disease, seizure disorder, peripheral neuropathy, vocal cord dysplasia, IBS, overactive bladder, hyperparathyroidism, chronic back pain, this is like syndrome, seizure activity, history of alcohol abuse 10 years ago. Bipolar. Social history: Lives with her Simone chaidez. Does use a cane/walker/wheelchair. Smokes a pack a day for 44 years. History of alcoholism stopped 10 years ago. Did use marijuana in the past. Family history: Mother had CAD Physical examination: VITAL SIGNS: 98.3, 87, 16, 10 3 x 62, 92% on 2 L GENERAL: Up in a chair, awake EYES: Pupils equal. Conjunctiva normal. HEENT: External appearance of nose and ears normal, . Continues protrusion of the tongue and twisting of the mouth and tongue. NECK: JVD not raised; masses not palpable. HEART: First and second heart sounds are normal; no edema. LUNGS: Respiratory rate increased, decreased breath sounds . ABDOMEN: Soft, nontender, liver spleen not palpable, no masses palpable. PSYCH: Alert and oriented x3; mood and affect anxiousl. MUSCULOSKELETAL:No Clubbing/cyanosis;muscles-grossly intact INVESTIGATIONS, reviewed in the clinical context: May 12 WBC 7.6 hemoglobin 12.9 potassium 3.8 creatinine 0.5 for Pro-calcitonin 0.09 ProBNP 224 Pro-calcitonin 0.35 Sodium 141 potassium 4.6 creatinine 0.9 less than 0.5 AST 3728 At 0.2 01/11/1954 0.0 EKG tracing personally reviewed by me-sinus tachycardia, P pulmonale, 112 Chest x-ray film personally reviewed by me-some basilar infiltrates Assessment and plan: -Acute COPD exacerbation in current smoker: Better DuoNeb . Nebulized Perforomist Pulmicort. Oral prednisone. DC on prednisone taper -Acute hypoxic respiratory failure from pneumonia COPD exacerbation: : Better On 2 L Oxygen -Chronic hypoxic respiratory failure from underlying COPD 2 L of oxygen -Bilateral basal pneumonia, suspect gram-negative organism.: Improved IV ceftriaxone. -Changed to Omnicef -to 1 days -Orofacial dyskinesia Seen by psychiatry. No change in medications. Started by neurology Trihexyphenidyl 1mg daily on 05/08/2022 and increased to 2gm daily -Chronic nicotine dependence, cigarette smoker Nicotine patch 21 -Restless leg syndrome Requip to 1 mg 3 times a day -GERD Omeprazole 40 mg daily -Bipolar disorder Continue home medications -Diabetes mellitus type 2 chronically on insulin Follow Accu-Cheks with sliding scale -Oropharyngeal candidiasis Diflucan Disposition: Home Patient Condition at Discharge: Fair Plan - Discharge Summary New Discharge Prescriptions: New Fluconazole [Diflucan] 100 mg PO DAILY #7 tab Folic Acid 1 mg PO DAILY #30 tab Cefdinir [Omnicef] 300 mg PO BID #4 cap Trihexyphenidyl [Artane] 2 mg PO BID #60 tab Continue Umeclidinium [place] [Incruse Ellipta] 1 puff INHALATION RT-DAILY Albuterol Inhaler [Ventolin Hfa Inhaler] 2 puff INHALATION RT-QID PRN PRN Reason: Shortness Of Breath Fluticasone Propion/Salmeterol [Advair 500-50 Diskus] 1 puff INHALATION RT- BID Rosuvastatin Calcium [Crestor] 40 mg PO DAILY Primidone [Mysoline] 50 mg PO TID NIFEdipine [NIFEdipine ER] 30 mg PO DAILY Montelukast Sodium [Singulair] 10 mg PO DAILY traZODone HCL [Desyrel] 200 mg PO HS PRN PRN Reason: sleep Aspirin EC [Ecotrin Low Dose] 81 mg PO DAILY Pregabalin [Lyrica] 150 mg PO TID Baclofen [Lioresal] 30 mg PO QID@08,14,17,22 Fluticasone Nasal [place] [Flonase Nasal [place]] 1 spray EA NOSTRIL DAILY Isosorbide Mononitrate ER [Imdur] 60 mg PO DAILY Ezetimibe [Zetia] 10 mg PO DAILY Enalapril [Vasotec] 10 mg PO HS DULoxetine HCL [Cymbalta] 60 mg PO BID Clopidogrel [Plavix] 75 mg PO DAILY Albuterol Nebulized [Ventolin Nebulized] 2.5 mg INHALATION RT-Q6H PRN PRN Reason: Shortness Of Breath valACYclovir HCL [Valtrex] 1,000 mg PO DAILY Potassium Chloride ER [K-Dur 10] 10 meq PO DAILY PRN PRN Reason: WITH LASIX Omeprazole 40 mg PO DAILY levETIRAcetam [Keppra] 1,000 mg PO BID Lidocaine 5% Patch [Lidoderm 5% Patch] 1 - 2 patch TOPICAL DAILY PRN PRN Reason: Pain Insulin Detemir [Levemir Flextouch Pen] 5 units SQ HS lamoTRIgine 150 mg PO BID Diroximel Fumarate [Vumerity] 462 mg PO BID Insulin Aspart [NovoLOG Flexpen] See Protocol SQ AC-TID rOPINIRole HCL [Requip] 0.5 mg PO TID Nicotine 21Mg/24Hr Patch [Habitrol] 1 patch TRANSDERM DAILY PRN PRN Reason: Nicotine Cravings Multivitamin/Iron/Folic Acid [Centrum Adults Tablet] 1 tab PO DAILY Discontinued Furosemide [Lasix] 10 mg PO DAILY PRN PRN Reason: Edema hydrOXYzine HCL [Atarax] 25 mg PO DAILY PRN PRN Reason: itching/anxiety Discharge Medication List Albuterol Inhaler [Ventolin Hfa Inhaler] 2 puff INHALATION RT-QID PRN 02/11/22 [ History] Albuterol Nebulized [Ventolin Nebulized] 2.5 mg INHALATION RT-Q6H PRN 02/11/22 [History] Clopidogrel [Plavix] 75 mg PO DAILY 02/11/22 [History] DULoxetine HCL [Cymbalta] 60 mg PO BID 02/11/22 [History] Diroximel Fumarate [Vumerity] 462 mg PO BID 02/11/22 [History] Enalapril [Vasotec] 10 mg PO HS 02/11/22 [History] Ezetimibe [Zetia] 10 mg PO DAILY 02/11/22 [History] Fluticasone Propion/Salmeterol [Advair 500-50 Diskus] 1 puff INHALATION RT-BID 02/11/22 [History] Insulin Aspart [NovoLOG Flexpen] See Protocol SQ AC-TID 02/11/22 [History] Insulin Detemir [Levemir Flextouch Pen] 5 units SQ HS 02/11/22 [History] Isosorbide Mononitrate ER [Imdur] 60 mg PO DAILY 02/11/22 [History] Lidocaine 5% Patch [Lidoderm 5% Patch] 1 - 2 patch TOPICAL DAILY PRN 02/11/22 [History] Montelukast Sodium [Singulair] 10 mg PO DAILY 02/11/22 [History] NIFEdipine [NIFEdipine ER] 30 mg PO DAILY 02/11/22 [History] Omeprazole 40 mg PO DAILY 02/11/22 [History] Potassium Chloride ER [K-Dur 10] 10 meq PO DAILY PRN 02/11/22 [History] Primidone [Mysoline] 50 mg PO TID 02/11/22 [History] Rosuvastatin Calcium [Crestor] 40 mg PO DAILY 02/11/22 [History] Umeclidinium [place] [Incruse Ellipta] 1 puff INHALATION RT-DAILY 02/11/22 [History] lamoTRIgine 150 mg PO BID 02/11/22 [History] levETIRAcetam [Keppra] 1,000 mg PO BID 02/11/22 [History] traZODone HCL [Desyrel] 200 mg PO HS PRN 02/11/22 [History] valACYclovir HCL [Valtrex] 1,000 mg PO DAILY 02/11/22 [History] Aspirin EC [Ecotrin Low Dose] 81 mg PO DAILY 05/06/22 [History] Baclofen [Lioresal] 30 mg PO QID@08,14,17,22 05/06/22 [History] Fluticasone Nasal [place] [Flonase Nasal [place]] 1 spray EA NOSTRIL DAILY 05/06/22 [History] Multivitamin/Iron/Folic Acid [Centrum Adults Tablet] 1 tab PO DAILY 05/06/22 [History] Nicotine 21Mg/24Hr Patch [Habitrol] 1 patch TRANSDERM DAILY PRN 05/06/22 [History] Pregabalin [Lyrica] 150 mg PO TID 05/06/22 [History] rOPINIRole HCL [Requip] 0.5 mg PO TID 05/06/22 [History] Cefdinir [Omnicef] 300 mg PO BID #4 cap 05/15/22 [Rx] Fluconazole [Diflucan] 100 mg PO DAILY #7 tab 05/15/22 [Rx] Folic Acid 1 mg PO DAILY #30 tab 05/15/22 [Rx] Trihexyphenidyl [Artane] 2 mg PO BID #60 tab 05/15/22 [Rx] Follow up Appointment(s)/Referral(s): own-psychiatristdr [Other] - 1 Week Nii Floyd MD [Primary Care Provider] - 05/23/22 8:30 am [facility] [NON-STAFF] - As Needed Keegan Vasquez MD [STAFF PHYSICIAN] - 05/20/22 1:00 pm Patient Instructions/Handouts: Viral Pneumonia (DC) Discharge Disposition: HOME SELF-CARE
== END 2022-05-15 14:51 | disposition home or self-care (01) | DRG 177 ==
LOC: EC 21:42 → 4SSUR 23:26
PROVIDERS: ADMIT Hospitalist; ATTEND Hospitalist
DX: J15.6 Pneumonia due to other Gram-negative bacteria (principal); J96.21 Acute and chronic respiratory failure with hypoxia; J44.0 Chronic obstructive pulmonary disease with (acute) lower respiratory infection; J44.1 Chronic obstructive pulmonary disease with (acute) exacerbation; B37.0 Candidal stomatitis; F31.81 Bipolar II disorder; F17.210 Nicotine dependence, cigarettes, uncomplicated; E11.42 Type 2 diabetes mellitus with diabetic polyneuropathy; E11.649 Type 2 diabetes mellitus with hypoglycemia without coma; E78.5 Hyperlipidemia, unspecified; E87.70 Fluid overload, unspecified; G24.4 Idiopathic orofacial dystonia; G25.0 Essential tremor; G25.81 Restless legs syndrome; G35 Multiple sclerosis; G40.909 Epilepsy, unspecified, not intractable, without status epilepticus; G89.29 Other chronic pain; R00.0 Tachycardia, unspecified; M54.9 Dorsalgia, unspecified; Z99.81 Dependence on supplemental oxygen; I10 Essential (primary) hypertension; I25.10 Atherosclerotic heart disease of native coronary artery without angina pectoris; K21.9 Gastro-esophageal reflux disease without esophagitis; K58.9 Irritable bowel syndrome, unspecified; M19.90 Unspecified osteoarthritis, unspecified site; M81.0 Age-related osteoporosis without current pathological fracture; N32.81 Overactive bladder; Z79.02 Long term (current) use of antithrombotics/antiplatelets; Z79.4 Long term (current) use of insulin; Z79.51 Long term (current) use of inhaled steroids; Z79.82 Long term (current) use of aspirin; Z79.899 Other long term (current) drug therapy; Z82.3 Family history of stroke; Z82.49 Family history of ischemic heart disease and other diseases of the circulatory system; Z88.6 Allergy status to analgesic agent; Z88.5 Allergy status to narcotic agent; Z88.0 Allergy status to penicillin
CPT/HCPCS: 70450; 71045; 71046; 80048; 80053; 83880; 84145; 84439; 84443; 85025; 87070; 87205; 93005; 94640; 94760; 96361; 96372; 96374; 96375; 99285

== ENCOUNTER 2022-09-18 12:03 | Observation (INO) | payer MEDICARE, OTHER ==
[2022-09-18] MEDS ORDERED: NITROGLYCERIN SL TABS 0.4 MG TAB SUBLINGUAL STA ×3 (12:48→15:00)
[2022-09-18] MEDS ORDERED: ASPIRIN 81 MG PO STA (12:48)
--- NOTE | 2022-09-18 14:14 | XR ---
EXAMINATION TYPE: XR chest 2V DATE OF EXAM: 09/18/2022 COMPARISON: Chest x-ray May 21, 2022 HISTORY: Chest pain. TECHNIQUE: Frontal and lateral views of the chest are obtained. FINDINGS: There is chronic parenchymal change without suspicious focal air space opacity, pleural ef fusion, or pneumothorax seen. The cardiac silhouette size is stable and within normal limits. The osseous structures are demineralized. Cardiac stent in the left circumflex distribution is seen. IMPRESSION: Chronic changes without acute pulmonary process.
--- NOTE | 2022-09-18 14:41 | ED ---
General Adult HPI - General Chief complaint: Chest Pain Stated complaint: chest pain Time Seen by Provider: 09/18/22 12:25 Source: patient, EMS, RN notes reviewed, old records reviewed Mode of arrival: EMS Limitations: no limitations - History of Present Illness Initial comments: Patient is a 57-year-old female with past medical history remarkable for asthma, CAD, diabetes, COPD, hypertension, MS, seizures who presents emergency Department complaining of chest pain. Chest pain has been ongoing for approximately 1-4 weeks. Has been more constant over the last week. States is left-sided in nature with radiation towards her left shoulder. It is somewhat chronic, as well as persistent. Describes it as an achy feeling. Denies any associated shortness of breath or diaphoresis. Denies any lightheadedness or blurry vision. Denies any abdominal pain, nausea, vomiting. Has no other acute complaints at this time. Was sent from her neurologist's office for further evaluation when she told him that she was having chest pain. - Related Data Home Medications Medication Instructions Recorded Confirmed Albuterol Nebulized [Ventolin 2.5 mg INHALATION RT-Q6H PRN 02/11/22 09/18/22 Nebulized] Clopidogrel [Plavix] 75 mg PO DAILY 02/11/22 09/18/22 DULoxetine HCL [Cymbalta] 60 mg PO BID 02/11/22 09/18/22 Enalapril [Vasotec] 20 mg PO DAILY 02/11/22 09/18/22 Ezetimibe [Zetia] 10 mg PO DAILY 02/11/22 09/18/22 Insulin Aspart [NovoLOG Flexpen] See Protocol SQ AC-TID 02/11/22 09/18/22 Insulin Detemir [Levemir Flextouch 5 units SQ HS 02/11/22 09/18/22 Pen] Isosorbide Mononitrate ER [Imdur] 60 mg PO DAILY 02/11/22 09/18/22 NIFEdipine [Adalat CC] 30 mg PO DAILY 02/11/22 09/18/22 Omeprazole 40 mg PO DAILY 02/11/22 09/18/22 Potassium Chloride ER [K-Dur 10] 10 meq PO DAILY 02/11/22 09/18/22 Primidone [Mysoline] 50 mg PO TID 02/11/22 09/18/22 Rosuvastatin Calcium [Crestor] 40 mg PO DAILY 02/11/22 09/18/22 lamoTRIgine 150 mg PO BID 02/11/22 09/18/22 levETIRAcetam [Keppra] 1,000 mg PO BID 02/11/22 09/18/22 valACYclovir HCL [Valtrex] 1,000 mg PO DAILY 02/11/22 09/18/22 Aspirin EC [Ecotrin Low Dose] 81 mg PO DAILY 05/06/22 09/18/22 Baclofen [Lioresal] 30 mg PO QID@,,,05/06/22 09/18/22 Fluticasone Nasal [place] [Flonase 1 spray EA NOSTRIL DAILY 05/06/22 09/18/22 Nasal [place]] Pregabalin [Lyrica] 150 mg PO TID 05/06/22 09/18/22 rOPINIRole HCL [Requip] 0.5 mg PO TID 05/06/22 09/18/22 ALPRAZolam [Xanax] 0.5 mg PO HS 09/18/22 09/18/22 Acetaminophen [Tylenol Extra 1,000 mg PO Q8H PRN 09/18/22 09/18/22 Strength] Diroximel Fumarate [Vumerity] 462 mg PO BID 09/18/22 09/18/22 Furosemide [Lasix] 10 mg PO DAILY 09/18/22 09/18/22 Metoprolol Succinate [Metoprolol 25 mg PO DAILY 09/18/22 09/18/22 Succinate ER] Nitroglycerin 1 tab SL Q5M PRN 09/18/22 09/18/22 Ondansetron [Zofran] 4 mg PO DAILY PRN 09/18/22 09/18/22 Ubrogepant [Ubrelvy] 100 mg PO DAILY PRN 09/18/22 09/18/22 Previous Rx's Medication Instructions Recorded Folic Acid 1 mg PO DAILY #30 tab 05/15/22 Allergies Allergy/AdvReac Type Severity Reaction Status Date / Time bupropion [From Wellbutrin] Allergy Rash/Hives Verified 09/18/22 13:50 morphine Allergy Rash/Hives Verified 09/18/22 13:50 Penicillins Allergy Rash/Hives Verified 09/18/22 13:50 Review of Systems ROS Statement: Those systems with pertinent positive or pertinent negative responses have been documented in the HPI. Review of Systems: CONST: Denies fever EYES: Denies blurry vision ENT: Denies nasal congestion C/V: Endorses chest pain RESP: Denies shortness of breath GI: Denies abdominal pain : Denies dysuria SKIN: Denies rash. MSK: Denies joint pain. NEURO: Denies headache ROS Other: All systems not noted in ROS Statement are negative. Past Medical History Past Medical History: Asthma, Coronary Artery Disease (CAD), COPD, Diabetes Mellitus, GERD/Reflux, Hyperlipidemia, Hypertension, Osteoarthritis (OA), Renal Disease, Seizure Disorder Additional Past Medical History / Comment(s): IDDM type II, neuropathy bilateral legs/feet, vocal cord dysplasia/R vocal cord ulcer, dysphagia in past, IBS, overactive bladder, hyperparathyroidism, chronic back pain, headaches, chronic sinusitis, bilateral tinnitis, RLS, last seizure about one year ago, pt states past ETOH abuse but has not drank in 25 years. History of Any Multi-Drug Resistant Organisms: None Reported Past Surgical History: Appendectomy, Back Surgery, Heart Catheterization, Heart Catheterization With Stent, Hysterectomy, Tubal Ligation Additional Past Surgical History / Comment(s): Multiple throat biopsies, EGD, colonoscopies, back surgery x2. 2 stents. Past Anesthesia/Blood Transfusion Reactions: No Reported Reaction Date of Last Stent Placement:: unknown Past Psychological History: Bipolar, Depression Smoking Status: Current every day smoker Past Alcohol Use History: None Reported Past Drug Use History: None Reported - Past Family History Mother Family Medical History: Coronary Artery Disease (CAD) Additional Family Medical History / Comment(s): Mother had CABG Father Family Medical History: CVA/TIA General Exam - General Exam Comments Initial Comments: General: Appears in no acute distress. HEAD: Normal with no signs of head trauma. EYES: PERRLA, EOMI, conjunctiva normal, no discharge. ENT: Hearing grossly intact, normal oropharynx. RESPIRATORY: Clear breath sounds bilaterally. No wheezes, rales, or rhonchi. C/V: Regular rate and rhythm. S1 and S2 auscultated, no edema, peripheral pulses 2+ and intact throughout ABD: Abd is soft, nontender, nondistended EXT: Normal range of motion, no obvious deformity SKIN: No rashes or lesions observed on exposed skin. NEURO: Alert and oriented 4. No acute focal deficits. Limitations: no limitations Course Vital Signs 09/18/22 09/18/22 12:04 14:55 Temperature 99.2 F Pulse Rate 78 87 Respiratory 18 18 Rate Blood Pressure 125/104 124/75 O2 Sat by Pulse 94 L 97 Oximetry Medical Decision Making - Medical Decision Making Based on the patient's presentation and physical exam, I'm concerned for possible cardiopulm etiology for her current symptoms including possible ACS or CAD. We will obtain a cardiopulmonary labs. She'll receive an aspirin 324 mg as well as nitroglycerin tablets. She'll be evaluated for improvement. She was in agreement with this plan. Vital signs within acceptable limits. EKG shows no signs of ischemia. Chest x-ray as interpreted by myself reveals no evidence of acute cardio pulmonary process, no infiltrate. Patient's laboratory studies are remarkable for an undetectable troponin. Remainder of the labs are within acceptable limits. I discussed with the patient the results of her workup. Nitro tablets did minimal improvement for chest discomfort. I did discuss it with her cardiac history, heart scores for and I would like to admitted to the hospital at this time for cardiac observation. She was in agreement this plan. She'll be given morphine for chest pain. I spoke with the admitting physician, Dr. Shin who accepted the patient. Cardiology was consulted. We'll trend the troponin. - Lab Data Result diagrams: 09/18/22 13:02 09/18/22 13:02 Lab Results 09/18/22 09/18/22 09/18/22 Range/Units 13:02 13:02 13:02 WBC 6.5 (3.8-10.6) k/uL RBC 4.51 (3.80-5.40) m/uL Hgb 14.5 (11.4-16.0) gm/dL Hct 41.7 (34.0-46.0) % MCV 92.4 (80.0-100.0) fL MCH 32.1 (25.0-35.0) pg MCHC 34.7 (31.0-37.0) g/dL RDW 13.4 (11.5-15.5) % Plt Count 242 (150-450) k/uL MPV 8.1 Neutrophils % 80 % Lymphocytes % 12 % Monocytes % 4 % Eosinophils % 2 % Basophils % 1 % Neutrophils # 5.2 (1.3-7.7) k/uL Lymphocytes # 0.8 L (1.0-4.8) k/uL Monocytes # 0.3 (0-1.0) k/uL Eosinophils # 0.1 (0-0.7) k/uL Basophils # 0.0 (0-0.2) k/uL PT 9.8 (9.0-12.0) sec INR 0.9 (<1.2) APTT 24.0 (22.0-30.0) sec Sodium 142 (137-145) mmol/L Potassium 5.0 (3.5-5.1) mmol/L Chloride 103 (98-107) mmol/L Carbon Dioxide 31 H (22-30) mmol/L Anion Gap 8 mmol/L BUN 19 H (7-17) mg/dL Creatinine 0.84 (0.52-1.04) mg/dL Est GFR (CKD-EPI)AfAm 89 (>60 ml/min/1.73 sqM) Est GFR (CKD-EPI)NonAf 77 (>60 ml/min/1.73 sqM) Glucose 89 (74-99) mg/dL Calcium 9.3 (8.4-10.2) mg/dL Magnesium 2.2 (1.6-2.3) mg/dL Total Bilirubin 0.5 (0.2-1.3) mg/dL AST 20 (14-36) U/L ALT 13 (4-34) U/L Alkaline Phosphatase 81 (38-126) U/L Troponin I (0.000-0.034) ng/mL Total Protein 6.7 (6.3-8.2) g/dL Albumin 4.4 (3.5-5.0) g/dL 09/18/22 Range/Units 13:02 WBC (3.8-10.6) k/uL RBC (3.80-5.40) m/uL Hgb (11.4-16.0) gm/dL Hct (34.0-46.0) % MCV (80.0-100.0) fL MCH (25.0-35.0) pg MCHC (31.0-37.0) g/dL RDW (11.5-15.5) % Plt Count (150-450) k/uL MPV Neutrophils % % Lymphocytes % % Monocytes % % Eosinophils % % Basophils % % Neutrophils # (1.3-7.7) k/uL Lymphocytes # (1.0-4.8) k/uL Monocytes # (0-1.0) k/uL Eosinophils # (0-0.7) k/uL Basophils # (0-0.2) k/uL PT (9.0-12.0) sec INR (<1.2) APTT (22.0-30.0) sec Sodium (137-145) mmol/L Potassium (3.5-5.1) mmol/L Chloride (98-107) mmol/L Carbon Dioxide (22-30) mmol/L Anion Gap mmol/L BUN (7-17) mg/dL Creatinine (0.52-1.04) mg/dL Est GFR (CKD-EPI)AfAm (>60 ml/min/1.73 sqM) Est GFR (CKD-EPI)NonAf (>60 ml/min/1.73 sqM) Glucose (74-99) mg/dL Calcium (8.4-10.2) mg/dL Magnesium (1.6-2.3) mg/dL Total Bilirubin (0.2-1.3) mg/dL AST (14-36) U/L ALT (4-34) U/L Alkaline Phosphatase (38-126) U/L Troponin I <0.012 (0.000-0.034) ng/mL Total Protein (6.3-8.2) g/dL Albumin (3.5-5.0) g/dL - EKG Data -: EKG Interpreted by Me EKG Comments: 12-lead Electrocardiogram Interpretation Note EKG was reviewed and interpreted by myself. 12-lead ECG performed at 1211 is interpreted by me as revealing normal sinus rhythm at a rate of 81 beats per minute. [place] is normal. MO interval is 143 ms, QRS duration is 90 ms, QTc is 408 ms.. There were no ST or T wave abnormalities to suggest myocardial ischemia or injury. R wave progression across the precordium was satisfactory. By my interpretation this EKG is non-diagnostic for acute ischemia. Disposition Clinical Impression: Chest pain Disposition: ADMITTED IP TO THIS [facility] Condition: Stable Instructions (If sedation given, give patient instructions): Chest Pain (ED) Referrals: Nii Floyd MD [Primary Care Provider] - 1-2 days Time of Disposition: 15:00
[2022-09-18 14:46] LABS: Basophils % (A) 1 %; Eosinophils # (A) 0.1 k/uL (0-0.7); Eosinophils % (A) 2 %; HCT 41.7 % (34.0-46.0); HGB 14.5 gm/dL (11.4-16.0); Lymphocytes # (A) 0.8 k/uL (1.0-4.8); Lymphocytes % (A) 12 %; MCH 32.1 pg (25.0-35.0); MCHC 34.7 g/dL (31.0-37.0); MCV 92.4 fL (80.0-100.0); Mean Platelet Volume 8.1; Monocytes # (A) 0.3 k/uL (0-1.0); Monocytes % (A) 4 %; Neutrophils # (A) 5.2 k/uL (1.3-7.7); Neutrophils % (A) 80 %; Platelet Count 242 k/uL (150-450); RBC 4.51 m/uL (3.80-5.40); RDW 13.4 % (11.5-15.5); WBC 6.5 k/uL (3.8-10.6)
[2022-09-18 14:48] LABS: Albumin 4.4 g/dL (3.5-5.0); Calcium 9.3 mg/dL (8.4-10.2); Magnesium 2.2 mg/dL (1.6-2.3); Total Bilirubin 0.5 mg/dL (0.2-1.3); Total Protein 6.7 g/dL (6.3-8.2)
[2022-09-18 14:59] LABS: INR 0.9 (<1.2); Prothrombin Time 9.8 sec (9.0-12.0)
[2022-09-18] MEDS ORDERED: NALOXONE 0.4 MG/ML 1 ML VIAL IV PRN ×2 (15:24→20:50)
[2022-09-18] MEDS ORDERED: NON FORMULARY DRUG (Ubrogepant [Ubrelvy] 100 MG Tablet) PO PRN (15:26)
[2022-09-18] MEDS ORDERED: ALBUTEROL NEBULIZED 2.5 MG/3 ML INHALATION PRN (15:26)
[2022-09-18] MEDS ORDERED: ONDANSETRON 4 MG TAB PO PRN (15:26)
[2022-09-18] MEDS: PREGABALIN 75 MG CAP PO SCH (17:26)
[2022-09-18] MEDS: BACLOFEN 10 MG TAB PO SCH ×2 (17:26→22:46)
[2022-09-18] MEDS: PRIMIDONE 50 MG TAB PO SCH ×2 (17:26→22:44)
[2022-09-18] MEDS: HEPARIN SODIUM,PORCINE/PF 5,000 UNIT/0.5 ML SYRINGE SQ SCH (17:32)
[2022-09-18] MEDS ORDERED: LACTULOSE 20 GM/30 ML CUP PO PRN (20:49)
[2022-09-18] MEDS ORDERED: CALCIUM CARBONATE 500 MG CHEWABLE PO PRN (20:49)
[2022-09-18] MEDS ORDERED: LORazepam 0.5 MG TAB PO PRN (20:49)
[2022-09-18] MEDS ORDERED: ONDANSETRON 4 MG/2 ML VIAL IVP PRN (20:49)
[2022-09-18] MEDS ORDERED: DEXTROSE 50% SYRINGE 50 ML IVP PRN ×2 (20:50)
--- NOTE | 2022-09-18 20:55 | P.HPIM ---
History of Present Illness H&P Date: 09/18/22 Chief Complaint: Chest pain This is a 57-year-old patient, follows with Dr. Floyd. Chronic stable medical conditions include CAD, COPD, diabetes, GERD, hyperlipidemia, hypertension, osteoarthritis, neuropathy, vocal cord dysplasia, IBS, overactive bladder, chronic back pain, restless leg syndrome, seizure activity, stop drinking alcohol drinking -2011. Bipolar- follow with Dr. Gorman from psychiatry. Active smoker. Patient for about 2 or 3 weeks. Having episodes of palpitations at night. Lasting for a few seconds. Sometimes the pain. Patient's had about 50 pounds weight loss and decreased appetite. Also short of breath and wheezing. Does use a wheelchair and a walker. No fever no chills. Had gone down to Dr. Newton office for EMG today. Review of systems: GEN.: Tired decreased appetite EYES: None HEENT: Constant movement of the tongue NECK: None RESPIRATORY: As above CARDIOVASCULAR: As above GASTROINTESTINAL: None GENITOURINARY: None MUSCULOSKELETAL: Joint pains] LYMPHATICS: None HEMATOLOGICAL: None PSYCHIATRY: Anxious NEUROLOGICAL: Weakness of the muscles Past medical history to include: CAD, COPD, diabetes, GERD, hyperlipidemia, hypertension, prostatitis, kidney disease, seizure disorder, peripheral neuropathy, vocal cord dysplasia, IBS, overactive bladder, hyperparathyroidism, chronic back pain, this is like syndrome, seizure activity, history of alcohol abuse 10 years ago. Bipolar. Social history: to, Simone. Does use a cane/walker/wheelchair. Smokes a pack a day for 45 years. History of alcoholism stopped 10 years ago. Did use marijuana in the past. Family history: Mother had CAD Physical examination: VITAL SIGNS: 99.2, 78, 18, 125/104, 94% room air GENERAL: BMI 29.6, declining but awake, bit anxious. EYES: Pupils equal. Conjunctiva normal. HEENT: External appearance of nose and ears normal, oral cavity grossly normal. NECK: JVD not raised; masses not palpable. HEART: First and second heart sounds are normal; no edema. LUNGS: Respiratory rate increased; creased breath sounds prolonged expiration a nd wheezing. ABDOMEN: Soft, nontender, liver spleen not palpable, no masses palpable. PSYCH: Alert and oriented x3; mood and affect anxiousl. MUSCULOSKELETAL:No Clubbing/cyanosis;muscles-grossly intact NEUROLOGICAL: Cranial nerves grossly intact; no facial asymmetry, power and sensation grossly intact. Constant movement of the tongue's.-Writhing LYMPHATICS: No lymph nodes palpable in the axilla and neck INVESTIGATIONS, reviewed in the clinical context: White count 6.5 hemoglobin 14.5 platelets 242 potassium 5 be an 19 creatinine 0.84 Troponin I less than 0.0122 EKG tracing personally reviewed by me-normal sinus rhythm. Rate 81 Chest x-ray film personally reviewed by me-hyperinflation. Prominent pulmonary artery Assessment and plan: -Acute COPD exacerbation in current smoker: DuoNeb . Nebulized Pulmicort. IV Solu-Medrol. -Atypical anterior chest wall pain. For 2 weeks. Sharp. Lasting few seconds. Doubt cardiac. Troponin negative. Cardiology consulted. -Chronic Orofacial dyskinesia -Chronic nicotine dependence, cigarette smoker Nicotine patch 21 -Restless leg syndrome Requip to 0.5 mg 3 times a day -GERD Omeprazole 40 mg daily -Bipolar disorder Continue home medications -Diabetes mellitus type 2 chronically on insulin Follow Accu-Cheks with sliding scale -Chronic medical debility. Baseline uses a walker/wheelchair Past Medical History Past Medical History: Asthma, Coronary Artery Disease (CAD), COPD, Diabetes Mellitus, GERD/Reflux, Hyperlipidemia, Hypertension, Osteoarthritis (OA), Renal Disease, Seizure Disorder Additional Past Medical History / Comment(s): IDDM type II, neuropathy bilateral legs/feet, vocal cord dysplasia/R vocal cord ulcer, dysphagia in past, IBS, over active bladder, hyperparathyroidism, chronic back pain, headaches, chronic sinusitis, bilateral tinnitis, RLS, last seizure about one year ago, pt states past ETOH abuse but has not drank in 25 years. History of Any Multi-Drug Resistant Organisms: None Reported Past Surgical History: Appendectomy, Back Surgery, Heart Catheterization, Heart Catheterization With Stent, Hysterectomy, Tubal Ligation Additional Past Surgical History / Comment(s): Multiple throat biopsies, EGD, colonoscopies, back surgery x2. 2 stents. Past Anesthesia/Blood Transfusion Reactions: No Reported Reaction Date of Last Stent Placement:: unknown Past Psychological History: Bipolar, Depression Smoking Status: Current every day smoker Past Alcohol Use History: None Reported Past Drug Use History: None Reported - Past Family History Mother Family Medical History: Coronary Artery Disease (CAD) Additional Family Medical History / Comment(s): Mother had CABG Father Family Medical History: CVA/TIA Medications and Allergies Home Medications Medication Instructions Recorded Confirmed Type Albuterol Nebulized [Ventolin 2.5 mg INHALATION RT-Q6H PRN 02/11/22 09/18/22 History Nebulized] Clopidogrel [Plavix] 75 mg PO DAILY 02/11/22 09/18/22 History DULoxetine HCL [Cymbalta] 60 mg PO BID 02/11/22 09/18/22 History Enalapril [Vasotec] 20 mg PO DAILY 02/11/22 09/18/22 History Ezetimibe [Zetia] 10 mg PO DAILY 02/11/22 09/18/22 History Insulin Aspart [NovoLOG Flexpen] See Protocol SQ AC-TID 02/11/22 09/18/22 History Insulin Detemir [Levemir Flextouch 5 units SQ HS 02/11/22 09/18/22 History Pen] Isosorbide Mononitrate ER [Imdur] 60 mg PO DAILY 02/11/22 09/18/22 History NIFEdipine [Adalat CC] 30 mg PO DAILY 02/11/22 09/18/22 History Omeprazole 40 mg PO DAILY 02/11/22 09/18/22 History Potassium Chloride ER [K-Dur 10] 10 meq PO DAILY 02/11/22 09/18/22 History Primidone [Mysoline] 50 mg PO TID 02/11/22 09/18/22 History Rosuvastatin Calcium [Crestor] 40 mg PO DAILY 02/11/22 09/18/22 History lamoTRIgine 150 mg PO BID 02/11/22 09/18/22 History levETIRAcetam [Keppra] 1,000 mg PO BID 02/11/22 09/18/22 History valACYclovir HCL [Valtrex] 1,000 mg PO DAILY 02/11/22 09/18/22 History Aspirin EC [Ecotrin Low Dose] 81 mg PO DAILY 05/06/22 09/18/22 History Baclofen [Lioresal] 30 mg PO QID@,,,05/06/22 09/18/22 History Fluticasone Nasal [place] [Flonase 1 spray EA NOSTRIL DAILY 05/06/22 09/18/22 History Nasal [place]] Pregabalin [Lyrica] 150 mg PO TID 05/06/22 09/18/22 History rOPINIRole HCL [Requip] 0.5 mg PO TID 05/06/22 09/18/22 History Folic Acid 1 mg PO DAILY #30 tab 05/15/22 09/18/22 Rx ALPRAZolam [Xanax] 0.5 mg PO HS 09/18/22 09/18/22 History Acetaminophen [Tylenol Extra 1,000 mg PO Q8H PRN 09/18/22 09/18/22 History Strength] Diroximel Fumarate [Vumerity] 462 mg PO BID 09/18/22 09/18/22 History Furosemide [Lasix] 10 mg PO DAILY 09/18/22 09/18/22 History Metoprolol Succinate [Metoprolol 25 mg PO DAILY 09/18/22 09/18/22 History Succinate ER] Nitroglycerin 1 tab SL Q5M PRN 09/18/22 09/18/22 History Ondansetron [Zofran] 4 mg PO DAILY PRN 09/18/22 09/18/22 History Ubrogepant [Ubrelvy] 100 mg PO DAILY PRN 09/18/22 09/18/22 History Allergies Allergy/AdvReac Type Severity Reaction Status Date / Time bupropion [From Wellbutrin] Allergy Rash/Hives Verified 09/18/22 13:50 morphine Allergy Rash/Hives Verified 09/18/22 13:50 Penicillins Allergy Rash/Hives Verified 09/18/22 13:50 Physical Exam Vitals: Vital Signs Temp Pulse Resp BP Pulse Ox 09/18/22 19:18 94 L 09/18/22 17:34 98 19 110/70 97 09/18/22 15:17 84 16 106/71 95 09/18/22 14:55 87 18 124/75 97 09/18/22 12:04 99.2 F 78 18 125/104 94 L Intake and Output 09/18/22 09/18/22 09/18/22 06:59 14:59 22:59 Other: Weight 80.739 kg Results CBC & Chem 7: 09/18/22 13:02 09/18/22 13:02 Labs: Abnormal Lab Results - Last 24 Hours (Table) 09/18/22 09/18/22 Range/Units 13:02 13:02 Lymphocytes # 0.8 L (1.0-4.8) k/uL Carbon Dioxide 31 H (22-30) mmol/L BUN 19 H (7-17) mg/dL
[2022-09-18 22:43] LABS: Glucose,Whole Blood 100 mg/dL (70-110)
[2022-09-18] MEDS: lamoTRIgine 100 MG TAB PO SCH (22:44)
[2022-09-18] MEDS: levETIRAcetam 500 MG TAB PO SCH (22:45)
[2022-09-18] MEDS: DULoxetine HCL 60 MG CAPSULE.DR PO SCH (22:45)
[2022-09-18] MEDS: ALPRAZolam 0.5 MG TAB PO SCH (22:46)
[2022-09-18] MEDS: methylPREDNISolone SOD SUCCI 40 MG/ML 1 ML VIAL IV SCH (22:47)
[2022-09-18] MEDS: FLUTICASONE 50MCG/SPRAY NASAL 16GM EA NOSTRIL SCH (22:48)
[2022-09-18] MEDS: DIROXIMEL FUMARATE 231 MG PO SCH (22:56)
[2022-09-18] MEDS: INSULIN DETEMIR (LEVEMIR) 100 UNIT/ML SYR SQ SCH (22:56)
[2022-09-18] MEDS: NICOTINE 21MG/24HR PATCH TRANSDERM SCH (22:57)
[2022-09-18] MEDS: BUDESONIDE 1 MG/2 ML NEBU INHALATION SCH (23:40)
[2022-09-18] MEDS: IPRATROPIUM-ALBUTEROL 3 ML NEB INHALATION SCH ×2 (23:40→23:45)
[2022-09-19] MEDS: IPRATROPIUM-ALBUTEROL 3 ML NEB INHALATION SCH ×6 (03:19→23:55)
[2022-09-19] MEDS: PREGABALIN 75 MG CAP PO SCH ×4 (03:53→21:50)
[2022-09-19] MEDS: ALPRAZolam 0.5 MG TAB PO SCH ×2 (05:30→21:52)
[2022-09-19] MEDS: ACETAMINOPHEN TAB 325 MG TAB PO PRN ×2 (05:30→15:27)
[2022-09-19] MEDS: methylPREDNISolone SOD SUCCI 40 MG/ML 1 ML VIAL IV SCH ×3 (05:31→22:02)
[2022-09-19] MEDS: HEPARIN SODIUM,PORCINE/PF 5,000 UNIT/0.5 ML SYRINGE SQ SCH ×5 (05:38→21:54)
[2022-09-19] MEDS ORDERED: REGADENOSON 0.4 MG/5 ML SYRINGE IV PRN (08:04)
[2022-09-19] MEDS ORDERED: CAFFEINE CITRATE 60 MG/3 ML VIAL IV PRN (08:04)
[2022-09-19] MEDS ORDERED: AMINOPHYLLINE 500 MG/20 ML VIAL IV PRN (08:04)
[2022-09-19 08:35] LABS: Glucose,Whole Blood 123 mg/dL (70-110)
[2022-09-19] MEDS: BUDESONIDE 1 MG/2 ML NEBU INHALATION SCH ×2 (09:04→20:38)
[2022-09-19 10:17] LABS: Basophils # (A) 0.03 X 10*3/uL (0.00-0.10); Basophils % (A) 0.7 %; Eosinophils # (A) 0.13 X 10*3/uL (0.04-0.35); Eosinophils % (A) 3.1 %; HGB 13.6 g/dL (12.0-15.0); Immature Grans, Automated 0.7 %; Lymphocytes # (A) 0.65 X 10*3/uL (0.90-5.00); Lymphocytes % (A) 15.4 %; MCH 31.1 pg (27.0-32.0); MCHC 32.4 g/dL (32.0-37.0); MCV 95.9 fL (80.0-97.0); Mean Platelet Volume 9.7 fL (9.5-12.2); Monocytes # (A) 0.26 X 10*3/uL (0.20-1.00); Monocytes % (A) 6.2 %; NRBC Per 100 WBC 0 /100 WBCS (0.0-0.0); Neutrophils # (A) 3.11 X 10*3/uL (1.80-7.70); Neutrophils % (A) 73.9 %; Platelet Count 205 X 10*3/uL (140-440); RBC 4.38 X 10*6/uL (4.10-5.20); RDW 13.1 % (11.5-14.5); WBC 4.21 X 10*3/uL (4.50-10.00)
--- NOTE | 2022-09-19 10:19 | P.CRDCN ---
History of Present Illness Consult date: 09/19/22 History of present illness: History of present illness: The patient is a 57-year-old female patient with a past medical history significant for CAD with prior stenting of the LAD, chronic obstructive pulmonary disease, diabetes, hypertension, hyperlipidemia, seizures, active tobacco use. She has family history of parents and brother dying from coronary artery disease. She follows in the office with Dr. Sexton. She is scheduled for a stress test in the office on October 01. Patient presented with complaints of chest pain and palpitations but is been going on for one to one and a half weeks. Chest pain is on the left side with radiation to her left shoulder and achy-type. No lightheadedness or dizziness, no shortness of breath, no diaphoresis. No abdominal pain nausea vomiting. EKG sinus rhythm with no acute ST changes Chest x-ray reveals chronic changes without acute process CBC unremarkable. Electrolytes essentially normal, CO2 31, BUN 19 and crea tinine 0.84. Troponins are negative 3 draws. Liver function tests are normal. Echocardiogram 05/22/2022 revealed normal LV function. Difficult to exclude bicuspid aortic valve with mild aortic stenosis Cardiac catheterization 05/2022 revealed intermediate in-stent restenosis of the LAD. FFR was performed and came in to be ischemic. Balloon angioplasty was done. Home cardiac medications: Aspirin 81 mg daily, Plavix 75 mg daily, Vasotec 20 mg daily, Zetia 10 mg daily, Lasix 10 mg daily, Imdur 60 mg daily, Toprol-XL 25 mg daily, nifedipine 30 mg daily, nitroglycerin sublingually, Crestor 40 mg daily Review Of Systems: At the time of my evaluation Constitutional: No fever, no chills. No weakness, fatigue or lethargy. EENT: No headache. No dizziness. Lungs: No shortness of breath, cough, no sputum production. No wheezing. Cardiovascular: Reports chest pain, no lower extremity edema. Denies palpitations. No paroxysmal nocturnal dyspnea. No orthopnea. No lightheadedness or dizziness. No syncopal episodes. Abdominal: No abdominal pain. No nausea, vomiting. No diarrhea. No constipation. No bloody or tarry stools.. No loss of appetite. Genitourinary: No dysuria.. No urinary retention. Musculoskeletal: No myalgias. No muscle weakness, no gait dysfunction, no frequent falls. No back pain. No neck pain. Integumentary: No wounds. No rash or pruritus. No unusual bruising. Neurologic: No aphasia. No facial droop. No change in mentation. No head injury. No headache. No paralysis. No paresthesia. Psychiatric: No depression. No anxiety. Endocrine: No abnormal blood sugars. Physical examination: Gen: This is a 57-year-old female VS: reviewed HEENT: Head is atraumatic, normocephalic. Pupils equal, round. Sclerae is anicteric. NECK: Supple. No JVD. LUNGS: Clear to auscultation. No wheezes or rhonchi. No intercostal retractions. HEART: Regular rate and rhythm. No murmur. ABDOMEN: Soft. No masses. No tenderness. EXTREMITIES: No pedal edema. No calf tenderness. NEUROLOGICAL: Patient is awake, alert and oriented x3. Assessment: Chest pain, acute coronary syndrome has been ruled out Coronary artery disease with prior stenting of the LAD with known in-stent restenosis of the LAD Hypertension Hyperlipidemia Diabetes mellitus type 2 Active tobacco use and dependence Seizure disorder Plan: Resume patient's home cardiac medications Obtain Lexiscan Cardiolite stress test today Obtain 2-D echocardiogram and Doppler study to assess cardiac structure and function Further recommendations to follow based upon clinical course Thank you kindly for this consultation. Nurse practitioner note has been reviewed, I agree with documented findings and plan of care. Patient was seen and examined. Past Medical History Past Medical History: Asthma, Coronary Artery Disease (CAD), COPD, Diabetes Mellitus, GERD/Reflux, Hyperlipidemia, Hypertension, Osteoarthritis (OA), Renal Disease, Seizure Disorder Additional Past Medical History / Comment(s): IDDM type II, neuropathy bilateral legs/feet, vocal cord dysplasia/R vocal cord ulcer, dysphagia in past, IBS, overactive bladder, hyperparathyroidism, chronic back pain, headaches, chronic sinusitis, bilateral tinnitis, RLS, last seizure about one year ago, pt states past ETOH abuse but has not drank in 25 years. History of Any Multi-Drug Resistant Organisms: None Reported Past Surgical History: Appendectomy, Back Surgery, Heart Catheterization, Heart Catheterization With Stent, Hysterectomy, Tubal Ligation Additional Past Surgical History / Comment(s): Multiple throat biopsies, EGD, colonoscopies, back surgery x2. 2 stents. Past Anesthesia/Blood Transfusion Reactions: No Reported Reaction Date of Last Stent Placement:: unknown Past Psychological History: Bipolar, Depression Smoking Status: Current every day smoker Past Alcohol Use History: None Reported Past Drug Use History: None Reported - Past Family History Mother Family Medical History: Coronary Artery Disease (CAD) Additional Family Medical History / Comment(s): Mother had CABG Father Family Medical History: CVA/TIA Medications and Allergies Home Medications Medication Instructions Recorded Confirmed Type Albuterol Nebulized [Ventolin 2.5 mg INHALATION RT-Q6H PRN 02/11/22 09/18/22 History Nebulized] Clopidogrel [Plavix] 75 mg PO DAILY 02/11/22 09/18/22 History DULoxetine HCL [Cymbalta] 60 mg PO BID 02/11/22 09/18/22 History Enalapril [Vasotec] 20 mg PO DAILY 02/11/22 09/18/22 History Ezetimibe [Zetia] 10 mg PO DAILY 02/11/22 09/18/22 History Insulin Aspart [NovoLOG Flexpen] See Protocol SQ AC-TID 02/11/22 09/18/22 History Insulin Detemir [Levemir Flextouch 5 units SQ HS 02/11/22 09/18/22 History Pen] Isosorbide Mononitrate ER [Imdur] 60 mg PO DAILY 02/11/22 09/18/22 History NIFEdipine [Adalat CC] 30 mg PO DAILY 02/11/22 09/18/22 History Omeprazole 40 mg PO DAILY 02/11/22 09/18/22 History Potassium Chloride ER [K-Dur 10] 10 meq PO DAILY 02/11/22 09/18/22 History Primidone [Mysoline] 50 mg PO TID 02/11/22 09/18/22 History Rosuvastatin Calcium [Crestor] 40 mg PO DAILY 02/11/22 09/18/22 History lamoTRIgine 150 mg PO BID 02/11/22 09/18/22 History levETIRAcetam [Keppra] 1,000 mg PO BID 02/11/22 09/18/22 History valACYclovir HCL [Valtrex] 1,000 mg PO DAILY 02/11/22 09/18/22 History Aspirin EC [Ecotrin Low Dose] 81 mg PO DAILY 05/06/22 09/18/22 History Baclofen [Lioresal] 30 mg PO QID@08,,,05/06/22 09/18/22 History Fluticasone Nasal [place] [Flonase 1 spray EA NOSTRIL DAILY 05/06/22 09/18/22 Hist ory Nasal [place]] Pregabalin [Lyrica] 150 mg PO TID 05/06/22 09/18/22 History rOPINIRole HCL [Requip] 0.5 mg PO TID 05/06/22 09/18/22 History Folic Acid 1 mg PO DAILY #30 tab 05/15/22 09/18/22 Rx ALPRAZolam [Xanax] 0.5 mg PO HS 09/18/22 09/18/22 History Acetaminophen [Tylenol Extra 1,000 mg PO Q8H PRN 09/18/22 09/18/22 History Strength] Diroximel Fumarate [Vumerity] 462 mg PO BID 09/18/22 09/18/22 History Furosemide [Lasix] 10 mg PO DAILY 09/18/22 09/18/22 History Metoprolol Succinate [Metoprolol 25 mg PO DAILY 09/18/22 09/18/22 History Succinate ER] Nitroglycerin 1 tab SL Q5M PRN 09/18/22 09/18/22 History Ondansetron [Zofran] 4 mg PO DAILY PRN 09/18/22 09/18/22 History Ubrogepant [Ubrelvy] 100 mg PO DAILY PRN 09/18/22 09/18/22 History Allergies Allergy/AdvReac Type Severity Reaction Status Date / Time bupropion [From Wellbutrin] Allergy Rash/Hives Verified 09/18/22 13:50 morphine Allergy Rash/Hives Verified 09/18/22 13:50 Penicillins Allergy Rash/Hives Verified 09/18/22 13:50 Physical Exam Vitals: Vital Signs Temp Pulse Pulse Resp BP BP Pulse Ox 09/19/22 07:51 98.2 F 73 18 123/75 90 L 09/19/22 07:22 98.3 F 75 18 130/75 94 L 09/19/22 05:21 98.4 F 72 14 109/64 98 09/18/22 19:18 94 L 09/18/22 17:34 98 19 110/70 97 09/18/22 15:17 84 16 106/71 95 09/18/22 14:55 87 18 124/75 97 09/18/22 12:04 99.2 F 78 18 125/104 94 L Intake and Output 09/18/22 09/19/22 09/19/22 22:59 06:59 14:59 Other: # Voids 0 Results 09/18/22 13:02 09/18/22 13:02 Cardiac Enzymes 09/18/22 09/18/22 09/18/22 Range/Units 13:02 13:02 18:04 AST 20 (14-36) U/L Troponin I <0.012 <0.012 (0.000-0.034) ng/mL 09/18/22 Range/Units 20:41 AST (14-36) U/L Troponin I <0.012 (0.000-0.034) ng/mL Coagulation 09/18/22 Range/Units 13:02 PT 9.8 (9.0-12.0) sec APTT 24.0 (22.0-30.0) sec CBC 09/18/22 Range/Units 13:02 WBC 6.5 (3.8-10.6) k/uL RBC 4.51 (3.80-5.40) m/uL Hgb 14.5 (11.4-16.0) gm/dL Hct 41.7 (34.0-46.0) % Plt Count 242 (150-450) k/uL Comprehensive Metabolic Panel 09/18/22 Range/Units 13:02 Sodium 142 (137-145) mmol/L Potassium 5.0 (3.5-5.1) mmol/L Chloride 103 (98-107) mmol/L Carbon Dioxide 31 H (22-30) mmol/L BUN 19 H (7-17) mg/dL Creatinine 0.84 (0.52-1.04) mg/dL Glucose 89 (74-99) mg/dL Calcium 9.3 (8.4-10.2) mg/dL AST 20 (14-36) U/L ALT 13 (4-34) U/L Alkaline Phosphatase 81 (38-126) U/L Total Protein 6.7 (6.3-8.2) g/dL Albumin 4.4 (3.5-5.0) g/dL Current Medications Generic Name Dose Route Start Last Admin Trade Name Freq PRN Reason Stop Dose Admin Acetaminophen 650 mg 09/18/22 20:49 09/19/22 05:30 Acetaminophen Tab 325 Mg Tab PO 650 mg Q6HR PRN Administration Mild Pain or Fever > 100.5 Albuterol Sulfate 2.5 mg 09/18/22 15:26 Albuterol Nebulized 2.5 Mg/3 Ml INHALATION RT-Q6H PRN Shortness Of Breath Albuterol/Ipratropium 3 ml 09/18/22 20:47 09/19/22 03:19 Ipratropium-Albuterol 3 Ml Neb INHALATION Not Given RT-Q4H UYEN Alprazolam 0.5 mg 09/18/22 21:00 09/19/22 05:30 Alprazolam 0.5 Mg Tab PO 0.5 mg HS [facility] Administration Aspirin 81 mg 09/19/22 09:00 Aspirin 81 Mg PO DAILY [facility] Atorvastatin Calcium 80 mg 09/19/22 09:00 Atorvastatin 80 Mg Tab PO DAILY [facility] Baclofen 30 mg 09/18/22 17:00 09/18/22 22:46 Baclofen 10 Mg Tab PO 30 mg QID@,, [facility] Administration Budesonide 1 mg 09/18/22 20:48 09/18/22 23:40 Budesonide 1 Mg/2 Ml Nebu INHALATION Not Given RT-BID [facility] Calcium Carbonate/Glycine 1,000 mg 09/18/22 20:49 Calcium Carbonate 500 Mg Chewable PO Q4HR PRN Dyspepsia Clopidogrel Bisulfate 75 mg 09/19/22 09:00 Clopidogrel 75 Mg Tab PO DAILY [facility] Dextrose/Water 25 ml 09/18/22 20:50 Dextrose 50% Syringe 50 Ml IVP PER PROTOCOL PRN Hypoglycemia Protocol Dextrose/Water 50 ml 09/18/22 20:50 Dextrose 50% Syringe 50 Ml IVP PER PROTOCOL PRN Hypoglycemia Protocol Duloxetine HCl 60 mg 09/18/22 21:00 09/18/22 22:45 Duloxetine Hcl 60 Mg Capsule.Dr PO 60 mg BID UYEN Administration Ezetimibe 10 mg 09/19/22 09:00 Ezetimibe 10 Mg Tab PO DAILY [facility] Fluticasone Propionate 1 spray 09/19/22 09:00 09/18/22 22:48 Fluticasone 50mcg/[place] Nasal 16gm EA NOSTRIL 1 spray DAILY [facility] Administration Furosemide 10 mg 09/19/22 09:00 Furosemide 10 Mg Tab PO DAILY [facility] Heparin Sodium (Porcine) 5,000 unit 09/18/22 16:00 09/19/22 05:38 Heparin Sodium,Porcine/Pf 5,000 Unit/0.5 Ml Syringe SQ 5,000 unit Q8HR UYEN Administration Insulin Aspart 0 unit 09/19/22 07:30 Insulin Aspart (Novolog) 100 Unit/Ml Vial SQ AC-TID [facility] Protocol Insulin Detemir 5 unit 09/18/22 21:00 09/18/22 22:56 Insulin Detemir (Levemir) 100 Unit/Ml Syr SQ Not Given [facility] Isosorbide Mononitrate 60 mg 09/19/22 09:00 Isosorbide Mononitrate Er 60 Mg Tab.Er.24h PO DAILY [facility] Lactulose 20 gm 09/18/22 20:49 Lactulose 20 Gm/30 Ml Cup PO DAILY PRN Constipation Lamotrigine 150 mg 09/18/22 21:00 09/18/22 22:44 Lamotrigine 100 Mg Tab PO 150 mg BID [facility] Administration Levetiracetam 1,000 mg 09/18/22 21:00 09/18/22 22:45 Levetiracetam 500 Mg Tab PO 1,000 mg BID [facility] Administration Lisinopril 40 mg 09/19/22 09:00 Lisinopril 20 Mg Tab PO DAILY [facility] Lorazepam 0.5 mg 09/18/22 20:49 Lorazepam 0.5 Mg Tab PO Q6HR PRN Anxiety Methylprednisolone Sodium Succinate 40 mg 09/18/22 21:00 09/19/22 05:31 Methylprednisolone Sod Succi 40 Mg/Ml 1 Ml Vial IV 40 mg Q8H [facility] Administration Metoprolol Succinate 25 mg 09/19/22 09:00 Metoprolol Succinate (Er) 25 Mg Tab.Er.24h PO DAILY [facility] Naloxone HCl 0.2 mg 09/18/22 20:50 Naloxone 0.4 Mg/Ml 1 Ml Vial IV Q2M PRN Opioid Reversal Nicotine 1 patch 09/18/22 21:00 09/18/22 22:57 Nicotine 21mg/24hr Patch TRANSDERM Not Given DAILY [facility] Nifedipine 30 mg 09/19/22 09:00 Nifedipine Xl 30 Mg Tab.Er.24 PO DAILY [facility] Non-Formulary Medication 462 mg 09/18/22 21:00 09/18/22 22:56 Diroximel Fumarate [Vumerity] PO Not Given BID [facility] Non-Formulary Medication 100 mg 09/18/22 15:26 Ubrogepant [Ubrelvy] PO DAILY PRN headaches Ondansetron HCl 4 mg 09/18/22 15:26 Ondansetron 4 Mg Tab PO DAILY PRN Nausea Ondansetron HCl 4 mg 09/18/22 20:49 Ondansetron 4 Mg/2 Ml Vial IVP Q8HR PRN Nausea And Vomiting Pantoprazole Sodium 40 mg 09/19/22 07:30 Pantoprazole 40 Mg Tablet PO AC-BRKFST [facility]YEN Potassium Chloride 10 meq 09/19/22 09:00 Potassium Chloride Er 10 Meq Tab.Er.Prt PO DAILY [facility] Pregabalin 150 mg 09/18/22 16:00 09/19/22 03:53 Pregabalin 75 Mg Cap PO Not Given TID [facility]YEN Primidone 50 mg 09/18/22 16:00 09/18/22 22:44 Primidone 50 Mg Tab PO 50 mg TID [facility] Administration Ropinirole HCl 0.5 mg 09/18/22 16:00 09/18/22 22:43 Ropinirole Hcl 0.25 Mg Tab PO 0.5 mg TID [facility] Administration Intake and Output 09/18/22 09/19/22 09/19/22 22:59 06:59 14:59 Other: # Voids 0 09/18/22 13:02 09/18/22 13:02
[2022-09-19 10:29] LABS: African American GFR (CKD) 113.1 (60.0-200.0); Anion Gap 11.8 mmol/L (10.00-18.00); BUN/Creat Ratio 31.39 Ratio (12.00-20.00); Calcium 9.3 mg/dL (8.7-10.3); Carbon Dioxide 27.6 mmol/L (20.0-27.5); Non-African American GFR(CKD) 97.6 (60.0-200.0); Potassium 4.1 mmol/L (3.5-5.5)
[2022-09-19] MEDS: INSULIN ASPART (NovoLOG) 100 UNIT/ML VIAL SQ SCH ×3 (10:56→17:46)
[2022-09-19] MEDS: DIROXIMEL FUMARATE 231 MG PO SCH ×2 (10:56→21:53)
[2022-09-19] MEDS: METOPROLOL SUCCINATE (ER) 25 MG TAB.ER.24H PO SCH ×2 (11:54→12:04)
[2022-09-19] MEDS: NICOTINE 21MG/24HR PATCH TRANSDERM SCH (11:54)
[2022-09-19] MEDS: EZETIMIBE 10 MG TAB PO SCH (11:54)
[2022-09-19] MEDS: PRIMIDONE 50 MG TAB PO SCH ×3 (11:54→21:52)
[2022-09-19] MEDS: DULoxetine HCL 60 MG CAPSULE.DR PO SCH ×2 (11:55→21:50)
[2022-09-19] MEDS: lamoTRIgine 100 MG TAB PO SCH ×2 (11:55→21:50)
[2022-09-19] MEDS: ATORVASTATIN 80 MG TAB PO SCH (11:55)
[2022-09-19] MEDS: CLOPIDOGREL 75 MG TAB PO SCH (11:56)
[2022-09-19] MEDS: BACLOFEN 10 MG TAB PO SCH ×4 (11:56→21:50)
[2022-09-19] MEDS: PANTOPRAZOLE 40 MG TABLET PO SCH (11:56)
[2022-09-19] MEDS: ASPIRIN 81 MG PO SCH (11:56)
[2022-09-19] MEDS: levETIRAcetam 500 MG TAB PO SCH ×2 (11:56→22:02)
[2022-09-19] MEDS: POTASSIUM CHLORIDE ER 10 MEQ TAB.ER.PRT PO SCH (11:56)
[2022-09-19] MEDS: lisinopriL 20 MG TAB PO SCH (11:56)
[2022-09-19 12:10] LABS: Glucose,Whole Blood 118 mg/dL (70-110)
[2022-09-19] MEDS: FUROSEMIDE 10 MG TAB PO SCH (12:31)
[2022-09-19] MEDS: NIFEdipine XL 30 MG TAB.ER.24 PO SCH (12:31)
[2022-09-19] MEDS: ISOSORBIDE MONONITRATE ER 60 MG TAB.ER.24H PO SCH (12:31)
--- NOTE | 2022-09-19 12:57 | CA ---
Lexiscan Nuclear Stress Test Report Name: Mesha Will Exam Date: 09/19/2022 10:23 Exam Location: [place] Stress Ht (in): 65 Wt (lb): 178 BSA: 1.88 Ordering Phys: Bridget Coker Referring Phys: LESLIE,, Technologist: Domenico Mahan Age: 57 Gender: F : 1965 Procedure CPT: Indications: Reflex order-Stress test ICD-10 Codes: Patient History: Medications: SEE CHART Meds past 24 hrs: Pretest Chest Pain: STRESS TEST Lexiscan Protocol Exercise Duration (min:sec): 01:[address] Depressions (mm): Angina Score: Whitney Score: Resting HR (bpm): 75 Peak HR (bpm): 99 Resting BP (mmHg): 136 / 72 Peak BP (mmHg): 124 / 69 MPHR: 163 Target HR: 139 % MPHR: 61 METS: 1.0 Total Dose: Peak Dose: Atropine: Double Product: 06960 BP Response: Stress Termination: INFUSION COMPLETE Stress Symptoms: CHEST PAIN Stress Summary: ECG ANALYSIS Resting ECG: Normal sinus rhythm normal axis normal intervals Stress ECG: Patient was given intravenous Lexiscan as a protocol did not have significant ST segment depression CONCLUSIONS Negative stress test by EKG criteria Cardiolite portion of the stress test will be reported separately Dr. Enzo Sexton MD (Electronically Signed) Final Date: 19 September 2022 12:56
--- NOTE | 2022-09-19 13:53 | NM ---
EXAMINATION TYPE: NM stress lexiscan cardiolite DATE OF EXAM: 09/19/2022 COMPARISON: NONE HISTORY: Chest pain TECHNIQUE: After the intravenous administration of 9.8 mCi Tc 99m Sestamibi - Cardiolite resting SPE CT images acquired 45 minutes post injection. At peak stress 25.2 mCi Tc 99m Sestamibi - Stress images obtained 45 minutes post injection The patient was stressed with 0.4mg Lexiscan. FINDINGS: No fixed defects are evident There is some mild diminished radiotracer accumulation within the mid posterior wall extending toward the cardiac apex. Stress images this has improved radiotracer accumulation. Wall motion is normal Ejection fraction is calculated to be 61 %. IMPRESSION: 1. Mild stress-induced ischemic change along the midportion of the inferior wall. Correlate for EKG roz bundy.
[2022-09-19] MEDS: valACYclovir HCL 1,000 MG TABLET PO SCH (15:28)
[2022-09-19] MEDS ORDERED: NITROGLYCERIN SL TABS 0.4 MG TAB SUBLINGUAL PRN (16:34)
[2022-09-19] MEDS ORDERED: ATORVASTATIN 80 MG TAB PO STA (16:34)
[2022-09-19] MEDS ORDERED: ASPIRIN 325 MG TAB PO STA (16:34)
[2022-09-19] MEDS ORDERED: ALPRAZolam 0.5 MG TAB PO PRN (16:34)
[2022-09-19] MEDS ORDERED: ALPRAZolam 0.25 MG TAB PO PRN (16:34)
[2022-09-19 17:24] LABS: Glucose,Whole Blood 99 mg/dL (70-110)
--- NOTE | 2022-09-19 17:38 | P.PN ---
Progress Note - Text Progress Note Date: 09/19/22 Chief Complaint: Chest pain This is a 57-year-old patient, follows with Dr. Floyd. Chronic stable medical conditions include CAD, COPD, diabetes, GERD, hyperlipidemia, hypertension, osteoarthritis, neuropathy, vocal cord dysplasia, IBS, overactive bladder, chronic back pain, restless leg syndrome, seizure activity, stop drinking alcohol drinking -2011. Bipolar- follow with Dr. Gorman from psychiatry. Active smoker. Patient for about 2 or 3 weeks. Having episodes of palpitations at night. Lasting for a few seconds. Sometimes the pain. Patient's had about 50 pounds weight loss and decreased appetite. Also short of breath and wheezing. Does use a wheelchair and a walker. No fever no chills. Had gone down to Dr. Newton office for EMG today. 09/19/2022: Admitted with atypical chest pain. COPD exacerbation. Started on DuoNeb, IV Solu-Medrol. This afternoon patient underwent nuclear stress test. Came back showing mild stress induced ischemic changes along the midportion of the inferior wall. Plan for patient to proceed for cardiac catheterization. Past medical history to include: CAD, COPD, diabetes, GERD, hyperlipidemia, hypertension, prostatitis, kidney disease, seizure disorder, peripheral neuropathy, vocal cord dysplasia, IBS, ove ractive bladder, hyperparathyroidism, chronic back pain, this is like syndrome, seizure activity, history of alcohol abuse 10 years ago. Bipolar. Social history: to, Simone. Does use a cane/walker/wheelchair. Smokes a pack a day for 45 years. History of alcoholism stopped 10 years ago. Did use marijuana in the past. Family history: Mother had CAD Physical examination: VITAL SIGNS: 98.6, 79, 14, 140s at 74, 94% room air GENERAL: Reclining, anxious EYES: Pupils equal. Conjunctiva normal. HEENT: External appearance of nose and ears normal, oral cavity grossly normal. NECK: JVD not raised; masses not palpable. HEART: First and second heart sounds are normal; no edema. LUNGS: Respiratory rate increased; creased breath sounds prolonged expiration ABDOMEN: Soft, nontender, liver spleen not palpable, no masses palpable. PSYCH: Alert and oriented x3; mood and affect anxiousl. MUSCULOSKELETAL:No Clubbing/cyanosis;muscles-grossly intact INVESTIGATIONS, reviewed in the clinical context: Nuclear stress test: Showing reversible ischemia 09/19/2022: White count 4.2 hemoglobin 13.6 platelets 205 potassium 4.1 creatinine 0.7 White count 6.5 hemoglobin 14.5 platelets 242 potassium 5 be an 19 creatinine 0.84 Troponin I less than 0.0122 EKG tracing personally reviewed by me-normal sinus rhythm. Rate 81 Chest x-ray film personally reviewed by me-hyperinflation. Prominent pulmonary artery Assessment and plan: -Acute COPD exacerbation in current smoker: DuoNeb . Nebulized Pulmicort. IV Solu-Medrol. -Anterior chest wall pain with positive stress test. Possibly unstable angina Troponin negative. For cardiac catheterization tomorrow. -Chronic Orofacial dyskinesia -Chronic nicotine dependence, cigarette smoker Nicotine patch 21 -Restless leg syndrome Requip to 0.5 mg 3 times a day -GERD Omeprazole 40 mg daily -Bipolar disorder Continue home medications -Diabetes mellitus type 2 chronically on insulin Follow Accu-Cheks with sliding scale -Chronic medical debility. Baseline uses a walker/wheelchair -DO NOT RESUSCITATE Continue DuoNeb, IV Solu-Medrol. Positive stress test. For cardiac catheterization tomorrow.
--- NOTE | 2022-09-19 17:43 | CA ---
Transthoracic Echo Report Name: Mesha Will Age: 57 Gender: F : 1965 Exam Date: 09/19/2022 13:31 Exam Location: [facility] Ht (in): 65 Wt (lb): 178 Ordering Physician: Bridget Coker Attending/Referring Phys: [id number], Sheela Jewelry Racker Kenyatta Urbina RDCS Procedure CPT: Indications: LVF Cardiac Hx: Technical Quality: Contrast 1: Total Dose (mL): Contrast 2: N/A Total Dose (mL): MEASUREMENTS (Male / Female) Normal Values M-MODE Aortic Root Diameter MM 3.2 cm LA Systolic Diameter MM 3.7 cm LA Ao Ratio MM 1.2 AV Cusp Separation MM 0.9 cm DOPPLER AV Peak Velocity 214.7 cm/s AV Peak Gradient 18.4 mmHg AV Mean Velocity 133.7 cm/s AV Mean Gradient 8.4 mmHg AV Velocity Time Integral 34.5 cm LVOT Peak Velocity 125.6 cm/s LVOT Peak Gradient 6.3 mmHg MV Area PHT 2.7 cm??? Mitral E Point Velocity 76.6 cm/s Mitral A Point Velocity 94.1 cm/s Mitral E to A Ratio 0.8 MV Deceleration Time 284.4 ms MV E' Velocity 4.3 cm/s Mitral E to MV E' Ratio 17.9 FINDINGS Left Ventricle Left ventricular ejection fraction is estimated at 55%. Left ventricular cavity size normal. Right Ventricle Normal right ventricular size and function. Right ventricular systolic pressure within normal limits. Right Atrium Normal right atrial size. Left Atrium Normal left atrial size. Mitral Valve Mitral valve thickened. Mild mitral regurgitation. Mild mitral annular calcification. Aortic Valve Mild aortic stenosis with a peak gradient of 18 mmHg and a mean gradient of 9mmHg. Tricuspid Valve Structurally normal tricuspid valve. Mild tricuspid regurgitation. Pulmonic Valve Structurally normal pulmonic valve. Pericardium Normal pericardium. Aorta Normal size aortic root and proximal ascending aorta. CONCLUSIONS Normal LV systolic function Mild aortic stenosis Previewed by: Dr. Enzo Sexton MD (Electronically Signed) Final Date: 19 September 2022 17:42
[2022-09-19 20:55] LABS: Glucose,Whole Blood 134 mg/dL (70-110)
[2022-09-19] MEDS: INSULIN DETEMIR (LEVEMIR) 100 UNIT/ML SYR SQ SCH (21:48)
[2022-09-20] MEDS: INSULIN ASPART (NovoLOG) 100 UNIT/ML VIAL SQ SCH ×2 (03:56→12:43)
[2022-09-20] MEDS: IPRATROPIUM-ALBUTEROL 3 ML NEB INHALATION SCH ×4 (04:47→15:09)
[2022-09-20 04:56] LABS: Glucose,Whole Blood 137 mg/dL (70-110)
[2022-09-20] MEDS: methylPREDNISolone SOD SUCCI 40 MG/ML 1 ML VIAL IV SCH ×2 (05:05→13:12)
[2022-09-20] MEDS: PANTOPRAZOLE 40 MG TABLET PO SCH (05:06)
[2022-09-20] MEDS ORDERED: HEPARIN SODIUM,PORCINE 10,000 UNIT in SODIUM CHLORIDE 0.9% 1,000 ML IRRIGATION PRN (07:00)
[2022-09-20] MEDS ORDERED: HEPARIN SODIUM,PORCINE 2,500 UNIT in SODIUM CHLORIDE 0.9% 250 ML IRRIGATION PRN (07:00)
[2022-09-20] MEDS: BUDESONIDE 1 MG/2 ML NEBU INHALATION SCH (07:59)
[2022-09-20] MEDS: BACLOFEN 10 MG TAB PO SCH ×3 (08:31→17:32)
[2022-09-20] MEDS: EZETIMIBE 10 MG TAB PO SCH (08:31)
[2022-09-20] MEDS: lamoTRIgine 100 MG TAB PO SCH (08:31)
[2022-09-20] MEDS: METOPROLOL SUCCINATE (ER) 25 MG TAB.ER.24H PO SCH (08:31)
[2022-09-20] MEDS: DULoxetine HCL 60 MG CAPSULE.DR PO SCH (08:31)
[2022-09-20] MEDS: NICOTINE 21MG/24HR PATCH TRANSDERM SCH (08:31)
[2022-09-20] MEDS: PREGABALIN 75 MG CAP PO SCH ×2 (08:31→15:36)
[2022-09-20] MEDS: ASPIRIN 81 MG PO SCH (08:31)
[2022-09-20] MEDS: NIFEdipine XL 30 MG TAB.ER.24 PO SCH (08:32)
[2022-09-20] MEDS: CLOPIDOGREL 75 MG TAB PO SCH (08:32)
[2022-09-20] MEDS: valACYclovir HCL 1,000 MG TABLET PO SCH (08:32)
[2022-09-20] MEDS: POTASSIUM CHLORIDE ER 10 MEQ TAB.ER.PRT PO SCH (08:32)
[2022-09-20] MEDS: DIROXIMEL FUMARATE 231 MG PO SCH (08:32)
[2022-09-20] MEDS: PRIMIDONE 50 MG TAB PO SCH ×2 (08:32→15:36)
[2022-09-20] MEDS: levETIRAcetam 500 MG TAB PO SCH (08:36)
[2022-09-20] MEDS: ATORVASTATIN 80 MG TAB PO SCH (08:49)
[2022-09-20] MEDS: HEPARIN SODIUM,PORCINE/PF 5,000 UNIT/0.5 ML SYRINGE SQ SCH ×2 (08:49→15:36)
[2022-09-20] MEDS ORDERED: SODIUM CHLORIDE 0.9% 1,000 ML IV ONE (08:53)
[2022-09-20] MEDS ORDERED: fentaNYL (PF) 50 MCG/ML 2 ML AMP ONE (09:07)
[2022-09-20] MEDS ORDERED: fentaNYL (PF) 50 MCG/ML 2 ML AMP IVP ONE ×2 (09:09→09:27)
[2022-09-20] MEDS ORDERED: MIDAZOLAM 2 MG/2 ML VIAL IVP ONE ×2 (09:09→09:13)
[2022-09-20] MEDS ORDERED: LIDOCAINE 1% INJ 10MG/ML (30 ML VIAL-PF) SQ ONE ×2 (09:11→09:19)
[2022-09-20] MEDS ORDERED: IOPAMIDOL-370 125ML BTL INJ ONE (09:40)
[2022-09-20] MEDS ORDERED: RX INFO: IV CONTRAST WAS GIVEN 1 EACH MISC MISCELLANE PRN (09:48)
[2022-09-20] MEDS ORDERED: SODIUM CHLORIDE 0.9% 1,000 ML IV SCH (10:00)
[2022-09-20] MEDS ORDERED: RANOLAZINE 500 MG TAB.ER.12H PO SCH (10:15)
[2022-09-20] MEDS: FUROSEMIDE 10 MG TAB PO SCH (10:26)
[2022-09-20] MEDS: FLUTICASONE 50MCG/SPRAY NASAL 16GM EA NOSTRIL SCH (10:26)
[2022-09-20] MEDS: ISOSORBIDE MONONITRATE ER 60 MG TAB.ER.24H PO SCH (10:26)
[2022-09-20] MEDS: lisinopriL 20 MG TAB PO SCH (10:26)
--- NOTE | 2022-09-20 11:47 | CC ---
CARDIAC CATHETERIZATION REPORT INDICATIONS: Chest pain with abnormal stress test showing ischemia involving the midportion of the inferior wall extending towards the apex. PROCEDURE NOTE: After obtaining informed consent, left heart catheterization and coronary angiogram were performed via the left femoral artery using standard Candy catheters. The patient tolerated the procedure well without any obvious immediate complications. Patient received moderate conscious sedation. Total sedation time was 25 minutes. A femoral angiogram was performed, and Angio-Seal will be deployed for hemostasis. The patient did not wish to go through radial catheterization. I initially attempted right femoral arterial axis after injecting lidocaine, a needle was passed into the femoral artery, however, we could not advance the wire into the femoral artery. Artery appears heavily calcified, hence I decided to proceed with left femoral catheterization and it completed uneventfully. FINDINGS: 1. Hemodynamics: Left ventricular end-diastolic pressure is 15 mm, there is no significant gradient across the aortic valve. 2. Left ventriculogram: Left ventriculogram is not performed. 3. Angiographic data. a.Right Coronary Artery: Right coronary artery is a small nondominant vessel and is free of disease. b.Left main coronary artery is a normal-sized vessel and is free of stenosis, divides into a large dominant circumflex coronary artery, which is free of significant disease and LAD. LAD was extensively stented in the proximal and midportion. There is in-stent restenosis that at its worst seems to be 50% to 60% The diagonal branch has an ostial area of narrowing which seems around 70% stenosed. CONCLUSION: In-stent restenosis within the LAD and ostial stenosis of the diagonal branch. I reviewed angiographic data with Dr. Love, the collet gluer who performed angioplasty before. He felt that given the multiple prior angioplasties and several layers of stent that the patient has, she is better off with medical therapy at this time, especially given the fact that she does not have significant area of ischemia in LAD distribution. I reviewed this information with the patient and advised her on medical therapy with aspirin, Lipitor, Lasix, Imdur, Toprol, and I will add Ranexa to what she is on right now. MMODL / IJN: [id number] /
[2022-09-20 12:29] LABS: Glucose,Whole Blood 118 mg/dL (70-110)
[2022-09-20] MEDS: ACETAMINOPHEN TAB 325 MG TAB PO PRN (14:11)
--- NOTE | 2022-09-20 14:52 | P.PN ---
Subjective Progress Note Date: 09/20/22 History of present illness: The patient is a 57-year-old female patient with a past medical history signif icant for CAD with prior stenting of the LAD, chronic obstructive pulmonary disease, diabetes, hypertension, hyperlipidemia, seizures, active tobacco use. She has family history of parents and brother dying from coronary artery disease. She follows in the office with Dr. Sexton. She is scheduled for a stress test in the office on October 01. Patient presented with complaints of chest pain and palpitations but is been going on for one to one and a half weeks. Chest pain is on the left side with radiation to her left shoulder and achy-type. No lightheadedness or dizziness, no shortness of breath, no diaphoresis. No abdominal pain nausea vomiting. EKG sinus rhythm with no acute ST changes Chest x-ray reveals chronic changes without acute process CBC unremarkable. Electrolytes essentially normal, CO2 31, BUN 19 and creatinine 0.84. Troponins are negative 3 draws. Liver function tests are normal. Echocardiogram 05/22/2022 revealed normal LV function. Difficult to exclude bicuspid aortic valve with mild aortic stenosis Cardiac catheterization 05/2022 revealed intermediate in-stent restenosis of the LAD. FFR was performed and came in to be ischemic. Balloon angioplasty was done. Home cardiac medications: Aspirin 81 mg daily, Plavix 75 mg daily, Vasotec 20 mg daily, Zetia 10 mg daily, Lasix 10 mg daily, Imdur 60 mg daily, Toprol-XL 25 mg daily, nifedipine 30 mg daily, nitroglycerin sublingually, Crestor 40 mg daily 09/20 Patient underwent cardiac catheterization today with Dr. Lim which revealed in- stent restenosis within the LAD and ostial stenosis of the diagonal branch. Data was reviewed with Dr. Love and recommendations are for medical therapy. Following procedure, patient is complaining of pain across the pelvis bilaterally. Groin sites bilaterally have no hematoma, no bruit. Echocardiogram reveals normal LV systolic function, mild aortic stenosis Physical examination: Gen: This is a 57-year-old female VS: reviewed HEENT: Head is atraumatic, normocephalic. Pupils equal, round. Sclerae is anicteric. NECK: Supple. No JVD. LUNGS: Clear to auscultation. No wheezes or rhonchi. No intercostal retractions. HEART: Regular rate and rhythm. No murmur. ABDOMEN: Soft. No masses. No tenderness. Groin soft bilaterally, no bruit. EXTREMITIES: No pedal edema. No calf tenderness. NEUROLOGICAL: Patient is awake, alert and oriented x3. Assessment: Chest pain, acute coronary syndrome has been ruled out Coronary artery disease with prior stenting of the LAD with known in-stent restenosis of the LAD Hypertension Hyperlipidemia Diabetes mellitus type 2 Active tobacco use and dependence Seizure disorder Plan: Continue patient's home cardiac medications Obtain stat ultrasound to rule out retroperitoneal bleed and CBC. If ultrasound is negative and hemoglobin normal for patient, patient is cleared from cardiology for discharge home. Nurse practitioner note has been reviewed, I agree with documented findings and plan of care. Patient was seen and examined. Objective - Vital Signs Vital signs: Vital Signs Temp 98.5 F 09/20/22 09:53 Pulse 80 09/20/22 13:53 Resp 14 09/20/22 09:53 BP 160/89 09/20/22 13:53 Pulse Ox 97 09/20/22 13:53 FiO2 Intake & Output 09/19/22 09/20/22 09/20/22 18:59 06:59 18:59 Intake Total 400 500 Balance 400 500 Intake: IV 500 Oral 400 Other: # Voids 1 2 - Labs CBC & Chem 7: 09/19/22 06:45 09/19/22 06:45 Labs: Abnormal Lab Results - Last 24 Hours (Table) 09/19/22 09/20/22 09/20/22 Range/Units 20:52 04:54 12:27 POC Glucose (mg/dL) 134 H 137 H 118 H (70-110) mg/dL
[2022-09-20 14:53] VITALS: BP 144/84; RESP 19; TEMP 98.8
[2022-09-20 15:12] VITALS: PULSE 96
[2022-09-20 15:39] LABS: HCT 39.7 % (34.0-46.0); HGB 13.7 gm/dL (11.4-16.0); MCH 31.6 pg (25.0-35.0); MCHC 34.4 g/dL (31.0-37.0); Mean Platelet Volume 8.4; Platelet Count 210 k/uL (150-450); RBC 4.32 m/uL (3.80-5.40); WBC 9.4 k/uL (3.8-10.6)
--- NOTE | 2022-09-20 15:44 | US ---
EXAMINATION TYPE: US abdomen limited DATE OF EXAM: 09/20/2022 COMPARISON: NONE CLINICAL HISTORY: pelvic pain after cath, r/o retroperitoneal bleed. All four quadrants scanned for any abnormal fluid collection, none identified. Additional imaging per formed over pelvis and bladder, which is patient's area of pain, no abnormal fluid collection seen. IMPRESSION: 1. No significant ascites identified. 2. No suspicious fluid collection to suggest hematoma based on ultrasound findings.
--- NOTE | 2022-09-20 16:32 | P.DS ---
Providers Date of admission: 09/18/22 15:24 Expected date of discharge: 09/20/22 Attending physician: Andrea Shin Consults: 09/18/22 15:24 Consult Physician Routine Consulting Provider: [facility] Consult Reason/Comments: chest pain Do you want consulting provider notified?: Yes Primary care physician: [facility] Course: Chief Complaint: Chest pain This is a 57-year-old patient, follows with Dr. Floyd. Chronic stable medical conditions include CAD, COPD, diabetes, GERD, hyperlipidemia, hypertension, osteoarthritis, neuropathy, vocal cord dysplasia, IBS, overactive bladder, chronic back pain, restless leg syndrome, seizure activity, stop drinking alcohol drinking -2011. Bipolar- follow with Dr. Gorman from psychiatry. Active smoker. Patient for about 2 or 3 weeks. Having episodes of palpitations at night. Lasting for a few seconds. Sometimes the pain. Patient's had about 50 pounds weight loss and decreased appetite. Also short of breath and wheezing. Does use a wheelchair and a walker. No fever no chills. Had gone down to Dr. Newton office for EMG today. 09/19/2022: Admitted with atypical chest pain. COPD exacerbation. Started on DuoNeb, IV Solu-Medrol. This afternoon patient underwent nuclear stress test. Came back showing mild stress induced ischemic changes along the midportion of the inferior wall. Plan for patient to proceed for cardiac catheterization. 09/20/2022: Cardiac cath results: More details and Dr. Lim's notes. There is some in-stent stenosis around 50-60%. Diagonal branch ostial area around 70%. He discussed the results with Dr. Ramachandran. This point to do with medical therapy. Ranexa as added. Patient later had a groin ultrasound. No aneurysm. Patient counseled about smoking. Questions answered Discussion and discharge planning more than 35 minutes Past medical history to include: CAD, COPD, diabetes, GERD, hyperlipidemia, hypertension, prostatitis, kidney disease, seizure disorder, peripheral neuropathy, vocal cord dysplasia, IBS, overactive bladder, hyperparathyroidism, chronic back pain, this is like syndrome, seizure activity, history of alcohol abuse 10 years ago. Bipolar. Social history: to, Simone. Does use a cane/walker/wheelchair. Smokes a pack a day for 45 years. History of alcoholism stopped 10 years ago. Did use marijuana in the past. Family history: Mother had CAD Physical examination: VITAL SIGNS: Height 8.8, 76, 19, 144/84, 94% on 2 L GENERAL: Reclining, anxious EYES: Pupils equal. Conjunctiva normal. HEENT: External appearance of nose and ears normal, oral cavity grossly normal. NECK: JVD not raised; masses not palpable. HEART: First and second heart sounds are normal; no edema. LUNGS: Respiratory rate increased; creased breath sounds prolonged expiration ABDOMEN: Soft, nontender, liver spleen not palpable, no masses palpable. PSYCH: Alert and oriented x3; mood and affect anxiousl. MUSCULOSKELETAL:No Clubbing/cyanosis;muscles-grossly intact INVESTIGATIONS, reviewed in the clinical context: Cardiac catheterization: NAD: in-stent stenosis around 50-60%. Diagonal branch ostial area around 70%. Nuclear stress test: Showing reversible ischemia 09/19/2022: White count 4.2 hemoglobin 13.6 platelets 205 potassium 4.1 creatinine 0.7 White count 6.5 hemoglobin 14.5 platelets 242 potassium 5 be an 19 creatinine 0.84 Troponin I less than 0.0122 EKG tracing personally reviewed by me-normal sinus rhythm. Rate 81 Chest x-ray film personally reviewed by me-hyperinflation. Prominent pulmonary artery Assessment and plan: -Acute COPD exacerbation in current smoker: Lianeb . Nebulized Pulmicort. IV Solu-Medrol. Discharge on prednisone taper. Symbicort -CAD with a prior history of stent. Follows with Dr. Ramachandran. Cardiac catheter results as above. For medical management -Chronic Orofacial dyskinesia -Chronic nicotine dependence, cigarette smoker Nicotine patch 21 -Restless leg syndrome Requip to 0.5 mg 3 times a day -GERD Omeprazole 40 mg daily -Bipolar disorder Continue home medications -Diabetes mellitus type 2 chronically on insulin Follow Accu-Cheks with sliding scale -Chronic medical debility. Baseline uses a walker/wheelchair -DO NOT RESUSCITATE Disposition: Home Plan - Discharge Summary Discharge Rx Participant: No New Discharge Prescriptions: New Nicotine 21Mg/24Hr Patch [Habitrol] 1 patch TRANSDERM DAILY #14 patch predniSONE 10 mg PO DAILY #30 tab Budesonide/Formoterol Fumarate [Symbicort 80-4.5 Mcg Inhaler] 1 puff INHALATION BID #1 each Ranolazine [Ranexa] 500 mg PO Q12HR #60 tab Continue Rosuvastatin Calcium [Crestor] 40 mg PO DAILY Primidone [Mysoline] 50 mg PO TID NIFEdipine [Adalat CC] 30 mg PO DAILY Aspirin EC [Ecotrin Low Dose] 81 mg PO DAILY Pregabalin [Lyrica] 150 mg PO TID Baclofen [Lioresal] 30 mg PO QID@08,14,17,22 Fluticasone Nasal Sperry [Flonase Nasal Sperry] 1 spray EA NOSTRIL DAILY Folic Acid 1 mg PO DAILY #30 tab Furosemide [Lasix] 10 mg PO DAILY Ubrogepant [Ubrelvy] 100 mg PO DAILY PRN PRN Reason: headaches Isosorbide Mononitrate ER [Imdur] 60 mg PO DAILY Ezetimibe [Zetia] 10 mg PO DAILY DULoxetine HCL [Cymbalta] 60 mg PO BID Clopidogrel [Plavix] 75 mg PO DAILY Albuterol Nebulized [Ventolin Nebulized] 2.5 mg INHALATION RT-Q6H PRN PRN Reason: Shortness Of Breath valACYclovir HCL [Valtrex] 1,000 mg PO DAILY Potassium Chloride ER [K-Dur 10] 10 meq PO DAILY Omeprazole 40 mg PO DAILY levETIRAcetam [Keppra] 1,000 mg PO BID Insulin Detemir [Levemir Flextouch Pen] 5 units SQ HS lamoTRIgine 150 mg PO BID Insulin Aspart [NovoLOG Flexpen] See Protocol SQ AC-TID rOPINIRole HCL [Requip] 0.5 mg PO TID Acetaminophen [Tylenol Extra Strength] 1,000 mg PO Q8H PRN PRN Reason: Pain ALPRAZolam [Xanax] 0.5 mg PO HS Diroximel Fumarate [Vumerity] 462 mg PO BID Metoprolol Succinate [Metoprolol Succinate ER] 25 mg PO DAILY Nitroglycerin 1 tab SL Q5M PRN PRN Reason: Chest Pain Ondansetron [Zofran] 4 mg PO DAILY PRN PRN Reason: Nausea Changed Enalapril [Vasotec] 20 mg PO HS #0 Discharge Medication List Albuterol Nebulized [Ventolin Nebulized] 2.5 mg INHALATION RT-Q6H PRN 02/11/22 [History] Clopidogrel [Plavix] 75 mg PO DAILY 02/11/22 [History] DULoxetine HCL [Cymbalta] 60 mg PO BID 02/11/22 [History] Ezetimibe [Zetia] 10 mg PO DAILY 02/11/22 [History] Insulin Aspart [NovoLOG Flexpen] See Protocol SQ AC-TID 02/11/22 [History] Insulin Detemir [Levemir Flextouch Pen] 5 units SQ HS 02/11/22 [History] Isosorbide Mononitrate ER [Imdur] 60 mg PO DAILY 02/11/22 [History] NIFEdipine [Adalat CC] 30 mg PO DAILY 02/11/22 [History] Omeprazole 40 mg PO DAILY 02/11/22 [History] Potassium Chloride ER [K-Dur 10] 10 meq PO DAILY 02/11/22 [History] Primidone [Mysoline] 50 mg PO TID 02/11/22 [History] Rosuvastatin Calcium [Crestor] 40 mg PO DAILY 02/11/22 [History] lamoTRIgine 150 mg PO BID 02/11/22 [History] levETIRAcetam [Keppra] 1,000 mg PO BID 02/11/22 [History] valACYclovir HCL [Valtrex] 1,000 mg PO DAILY 02/11/22 [History] Aspirin EC [Ecotrin Low Dose] 81 mg PO DAILY 05/06/22 [History] Baclofen [Lioresal] 30 mg PO QID@08,,,05/06/22 [History] Fluticasone Nasal Sperry [Flonase Nasal Sperry] 1 spray EA NOSTRIL DAILY 05/06/22 [History] Pregabalin [Lyrica] 150 mg PO TID 05/06/22 [History] rOPINIRole HCL [Requip] 0.5 mg PO TID 05/06/22 [History] Folic Acid 1 mg PO DAILY #30 tab 05/15/22 [Rx] ALPRAZolam [Xanax] 0.5 mg PO HS 09/18/22 [History] Acetaminophen [Tylenol Extra Strength] 1,000 mg PO Q8H PRN 09/18/22 [History] Diroximel Fumarate [Vumerity] 462 mg PO BID 09/18/22 [History] Furosemide [Lasix] 10 mg PO DAILY 09/18/22 [History] Metoprolol Succinate [Metoprolol Succinate ER] 25 mg PO DAILY 09/18/22 [History] Nitroglycerin 1 tab SL Q5M PRN 09/18/22 [History] Ondansetron [Zofran] 4 mg PO DAILY PRN 09/18/22 [History] Ubrogepant [Ubrelvy] 100 mg PO DAILY PRN 09/18/22 [History] Budesonide/Formoterol Fumarate [Symbicort 80-4.5 Mcg Inhaler] 1 puff INHALATION BID #1 each 09/20/22 [Rx] Enalapril [Vasotec] 20 mg PO HS #0 09/20/22 [Rx] Nicotine 21Mg/24Hr Patch [Habitrol] 1 patch TRANSDERM DAILY #14 patch 09/20/22 [Rx] Ranolazine [Ranexa] 500 mg PO Q12HR #60 tab 09/20/22 [Rx] predniSONE 10 mg PO DAILY #30 tab 09/20/22 [Rx] Follow up Appointment(s)/Referral(s): Nii Floyd MD [Primary Care Provider] - 1-2 days Enzo Sexton MD [STAFF PHYSICIAN] - 2 Weeks Patient Instructions/Handouts: Chest Pain (ED) Activity/Diet/Wound Care/Special Instructions: vasotec is a home med
== END 2022-09-20 17:54 | disposition home or self-care (01) ==
LOC: EC 12:03 → 6NMEDSUR 15:24
PROVIDERS: ADMIT Hospitalist; ATTEND Hospitalist
DX: T82.855A Stenosis of coronary artery stent, initial encounter (principal); Y83.1 Surgical operation with implant of artificial internal device as the cause of abnormal reaction of the patient, or of later complication, without mention of misadventure at the time of the procedure; I25.10 Atherosclerotic heart disease of native coronary artery without angina pectoris; J44.1 Chronic obstructive pulmonary disease with (acute) exacerbation; I10 Essential (primary) hypertension; G35 Multiple sclerosis; G40.909 Epilepsy, unspecified, not intractable, without status epilepticus; K21.9 Gastro-esophageal reflux disease without esophagitis; E78.5 Hyperlipidemia, unspecified; M19.90 Unspecified osteoarthritis, unspecified site; E11.42 Type 2 diabetes mellitus with diabetic polyneuropathy; K58.9 Irritable bowel syndrome, unspecified; G25.81 Restless legs syndrome; J32.9 Chronic sinusitis, unspecified; G89.29 Other chronic pain; M54.9 Dorsalgia, unspecified; F31.9 Bipolar disorder, unspecified; G24.4 Idiopathic orofacial dystonia; R53.81 Other malaise; F17.210 Nicotine dependence, cigarettes, uncomplicated; Z95.5 Presence of coronary angioplasty implant and graft; Z79.02 Long term (current) use of antithrombotics/antiplatelets; Z79.899 Other long term (current) drug therapy; Z79.4 Long term (current) use of insulin; Z79.82 Long term (current) use of aspirin; Z88.0 Allergy status to penicillin; Z88.5 Allergy status to narcotic agent; Z82.49 Family history of ischemic heart disease and other diseases of the circulatory system; Z82.3 Family history of stroke; Z66 Do not resuscitate
CPT/HCPCS: 96372 ×3; 96375; 96376 ×3; 96374; 99285; 36415; 94640 ×4; 94760 ×2; 93005; 93017; 93306; 80053; 80048; 83735; 84484; 85025 ×2; 85027; 85610; 85730; 71046; 76705; 78452; G0378 ×4; A9500; S4990 ×2; J2250; J2920 ×3; J2405; J2001; J3010; J2785; Q9967; J1644 ×3; 93458

== ENCOUNTER → 2023-02-13 | Outpatient (CLI) | payer MEDICARE, OTHER ==
[2023-02-14 01:56] LABS: Basophils # (A) 0.04 X 10*3/uL (0.00-0.10); Basophils % (A) 0.7 %; Eosinophils # (A) 0.18 X 10*3/uL (0.04-0.35); Eosinophils % (A) 3.2 %; HCT 41.2 % (37.2-46.3); Immature Grans, Automated 0.7 %; Lymphocytes # (A) 0.84 X 10*3/uL (0.90-5.00); Lymphocytes % (A) 14.9 %; MCH 31.9 pg (27.0-32.0); MCHC 31.6 g/dL (32.0-37.0); MCV 101.2 fL (80.0-97.0); Mean Platelet Volume 9.6 fL (9.5-12.2); Monocytes # (A) 0.37 X 10*3/uL (0.20-1.00); Monocytes % (A) 6.6 %; NRBC Per 100 WBC 0 /100 WBCS (0.0-0.0); Neutrophils # (A) 4.15 X 10*3/uL (1.80-7.70); Neutrophils % (A) 73.9 %; Platelet Count 258 X 10*3/uL (140-440); RBC 4.07 X 10*6/uL (4.10-5.20); RDW 12.6 % (11.5-14.5); WBC 5.62 X 10*3/uL (4.50-10.00)
[2023-02-14 09:39] LABS: ALT 39 U/L (8-44); AST 30 U/L (13-35); African American GFR (CKD) 111.5 (60.0-200.0); Albumin 4.7 g/dL (3.8-4.9); Albumin/Globulin Ratio 2.61 (1.60-3.17); Alkaline Phosphatase 106 U/L (41-126); BUN/Creat Ratio 15.14 Ratio (12.00-20.00); Blood Urea Nitrogen 10.6 mg/dL (9.0-27.0); Calcium 9.3 mg/dL (8.7-10.3); Chloride 102 mmol/L (96-109); Globulin 1.8 g/dL (1.6-3.3); Glucose 86 mg/dL (70-110); Non-African American GFR(CKD) 96.2 (60.0-200.0); Potassium 4.8 mmol/L (3.5-5.5); Sodium 142 mmol/L (135-145); Total Bilirubin <0.15 mg/dL (0.30-1.20); Total Protein 6.5 g/dL (6.2-8.2)
== END | disposition home or self-care (01) ==
LOC: LABWHC1 14:33
PROVIDERS: ATTEND Nurse Practitioner Acute Care
DX: E55.9 Vitamin D deficiency, unspecified (principal); E53.9 Vitamin B deficiency, unspecified; G35 Multiple sclerosis; R41.3 Other amnesia; R53.83 Other fatigue; R25.1 Tremor, unspecified
CPT/HCPCS: 36415; 80053; 82306; 82607; 84207; 85025

== ENCOUNTER → 2023-05-23 | Outpatient (CLI) | payer MEDICARE, OTHER ==
--- NOTE | 2023-05-23 16:57 | CTL ---
EXAMINATION TYPE: CT Low Dose Lung DATE OF EXAM ORDERED: 05/23/2023 HISTORY: Personal nicotine dependence. Lung cancer screening CT DLP: 84.[address] CTDI: 2.3 mGy Automated exposure control for dose reduction was used. SCREENING VISIT: Initial COMPARISON: CTA chest 05/23/2022 TECHNIQUE: Low dose computed tomography scan was performed through the chest at 1 mm thick sections a nd reconstructed images in the coronal plane at [address] DIAGNOSTIC QUALITY: Satisfactory FINDINGS: LUNG NODULES: None. 1. There is a 0.2 cm calcification peripheral anterior lateral right lung. Series 4 image 144. LUNGS: COPD: Severity: None Fibrosis: Severity: None Lymph nodes: None Other findings: Minimal atelectasis may be within the anterior medial right mid lung RIGHT PLEURAL SPACE: Effusion: None Calcification: None Thickening: None Pneumothorax: Long LEFT PLEURAL SPACE: Effusion: None Calcification: None Thickening: None Pneumothorax: HEART: Heart Size: Normal Coronary calcification: Moderate Pericardial effusion: None OTHER FINDINGS: Upper abdomen: There is thickening of the right adrenal gland measuring 2.0 cm. Left adrenal gland ap pears normal. Bony thorax: Normal Supraclavicular region: Normal Other: Ascending thoracic aorta at the level the main pulmonary artery measures 2.7 cm. The main pul monary artery at the bifurcation measures 2.4 cm. IMPRESSION: 1. No suspicious lung nodules. 2. Coronary artery calcification. 3. Prominent right adrenal gland FOLLOW UP CT CHEST RECOMMENDATION: 1. Follow-up low-dose CT chest one year. 2. Consider cardiac evaluation as clinically indicated. CT LUNG RAD: Lung-Rad 1 S Negative
== END | disposition home or self-care (01) ==
LOC: RADCTMAIN 12:06
PROVIDERS: ATTEND Internal Medicine Critical Care Medicine
DX: Z12.2 Encounter for screening for malignant neoplasm of respiratory organs (principal); I25.10 Atherosclerotic heart disease of native coronary artery without angina pectoris; F17.210 Nicotine dependence, cigarettes, uncomplicated
CPT/HCPCS: 71271

== ENCOUNTER 2023-10-14 19:00 | Inpatient (IN) | payer MEDICARE, OTHER ==
--- NOTE | 2023-10-14 19:27 | ED ---
General Adult HPI - General Source: patient, EMS, RN notes reviewed, old records reviewed Mode of arrival: EMS Limitations: no limitations, altered mental status <Osvaldo Couch - Last Filed: 10/14/23 20:43> <Zander Avalos - Last Filed: 10/18/23 05:08> - General Chief complaint: Seizure Stated complaint: Seizure Time Seen by Provider: 10/14/23 19:05 - History of Present Illness Initial comments: This is a 58-year-old female with past medical history significant for multiple sclerosis as well as this history of seizures. Patient presents today stating that she had a seizure told her it lasts about 15 minutes. Patient states other than that she feels at her baseline. Patient denies any cough pat ient denies shortness of breath or chest pain. Patient denies any abdominal pain patient denies nausea vomiting diarrhea. Patient denies any dysuria hematuria urinary frequency. (Osvaldo Couch) - Related Data Home Medications Medication Instructions Recorded Confirmed Albuterol Nebulized [Ventolin 2.5 mg INHALATION RT-QID 02/11/22 10/15/23 Nebulized] Clopidogrel [Plavix] 75 mg PO DAILY 02/11/22 10/15/23 DULoxetine HCL [Cymbalta] 60 mg PO BID 02/11/22 10/15/23 Ezetimibe [Zetia] 10 mg PO DAILY 02/11/22 10/15/23 Insulin Aspart [NovoLOG Flexpen] 5 unit SQ AC-TID 02/11/22 10/15/23 Insulin Detemir [Levemir Flextouch 3 units SQ HS 02/11/22 10/15/23 Pen] Omeprazole 40 mg PO DAILY 02/11/22 10/15/23 Potassium Chloride ER [K-Dur 10] 10 meq PO DAILY 02/11/22 10/15/23 Primidone [Mysoline] 50 mg PO TID 02/11/22 10/15/23 Rosuvastatin Calcium [Crestor] 40 mg PO HS 02/11/22 10/15/23 lamoTRIgine 150 mg PO BID 02/11/22 10/15/23 levETIRAcetam [Keppra] 1,000 mg PO BID 02/11/22 10/15/23 valACYclovir HCL [Valtrex] 1,000 mg PO DAILY 02/11/22 10/15/23 Aspirin EC [Ecotrin Low Dose] 81 mg PO DAILY 05/06/22 10/15/23 Baclofen [Lioresal] 20 mg PO TID 05/06/22 10/15/23 Pregabalin [Lyrica] 150 mg PO TID 05/06/22 10/15/23 rOPINIRole HCL [Requip] 0.5 mg PO TID 05/06/22 10/15/23 ALPRAZolam [Xanax] 0.5 mg PO HS 09/18/22 10/15/23 Acetaminophen [Tylenol Extra 1,000 mg PO Q8H PRN 09/18/22 10/15/23 Strength] Furosemide [Lasix] 10 mg PO DAILY 09/18/22 10/15/23 Nitroglycerin 0.4 mg SL Q5M PRN 09/18/22 10/15/23 Ondansetron [Zofran] 2 mg PO TID PRN 09/18/22 10/15/23 Albuterol Inhaler [Ventolin Hfa 2 puff INHALATION RT-QID PRN 10/15/23 10/15/23 Inhaler] Budesonide/Formoterol Fumarate 2 puff INHALATION RT-BID 10/15/23 10/15/23 [Symbicort 160-4.5 Mcg Inhaler] Cholecalciferol [Vitamin D3 (25 25 mcg PO DAILY 10/15/23 10/15/23 Mcg = 1000 Iu)] Diroximel Fumarate [Vumerity] 462 mg PO BID 10/15/23 10/15/23 Enalapril [Vasotec] 2.5 mg PO BID 10/15/23 10/15/23 Insulin Aspart [NovoLOG Flexpen] See Protocol SQ AC-TID 10/15/23 10/15/23 Isosorbide Mononitrate ER [Imdur] 30 mg PO BID 10/15/23 10/15/23 Lidocaine 5% Patch [Lidoderm 5% 1 patch TRANSDERM DAILY PRN 10/15/23 10/15/23 Patch] Ranolazine [Ranexa] 1,000 mg PO BID 10/15/23 10/15/23 Umeclidinium Mccormick [Incruse 1 puff INHALATION RT-DAILY 10/15/23 10/15/23 Ellipta] Valbenazine Tosylate [Ingrezza] 80 mg PO DAILY 10/15/23 10/15/23 Previous Rx's Medication Instructions Recorded Folic Acid 1 mg PO DAILY #30 tab 05/15/22 Nitrofurantoin Monohyd/M-Cryst 100 mg PO Q12HR #6 cap 10/15/23 [Macrobid] Benztropine Mesylate [Cogentin] 0.5 mg PO BID #60 tab 10/17/23 Cyanocobalamin [Vitamin B-12] 500 mcg PO DAILY #30 tab 10/17/23 Mirtazapine [Remeron] 15 mg PO HS #30 tab 10/17/23 Nicotine 21Mg/24Hr Patch [Habitrol] 1 patch TRANSDERM DAILY #14 patch 10/17/23 Propranolol [Inderal] 10 mg PO TID #90 tab 10/17/23 Pyridoxine [Vitamin B-6] 50 mg PO DAILY #30 tab 10/17/23 Allergies Allergy/AdvReac Type Severity Reaction Status Date / Time bupropion [From Wellbutrin] Allergy Rash/Hives Verified 10/15/23 10:41 morphine Allergy Rash/Hives Verified 10/15/23 10:41 Penicillins Allergy Rash/Hives Verified 10/15/23 10:41 Review of Systems ROS Other: All systems not noted in ROS Statement are negative. <Osvaldo Couch - Last Filed: 10/14/23 20:43> ROS Other: All systems not noted in ROS Statement are negative. <Zander Avalos - Last Filed: 10/18/23 05:08> ROS Statement: Those systems with pertinent positive or pertinent negative responses have been documented in the HPI. Past Medical History Past Medical History: Asthma, Coronary Artery Disease (CAD), COPD, Diabetes Mellitus, GERD/Reflux, Hyperlipidemia, Hypertension, Osteoarthritis (OA), Renal Disease, Seizure Disorder Additional Past Medical History / Comment(s): IDDM type II, neuropathy bilateral legs/feet, vocal cord dysplasia/R vocal cord ulcer, dysphagia in past, IBS, overactive bladder, hyperparathyroidism, chronic back pain, headaches, chronic sinusitis, bilateral tinnitis, RLS, last seizure about one year ago, pt states past ETOH abuse but has not drank in 25 years. History of Any Multi-Drug Resistant Organisms: None Reported Past Surgical History: Appendectomy, Back Surgery, Heart Catheterization, Heart Catheterization With Stent, Hysterectomy, Tubal Ligation Additional Past Surgical History / Comment(s): Multiple throat biopsies, EGD, colonoscopies, back surgery x2. 2 stents. Past Anesthesia/Blood Transfusion Reactions: No Reported Reaction Date of Last Stent Placement:: unknown Past Psychological History: Bipolar, Depression Smoking Status: Current every day smoker Past Alcohol Use History: None Reported Past Drug Use History: None Reported - Past Family History Mother Family Medical History: Coronary Artery Disease (CAD) Additional Family Medical History / Comment(s): Mother had CABG Father Family Medical History: CVA/TIA <Osvaldo Couch - Last Filed: 10/14/23 20:43> General Exam Limitations: no limitations, altered mental status <Osvaldo Couch - Last Filed: 10/14/23 20:43> - General Exam Comments Initial Comments: GENERAL: Patient is well-developed and well-nourished. Patient is nontoxic and well- hydrated and is in mild distress. Patient is diaphoretic. I took the patient's oral temperature it was 100.2 ENT: Neck is soft and supple. No significant lymphadenopathy is noted. Oropharynx is clear. Moist mucous membranes. Neck has full range of motion without eliciting any pain. EYES: The sclera were anicteric and conjunctiva were pink and moist. Extraocular movements were intact and pupils were equal round and reactive to light. Eyelids were unremarkable. PULMONARY: Unlabored respirations. Good breath sounds bilaterally. No audible rales rho nchi or wheezing was noted. CARDIOVASCULAR: There is a regular rate and rhythm without any murmurs gallops or rubs. ABDOMEN: Soft and nontender with normal bowel sounds. SKIN: Skin is clear with no lesions or rashes and otherwise unremarkable. NEUROLOGIC: Patient is alert and oriented x3. Cranial nerves II through XII are grossly intact. Motor and sensory are also intact. Normal speech, volume and content. Symmetrical smile. Patient has some tremors in the right arm and leg and she states this is her baseline. MUSCULOSKELETAL: Normal extremities with adequate strength and full range of motion. No lower extremity swelling or edema. No calf tenderness. LYMPHATICS: No significant lymphadenopathy is noted PSYCHIATRIC: Normal psychiatric evaluation. (Osvaldo Couch) Course Vital Signs 10/14/23 10/14/23 10/14/23 19:13 19:39 20:15 Temperature 98.1 F 99.0 F Pulse Rate 100 96 93 Pulse Rate [ Pulse Oximetery ] Respiratory 18 20 18 Rate Blood Pressure 176/98 169/131 162/101 Blood Pressure [Right Arm] O2 Sat by Pulse 95 90 L 90 L Oximetry 10/14/23 10/14/23 10/15/23 21:22 21:29 01:17 Temperature 98.8 F Pulse Rate 96 92 87 Pulse Rate [ Pulse Oximetery ] Respiratory 18 Rate Blood Pressure 117/69 Blood Pressure [Right Arm] O2 Sat by Pulse 94 L Oximetry 10/15/23 10/15/23 10/15/23 06:30 07:30 12:07 Temperature 98.0 F Pulse Rate 96 91 90 Pulse Rate [ Pulse Oximetery ] Respiratory 20 18 Rate Blood Pressure 171/92 124/63 Blood Pressure [Right Arm] O2 Sat by Pulse 95 94 L Oximetry 10/15/23 10/15/23 10/15/23 12:16 13:09 19:41 Temperature Pulse Rate 91 99 97 Pulse Rate [ Pulse Oximetery ] Respiratory 18 Rate Blood Pressure 151/73 Blood Pressure [Right Arm] O2 Sat by Pulse 96 Oximetry 10/15/23 10/15/23 19:54 20:00 Temperature 97.3 F L Pulse Rate 97 Pulse Rate [ 98 Pulse Oximetery ] Respiratory 16 Rate Blood Pressure Blood Pressure 178/91 [Right Arm] O2 Sat by Pulse 92 L Oximetry Medical Decision Making - Lab Data Result diagrams: 10/14/23 19:48 10/14/23 19:48 <Osvaldo Couch - Last Filed: 10/14/23 20:43> - Lab Data Result diagrams: 10/14/23 19:48 10/14/23 19:48 <Zander Avalos - Last Filed: 10/18/23 05:08> - Medical Decision Making Was pt. sent in by a medical professional or institution (, PA, LEAD RECREATION ASSISTANT, urgent care, hospital, or correction...) When possible be specific @ -[No] Did you speak to anyone other than the patient for history (EMS, parent, family, police, friend...)? What history was obtained from this source @ -[No] Did you review nursing and triage notes (agree or disagree)? Why? @ -[I reviewed and agree with nursing and triage notes] Were old charts reviewed (outside hosp., previous admission, EMS record, old EKG, old radiological studies, urgent care reports/EKG's, correction records)? Report findings @ -Reviewed prior charts and prior lab work on this patient Differential Diagnosis (chest pain, altered mental status, abdominal pain women, abdominal pain men, vaginal bleeding, weakness, fever, dyspnea, syncope, headache, dizziness, GI bleed, back pain, seizure, CVA, palpatations, mental health, musculoskeletal)? @ -Differential Seizure: Recurrent seizure disorder, febrile seizure, alcohol withdrawal, stimulants, meningitis, encephalitis, intercranial hemorrhage, intracranial tumor, stroke, eclampsia, thyrotoxicosis, hypocalcemia, hyponatremia, hypernatremia, hypomagnesemia, psychogenic, this is not meant to be an all-inclusive list. EKG interpreted by me (3pts min.). @ -[As above] X-rays interpreted by me (1pt min.). @ -[None done] CT interpreted by me (1pt min.). @ -CT of the brain shows no acute abnormality U/S interpreted by me (1pt. min.). @ -[None done] What testing was considered but not performed or refused? (CT, X-rays, U/S, labs)? Why? @ -[None] What meds were considered but not given or refused? Why? @ -[None] Did you discuss the management of the patient with other professionals (professionals i.e. , PA, LEAD RECREATION ASSISTANT, lab, RT, psych nurse, social media executive, instructional support specialist, teacher, head correction officer, rn field case manager)? Give summary @ -[No] Was smoking cessation discussed for >3mins.? @ -[No] Was critical care preformed (if so, how long)? @ -[No] Were there social determinants of health that impacted care today? How? (Homelessness, low income, unemployed, alcoholism, drug addiction, transportation, low edu. Level, literacy, decrease access to med. care, usp, rehab)? @ -[No] Was there de-escalation of care discussed even if they declined (Discuss DNR or withdrawal of care, Hospice)? DNR status @ -[No] What co-morbidities impacted this encounter? (DM, HTN, Smoking, COPD, CAD, Cancer, CVA, ARF, Chemo, Hep., AIDS, mental health diagnosis, sleep apnea, morbid obesity)? @ -[None] Was patient admitted / discharged? Hospital course, mention meds given and route, prescriptions, significant lab abnormalities, going to OR and other pertinent info. @ -Patient was given Ativan Tylenol and Motrin when she first came in. Dr. Avalos will be taking over the care of this patient at 9 PM (Osvaldo Couch) Was patient admitted / discharged? Hospital course, mention meds given and route, prescriptions, significant lab abnormalities, going to OR and other pertinent info. @ -[This patient is 58-year-old woman with history of MS who had seizure. She was seen by Dr. Couch and the studies are returned and negative. The patient was to be discharged but when her arrived he states that she has a tremor that is not like her baseline. There is documentation that she had previously been seen by neurology for tremor but is not well characterized in the notes and it is reported to be much different than that today. In light of that patient be admitted, case discussed with [facility] admissions for Dr. Floyd, and will have neurology consultation. Undiagnosed new problem with uncertain prognosis? @ -[No] Drug Therapy requiring intensive monitoring for toxicity (Heparin, Nitro, Insulin, Cardizem)? @ -[No] Were any procedures done? @ -[No] Diagnosis/symptom? @ -[Generalized seizure Acute tremors Acute, or Chronic, or Acute on Chronic? @ -[Acute Uncomplicated (without systemic symptoms) or Complicated (systemic symptoms)? @ -[Complicated Side effects of treatment? @ -[No] Exacerbation, Progression, or Severe Exacerbation? @ -[No] Poses a threat to life or bodily function? How? (Chest pain, [place], AL, pneumonia, PE, COPD, DKA, ARF, appy, cholecystitis, CVA, Diverticulitis, Homicidal, Suicidal, threat to staff... and all critical care pts) @ -[No] (Zander Avalos) - Lab Data Lab Results 10/14/23 10/14/23 10/14/23 Range/Units 19:48 19:48 19:48 WBC 7.3 (3.8-10.6) k/uL RBC 4.30 (3.80-5.40) m/uL Hgb 14.0 (11.4-16.0) gm/dL Hct 41.2 (34.0-46.0) % MCV 96.0 (80.0-100.0) fL MCH 32.5 (25.0-35.0) pg MCHC 33.8 (31.0-37.0) g/dL RDW 12.4 (11.5-15.5) % Plt Count 225 (150-450) k/uL MPV 7.6 Neutrophils % 80 % Lymphocytes % 10 % Monocytes % 5 % Eosinophils % 3 % Basophils % 0 % Neutrophils # 5.8 (1.3-7.7) k/uL Lymphocytes # 0.7 L (1.0-4.8) k/uL Monocytes # 0.4 (0-1.0) k/uL Eosinophils # 0.2 (0-0.7) k/uL Basophils # 0.0 (0-0.2) k/uL Sodium 142 (137-145) mmol/L Potassium 3.6 (3.5-5.1) mmol/L Chloride 102 (98-107) mmol/L Carbon Dioxide 32 H (22-30) mmol/L Anion Gap 8 mmol/L BUN 14 (7-17) mg/dL Creatinine 0.72 (0.52-1.04) mg/dL Est GFR (CKD-EPI)AfAm >90 (>60 ml/min/1.73 sqM) Est GFR (CKD-EPI)NonAf >90 (>60 ml/min/1.73 sqM) Glucose 86 (74-99) mg/dL POC Glucose (mg/dL) (70-110) mg/dL POC Glu Production Hardener ID Plasma Lactic Acid Arvind (0.7-2.0) mmol/L Calcium 8.9 (8.4-10.2) mg/dL Total Bilirubin 0.4 (0.2-1.3) mg/dL AST 22 (14-36) U/L ALT 15 (4-34) U/L Alkaline Phosphatase 89 (38-126) U/L Ammonia (<30) umol/L Total Protein 6.3 (6.3-8.2) g/dL Albumin 4.1 (3.5-5.0) g/dL TSH (0.465-4.680) mIU/L Urine Color Yellow Urine Appearance Clear (Clear) Urine pH 6.5 (5.0-8.0) Ur Specific [place] 1.031 (1.001-1.035) Urine Protein 1+ H (Negative) Urine Glucose (UA) Negative (Negative) Urine Ketones 1+ H (Negative) Urine Blood Negative (Negative) Urine Nitrite Negative (Negative) Urine Bilirubin Negative (Negative) Urine Urobilinogen 3.0 (<2.0) mg/dL Ur Leukocyte Esterase Trace H (Negative) Urine RBC 7 H (0-5) /hpf Urine WBC 11 H (0-5) /hpf Ur Squamous Epith Cells 11 H (0-4) /hpf Amorphous Sediment Rare H (None) /hpf Hyaline Casts 33 H (0-2) /lpf Urine Mucus Many H (None) /hpf Primidone (4-12) ug/mL Lamotrigine (2.0-15.0) ug/mL Levetiracetam (3.0-60.0) ug/mL Phenobarbital (15.0-40.0) UG/ML C. difficile (EIA) Intrp (Negative) Influenza Type A (PCR) (Not Detectd) Influenza Type B (PCR) (Not Detectd) RSV (PCR) (Not Detectd) SARS-CoV-2 (PCR) (Not Detectd) 10/14/23 10/14/23 10/14/23 Range/Units 19:48 19:48 19:48 WBC (3.8-10.6) k/uL RBC (3.80-5.40) m/uL Hgb (11.4-16.0) gm/dL Hct (34.0-46.0) % MCV (80.0-100.0) fL MCH (25.0-35.0) pg MCHC (31.0-37.0) g/dL RDW (11.5-15.5) % Plt Count (150-450) k/uL MPV Neutrophils % % Lymphocytes % % Monocytes % % Eosinophils % % Basophils % % Neutrophils # (1.3-7.7) k/uL Lymphocytes # (1.0-4.8) k/uL Monocytes # (0-1.0) k/uL Eosinophils # (0-0.7) k/uL Basophils # (0-0.2) k/uL Sodium (137-145) mmol/L Potassium (3.5-5.1) mmol/L Chloride (98-107) mmol/L Carbon Dioxide (22-30) mmol/L Anion Gap mmol/L BUN (7-17) mg/dL Creatinine (0.52-1.04) mg/dL Est GFR (CKD-EPI)AfAm (>60 ml/min/1.73 sqM) Est GFR (CKD-EPI)NonAf (>60 ml/min/1.73 sqM) Glucose (74-99) mg/dL POC Glucose (mg/dL) (70-110) mg/dL POC Glu Production Hardener ID Plasma Lactic Acid Arvind 0.7 (0.7-2.0) mmol/L Calcium (8.4-10.2) mg/dL Total Bilirubin (0.2-1.3) mg/dL AST (14-36) U/L ALT (4-34) U/L Alkaline Phosphatase (38-126) U/L Ammonia (<30) umol/L Total Protein (6.3-8.2) g/dL Albumin (3.5-5.0) g/dL TSH 1.040 (0.465-4.680) mIU/L Urine Color Urine Appearance (Clear) Urine pH (5.0-8.0) Ur Specific [place] (1.001-1.035) Urine Protein (Negative) Urine Glucose (UA) (Negative) Urine Ketones (Negative) Urine Blood (Negative) Urine Nitrite (Negative) Urine Bilirubin (Negative) Urine Urobilinogen (<2.0) mg/dL Ur Leukocyte Esterase (Negative) Urine RBC (0-5) /hpf Urine WBC (0-5) /hpf Ur Squamous Epith Cells (0-4) /hpf Amorphous Sediment (None) /hpf Hyaline Casts (0-2) /lpf Urine Mucus (None) /hpf Primidone (4-12) ug/mL Lamotrigine (2.0-15.0) ug/mL Levetiracetam (3.0-60.0) ug/mL Phenobarbital (15.0-40.0) UG/ML C. difficile (EIA) Intrp (Negative) Influenza Type A (PCR) Not Detected (Not Detectd) Influenza Type B (PCR) Not Detected (Not Detectd) RSV (PCR) Not Detected (Not Detectd) SARS-CoV-2 (PCR) Not Detected (Not Detectd) 10/15/23 10/15/23 10/15/23 Range/Units 07:05 13:45 14:11 WBC (3.8-10.6) k/uL RBC (3.80-5.40) m/uL Hgb (11.4-16.0) gm/dL Hct (34.0-46.0) % MCV (80.0-100.0) fL MCH (25.0-35.0) pg MCHC (31.0-37.0) g/dL RDW (11.5-15.5) % Plt Count (150-450) k/uL MPV Neutrophils % % Lymphocytes % % Monocytes % % Eosinophils % % Basophils % % Neutrophils # (1.3-7.7) k/uL Lymphocytes # (1.0-4.8) k/uL Monocytes # (0-1.0) k/uL Eosinophils # (0-0.7) k/uL Basophils # (0-0.2) k/uL Sodium (137-145) mmol/L Potassium (3.5-5.1) mmol/L Chloride (98-107) mmol/L Carbon Dioxide (22-30) mmol/L Anion Gap mmol/L BUN (7-17) mg/dL Creatinine (0.52-1.04) mg/dL Est GFR (CKD-EPI)AfAm (>60 ml/min/1.73 sqM) Est GFR (CKD-EPI)NonAf (>60 ml/min/1.73 sqM) Glucose (74-99) mg/dL POC Glucose (mg/dL) 68 L (70-110) mg/dL POC Glu Production Hardener ID Samia Pratt Plasma Lactic Acid Arvind (0.7-2.0) mmol/L Calcium (8.4-10.2) mg/dL Total Bilirubin (0.2-1.3) mg/dL AST (14-36) U/L ALT (4-34) U/L Alkaline Phosphatase (38-126) U/L Ammonia 12 (<30) umol/L Total Protein (6.3-8.2) g/dL Albumin (3.5-5.0) g/dL TSH (0.465-4.680) mIU/L Urine Color Urine Appearance (Clear) Urine pH (5.0-8.0) Ur Specific [place] (1.001-1.035) Urine Protein (Negative) Urine Glucose (UA) (Negative) Urine Ketones (Negative) Urine Blood (Negative) Urine Nitrite (Negative) Urine Bilirubin (Negative) Urine Urobilinogen (<2.0) mg/dL Ur Leukocyte Esterase (Negative) Urine RBC (0-5) /hpf Urine WBC (0-5) /hpf Ur Squamous Epith Cells (0-4) /hpf Amorphous Sediment (None) /hpf Hyaline Casts (0-2) /lpf Urine Mucus (None) /hpf Primidone 5.3 (4-12) ug/mL Lamotrigine 4.4 (2.0-15.0) ug/mL Levetiracetam 25.6 (3.0-60.0) ug/mL Phenobarbital (15.0-40.0) UG/ML C. difficile (EIA) Intrp (Negative) Influenza Type A (PCR) (Not Detectd) Influenza Type B (PCR) (Not Detectd) RSV (PCR) (Not Detectd) SARS-CoV-2 (PCR) (Not Detectd) 10/15/23 10/15/23 10/16/23 Range/Units 14:11 20:27 07:17 WBC (3.8-10.6) k/uL RBC (3.80-5.40) m/uL Hgb (11.4-16.0) gm/dL Hct (34.0-46.0) % MCV (80.0-100.0) fL MCH (25.0-35.0) pg MCHC (31.0-37.0) g/dL RDW (11.5-15.5) % Plt Count (150-450) k/uL MPV Neutrophils % % Lymphocytes % % Monocytes % % Eosinophils % % Basophils % % Neutrophils # (1.3-7.7) k/uL Lymphocytes # (1.0-4.8) k/uL Monocytes # (0-1.0) k/uL Eosinophils # (0-0.7) k/uL Basophils # (0-0.2) k/uL Sodium (137-145) mmol/L Potassium (3.5-5.1) mmol/L Chloride (98-107) mmol/L Carbon Dioxide (22-30) mmol/L Anion Gap mmol/L BUN (7-17) mg/dL Creatinine (0.52-1.04) mg/dL Est GFR (CKD-EPI)AfAm (>60 ml/min/1.73 sqM) Est GFR (CKD-EPI)NonAf (>60 ml/min/1.73 sqM) Glucose (74-99) mg/dL POC Glucose (mg/dL) 70 75 (70-110) mg/dL POC Glu Production Hardener ID Nini Santiago heather Plasma Lactic Acid Arvind (0.7-2.0) mmol/L Calcium (8.4-10.2) mg/dL Total Bilirubin (0.2-1.3) mg/dL AST (14-36) U/L ALT (4-34) U/L Alkaline Phosphatase (38-126) U/L Ammonia (<30) umol/L Total Protein (6.3-8.2) g/dL Albumin (3.5-5.0) g/dL TSH (0.465-4.680) mIU/L Urine Color Urine Appearance (Clear) Urine pH (5.0-8.0) Ur Specific [place] (1.001-1.035) Urine Protein (Negative) Urine Glucose (UA) (Negative) Urine Ketones (Negative) Urine Blood (Negative) Urine Nitrite (Negative) Urine Bilirubin (Negative) Urine Urobilinogen (<2.0) mg/dL Ur Leukocyte Esterase (Negative) Urine RBC (0-5) /hpf Urine WBC (0-5) /hpf Ur Squamous Epith Cells (0-4) /hpf Amorphous Sediment (None) /hpf Hyaline Casts (0-2) /lpf Urine Mucus (None) /hpf Primidone (4-12) ug/mL Lamotrigine (2.0-15.0) ug/mL Levetiracetam (3.0-60.0) ug/mL Phenobarbital 3.3 L (15.0-40.0) UG/ML C. difficile (EIA) Intrp (Negative) Influenza Type A (PCR) (Not Detectd) Influenza Type B (PCR) (Not Detectd) RSV (PCR) (Not Detectd) SARS-CoV-2 (PCR) (Not Detectd) 10/16/23 10/16/23 Range/Units 10:00 11:29 WBC (3.8-10.6) k/uL RBC (3.80-5.40) m/uL Hgb (11.4-16.0) gm/dL Hct (34.0-46.0) % MCV (80.0-100.0) fL MCH (25.0-35.0) pg MCHC (31.0-37.0) g/dL RDW (11.5-15.5) % Plt Count (150-450) k/uL MPV Neutrophils % % Lymphocytes % % Monocytes % % Eosinophils % % Basophils % % Neutrophils # (1.3-7.7) k/uL Lymphocytes # (1.0-4.8) k/uL Monocytes # (0-1.0) k/uL Eosinophils # (0-0.7) k/uL Basophils # (0-0.2) k/uL Sodium (137-145) mmol/L Potassium (3.5-5.1) mmol/L Chloride (98-107) mmol/L Carbon Dioxide (22-30) mmol/L Anion Gap mmol/L BUN (7-17) mg/dL Creatinine (0.52-1.04) mg/dL Est GFR (CKD-EPI)AfAm (>60 ml/min/1.73 sqM) Est GFR (CKD-EPI)NonAf (>60 ml/min/1.73 sqM) Glucose (74-99) mg/dL POC Glucose (mg/dL) 93 (70-110) mg/dL POC Glu Production Hardener ID desmond Conklin Plasma Lactic Acid Arvind (0.7-2.0) mmol/L Calcium (8.4-10.2) mg/dL Total Bilirubin (0.2-1.3) mg/dL AST (14-36) U/L ALT (4-34) U/L Alkaline Phosphatase (38-126) U/L Ammonia (<30) umol/L Total Protein (6.3-8.2) g/dL Albumin (3.5-5.0) g/dL TSH (0.465-4.680) mIU/L Urine Color Urine Appearance (Clear) Urine pH (5.0-8.0) Ur Specific [place] (1.001-1.035) Urine Protein (Negative) Urine Glucose (UA) (Negative) Urine Ketones (Negative) Urine Blood (Negative) Urine Nitrite (Negative) Urine Bilirubin (Negative) Urine Urobilinogen (<2.0) mg/dL Ur Leukocyte Esterase (Negative) Urine RBC (0-5) /hpf Urine WBC (0-5) /hpf Ur Squamous Epith Cells (0-4) /hpf Amorphous Sediment (None) /hpf Hyaline Casts (0-2) /lpf Urine Mucus (None) /hpf Primidone (4-12) ug/mL Lamotrigine (2.0-15.0) ug/mL Levetiracetam (3.0-60.0) ug/mL Phenobarbital (15.0-40.0) UG/ML C. difficile (EIA) Intrp Negative (Negative) Influenza Type A (PCR) (Not Detectd) Influenza Type B (PCR) (Not Detectd) RSV (PCR) (Not Detectd) SARS-CoV-2 (PCR) (Not Detectd) Disposition <Osvaldo Couch - Last Filed: 10/14/23 20:43> Is patient prescribed a controlled substance at d/c from ED?: No <Zander Avalos - Last Filed: 10/18/23 05:08> Clinical Impression: Epileptic seizure, generalized, UTI (urinary tract infection) Disposition: HOME SELF-CARE
[2023-10-14] MEDS: IBUPROFEN 600 MG TAB PO STA (19:33)
[2023-10-14] MEDS: LORazepam 2 MG/ML INJ IV STA (19:34)
[2023-10-14] MEDS: ACETAMINOPHEN TAB 500 MG TAB PO STA (19:34)
[2023-10-14] MEDS: SODIUM CHLORIDE 0.9% 500 ML 500 ML IV ONE (19:37)
[2023-10-14] MEDS ORDERED: MAGNESIUM CITRATE 296 ML BOTTLE PO ONE (19:52)
[2023-10-14 20:07] LABS: Basophils % (A) 0 %; Eosinophils # (A) 0.2 k/uL (0-0.7); Eosinophils % (A) 3 %; HCT 41.2 % (34.0-46.0); Lymphocytes # (A) 0.7 k/uL (1.0-4.8); Lymphocytes % (A) 10 %; MCH 32.5 pg (25.0-35.0); MCHC 33.8 g/dL (31.0-37.0); Mean Platelet Volume 7.6; Monocytes # (A) 0.4 k/uL (0-1.0); Monocytes % (A) 5 %; Neutrophils # (A) 5.8 k/uL (1.3-7.7); Neutrophils % (A) 80 %; Platelet Count 225 k/uL (150-450); RDW 12.4 % (11.5-15.5); WBC 7.3 k/uL (3.8-10.6)
[2023-10-14 20:20] LABS: ALT 15 U/L (4-34); AST 22 U/L (14-36); African American GFR (CKD) >90 (>60 ml/min/1.73 sqM); Albumin 4.1 g/dL (3.5-5.0); Alkaline Phosphatase 89 U/L (38-126); Anion Gap 8 mmol/L; Blood Urea Nitrogen 14 mg/dL (7-17); Calcium 8.9 mg/dL (8.4-10.2); Carbon Dioxide 32 mmol/L (22-30); Chloride 102 mmol/L (98-107); Glucose 86 mg/dL (74-99); Non-African American GFR(CKD) >90 (>60 ml/min/1.73 sqM); Potassium 3.6 mmol/L (3.5-5.1); Sodium 142 mmol/L (137-145); Total Bilirubin 0.4 mg/dL (0.2-1.3); Total Protein 6.3 g/dL (6.3-8.2)
[2023-10-14] MEDS: IPRATROPIUM-ALBUTEROL 3 ML NEB INHALATION STA (21:22)
--- NOTE | 2023-10-14 21:29 | XR ---
EXAMINATION TYPE: XR chest 2V DATE OF EXAM: 10/14/2023 9:22 PM CLINICAL INDICATION:Female, 58 years old with history of Difficulty breathing ; COMPARISON: Chest radiographs from 09/18/2022. TECHNIQUE: XR chest 2V Frontal and lateral views of the chest. FINDINGS: Lungs/Pleura: Bibasilar atelectasis. No evidence for pneumothorax, pleural effusion or focal consolid ation. Pulmonary vascularity: Unremarkable. Heart/mediastinum: Cardiomediastinal silhouette is unremarkable. Musculoskeletal: No acute osseous pathology. IMPRESSION: No acute cardiopulmonary disease/process.
[2023-10-14] MEDS: lisinopriL 5 MG TAB PO STA (21:44)
[2023-10-14] MEDS: ISOSORBIDE MONONITRATE ER 30 MG TAB.ER.24H PO STA (21:45)
[2023-10-14 23:15] LABS: Amorphous Sediment,Urine Rare /hpf; Appearance,Urine Clear (Clear); Bilirubin,Urine Negative (Negative); Blood,Urine Negative (Negative); Color,Urine Yellow; Glucose,Urine (UA) Negative (Negative); Hyaline Casts,Urine 33 /lpf (0-2); Ketones,Urine 1+ (Negative); Leukocyte Esterase,Urine Trace (Negative); Mucus,Urine Many /hpf; Nitrite,Urine Negative (Negative); PH, Urine 6.5 (5.0-8.0); Protein,Urine 1+ (Negative); RBC,Urine 7 /hpf (0-5); Specific Gravity,Urine 1.031 (1.001-1.035); Squamous Epithelial Cell,Urine 11 /hpf (0-4); WBC,Urine 11 /hpf (0-5)
[2023-10-15] MEDS: NITROFURANTOIN MONOHYD/M-CRYST 100 MG CAP PO STA (01:09)
[2023-10-15] MEDS ORDERED: NALOXONE 0.4 MG/ML 1 ML VIAL IV PRN (06:51)
[2023-10-15] MEDS ORDERED: ACETAMINOPHEN TAB 325 MG TAB PO PRN (06:51)
[2023-10-15] MEDS ORDERED: ALBUTEROL NEBULIZED 2.5 MG/3 ML INHALATION PRN (11:48)
[2023-10-15] MEDS ORDERED: NITROGLYCERIN SL TABS 0.4 MG TAB SUBLINGUAL PRN (11:50)
[2023-10-15] MEDS: SYMBICORT 160-4.5 MCG INHALER INHALATION SCH (12:05)
[2023-10-15] MEDS: ALBUTEROL NEBULIZED 2.5 MG/3 ML INHALATION SCH (12:07)
--- NOTE | 2023-10-15 12:07 | P.HPIM ---
History of Present Illness H&P Date: 10/15/23 Chief Complaint: Seizure This is a 58-year-old patient, follows with Dr. Floyd. Chronic stable medical conditions include CAD, COPD, diabetes, GERD, hyperlipidemia, hypertension, osteoarthritis, neuropathy, vocal cord dysplasia, IBS, overactive bladder, chronic back pain, restless leg syndrome, seizure activity, stop drinking alcohol drinking -2011. Bipolar- follow with Dr. Gorman from psychiatry. Active smoker. Patient presented to ER after witnessed a seizure for about 15 minutes. Patient does not remember the episode. Patient noted to have rather significant tremors. And also sticking out of for tongue and rolling about. She says this has been exacerbated for about 2 months. Possibly after new medication was started. Unclear which one. She also had a seizure around . Patient has continued to smoke. Does want to stop. Review of systems: GEN.: Tired EYES: None HEENT: Constant movement of the tongue, including sticking it out NECK: None RESPIRATORY: Wheezing some shortness of breath CARDIOVASCULAR: As above GASTROINTESTINAL: None GENITOURINARY: None MUSCULOSKELETAL: Joint pains] LYMPHATICS: None HEMATOLOGICAL: None PSYCHIATRY: Anxious NEUROLOGICAL: Visible coarse shaking tremors of all the limbs. Past medical history to include: CAD, COPD, diabetes, GERD, hyperlipidemia, hypertension, prostatitis, kidney disease, seizure disorder, peripheral neuropathy, vocal cord dysplasia, IBS, overactive bladder, hyperparathyroidism, chronic back pain, this is like syndrome, seizure activity, history of alcohol abuse . Bipolar. Social history: to, Sim[place]. Does use a cane/walker/wheelchair. Smokes a pack and a half a day since about age of 15. History of alcoholism stopped around 2011. Did use marijuana in the past. Family history: Mother had CAD Physical examination: VITAL SIGNS: 98, 91, 18, 124/60, 94% room air GENERAL: BMI 28.8, laying in bed, anxious. Shaking. EYES: Pupils equal. Conjunctiva normal. HEENT: External appearance of nose and ears normal, oral cavity grossly normal. NECK: JVD not raised; masses not palpable. HEART: First and second heart sounds are normal; no edema. LUNGS: Respiratory rate increased; his breath sounds, wheezing. ABDOMEN: Soft, nontender, liver spleen not palpable, no masses palpable. PSYCH: Alert and oriented x3; mood and affect anxiousl. MUSCULOSKELETAL:No Clubbing/cyanosis;muscles-grossly intact NEUROLOGICAL: Cranial nerves grossly intact; no facial asymmetry, intermittent sticking out her tongue. Rolling sometimes. Shaking of all 4 limbs. Jerking. Extension of the feet. LYMPHATICS: No lymph nodes palpable in the axilla and neck INVESTIGATIONS, reviewed in the clinical context: White count 7.3 hemoglobin 14 platelets 225 sodium 142 potassium 3.6 creatinine 0.7 to Influenza type A, B, RSV, COVID-19: Not detected Chest x-ray film personally reviewed by me-some interstitial prominence Assessment and plan: -Probable tardive dyskinesia uncontrolled. Patient states symptoms be lasting for close to 2 months. She thinks she was added a new psychiatry medications. Patient does take several's psychiatry medications. Consult psychiatry. -Breakthrough seizures. Continue home and do blood. Medications. Neurology consulted. - COPD in current smoker: DuoNeb . Nebulized Pulmicort. IV Solu-Medrol. Discharge on prednisone taper. Symbicort -CAD with a prior history of stent. Follows with Dr. Ramachandran. Continue home cardiac medications. -Chronic Orofacial dyskinesia -Chronic nicotine dependence, cigarette smoker Nicotine patch 21 -Restless leg syndrome Requip to 0.5 mg 3 times a day -GERD Omeprazole 40 mg daily -Bipolar disorder Psychiatry consulted -Diabetes mellitus type 2 chronically on insulin Follow Accu-Cheks with sliding scale. Resume home medications -Chronic medical debility. Baseline uses a walker/wheelchair -Full code Patient had extensive list of psychiatry medications. Having active tremors and possible tardive dyskinesia. Medications will have to be washed and adjusted in the inpatient setting. Patient needs at least 2 inpatient nights stay. Past Medical History Past Medical History: Asthma, Coronary Artery Disease (CAD), COPD, Diabetes Mellitus, GERD/Reflux, Hyperlipidemia, Hypertension, Osteoarthritis (OA), Renal Disease, Seizure Disorder Additional Past Medical History / Comment(s): IDDM type II, neuropathy bilateral legs/feet, vocal cord dysplasia/R vocal cord ulcer, dysphagia in past, IBS, overactive bladder, hyperparathyroidism, chronic back pain, headaches, chronic sinusitis, bilateral tinnitis, RLS, last seizure about one year ago, pt states past ETOH abuse but has not drank in 25 years. History of Any Multi-Drug Resistant Organisms: None Reported Past Surgical History: Appendectomy, Back Surgery, Heart Catheterization, Heart Catheterization With Stent, Hysterectomy, Tubal Ligation Additional Past Surgical History / Comment(s): Multiple throat biopsies, EGD, colonoscopies, back surgery x2. 2 stents. Past Anesthesia/Blood Transfusion Reactions: No Reported Reaction Date of Last Stent Placement:: unknown Past Psychological History: Bipolar, Depression Smoking Status: Current every day smoker Past Alcohol Use History: None Reported Past Drug Use History: None Reported - Past Family History Mother Family Medical History: Coronary Artery Disease (CAD) Additional Family Medical History / Comment(s): Mother had CABG Father Family Medical History: CVA/TIA Medications and Allergies Home Medications Medication Instructions Recorded Confirmed Type Albuterol Nebulized [Ventolin 2.5 mg INHALATION RT-QID 02/11/22 10/15/23 History Nebulized] Clopidogrel [Plavix] 75 mg PO DAILY 02/11/22 10/15/23 History DULoxetine HCL [Cymbalta] 60 mg PO BID 02/11/22 10/15/23 History Ezetimibe [Zetia] 10 mg PO DAILY 02/11/22 10/15/23 History Insulin Aspart [NovoLOG Flexpen] 5 unit SQ AC-TID 02/11/22 10/15/23 History Insulin Detemir [Levemir Flextouch 3 units SQ HS 02/11/22 10/15/23 History Pen] Omeprazole 40 mg PO DAILY 02/11/22 10/15/23 History Potassium Chloride ER [K-Dur 10] 10 meq PO DAILY 02/11/22 10/15/23 History Primidone [Mysoline] 50 mg PO TID 02/11/22 10/15/23 History Rosuvastatin Calcium [Crestor] 40 mg PO HS 02/11/22 10/15/23 History lamoTRIgine 150 mg PO BID 02/11/22 10/15/23 History levETIRAcetam [Keppra] 1,000 mg PO BID 02/11/22 10/15/23 History valACYclovir HCL [Valtrex] 1,000 mg PO DAILY 02/11/22 10/15/23 History Aspirin EC [Ecotrin Low Dose] 81 mg PO DAILY 05/06/22 10/15/23 History Baclofen [Lioresal] 20 mg PO TID 05/06/22 10/15/23 History Pregabalin [Lyrica] 150 mg PO TID 05/06/22 10/15/23 History rOPINIRole HCL [Requip] 0.5 mg PO TID 05/06/22 10/15/23 History Folic Acid 1 mg PO DAILY #30 tab 05/15/22 10/15/23 Rx ALPRAZolam [Xanax] 0.5 mg PO HS 09/18/22 10/15/23 History Acetaminophen [Tylenol Extra 1,000 mg PO Q8H PRN 09/18/22 10/15/23 History Strength] Furosemide [Lasix] 10 mg PO DAILY 09/18/22 10/15/23 History Nitroglycerin 0.4 mg SL Q5M PRN 09/18/22 10/15/23 History Ondansetron [Zofran] 2 mg PO TID PRN 09/18/22 10/15/23 History Albuterol Inhaler [Ventolin Hfa 2 puff INHALATION RT-QID PRN 10/15/23 10/15/23 History Inhaler] Budesonide/Formoterol Fumarate 2 puff INHALATION RT-BID 10/15/23 10/15/23 History [Symbicort 160-4.5 Mcg Inhaler] Cholecalciferol [Vitamin D3 (25 25 mcg PO DAILY 10/15/23 10/15/23 History Mcg = 1000 Iu)] Diroximel Fumarate [Vumerity] 462 mg PO BID 10/15/23 10/15/23 History Enalapril [Vasotec] 2.5 mg PO BID 10/15/23 10/15/23 History Insulin Aspart [NovoLOG Flexpen] See Protocol SQ AC-TID 10/15/23 10/15/23 History Isosorbide Mononitrate ER [Imdur] 30 mg PO BID 10/15/23 10/15/23 History Lidocaine 5% Patch [Lidoderm 5% 1 patch TRANSDERM DAILY PRN 10/15/23 10/15/23 History Patch] Nitrofurantoin Monohyd/M-Cryst 100 mg PO Q12HR #6 cap 10/15/23 Rx [Macrobid] Ranolazine [Ranexa] 1,000 mg PO BID 10/15/23 10/15/23 History Umeclidinium [place] [Incruse 1 puff INHALATION RT-DAILY 10/15/23 10/15/23 History Ellipta] Valbenazine Tosylate [Ingrezza] 80 mg PO DAILY 10/15/23 10/15/23 History Allergies Allergy/AdvReac Type Severity Reaction Status Date / Time bupropion [From Wellbutrin] Allergy Rash/Hives Verified 10/15/23 10:41 morphine Allergy Rash/Hives Verified 10/15/23 10:41 Penicillins Allergy Rash/Hives Verified 10/15/23 10:41 Physical Exam Vitals: Vital Signs Temp Pulse Resp BP Pulse Ox 10/15/23 07:30 91 18 124/63 94 L 10/15/23 06:30 98.0 F 96 20 171/92 95 10/15/23 01:17 98.8 F 87 18 117/69 94 L 10/14/23 21:29 92 10/14/23 21:22 96 10/14/23 20:15 93 18 162/101 90 L 10/14/23 19:39 99.0 F 96 20 169/131 90 L 10/14/23 19:13 98.1 F 100 18 176/98 95 Intake and Output 10/14/23 10/15/23 10/15/23 22:59 06:59 14:59 Other: Weight 88.451 kg Results CBC & Chem 7: 10/14/23 19:48 10/14/23 19:48 Labs: Abnormal Lab Results - Last 24 Hours (Table) 10/14/23 10/14/23 10/14/23 Range/Units 19:48 19:48 19:48 Lymphocytes # 0.7 L (1.0-4.8) k/uL Carbon Dioxide 32 H (22-30) mmol/L Urine Protein 1+ H (Negative) Urine Ketones 1+ H (Negative) Ur Leukocyte Esterase Trace H (Negative) Urine RBC 7 H (0-5) /hpf Urine WBC 11 H (0-5) /hpf Ur Squamous Epith Cells 11 H (0-4) /hpf Amorphous Sediment Rare H (None) /hpf Hyaline Casts 33 H (0-2) /lpf Urine Mucus Many H (None) /hpf
[2023-10-15] MEDS: NICOTINE 21MG/24HR PATCH TRANSDERM SCH (12:29)
[2023-10-15] MEDS: CHOLECALCIFEROL 25 MCG (1000 IU) TABLET PO SCH (12:30)
[2023-10-15] MEDS: ASPIRIN 81 MG PO SCH (12:30)
[2023-10-15] MEDS: PANTOPRAZOLE 40 MG TABLET PO SCH (12:31)
[2023-10-15] MEDS: FOLIC ACID 1 MG TAB PO SCH (12:31)
[2023-10-15] MEDS: PRIMIDONE 50 MG TAB PO SCH (12:31)
[2023-10-15] MEDS: EZETIMIBE 10 MG TAB PO SCH (12:31)
[2023-10-15] MEDS: lisinopriL 10 MG TAB PO SCH (12:31)
[2023-10-15] MEDS: CLOPIDOGREL 75 MG TAB PO SCH (12:32)
[2023-10-15] MEDS: ISOSORBIDE MONONITRATE ER 30 MG TAB.ER.24H PO SCH (12:32)
[2023-10-15] MEDS: DULoxetine HCL 60 MG CAPSULE.DR PO SCH (12:32)
[2023-10-15] MEDS: PREGABALIN 75 MG CAP PO SCH (12:33)
[2023-10-15] MEDS: levETIRAcetam 500 MG TAB PO SCH (12:33)
[2023-10-15] MEDS: lamoTRIgine 100 MG TAB PO SCH (12:34)
[2023-10-15] MEDS: RANOLAZINE 500 MG TAB.ER.12H PO SCH (12:35)
[2023-10-15] MEDS: ENOXAPARIN 40 MG/0.4 ML SYRINGE SQ SCH (12:37)
[2023-10-15] MEDS: Valbenazine Tosylate [Ingrezza] 80 MG Capsule PO SCH (13:12)
[2023-10-15] MEDS: FUROSEMIDE 10 MG TAB PO SCH (13:14)
[2023-10-15] MEDS: valACYclovir HCL 1,000 MG TABLET PO SCH (13:14)
[2023-10-15 13:47] LABS: Glucose,Whole Blood 68 mg/dL (70-110)
[2023-10-15] MEDS: INSULIN ASPART (NovoLOG) 100 UNIT/ML VIAL SQ SCH (13:51)
[2023-10-15] MEDS: IPRATROPIUM-ALBUTEROL 3 ML NEB INHALATION SCH (15:22)
[2023-10-15] MEDS: BACLOFEN 10 MG TAB PO SCH (20:10)
[2023-10-15 20:33] LABS: Glucose,Whole Blood 70 mg/dL (70-110)
[2023-10-15] MEDS: ATORVASTATIN 80 MG TAB PO SCH (20:37)
[2023-10-15] MEDS: ALPRAZolam 0.5 MG TAB PO SCH (20:37)
[2023-10-15] MEDS: INSULIN DETEMIR (LEVEMIR) 100 UNIT/ML SYR SQ SCH (22:08)
--- NOTE | 2023-10-16 04:45 | EEG ---
ELECTROENCEPHALOGRAM REPORT PREAMBLE: This is a 58-year-old female with history of seizure disorder. MEDICATIONS: The patient is currently on number medications including, 1. Keppra. 2. Lamictal. 3. Lyrica. 4. Mysoline. EEG FINDINGS: This is a 21-channel digital EEG recorded with video component, utilizing 10/20 international system with referential and bipolar montages. Background consists of well developed, well regulated, predominantly 7 hertz, moderate amplitude theta activity seen in bihemispheric region. Background does not seem to be clearly reactive to eye opening and closing. Photic driving response was not clearly seen. Different stages of sleep were not seen. No focal or generalized epileptiform activity was seen. EKG channel showed no obvious arrhythmia. IMPRESSION: This is an abnormal EEG due to background slowing of mild degree. This is suggestive of generalized cerebral dysfunction as can be seen with toxic metabolic encephalopathy or medication effect. Clinical correlation is recommended. No epileptiform activity was seen. MMODL / IJN: [id number] / MTDD
[2023-10-16 07:19] LABS: Glucose,Whole Blood 75 mg/dL (70-110)
[2023-10-16] MEDS ORDERED: IPRATROPIUM 0.5 MG/2.5 ML NEBU INHALATION SCH (08:00)
[2023-10-16 08:17] LABS: Levetiracetam (Keppra) 25.6 ug/mL (3.0-60.0)
[2023-10-16 08:39] LABS: Lamotrigine (Lamictal) 4.4 ug/mL (2.0-15.0)
[2023-10-16] MEDS: POTASSIUM CHLORIDE ER 10 MEQ TAB.ER.PRT PO SCH (10:17)
--- NOTE | 2023-10-16 10:19 | P.CNNES ---
History of Present Illness Consult date: 10/15/23 Requesting physician: Zander Avalos Reason for Consult: New tremor History of Present Illness: Patient is a 58-year-old female with history of seizure disorder, possible MS, follows up with Dr. Garnett office with Estefany ARNOLD, currently on multiple seizure medications, was brought to the hospital by ambulance yesterday at 7 PM. EMS to should not available in the chart. I had to call patient's to get more information. He mentions that patient fell on the floor and had a seizure lasting for about 5-10 minutes. Thereafter she kept on shaking and slurring her words. There was no tongue bite, or loss of control of urine. He believes that it was a convulsion, she did not loose consciousness, did not pass out but she did not understand everything at that time. Patient's believes that the seizure prior to this was about couple months ago, when she had seizure couple days before , which lasted for about 5 minutes. Patient says that she takes medication regularly, does not miss a dose of medication. Vital signs on arrival blood pressure 176/98, pulse rate 100 temperature 98.1. Chest x-ray showed no acute cardiopulmonary disease process. Patient had an EEG performed previously 02/12/2022 which was abnormal due to mild to moderate encephalopathy likely due to toxic metabolic abnormality. No epileptiform activity was seen. Patient has been seen by Dr. Will Velez on 11/2021 for tardive dyskinesia related tongue protrusion, possible dystonic reaction. I had seen patient in follow-up at that time, and patient was placed on Artane, and recommended patient try Ingrezza. Apparently patient currently is on this medication 80 mg daily. She continues to have significant tongue thrusting/protrusion in between she talks. Patient has significant tremors. CT head from 05/07/2022 revealed no acute intracranial process. Blood test shows normal CBC, CMP, ammonia is 12, UA shows trace amount of leukocyte esterase, 11 WBCs and negative nitrite. Influenza, RSV and reilly virus PCR negative. Patient has history of smoking 1 to 1-1/2 pack per day for 30 years, still smokes. Patient lives with her . She has 1 biological child. She states that she does have a cane and a walker and uses it. The nurse reported that she stood up in the room fairly normally was not a fall risk. Patient currently on numerous seizure medications including Lamictal 150 mg t wice a day, Keppra 1000 mg twice a day, also on primidone 50 mg 3 times a day and Lyrica 150 mg 3 times a day. He should also on Ingrezza 80 mg daily, and Vumerity for her possible MS. Patient says that she was diagnosed MS about 5 or 6 years ago. Review of Systems Constitutional: Reports sweats, Reports weight loss, Denies chills, Denies fever (Only when came in once) Eyes: bilateral blurred vision (once in a while), denies diplopia, denies pain Ears: deny: decreased hearing, ear discharge Ears, nose, mouth and throat: Reports headache (Migraine headaches), Denies sore throat Cardiovascular: Reports shortness of breath, Denies chest pain Respiratory: Reports excessive sputum, Denies cough Gastrointestinal: Denies abdominal pain, Denies diarrhea, Denies nausea, Denies vomiting Genitourinary: Reports dysuria, Denies urge incontinence, Denies urgency, Denies urinary frequency Musculoskeletal: Reports neck pain, Denies low back pain Integumentary: Denies pruritus, Denies rash Neurological: Reports as per HPI Psychiatric: Denies anxiety, Denies depression Endocrine: Reports fatigue, Reports weight change Hematologic/Lymphatic: Reports easy bleeding, Reports easy bruising Past Medical History Past Medical History: Asthma, Coronary Artery Disease (CAD), COPD, Diabetes Mellitus, GERD/Reflux, Hyperlipidemia, Hypertension, Osteoarthritis (OA), Renal Disease, Seizure Disorder Additional Past Medical History / Comment(s): IDDM type II, neuropathy bilateral legs/feet, vocal cord dysplasia/R vocal cord ulcer, dysphagia in past, IBS, overactive bladder, hyperparathyroidism, chronic back pain, headaches, chronic sinusitis, bilateral tinnitis, RLS, last seizure about one year ago, pt states past ETOH abuse but has not drank in 25 years. History of Any Multi-Drug Resistant Organisms: None Reported Past Surgical History: Appendectomy, Back Surgery, Heart Catheterization, Heart Catheterization With Stent, Hysterectomy, Tubal Ligation Additional Past Surgical History / Comment(s): Multiple throat biopsies, EGD, colonoscopies, back surgery x2. 2 stents. Past Anesthesia/Blood Transfusion Reactions: No Reported Reaction Date of Last Stent Placement:: unknown Past Psychological History: Bipolar, Depression Smoking Status: Current every day smoker Past Alcohol Use History: None Reported Past Drug Use History: None Reported - Past Family History Mother Family Medical History: Coronary Artery Disease (CAD) Additional Family Medical History / Comment(s): Mother had CABG Father Family Medical History: CVA/TIA Medications and Allergies Home Medications Medication Instructions Recorded Confirmed Type Albuterol Nebulized [Ventolin 2.5 mg INHALATION RT-QID 02/11/22 10/15/23 History Nebulized] Clopidogrel [Plavix] 75 mg PO DAILY 02/11/22 10/15/23 History DULoxetine HCL [Cymbalta] 60 mg PO BID 02/11/22 10/15/23 History Ezetimibe [Zetia] 10 mg PO DAILY 02/11/22 10/15/23 History Insulin Aspart [NovoLOG Flexpen] 5 unit SQ AC-TID 02/11/22 10/15/23 History Insulin Detemir [Levemir Flextouch 3 units SQ HS 02/11/22 10/15/23 History Pen] Omeprazole 40 mg PO DAILY 02/11/22 10/15/23 History Potassium Chloride ER [K-Dur 10] 10 meq PO DAILY 02/11/22 10/15/23 History Primidone [Mysoline] 50 mg PO TID 02/11/22 10/15/23 History Rosuvastatin Calcium [Crestor] 40 mg PO HS 02/11/22 10/15/23 History lamoTRIgine 150 mg PO BID 02/11/22 10/15/23 History levETIRAcetam [Keppra] 1,000 mg PO BID 02/11/22 10/15/23 History valACYclovir HCL [Valtrex] 1,000 mg PO DAILY 02/11/22 10/15/23 History Aspirin EC [Ecotrin Low Dose] 81 mg PO DAILY 05/06/22 10/15/23 History Baclofen [Lioresal] 20 mg PO TID 05/06/22 10/15/23 History Pregabalin [Lyrica] 150 mg PO TID 05/06/22 10/15/23 History rOPINIRole HCL [Requip] 0.5 mg PO TID 05/06/22 10/15/23 History Folic Acid 1 mg PO DAILY #30 tab 05/15/22 10/15/23 Rx ALPRAZolam [Xanax] 0.5 mg PO HS 09/18/22 10/15/23 History Acetaminophen [Tylenol Extra 1,000 mg PO Q8H PRN 09/18/22 10/15/23 History Strength] Furosemide [Lasix] 10 mg PO DAILY 09/18/22 10/15/23 History Nitroglycerin 0.4 mg SL Q5M PRN 09/18/22 10/15/23 History Ondansetron [Zofran] 2 mg PO TID PRN 09/18/22 10/15/23 History Albuterol Inhaler [Ventolin Hfa 2 puff INHALATION RT-QID PRN 10/15/23 10/15/23 History Inhaler] Budesonide/Formoterol Fumarate 2 puff INHALATION RT-BID 10/15/23 10/15/23 History [Symbicort 160-4.5 Mcg Inhaler] Cholecalciferol [Vitamin D3 (25 25 mcg PO DAILY 10/15/23 10/15/23 History Mcg = 1000 Iu)] Diroximel Fumarate [Vumerity] 462 mg PO BID 10/15/23 10/15/23 History Enalapril [Vasotec] 2.5 mg PO BID 10/15/23 10/15/23 History Insulin Aspart [NovoLOG Flexpen] See Protocol SQ AC-TID 10/15/23 10/15/23 History Isosorbide Mononitrate ER [Imdur] 30 mg PO BID 10/15/23 10/15/23 History Lidocaine 5% Patch [Lidoderm 5% 1 patch TRANSDERM DAILY PRN 10/15/23 10/15/23 History Patch] Nitrofurantoin Monohyd/M-Cryst 100 mg PO Q12HR #6 cap 10/15/23 Rx [Macrobid] Ranolazine [Ranexa] 1,000 mg PO BID 10/15/23 10/15/23 History Umeclidinium [place] [Incruse 1 puff INHALATION RT-DAILY 10/15/23 10/15/23 History Ellipta] Valbenazine Tosylate [Ingrezza] 80 mg PO DAILY 10/15/23 10/15/23 History Allergies Allergy/AdvReac Type Severity Reaction Status Date / Time bupropion [From Wellbutrin] Allergy Rash/Hives Verified 10/15/23 10:41 morphine Allergy Rash/Hives Verified 10/15/23 10:41 Penicillins Allergy Rash/Hives Verified 10/15/23 10:41 Physical Examination - Vital Signs Vital Signs: Vital Signs Temp Pulse Resp BP Pulse Ox 10/15/23 12:16 91 10/15/23 12:07 90 10/15/23 07:30 91 18 124/63 94 L 10/15/23 06:30 98.0 F 96 20 171/92 95 10/15/23 01:17 98.8 F 87 18 117/69 94 L 10/14/23 21:29 92 10/14/23 21:22 96 10/14/23 20:15 93 18 162/101 90 L 10/14/23 19:39 99.0 F 96 20 169/131 90 L 10/14/23 19:13 98.1 F 100 18 176/98 95 Intake and Output 10/14/23 10/15/23 10/15/23 22:59 06:59 14:59 Other: Weight 88.451 kg Patient is a middle aged female, in no acute distress, but patient appears somewhat anxious. Patient is significantly having resting tremors of her arms and legs. She has near constant tongue protrusion/thrusting in between she speaks. Patient is alert awake oriented to time place and person. She knows it is October and the year is and that she is in [facility] in [place] and name of the current president. Speech and language functions are normal. Patient can name and repeat very well. No aphasia or dysarthria, although patient sometimes stutters/stammers.. Attention, concentration and fund of knowledge is adequate. On cranial nerve examination, pupils are equal, round and reacting to light, visual harris are full on confrontation, with no neglect on double simultaneous stimulation. Extraocular muscles are intact with no nystagmus. Face is symmetric, tongue protrudes to the midline. Palatal elevation and sensation normal, hearing and shoulder shrug normal, facial sensation slightly decreased on the left for fine touch. No evidence of tongue bite hari. Her mouth is dry, and lips is slightly chapped. On muscle strength testing, there is no pronator drift and the strength is normal in arms and legs distally and proximally. Deep tendon reflexes are symmetric 1+ and plantars downgoing. Sensory to touch is decreased in the left side of the body including face arm and leg. Cerebellar function showed no ataxia for [id number] testing, although patient has mild to moderate tremors bilaterally. No dysdiadochokinesia. No at axia for [id number] testing on either side. Tone is moderately increased bilaterally with cogwheeling and bulk of muscles normal. Patient has moderate tremors at rest of arms and legs. Patient has moderate finger flapping tremors of outstretched hands. Gait deferred.. On general examination, there is no carotid bruit or murmur, S1-S2 audible. Chest is clear on consultation. Abdomen is soft nontender. No organomegaly, bowel sounds present. Peripheral pulses are present. No peripheral edema. Results - Laboratory Findings CBC and BMP: 10/14/23 19:48 10/14/23 19:48 Abnormal Lab Findings: Abnormal Labs 10/14/23 10/14/23 10/14/23 19:48 19:48 19:48 Lymphocytes # 0.7 L Carbon Dioxide 32 H Urine Protein 1+ H Urine Ketones 1+ H Ur Leukocyte Esterase Trace H Urine RBC 7 H Urine WBC 11 H Ur Squamous Epith Cells 11 H Amorphous Sediment Rare H Hyaline Casts 33 H Urine Mucus Many H Assessment and Plan Assessment: * Seizure disorder, came with possible breakthrough seizure, rule out n onepileptic event, as patient never lost consciousness, did not pass out. Patient does have continuous tremors at rest of her arms and legs, uncertain if patient's attributed the tremors to the seizure. Patient is on numerous seizure medications, compliant. * Probable tardive dyskinesia with tongue thrusting/protruding between talking. * New onset parkinsonian tremor of arms and legs. Patient does have some increased tone with cogwheeling as well. Patient does not take any medication that would produce drug-induced parkinsonism. * History of B12, folate and B6 deficiency * COPD * Tobacco use * Essential tremor * Reported history of multiple sclerosis * Bipolar disorder type II and depression * Polypharmacy Plan: * EEG was performed today, which was abnormal due to background slowing of mild degree. This is suggestive of generalized cerebral dysfunction as can be seen with encephalopathy or medication effect. No epileptiform activity was seen. * We will check stat levels of Lamictal, Keppra, primidone and phenobarbital. * Check TFTs * Patient has history of B12, folate and B6 deficiency. Patient will be resumed on these vitamins. * Further management based upon above test results. * In the meantime patient will be maintained on her seizure medication. * Thank you for the consult.
[2023-10-16] MEDS: CYANOCOBALAMIN 1,000 MCG/ML 1 ML VIAL IM ONE (11:07)
[2023-10-16] MEDS: PYRIDOXINE 50 MG TAB PO SCH (11:07)
[2023-10-16 11:31] LABS: Glucose,Whole Blood 93 mg/dL (70-110)
[2023-10-16] MEDS: ONDANSETRON 4 MG TAB PO PRN (12:11)
[2023-10-16] MEDS: BENZTROPINE MESYLATE 0.5 MG TAB PO SCH (13:18)
[2023-10-16 14:39] LABS: Primidone 5.3 ug/mL (4-12)
--- NOTE | 2023-10-16 15:25 | P.CN ---
Psychiatric Consult - . Consult date: 10/16/23 Consult:: 10/16/23 12:3 IDENTIFYING DATA: This patient is a 58-year-old female lives in a trailer with her , has 1 grown child, collects disability. REASON FOR REFERRAL: Psychiatry was consulted for tardive dyskinesia HISTORY OF PRESENT ILLNESS: The patient presented to the hospital on 10/14/23. Patient has been having tremors for about 6 months, over the past 3 or 4 months it's been getting worse. claims that she does not know what the triggering event was however it is progressivley worsening. Patient is visibly having tremors, and slight stiffness in her muscles. Patient received a dose of cogentin this am, will continue to monitor, to see if this will help the tremors. Will also add propanolol. Patient agreeable. Patient denies any problems with her mood or depression. claims that she does have anxiety. At this time patient denies any suicidal or homical ideations, intent or plan. Patient denies any auditory, visual hallucinations and denies any paranoia or delusions. Patients admits to using cigarettes.Patient does demonstrate both intentional and unintentional tremors. PAST PSYCHIATRIC HISTORY: Patient has a history of bipolar and anxiety. Patient previous psychiatric hospitalization was 35 years ago, after an attempt at suicide, by overdose.[Patient psychiatric outpatient follow-up.at [facility] with Dr Gorman. Currently on Cymbalta. patient is denying ever being on any antipsychotics in the past. PAST MEDICAL HISTORY: as per ED note ALLERGIES: as per EMR. CHEMICAL DEPENDENCY HISTORY: as per HPI. FAMILY PSYCHIATRIC/SUBSTANCE USE HISTORY: sister has some form of mental illness. SOCIAL HISTORY: Patient was born and raised in [place], [place], , has one adult child. 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 MENTAL STATUS EXAM: General Appearance: Patient appears to be older than stated age, is alert, pleasant, and cooperative. Patient appears to have fair hygiene and grooming wearing hospital gown with fair eye contact. Behavior: Patient is calmly lying in bed without any agitated behavior. Tremors signifcant in upper and lower extremities, inlcuding tongue. Speech: Patient's speech is hesitant and nonpressured. Stuttering Mood/Affect: Patient reports their mood is "nervous and anxious", affect is congruent Suicidality/Homicidality: Patient denies having any suicidal or homicidal ideation intent or plan. Perceptions: Patient denies any visual hallucinations and denies any auditory hallucinations Though content/process: There is no evidence of any delusional thought content and thought process is linear and goal-directed. Memory and concentration: AOX3, grossly intact for the purposes of this session. Can spell "WORLD" backwards Judgment and insight: fair IMPRESSIONS: Tardive Dyskinesia Extra pyramidal symptoms history of bipolar disorder anxiety disorder, unspecified nicotine dependance PLAN: -At this time patient DOES NOT meet criteria for inpatient psychiatric admission. -Would recommend the following medication changes/additions: Add propanolol 10mg bid po for tremors/anxiety add remeron 15mg qhs cogentin 0.5mg po bid for EPS continue ingrezza 80mg daily for TD, Xanax 0.5mg qhs for anxiety/sleep, consider decreasing tomorrow if needed -Patient can follow up with her [facility] psychiatrist on discharge. -Communicated plan to patient's nurse -Will continue to follow along to adjust medications treat tremors and eps reaction. -Please contact with any questions. 10/16/23 14:42 10/16/23 15:21
[2023-10-16] MEDS: PROPRANOLOL 10 MG TAB PO SCH (16:57)
[2023-10-16 16:58] LABS: Glucose,Whole Blood 87 mg/dL (70-110)
--- NOTE | 2023-10-16 17:27 | P.PN ---
Progress Note - Text Progress Note Date: 10/16/23 Chief Complaint: Seizure This is a 58-year-old patient, follows with Dr. Floyd. Chronic stable medical conditions include CAD, COPD, diabetes, GERD, hyperlipidemia, hypertension, osteoarthritis, neuropathy, vocal cord dysplasia, IBS, overactive bladder, chronic back pain, restless leg syndrome, seizure activity, stop drinking alcohol drinking -2011. Bipolar- follow with Dr. Gorman from psychiatry. Active smoker. Patient presented to ER after witnessed a seizure for about 15 minutes. Patient does not remember the episode. Patient noted to have rather significant tremors. And also sticking out of for tongue and rolling about. She says this has been exacerbated for about 2 months. Possibly after new medication was started. Unclear which one. She also had a seizure around . Patient has continued to smoke. Does want to stop. 10/16/2023: Patient still having significant tremors. Discussed with Dr. Barron from neurology. Question about drug-induced Parkinson's. Cogentin was added. EEG has been unremarkable. We did not feel the patient has seizures. No change in seizure medications. Also discussed with Dr. Andersen from psychiatry. We'll see how patient does with current change of medications including Cogentin. Active Medications Acetaminophen (Acetaminophen Tab 325 Mg Tab) 650 mg PO Q6HR PRN PRN Reason: Mild Pain or Fever > 100.5 Albuterol Sulfate (Albuterol Nebulized 2.5 Mg/3 Ml) 2.5 mg INHALATION RT-QID PRN PRN Reason: Shortness Of Breath Albuterol/Ipratropium (Ipratropium-Albuterol 3 Ml Neb) 3 ml INHALATION RT-QID [facility] Last Admin: 10/16/23 15:03 Dose: 3 ml Alprazolam (Alprazolam 0.5 Mg Tab) 0.5 mg PO [facility] Last Admin: 10/15/23 20:37 Dose: 0.5 mg Aspirin (Aspirin 81 Mg) 81 mg PO DAILY [facility] Last Admin: 10/16/23 10:18 Dose: 81 mg Atorvastatin Calcium (Atorvastatin 80 Mg Tab) 80 mg PO [facility] Last Admin: 10/15/23 20:37 Dose: 80 mg Baclofen (Baclofen 10 Mg Tab) 20 mg PO TID [facility] Last Admin: 10/16/23 15:41 Dose: 20 mg Benztropine Mesylate (Benztropine Mesylate 0.5 Mg Tab) 0.5 mg PO BID [facility] Last Admin: 10/16/23 13:18 Dose: 0.5 mg Budesonide/Formoterol Fumarate (Symbicort 160-4.5 Mcg Inhaler) 2 puff INHALATION RT-BID [facility] Last Admin: 10/16/23 07:28 Dose: 2 puff Cholecalciferol (Cholecalciferol 25 Mcg (1000 Iu) Tablet) 25 mcg PO DAILY [facility] Last Admin: 10/16/23 10:18 Dose: 25 mcg Clopidogrel Bisulfate (Clopidogrel 75 Mg Tab) 75 mg PO DAILY [facility] Last Admin: 10/16/23 10:17 Dose: 75 mg Cyanocobalamin (Cyanocobalamin 500 Mcg Tab) 1,000 mcg PO DAILY [facility] Duloxetine HCl (Duloxetine Hcl 60 Mg Capsule.Dr) 60 mg PO BID [facility] Last Admin: 10/16/23 10:18 Dose: 60 mg Ezetimibe (Ezetimibe 10 Mg Tab) 10 mg PO DAILY [facility] Last Admin: 10/16/23 10:19 Dose: 10 mg Enoxaparin Sodium (Enoxaparin 40 Mg/0.4 Ml Syringe) 40 mg SQ DAILY [facility] Last Admin: 10/16/23 10:14 Dose: 40 mg Folic Acid (Folic Acid 1 Mg Tab) 1 mg PO DAILY [facility] Last Admin: 10/16/23 10:19 Dose: 1 mg Furosemide (Furosemide 10 Mg Tab) 10 mg PO DAILY [facility] Last Admin: 10/16/23 10:17 Dose: 10 mg Insulin Aspart (Insulin Aspart (Novolog) 100 Unit/Ml Vial) 5 unit SQ AC-TID [facility] Last Admin: 10/16/23 17:01 Dose: Not Given Insulin Detemir (Insulin Detemir (Levemir) 100 Unit/Ml Syr) 3 unit SQ HS [facility] Last Admin: 10/15/23 22:08 Dose: Not Given Isosorbide Mononitrate (Isosorbide Mononitrate Er 30 Mg Tab.Er.24h) 30 mg PO BID [facility] Last Admin: 10/16/23 10:18 Dose: 30 mg Lamotrigine (Lamotrigine 100 Mg Tab) 150 mg PO BID [facility] Last Admin: 10/16/23 10:19 Dose: 150 mg Levetiracetam (Levetiracetam 500 Mg Tab) 1,000 mg PO BID [facility] Last Admin: 10/16/23 10:18 Dose: 1,000 mg Lisinopril (Lisinopril 10 Mg Tab) 10 mg PO DAILY [facility] Last Admin: 10/16/23 10:17 Dose: 10 mg Mirtazapine (Mirtazapine 15 Mg Tab) 15 mg PO HS [facility] Naloxone HCl (Naloxone 0.4 Mg/Ml 1 Ml Vial) 0.2 mg IV Q2M PRN PRN Reason: Opioid Reversal Nicotine (Nicotine 21mg/24hr Patch) 1 patch TRANSDERM DAILY [facility] Last Admin: 10/16/23 10:20 Dose: 1 patch Nitroglycerin (Nitroglycerin Sl Tabs 0.4 Mg Tab) 0.4 mg SUBLINGUAL Q5M PRN PRN Reason: Chest Pain Diroximel Fumarate [ Vumerity] 231 Mg Capsule.Dr 462 mg PO BID [facility] Last Admin: 10/16/23 10:14 Dose: 462 mg Valbenazine Tosylate [Ingrezza] 80 Mg Capsule 80 mg PO DAILY [facility] Last Admin: 10/16/23 10:14 Dose: 80 mg Ondansetron HCl (Ondansetron 4 Mg Tab) 2 mg PO TID PRN PRN Reason: Nausea And Vomiting Last Admin: 10/16/23 12:11 Dose: 2 mg Pantoprazole Sodium (Pantoprazole 40 Mg Tablet) 40 mg PO AC-BRKFST [facility] Last Admin: 10/16/23 10:18 Dose: 40 mg Potassium Chloride (Potassium Chloride Er 10 Meq Tab.Er.Prt) 10 meq PO DAILY [facility] Last Admin: 10/16/23 10:17 Dose: 10 meq Pregabalin (Pregabalin 75 Mg Cap) 150 mg PO TID [facility] Last Admin: 10/16/23 15:41 Dose: 150 mg Primidone (Primidone 50 Mg Tab) 50 mg PO TID [facility] Last Admin: 10/16/23 15:42 Dose: 50 mg Propranolol HCl (Propranolol 10 Mg Tab) 10 mg PO BID [facility] Last Admin: 10/16/23 16:57 Dose: 10 mg Pyridoxine HCl (Pyridoxine 50 Mg Tab) 50 mg PO DAILY [facility] Last Admin: 10/16/23 11:07 Dose: 50 mg Ranolazine (Ranolazine 500 Mg Tab.Er.12h) 1,000 mg PO BID [facility] Last Admin: 10/16/23 11:07 Dose: 1,000 mg Ropinirole HCl (Ropinirole Hcl 0.25 Mg Tab) 0.5 mg PO TID [facility] Last Admin: 10/16/23 15:41 Dose: 0.5 mg Valacyclovir HCl (Valacyclovir Hcl 1,000 Mg Tablet) 1,000 mg PO DAILY [facility]; Protocol Last Admin: 10/16/23 10:16 Dose: 1,000 mg Past medical history to include: CAD, COPD, diabetes, GERD, hyperlipidemia, hypertension, prostatitis, kidney disease, seizure disorder, peripheral neuropathy, vocal cord dysplasia, IBS, overactive bladder, hyperparathyroidism, chronic back pain, this is like syndrome, seizure activity, history of alcohol abuse . Bipolar. Social history: to, Simone. Does use a cane/walker/wheelchair. Smokes a pack and a half a day since about age of 15. History of alcoholism stopped around 2011. Did use marijuana in the past. Family history: Mother had CAD Physical examination: VITAL SIGNS: 98.4, 91, 17, 152/68, 92% room air GENERAL: Sitting up in a recliner. Shaking/tremors EYES: Pupils equal. Conjunctiva normal. HEENT: External appearance of nose and ears normal, oral cavity grossly normal. NECK: JVD not raised; masses not palpable. HEART: First and second heart sounds are normal; no edema. LUNGS: Respiratory rate increased; his breath sounds, wheezing. ABDOMEN: Soft, nontender, liver spleen not palpable, no masses palpable. PSYCH: Alert and oriented x3; mood and affect anxiousl. MUSCULOSKELETAL:No Clubbing/cyanosis;muscles-grossly intact NEUROLOGICAL: Cranial nerves grossly intact; no facial asymmetry, intermittent sticking out her tongue. Rolling sometimes. Shaking of all 4 limbs. Jerking. Extension of the feet. INVESTIGATIONS, reviewed in the clinical context: EEG: Negative for epileptiform activity. White count 7.3 hemoglobin 14 platelets 225 sodium 142 potassium 3.6 creatinine 0.7 to Influenza type A, B, RSV, COVID-19: Not detected Chest x-ray film personally reviewed by me-some interstitial prominence Assessment and plan: -Probable tardive dyskinesia uncontrolled. Patient states symptoms be lasting for close to 2 months. As per neurology tax credit leasing consultant about medication induced parkinsonism.: Uncontrolled Psychiatry evaluation patient's medications Cogentin has been ordered. -Patient does not seem to have breakthrough seizures. Discussed with neurology. EEG unremarkable - COPD in current smoker: DuoNeb . Nebulized Pulmicort. IV Solu-Medrol. Discharge on prednisone taper. Symbicort -CAD with a prior history of stent. Follows with Dr. Ramachandran. Continue home cardiac medications. -Chronic Orofacial dyskinesia -Chronic nicotine dependence, cigarette smoker Nicotine patch 21 -Restless leg syndrome Requip to 0.5 mg 3 times a day -GERD Omeprazole 40 mg daily -Bipolar disorder Psychiatry consulted -Diabetes mellitus type 2 chronically on insulin Follow Accu-Cheks with sliding scale. Resume home medications -Chronic medical debility. Baseline uses a walker/wheelchair -Full code Cogentin 0.5 mg twice a day added today. Patient not ready for discharge. Follow with neurology and psychiatry. Past Medical History Past Medical History: Asthma, Coronary Artery Disease (CAD), COPD, Diabetes Mellitus, GERD/Reflux, Hyperlipidemia, Hypertension, Osteoarthritis (OA), Renal Disease, Seizure Disorder Additional Past Medical History / Comment(s): IDDM type II, neuropathy bilateral legs/feet, vocal cord dysplasia/R vocal cord ulcer, dysphagia in past, IBS, overactive bladder, hyperparathyroidism, chronic back pain, headaches, chronic sinusitis, bilateral tinnitis, RLS, last seizure about one year ago, pt states past ETOH abuse but has not drank in 25 years. History of Any Multi-Drug Resistant Organisms: None Reported Past Surgical History: Appendectomy, Back Surgery, Heart Catheterization, Heart Catheterization With Stent, Hysterectomy, Tubal Ligation Additional Past Surgical History / Comment(s): Multiple throat biopsies, EGD, colonoscopies, back surgery x2. 2 stents. Past Anesthesia/Blood Transfusion Reactions: No Reported Reaction Date of Last Stent Placement:: unknown Past Psychological History: Bipolar, Depression Smoking Status: Current every day smoker Past Alcohol Use History: None Reported Past Drug Use History: None Reported
[2023-10-16] MEDS: MIRTAZAPINE 15 MG TAB PO SCH (21:20)
[2023-10-16 21:36] LABS: Glucose,Whole Blood 109 mg/dL (70-110)
--- NOTE | 2023-10-17 05:43 | P.PN ---
Subjective Progress Note Date: 10/16/23 Patient was seen for a follow-up. Patient is laying in the bed, appears comfortable. Patient complaining of "a lot of phlegm". Patient states her tremor started about 2 or 3 months ago. The tremors were not as bad when started, but now is getting worse. Over time the tremors have gotten worse. Objective - Vital Signs Vital signs: Vital Signs Temp 98.8 F 10/16/23 07:14 Pulse 95 10/16/23 11:42 Resp 17 10/16/23 07:14 BP 159/85 10/16/23 07:14 Pulse Ox 92 L 10/16/23 07:14 FiO2 Intake & Output 10/15/23 10/16/23 10/16/23 18:59 06:59 18:59 Output Total 0 Balance 0 Weight 88.451 kg Output: Urine 0 Other: Voiding Method Toilet # Voids 2 3 # Bowel Movements 1 - Exam Patient is alert and awake, fully urine did. Speech and language functions are normal. Patient continues to have tardive dyskinesia. Patient has significant resting tremors of her hands and feet. Tone is moderately increased bilaterally. Rest of the examination is unchanged. - Labs CBC & Chem 7: 10/14/23 19:48 10/14/23 19:48 Labs: Abnormal Lab Results - Last 24 Hours (Table) 10/15/23 10/15/23 Range/Units 13:45 14:11 POC Glucose (mg/dL) 68 L (70-110) mg/dL Phenobarbital 3.3 L (15.0-40.0) UG/ML Microbiology - Last 24 Hours (Table) 10/14/23 19:48 Blood Culture - Preliminary Blood Assessment and Plan Assessment: * Seizure disorder, came with possible breakthrough seizure, rule out nonepileptic event, as patient never lost consciousness, did not pass out. Patient does have continuous tremors at rest of her arms and legs, uncertain if patient's attributed the tremors to the seizure. Patient is on numerous seizure medications, compliant. * Probable tardive dyskinesia with tongue thrusting/protruding between talking. * New onset parkinsonian tremor of arms and legs. Patient does have some increased tone with cogwheeling as well. Patient does not take any medication that would produce drug-induced parkinsonism. * History of B12, folate and B6 deficiency * COPD * Tobacco use * Essential tremor * Reported history of multiple sclerosis * Bipolar disorder type II and depression * Polypharmacy Plan: * EEG on 07/25/2024 was abnormal due to background slowing of mild degree. This is suggestive of generalized cerebral dysfunction as can be seen with encephalopathy or medication effect. No epileptiform activity was seen. * Lamictal 4.4(2-15), Keppra 25.6(3-60), primidone 5.3(4-12) and phenobarbital 3.3(15-40). * All seizure medications levels are therapeutic. We will not make any changes in the seizure medication. Continue same dose of seizure medications including Lamictal 150 mg twice a day, Keppra 1000 mg twice a day, primidone 50 mA 3 times a day and Lyrica 150 mg twice a day. * Patient may benefit from prolonged EEG testing outpatient. * TSH normal 1.040. * Patient has history of B12, folate and B6 deficiency. Patient will be resumed on these vitamins. * Patient is more concerned about constant tremors of her hands and feet. It appears parkinsonian tremor at rest. Patient has moderately increased tone and rigidity. Appears probable drug-induced. Patient will be started on Cogentin 0.5 mg twice a day. If the tremors improve, then she'll be clear for discharge in the morning. * Discussed with primary physician in detail.
[2023-10-17 08:13] LABS: Glucose,Whole Blood 112 mg/dL (70-110)
[2023-10-17] MEDS: CYANOCOBALAMIN 500 MCG TAB PO SCH (08:54)
[2023-10-17 12:19] LABS: Glucose,Whole Blood 121 mg/dL (70-110)
[2023-10-17 13:05] VITALS: BP 112/56; PULSE 77; RESP 19; TEMP 99.3
--- NOTE | 2023-10-17 13:16 | P.DS ---
Providers Date of admission: 10/16/23 14:48 Expected date of discharge: 10/17/23 Attending physician: Andrea Shin Consults: 10/15/23 06:51 Consult Physician Routine Consulting Provider: Ana Rocha Consult Reason/Comments: new tremor Do you want consulting provider notified?: Yes 10/15/23 11:47 Consult Physician Routine Consulting Provider: Yasmani Andersen Consult Reason/Comments: TD-psych meds evaluate Do you want consulting provider notified?: Yes Primary care physician: [facility] Course: Chief Complaint: Seizure This is a 58-year-old patient, follows with Dr. Floyd. Chronic stable medical conditions include CAD, COPD, diabetes, GERD, hyperlipidemia, hypertension, osteoarthritis, neuropathy, vocal cord dysplasia, IBS, overactive bladder, chronic back pain, restless leg syndrome, seizure activity, stop drinking alcohol drinking -2011. Bipolar- follow with Dr. Gorman from psychiatry. Active smoker. Patient presented to ER after witnessed a seizure for about 15 minutes. Patient does not remember the episode. Patient noted to have rather significant tremors. And also sticking out of for tongue and rolling about. She says this has been exacerbated for about 2 months. Possibly after new medication was started. Unclear which one. She also had a seizure around gi. Patient has continued to smoke. Does want to stop. 10/16/2023: Patient still having significant tremors. Discussed with Dr. Barron from neurology. Question about drug-induced Parkinson's. Cogentin was added. EEG has been unremarkable. We did not feel the patient has seizures. No change in seizure medications. Also discussed with Dr. Andersen from psychiatry. We'll see how patient does with current change of medications including Cogentin. 10/17/2023: Patient tremors are better with Cogentin and propranolol. Discussed with Dr. Barron. Okay to DC the patient. We'll have the patient follow up with Dr. Gorman his psychiatrist and neurologist. Spoke to the hospital over the phone. Again counseled about smoking. Discussion and discharge planning more than 35 minutes Past medical history to include: CAD, COPD, diabetes, GERD, hyperlipidemia, hypertension, prostatitis, kidney disease, seizure disorder, peripheral neuropathy, vocal cord dysplasia, IBS, overactive bladder, hyperparathyroidism, chronic back pain, this is like syndrome, seizure activity, history of alcohol abuse . Bipolar. Social history: toSimone. Does use a cane/walker/wheelchair. Smokes a pack and a half a day since about age of 15. History of alcoholism stopped around 2011. Did use marijuana in the past. Family history: Mother had CAD Physical examination: VITAL SIGNS: 99.3, 77, 19, 112/56, 92% on 3 L GENERAL: Sitting up in a recliner. Proved Shaking/tremors EYES: Pupils equal. Conjunctiva normal. HEENT: External appearance of nose and ears normal, oral cavity grossly normal. NECK: JVD not raised; masses not palpable. HEART: First and second heart sounds are normal; no edema. LUNGS: Respiratory rate increased; his breath sounds, wheezing. ABDOMEN: Soft, nontender, liver spleen not palpable, no masses palpable. PSYCH: Alert and oriented x3; mood and affect anxiousl. MUSCULOSKELETAL:No Clubbing/cyanosis;muscles-grossly intact NEUROLOGICAL: Cranial nerves grossly intact; no facial asymmetry, intermittent sticking out her tongue. Rolling sometimes. Tremors decreased INVESTIGATIONS, reviewed in the clinical context: EEG: Negative for epileptiform activity. White count 7.3 hemoglobin 14 platelets 225 sodium 142 potassium 3.6 creatinine 0.7 to Influenza type A, B, RSV, COVID-19: Not detected Chest x-ray film personally reviewed by me-some interstitial prominence Assessment and plan: -Probable tardive dyskinesia uncontrolled. Patient states symptoms be lasting for close to 2 months. Probably drug induced parkinsonism.: [facility] evaluation patient's medications Cogentin and propranolol added -Patient does not seem to have breakthrough seizures. Discussed with neurology. EEG unremarkable - COPD in current smoker: -CAD with a prior history of stent. Follows with Dr. Ramachandran. Continue home cardiac medications. -Chronic Orofacial dyskinesia -Chronic nicotine dependence, cigarette smoker Nicotine patch 21 -Restless leg syndrome Requip to 0.5 mg 3 times a day -GERD Omeprazole 40 mg daily -Bipolar disorder Psychiatry followed -Diabetes mellitus type 2 chronically on insulin Follow Accu-Cheks with sliding scale. -Chronic medical debility. Baseline uses a walker/wheelchair -Full code Disposition: Home Past Medical History Past Medical History: Asthma, Coronary Artery Disease (CAD), COPD, Diabetes Mellitus, GERD/Reflux, Hyperlipidemia, Hypertension, Osteoarthritis (OA), Renal Disease, Seizure Disorder Additional Past Medical History / Comment(s): IDDM type II, neuropathy bilateral legs/feet, vocal cord dysplasia/R vocal cord ulcer, dysphagia in past, IBS, overactive bladder, hyperparathyroidism, chronic back pain, headaches, chronic sinusitis, bilateral tinnitis, RLS, last seizure about one year ago, pt states past ETOH abuse but has not drank in 25 years. History of Any Multi-Drug Resistant Organisms: None Reported Past Surgical History: Appendectomy, Back Surgery, Heart Catheterization, Heart Catheterization With Stent, Hysterectomy, Tubal Ligation Additional Past Surgical History / Comment(s): Multiple throat biopsies, EGD, colonoscopies, back surgery x2. 2 stents. Past Anesthesia/Blood Transfusion Reactions: No Reported Reaction Date of Last Stent Placement:: unknown Past Psychological History: Bipolar, Depression Smoking Status: Current every day smoker Past Alcohol Use History: None Reported Past Drug Use History: None Reported Plan - Discharge Summary New Discharge Prescriptions: New Nitrofurantoin Monohyd/M-Cryst [Macrobid] 100 mg PO Q12HR #6 cap Benztropine Mesylate [Cogentin] 0.5 mg PO BID #60 tab Mirtazapine [Remeron] 15 mg PO HS #30 tab Cyanocobalamin [Vitamin B-12] 500 mcg PO DAILY #30 tab Pyridoxine [Vitamin B-6] 50 mg PO DAILY #30 tab Nicotine 21Mg/24Hr Patch [Habitrol] 1 patch TRANSDERM DAILY #14 patch Propranolol [Inderal] 10 mg PO TID #90 tab Continue Rosuvastatin Calcium [Crestor] 40 mg PO HS Primidone [Mysoline] 50 mg PO TID Aspirin EC [Ecotrin Low Dose] 81 mg PO DAILY Pregabalin [Lyrica] 150 mg PO TID Baclofen [Lioresal] 20 mg PO TID Folic Acid 1 mg PO DAILY #30 tab Furosemide [Lasix] 10 mg PO DAILY Lidocaine 5% Patch [Lidoderm 5% Patch] 1 patch TRANSDERM DAILY PRN PRN Reason: Pain Cholecalciferol [Vitamin D3 (25 Mcg = 1000 Iu)] 25 mcg PO DAILY Insulin Aspart [NovoLOG Flexpen] See Protocol SQ AC-TID Isosorbide Mononitrate ER [Imdur] 30 mg PO BID Diroximel Fumarate [Vumerity] 462 mg PO BID Enalapril [Vasotec] 2.5 mg PO BID Valbenazine Tosylate [Ingrezza] 80 mg PO DAILY Ezetimibe [Zetia] 10 mg PO DAILY DULoxetine HCL [Cymbalta] 60 mg PO BID Clopidogrel [Plavix] 75 mg PO DAILY Albuterol Nebulized [Ventolin Nebulized] 2.5 mg INHALATION RT-QID valACYclovir HCL [Valtrex] 1,000 mg PO DAILY Potassium Chloride ER [K-Dur 10] 10 meq PO DAILY Omeprazole 40 mg PO DAILY levETIRAcetam [Keppra] 1,000 mg PO BID Insulin Detemir [Levemir Flextouch Pen] 3 units SQ HS lamoTRIgine 150 mg PO BID Insulin Aspart [NovoLOG Flexpen] 5 unit SQ AC-TID rOPINIRole HCL [Requip] 0.5 mg PO TID Acetaminophen [Tylenol Extra Strength] 1,000 mg PO Q8H PRN PRN Reason: Pain ALPRAZolam [Xanax] 0.5 mg PO HS Nitroglycerin 0.4 mg SL Q5M PRN PRN Reason: Chest Pain Ondansetron [Zofran] 2 mg PO TID PRN PRN Reason: Nausea And Vomiting Umeclidinium Aston [Incruse Ellipta] 1 puff INHALATION RT-DAILY Budesonide/Formoterol Fumarate [Symbicort 160-4.5 Mcg Inhaler] 2 puff INHALATION RT-BID Albuterol Inhaler [Ventolin Hfa Inhaler] 2 puff INHALATION RT-QID PRN PRN Reason: Shortness Of Breath Ranolazine [Ranexa] 1,000 mg PO BID Discharge Medication List Albuterol Nebulized [Ventolin Nebulized] 2.5 mg INHALATION RT-QID 02/11/22 [History] Clopidogrel [Plavix] 75 mg PO DAILY 02/11/22 [History] DULoxetine HCL [Cymbalta] 60 mg PO BID 02/11/22 [History] Ezetimibe [Zetia] 10 mg PO DAILY 02/11/22 [History] Insulin Aspart [NovoLOG Flexpen] 5 unit SQ AC-TID 02/11/22 [History] Insulin Detemir [Levemir Flextouch Pen] 3 units SQ HS 02/11/22 [History] Omeprazole 40 mg PO DAILY 02/11/22 [History] Potassium Chloride ER [K-Dur 10] 10 meq PO DAILY 02/11/22 [History] Primidone [Mysoline] 50 mg PO TID 02/11/22 [History] Rosuvastatin Calcium [Crestor] 40 mg PO HS 02/11/22 [History] lamoTRIgine 150 mg PO BID 02/11/22 [History] levETIRAcetam [Keppra] 1,000 mg PO BID 02/11/22 [History] valACYclovir HCL [Valtrex] 1,000 mg PO DAILY 02/11/22 [History] Aspirin EC [Ecotrin Low Dose] 81 mg PO DAILY 05/06/22 [History] Baclofen [Lioresal] 20 mg PO TID 05/06/22 [History] Pregabalin [Lyrica] 150 mg PO TID 05/06/22 [History] rOPINIRole HCL [Requip] 0.5 mg PO TID 05/06/22 [History] Folic Acid 1 mg PO DAILY #30 tab 05/15/22 [Rx] ALPRAZolam [Xanax] 0.5 mg PO HS 09/18/22 [History] Acetaminophen [Tylenol Extra Strength] 1,000 mg PO Q8H PRN 09/18/22 [History] Furosemide [Lasix] 10 mg PO DAILY 09/18/22 [History] Nitroglycerin 0.4 mg SL Q5M PRN 09/18/22 [History] Ondansetron [Zofran] 2 mg PO TID PRN 09/18/22 [History] Albuterol Inhaler [Ventolin Hfa Inhaler] 2 puff INHALATION RT-QID PRN 10/15/23 [History] Budesonide/Formoterol Fumarate [Symbicort 160-4.5 Mcg Inhaler] 2 puff INHALATION RT-BID 10/15/23 [History] Cholecalciferol [Vitamin D3 (25 Mcg = 1000 Iu)] 25 mcg PO DAILY 10/15/23 [History] Diroximel Fumarate [Vumerity] 462 mg PO BID 10/15/23 [History] Enalapril [Vasotec] 2.5 mg PO BID 10/15/23 [History] Insulin Aspart [NovoLOG Flexpen] See Protocol SQ AC-TID 10/15/23 [History] Isosorbide Mononitrate ER [Imdur] 30 mg PO BID 10/15/23 [History] Lidocaine 5% Patch [Lidoderm 5% Patch] 1 patch TRANSDERM DAILY PRN 10/15/23 [History] Nitrofurantoin Monohyd/M-Cryst [Macrobid] 100 mg PO Q12HR #6 cap 10/15/23 [Rx] Ranolazine [Ranexa] 1,000 mg PO BID 10/15/23 [History] Umeclidinium Aston [Incruse Ellipta] 1 puff INHALATION RT-DAILY 10/15/23 [History] Valbenazine Tosylate [Ingrezza] 80 mg PO DAILY 10/15/23 [History] Benztropine Mesylate [Cogentin] 0.5 mg PO BID #60 tab 10/17/23 [Rx] Cyanocobalamin [Vitamin B-12] 500 mcg PO DAILY #30 tab 10/17/23 [Rx] Mirtazapine [Remeron] 15 mg PO HS #30 tab 10/17/23 [Rx] Nicotine 21Mg/24Hr Patch [Habitrol] 1 patch TRANSDERM DAILY #14 patch 10/17/23 [Rx] Propranolol [Inderal] 10 mg PO TID #90 tab 10/17/23 [Rx] Pyridoxine [Vitamin B-6] 50 mg PO DAILY #30 tab 10/17/23 [Rx] Follow up Appointment(s)/Referral(s): own-neurologistdr [Other] - 1 Week Tobin Gorman DO [REFERRING] - 1 Week Nii Floyd MD [Primary Care Provider] - 1-2 days Patient Instructions/Handouts: Seizure/Epilepsy Discharge Instructions & Follow-Up
== END 2023-10-17 15:16 | disposition home or self-care (01) | DRG 92 ==
LOC: EC 19:00 → 6NMEDSUR 10-15 06:56 → 5NMEDONC 10-15 16:31 → OBSVTOIN 10-16 14:48
PROVIDERS: ADMIT Hospitalist; ATTEND Hospitalist
PROC: 4A10X4Z Monitoring of Central Nervous Electrical Activity, External Approach (ICD-10-PCS; principal; 2023-10-15)
DX: G24.01 Drug induced subacute dyskinesia (principal); B37.0 Candidal stomatitis; F31.81 Bipolar II disorder; G21.19 Other drug induced secondary parkinsonism; F17.210 Nicotine dependence, cigarettes, uncomplicated; G25.81 Restless legs syndrome; I25.10 Atherosclerotic heart disease of native coronary artery without angina pectoris; J44.9 Chronic obstructive pulmonary disease, unspecified; E11.42 Type 2 diabetes mellitus with diabetic polyneuropathy; G89.29 Other chronic pain; Z11.52 Encounter for screening for COVID-19; N32.81 Overactive bladder; E21.3 Hyperparathyroidism, unspecified; J32.8 Other chronic sinusitis; E78.5 Hyperlipidemia, unspecified; K21.9 Gastro-esophageal reflux disease without esophagitis; I10 Essential (primary) hypertension; G40.409 Other generalized epilepsy and epileptic syndromes, not intractable, without status epilepticus; G35 Multiple sclerosis; K58.9 Irritable bowel syndrome, unspecified; M19.90 Unspecified osteoarthritis, unspecified site; W18.30XA Fall on same level, unspecified, initial encounter; Z79.02 Long term (current) use of antithrombotics/antiplatelets; Z79.4 Long term (current) use of insulin; Z79.51 Long term (current) use of inhaled steroids; Z79.82 Long term (current) use of aspirin; Z79.899 Other long term (current) drug therapy; Z82.49 Family history of ischemic heart disease and other diseases of the circulatory system; Z90.710 Acquired absence of both cervix and uterus; Z88.6 Allergy status to analgesic agent; Z88.5 Allergy status to narcotic agent; Z88.0 Allergy status to penicillin; Z98.51 Tubal ligation status; X58.XXXA Exposure to other specified factors, initial encounter; Z86.59 Personal history of other mental and behavioral disorders
CPT/HCPCS: 36415; 71046; 80053; 80175; 80177; 80184; 80188; 81001; 82140; 83605; 84443; 85025; 87040; 87324; 87636; 94640; 95816; 96372; 96374; 99285

== ENCOUNTER → 2024-05-24 | Outpatient (CLI) | payer MEDICARE, OTHER ==
--- NOTE | 2024-06-11 16:04 | CTL ---
Site ID [id number] Patient Mesha Will R ID [id number] 1965 Age/Gender: 59Y, F Order # N/A Procedure CT LOW DOSE LUNG CANCER SCREENING Date 05/24/2024 11:57:00 AM EXAMINATION TYPE: CT Low Dose Lung DATE OF EXAM ORDERED: 05/28/2024 HISTORY: Personal history of nicotine dependence, 30 pack-year history, current smoker. Lung cancer s creening CT DLP: 82.[address] CTDI: 2.40 mGy Automated exposure control for dose reduction was used. SCREENING VISIT: Follow-up COMPARISON: CT Low Dose Lung cancer screening 05/23/2023, CTA chest 05/23/2022 TECHNIQUE: Low dose computed tomography scan was performed through the chest at 1 mm thick sections a nd reconstructed images in multiple planes at 1 mm and [address] DIAGNOSTIC QUALITY: Satisfactory FINDINGS: Nodules: Diffuse scattered stable pulmonary micronodules exams including a right midlung 3.2 mm subpleural nod ule (series 4, image 90) and a left upper lobe posterior 3.2 mm pulmonary nodule (series 4, image 39) . No new or enlarging pulmonary nodule. LUNGS: COPD: Severity: None Fibrosis: Severity: None Lymph nodes: None Other findings: None RIGHT PLEURAL SPACE: Effusion: None Calcification: None Thickening: None Pneumothorax: None LEFT PLEURAL SPACE: Effusion: None Calcification: None Thickening: None Pneumothorax: None HEART: Heart Size: Normal, mitral annulus calcifications. Coronary Calcification: Moderate, most prominent along the LAD. Pericardial Effusion: None OTHER FINDINGS: Upper abdomen: Stable right adrenal gland 2.3 cm nodule most consistent with a lipid rich benign rain suzy. Bony thorax: None Supraclavicular region: None Other: Mild atherosclerotic calcification of the aortic arch and its branches. IMPRESSION: Few stable pulmonary nodules measuring less than 4 mm. No new or enlarging nodules. CT LUNG RAD AND CT CHEST RECOMMENDATION: Lung-Rad 2 Benign Appearance or Behavior: Continue annual sc reening with LDCT in 12 months. S Modifier (other clinically significant findings): None
== END | disposition home or self-care (01) ==
LOC: RADCTMAIN 11:33
PROVIDERS: ATTEND Internal Medicine Critical Care Medicine
DX: Z12.2 Encounter for screening for malignant neoplasm of respiratory organs (principal); R91.8 Other nonspecific abnormal finding of lung field; F17.210 Nicotine dependence, cigarettes, uncomplicated
CPT/HCPCS: 71271